=== PATIENT | female | born 1935 | race African-American/Black ===

== ENCOUNTER 2017-01-29 05:52 | Observation (INO) | payer OTHER ==
[~2017-01-29] VITALS: Ht 165.1 cm; Wt 85.3 kg
[~2017-01-29 05:52] MED LIST: ALPR0.254 PO; ALPR0.5T PO; ALPR0.5T10 PO; ATOR20TA58 PO; BISA-42 PO; BISA10SU55 RC; CEPH500C PO; CLON0.5T3 PO; DOCU-109 PO; ERYT250C8 PO; FENT1PAT21 TP; FURO40TA4 PO; LUBI8CAP4 PO; MIDO5TAB PO; NA P133E2 RC; OMEP40CA5 PO; OXYB5TAB7 PO; POTASSIUM CHLO10 MEQ PO; SOTA80TA48 PO; TRAM50TA PO; VENL75TA PO; ZOLP10TA4 PO; ZOLP5TAB PO
--- NOTE | 2017-01-29 06:21 | EKG ---
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
--- NOTE | 2017-01-29 06:22 | PHYS DOC ---
Past Medical History Past Medical History: A-Fib, Anxiety, Arthritis, CHF, GERD, High Cholesterol Additional Past Medical Histor: lower ext swelling, pacemaker Past Surgical History: Cholecystectomy, Hysterectomy, Pacemaker Additional Past Surgical Histo: L breast surgery (lumpectomy), L shoulder sx, hemmorhoidectomy,L shoulder Alcohol Use: None Drug Use: None Adult General Chief Complaint Chief Complaint: SWALLOWED FORIEGN BODY HPI HPI Patient is a 81 year old -[place] female who presents with chest tightness. She states last night she some popcorn and she feels like when the holes gets stuck in her throat. She said when she was eating it she felt her symptoms and isn't itchy medicine her throat that would last about an hour and she felt like she was choking when these occurred. She states she had 2-3 of these overnight that would resolve by themselves and each episode lasts approximately an hour. She states she tried to make herself throw up to see if this would relieve her symptoms and it did not help. She states this morning occurred with chest tightness. She states it was throughout her chest didn't radiate nothing made it better or worse. She states symptoms are now gone. She states the GI cocktail did help with her symptoms. Review of Systems Review of Systems Constitutional: Denies fever or chills [] Eyes: Denies change in visual acuity, redness, or eye pain [] HENT: Denies nasal congestion or sore throat [] Respiratory: Denies cough or shortness of breath [] Cardiovascular: No additional information not addressed in HPI [] GI: Denies abdominal pain, nausea, vomiting, bloody stools or diarrhea [] : Denies dysuria or hematuria [] Musculoskeletal: Denies back pain or joint pain [] Integument: Denies rash or skin lesions [] Neurologic: Denies headache, focal weakness or sensory changes [] Endocrine: Denies polyuria or polydipsia [] Current Medications Current Medications Current Medications Medications (Trade) Dose Ordered Sig/Babatunde Start Time Stop Time Status Last Admin Dose Admin Multi-Ingredient Mouthwash/Gargle (Gi Cocktail Single Dose) 15 ml 1X ONCE 01/29/17 06:30 01/29/17 06:31 DC 01/29/17 06:27 15 ML Ondansetron HCl (Zofran) 4 mg PRN Q8HRS PRN 01/29/17 08:00 01/30/17 07:59 Allergies Allergies Allergies Coded Allergies Type Severity Reaction Last Updated Verified Penicillins Allergy Intermediate Rash 04/07/16 Yes atorvastatin Allergy Intermediate 12/18/15 Yes tetracycline Allergy Intermediate rash 11/22/15 Yes codeine Adverse Reaction Intermediate nausea & vomiting 11/22/15 Yes hydrocodone Adverse Reaction Intermediate Nausea and Vomiting 11/22/15 Yes iron Adverse Reaction Intermediate Nausea and Vomiting, iron tablets the oral dose only 11/22/15 Yes morphine Adverse Reaction Intermediate vomiting 11/22/15 Yes Physical Exam Physical Exam Constitutional: Well developed, well nourished, no acute distress, non-toxic appearance. [] HENT: Normocephalic, atraumatic, bilateral external ears normal, oropharynx moist, no oral exudates, nose normal. [] Eyes: PERRLA, EOMI, conjunctiva normal, no discharge. [] Neck: Normal range of motion, no tenderness, supple, no stridor. [] Cardiovascular:Heart rate regular rhythm, no murmur [] Lungs & Thorax: Bilateral breath sounds clear to auscultation [] Abdomen: Bowel sounds normal, soft, no tenderness, no masses, no pulsatile masses. [] Skin: Warm, dry, no erythema, no rash. [] Back: No tenderness, no CVA tenderness. [] Extremities: No tenderness, no cyanosis, no clubbing, ROM intact, no edema. [] Neurologic: Alert and oriented X 3, normal motor function, normal sensory function, no focal deficits noted. [] Psychologic: Affect normal, judgement normal, mood normal. [] Current Patient Data Vital Signs Vital Signs Date Time Temp Pulse Resp B/P (MAP) Pulse Ox O2 Delivery O2 Flow Rate FiO2 01/29/17 06:08 97.7 79 16 137/61 (86) 99 Room Air 97.7 Lab Values Laboratory Tests Test 01/29/17 06:35 White Blood Count 5.2 x10^3/uL (4.0-11.0) Red Blood Count 4.17 x10^6/uL (3.50-5.40) Hemoglobin 11.0 g/dL (12.0-15.5) L Hematocrit 32.9 % (36.0-47.0) L Mean Corpuscular Volume 79 fL (79-100) Mean Corpuscular Hemoglobin 26 pg (25-35) Mean Corpuscular Hemoglobin Concent 34 g/dL (31-37) Red Cell Distribution Width 14.5 % (11.5-14.5) Platelet Count 173 x10^3/uL (140-400) Neutrophils (%) (Auto) 62 % (31-73) Lymphocytes (%) (Auto) 25 % (24-48) Monocytes (%) (Auto) 9 % (0-9) Eosinophils (%) (Auto) 4 % (0-3) H Basophils (%) (Auto) 1 % (0-3) Neutrophils # (Auto) 3.2 x10^3uL (1.8-7.7) Lymphocytes # (Auto) 1.3 x10^3/uL (1.0-4.8) Monocytes # (Auto) 0.5 x10^3/uL (0.0-1.1) Eosinophils # (Auto) 0.2 x10^3/uL (0.0-0.7) Basophils # (Auto) 0.0 x10^3/uL (0.0-0.2) Prothrombin Time 13.3 SEC (11.7-14.0) Prothrombin Time INR 1.1 (0.8-1.1) Sodium Level 134 mmol/L (136-145) L Potassium Level 4.2 mmol/L (3.5-5.1) Chloride Level 100 mmol/L (98-107) Carbon Dioxide Level 25 mmol/L (21-32) Anion Gap 9 (6-14) Blood Urea Nitrogen 15 mg/dL (7-20) Creatinine 0.8 mg/dL (0.6-1.0) Estimated GFR (Cockcroft-Gault) 83.1 Glucose Level 109 mg/dL (70-99) H Calcium Level 8.6 mg/dL (8.5-10.1) Total Bilirubin 0.3 mg/dL (0.2-1.0) Direct Bilirubin 0.1 mg/dL (0.0-0.2) Aspartate Amino Transferase (AST) 17 U/L (15-37) Alanine Aminotransferase (ALT) 14 U/L (14-59) Alkaline Phosphatase 83 U/L (46-116) Creatine Kinase 137 U/L (26-192) Creatine Kinase MB (Mass) 0.8 ng/mL (0.0-3.6) Creatine Kinase MB Relative Index 0.6 % (0-4) Troponin I Quantitative < 0.017 ng/mL (0.000-0.055) XV-Jdg-W-Type Natriuretic Peptide 109 pg/mL (0-449) Total Protein 7.2 g/dL (6.4-8.2) Albumin 3.6 g/dL (3.4-5.0) Lipase 61 U/L (73-393) L Laboratory Tests 01/29/17 06:35 Laboratory Tests 01/29/17 06:35 EKG EKG EKG shows sinus rhythm with rate of [address] elevations, first- degree A-V block noted with AZ interval 250 ms, no ST elevations appreciated, normal axis, QTC 457 ms, as interpreted by me. Her EKG is unchanged from April 03, 2016. Radiology/Procedures Radiology/Procedures [facility] [address] [place] [address] IMAGING REPORT Signed PATIENT: DAVIS CARVALHO ACCOUNT: [id number] : 1935 LOCATION: ER AGE: 81 SEX: F EXAM STATUS: REG ER ORD. PHYSICIAN: SADE WEAVER MD REASON: throat pain PROCEDURE: CHEST PA & LATERAL Indication: Throat pain, with popcorn kernel stuck in the throat. Time of exam 0621 hours. Correlation is made with prior exam from 04/03/2016. The heart size is stable. Cardiac pacemaker remains in place. The lungs are clear. No infiltrates are detected. No effusion or pneumothorax is identified. No radiopaque ingested foreign body is identified. Impression: No acute feature identified. DICTATED and SIGNED BY: AYUSH HODGE MD DATE: 01/29/17 0710 CC: SADE WEAVER MD; CAROL SLOO MD ~ Impressions: Chest pain Hypertension Dyslipidemia Hypothyroidism Former tobacco abuse Course & Med Decision Making Course & Med Decision Making Pertinent Labs and Imaging studies reviewed. (See chart for details) Patient presents with intermittent chest pain that is resolved now. Her EKG, first troponin is normal. Spoke with Dr. Mcallister regarding consultation the patient's being admitted to Dr. Solo. Patient's in stable and agreeable condition at this time. 324 aspirin has been ordered for the patient. Dragon Disclaimer Dragon Disclaimer This electronic medical record was generated, in whole or in part, using a voice recognition dictation system. Departure Departure Impression: Primary Impression: Chest pain Disposition: ADMITTED INPATIENT Admitting Physician: Carol Solo Condition: STABLE Referrals: CAROL SOLO MD (PCP) SADE WEAVER MD Jan 29, 2017 06:22
[2017-01-29] MEDS ORDERED: LIDO:MAALOX:DONNATAL 1:1:1 15 ML SINGLE DOSE SWSW ONE (06:30)
[2017-01-29 06:47] LABS: BASO % 1 % (0-3); EOS % 4 % (0-3); HEMATOCRIT 32.9 % (36.0-47.0); LYMPH # 1.3 x10^3/uL (1.0-4.8); LYMPH % 25 % (24-48); MEAN CORPUSCULAR HEMOGLOBIN 26 pg (25-35); MEAN CORPUSCULAR HGB CONC 34 g/dL (31-37); MEAN CORPUSCULAR VOLUME 79 fL (79-100); MONO % 9 % (0-9); NEUT % 62 % (31-73); PLATELET COUNT 173 x10^3/uL (140-400); RED BLOOD COUNT 4.17 x10^6/uL (3.50-5.40); RED CELL DISTRIBUTION WIDTH 14.5 % (11.5-14.5); WHITE BLOOD COUNT 5.2 x10^3/uL (4.0-11.0)
[2017-01-29 06:56] LABS: CALCIUM 8.6 mg/dL (8.5-10.1); CREATININE 0.8 mg/dL (0.6-1.0); GFR 83.1; POTASSIUM 4.2 mmol/L (3.5-5.1)
[2017-01-29 07:01] LABS: ALBUMIN 3.6 g/dL (3.4-5.0); DIRECT BILIRUBIN 0.1 mg/dL (0.0-0.2); TOTAL BILIRUBIN 0.3 mg/dL (0.2-1.0); TOTAL PROTEIN 7.2 g/dL (6.4-8.2)
--- NOTE | 2017-01-29 07:14 | RAD ---
Indication: Throat pain, with popcorn kernel stuck in the throat. Time of exam 0621 hours. Correlation is made with prior exam from 04/03/2016. The heart size is stable. Cardiac pacemaker remains in place. The lungs are clear. No infiltrates are detected. No effusion or pneumothorax is identified. No radiopaque ingested foreign body is identified. Impression: No acute feature identified.
[2017-01-29 07:24] LABS: CKMB MASS 0.8 ng/mL (0.0-3.6)
[2017-01-29 07:33] LABS: INR 1.1 (0.8-1.1); PROTHROMBIN TIME PATIENT 13.3 SEC (11.7-14.0)
[2017-01-29] MEDS ORDERED: ONDANSETRON PF 4 MG/2 ML VIAL. IV PRN (08:00)
[2017-01-29] MEDS ORDERED: ASPIRIN 325 MG TABLET PO ONE (08:15)
[2017-01-29 09:37] VITALS: BP 149/88
[2017-01-29 09:39] VITALS: BP 149/88
--- NOTE | 2017-01-29 10:14 | PDOC ---
Provider Note Provider Note Pt seen .H&P to be dictated. #[id number] SHOLA SOLO MD Jan 29, 2017 10:14
[2017-01-29] MEDS ORDERED: ZOLPIDEM 5 MG TABLET. PO PRN (10:15)
[2017-01-29] MEDS ORDERED: ALPRAZolam 0.25 MG TABLET PO PRN (10:15)
[2017-01-29] MEDS ORDERED: BISACODYL 10 MG SUPP.RECT. RC PRN (10:15)
[2017-01-29] MEDS ORDERED: PANTOPRAZOLE 40 MG TABLET.DR. PO SCH (10:30)
[2017-01-29 10:40] VITALS: BP 153/81
[2017-01-29] MEDS ORDERED: ACETAMINOPHEN 325 MG TABLET. PO PRN (11:15)
[2017-01-29] MEDS: DOCUSATE SODIUM 100 MG CAPSULE. PO SCH (11:54)
[2017-01-29] MEDS: SOTALOL 80 MG TABLET. PO SCH ×2 (11:56→20:34)
--- NOTE | 2017-01-29 12:31 | PDOC2 ---
GI CONSULT Reason For Consult: Possible esophageal tear HPI: HPI: 81 y/o female who says she came to the ER w/ concerns a piece of popcorn kernel skin was stuck in her throat. She was wheezing. No n/v. This has resolved. She denies dysphagia and odynophagia and is tolerating PO. No abd pain. She is now having chest pain 8/10 which apparently began after arriving at the hospital. Cardiology is following w/ echocardiogram planned. H/o colon polyps, unclear when last colonoscopy performed. Since bladder repair w/ mesh, issues w/ constipation for which she uses enemas, Miralax, Dulcolax, and stool softeners at home PRN. H/o Mcgraw's esophagus, w/ serial EGDs, last on 11/22/[address] 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 On omeprazole QD which controls GERD except for occasional breakthrough symptoms. Does take Aleve for hip and knee pain. Denies hematochezia/melena. PMH: PMH: pacemaker, SSS, cardiomyopathy, HLD, anxiety/depression, hysterectomy, cholecystectomy, left shoulder surgery, bladder surgery w/ mesh, benign breast lumpectomy, lymph node removal (benign) FH: Family History: No pertinent hx Social History: Smoke: No ALCOHOL: none Drugs: None ROS: GEN: Denies fevers, chills, sweats HEENT: Denies blurred vision, sore throat CV: +chest pain RESP: +wheezing GI: Per HPI : Denies hematuria, dysuria ENDO: Denies weight changes NEURO: Denies confusion, dizziness MSK: Denies weakness, joint pain/swelling SKIN: Denies jaundice, pruritus Vitals: Vitals: Vital Signs Date Time Temp Pulse Resp B/P (MAP) Pulse Ox O2 Delivery O2 Flow Rate FiO2 01/29/17 11:56 75 153/81 01/29/17 10:46 Room Air 01/29/17 10:40 97.8 15 98 97.8 Labs: Labs: Laboratory Tests Test 01/29/17 06:35 White Blood Count 5.2 x10^3/uL (4.0-11.0) Red Blood Count 4.17 x10^6/uL (3.50-5.40) Hemoglobin 11.0 g/dL (12.0-15.5) Hematocrit 32.9 % (36.0-47.0) Mean Corpuscular Volume 79 fL (79-100) Mean Corpuscular Hemoglobin 26 pg (25-35) Mean Corpuscular Hemoglobin Concent 34 g/dL (31-37) Red Cell Distribution Width 14.5 % (11.5-14.5) Platelet Count 173 x10^3/uL (140-400) Neutrophils (%) (Auto) 62 % (31-73) Lymphocytes (%) (Auto) 25 % (24-48) Monocytes (%) (Auto) 9 % (0-9) Eosinophils (%) (Auto) 4 % (0-3) Basophils (%) (Auto) 1 % (0-3) Neutrophils # (Auto) 3.2 x10^3uL (1.8-7.7) Lymphocytes # (Auto) 1.3 x10^3/uL (1.0-4.8) Monocytes # (Auto) 0.5 x10^3/uL (0.0-1.1) Eosinophils # (Auto) 0.2 x10^3/uL (0.0-0.7) Basophils # (Auto) 0.0 x10^3/uL (0.0-0.2) Prothrombin Time 13.3 SEC (11.7-14.0) Prothromb Time International Ratio 1.1 (0.8-1.1) Sodium Level 134 mmol/L (136-145) Potassium Level 4.2 mmol/L (3.5-5.1) Chloride Level 100 mmol/L (98-107) Carbon Dioxide Level 25 mmol/L (21-32) Anion Gap 9 (6-14) Blood Urea Nitrogen 15 mg/dL (7-20) Creatinine 0.8 mg/dL (0.6-1.0) Estimated GFR (Cockcroft-Gault) 83.1 Glucose Level 109 mg/dL (70-99) Calcium Level 8.6 mg/dL (8.5-10.1) Total Bilirubin 0.3 mg/dL (0.2-1.0) Direct Bilirubin 0.1 mg/dL (0.0-0.2) Aspartate Amino Transf (AST/SGOT) 17 U/L (15-37) Alanine Aminotransferase (ALT/SGPT) 14 U/L (14-59) Alkaline Phosphatase 83 U/L (46-116) Creatine Kinase 137 U/L (26-192) Creatine Kinase MB (Mass) 0.8 ng/mL (0.0-3.6) Creatine Kinase MB Relative Index 0.6 % (0-4) Troponin I Quantitative < 0.017 ng/mL (0.000-0.055) BH-Wjo-J-Type Natriuretic Peptide 109 pg/mL (0-449) Total Protein 7.2 g/dL (6.4-8.2) Albumin 3.6 g/dL (3.4-5.0) Lipase 61 U/L (73-393) Allergies: Coded Allergies: Penicillins (Verified Allergy, Intermediate, Rash, 04/07/16) tolerates cephalasporins atorvastatin (Verified Allergy, Intermediate, 12/18/15) tetracycline (Verified Allergy, Intermediate, rash, 11/22/15) codeine (Verified Adverse Reaction, Intermediate, nausea & vomiting, ) hydrocodone (Verified Adverse Reaction, Intermediate, Nausea and Vomiting , 11/22/15) iron (Verified Adverse Reaction, Intermediate, Nausea and Vomiting, iron tablets the oral dose only, 11/22/15) morphine (Verified Adverse Reaction, Intermediate, vomiting, 11/22/15) Medications: Current Medications Medications (Trade) Dose Ordered Sig/Babatunde Route PRN Reason Start Time Stop Time Status Last Admin Dose Admin Multi-Ingredient Mouthwash/Gargle (Gi Cocktail Single Dose) 15 ml 1X ONCE SWSW 01/29/17 06:30 01/29/17 06:31 DC 01/29/17 06:27 Aspirin (Niranjan Aspirin) 325 mg 1X ONCE PO 01/29/17 08:15 01/29/17 08:16 DC 01/29/17 08:15 Docusate Sodium (Colace) 100 mg DAILY PO 01/29/17 10:30 01/29/17 11:54 Sotalol HCl (Betapace) 60 mg BID PO 01/29/17 10:30 01/29/17 11:56 Pantoprazole Sodium (Protonix) 40 mg DAILYAC PO 01/29/17 10:30 01/29/17 11:54 Acetaminophen (Tylenol) 650 mg PRN Q6HRS PRN PO PAIN 01/29/17 11:15 01/29/17 11:54 Imaging: Imaging: CXR Impression: No acute feature identified. PE: GEN: NAD HEENT: Atraumatic, PERRL LUNGS: CTAB anteriorly HEART: RRR ABD: NABS, S/ND, perhaps some mild epigastric tenderness EXTREMITY: No edema SKIN: No rashes, no jaundice NEURO/PSYCH: A & O 3 A/P: A/P: Globus, wheezing - resolved -onset last night after eating popcorn Chest pain H/o Mcgraw's esophagus -last EGD 11/[address] 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 Will review w/ Dr. Lucero. For now, proceed w/ cardiology workup. Continue PPI and constipation treatment. KRYSTLE ORTIZ Jan 29, 2017 12:31
--- NOTE | 2017-01-29 14:07 | RAD ---
Indication: Bilateral rib pain. Time of exam 1341 hours. No displaced rib fractures detected. No parenchymal contusion, effusion or pneumothorax is identified. Cardiac pacemaker is in place. There are postop changes to the left shoulder. Impression: No acute bony abnormality is detected.
[2017-01-29] MEDS: POLYETHYLENE GLYCOL 3350 17 GM PACKET. PO SCH (14:17)
[2017-01-29 15:20] VITALS: BP 140/62
--- NOTE | 2017-01-29 18:17 | PDOC2 ---
CONSULT Date of Consult Date of Consult DATE: 01/29/17 TIME: 17:59 Reason for Consult Reason for Consult: Chest pain Referring Physician Referring Physician: Dr Mclaughlin Identification/Chief Complaint Chief Complaint Chest pain and discomfort after eating popcorn Problems: History of Present Illness Reason for Visit: This patient is a very pleasant 81-year-old lady that has a known history of heart disease with coronary artery disease and a pacemaker. She was at home and was eating some popcorn when she developed some difficulty swallowing she started coughing and had this feeling of something being stuck in her throat and after a lot of coughing she came to the emergency room where she was seen and examined following the initial findings of something stuck in her throat she developed some tightness in the chest which is different to her previous angina. The patient states that she felt like she was wheezing but that has subsided spontaneously. At the time that I examined her she feels a lot better and is not having any chest pains. No dyspnea now. No palpitations, no loss of consciousness. Past Medical History Cardiovascular: AFIB, CAD, HTN, Syncope, Other Pulmonary: Other GI: Constipation, GERD, Other Heme/Onc: Iron deficiency Anemia Hepatobiliary: Cholelithiasis Psych: Depression Musculoskeletal: low back pain, Osteoarthritis Past Surgical History Past Surgical History: Cholecystectomy, Cataract Removal, Hysterectomy, Other Social History No ALCOHOL: none Drugs: None Lives: with Family Current Medications Current Medications Current Medications Multi-Ingredient Mouthwash/Gargle (Gi Cocktail Single Dose) 15 ml 1X ONCE SWSW Last administered on 01/29/17 06:27; Start 01/29/17 at 06:30; Stop 01/29/17 at 06:31; Status DC Ondansetron HCl (Zofran) 4 mg PRN Q8HRS PRN IV NAUSEA/VOMITING; Start 01/29/17 at 08:00; Stop 01/30/17 at 07:59 Aspirin (Niranjan Aspirin) 325 mg 1X ONCE PO Last administered on 01/29/17 08:15 ; Start 01/29/17 at 08:15; Stop 01/29/17 at 08:16; Status DC Alprazolam (Xanax) 0.25 mg PRN BID PRN PO ANXIETY / AGITATION; Start 01/29/17 at 10:15 Bisacodyl (Dulcolax Supp) 10 mg PRN DAILY PRN RC CONSTIPATION; Start 01/29/17 at 10:15 Docusate Sodium (Colace) 100 mg DAILY PO Last administered on 01/29/17 11:54; Start 01/29/17 at 10:30 Oxybutynin Chloride (Ditropan) 5 mg HS PO ; Start 01/29/17 at 21:00 Sotalol HCl (Betapace) 60 mg BID PO Last administered on 01/29/17 11:56; Start 01/29/17 at 10:30 Zolpidem Tartrate (Ambien) 5 mg PRN QHS PRN PO INSOMNIA; Start 01/29/17 at 10: 15 Pantoprazole Sodium (Protonix) 40 mg DAILYAC PO Last administered on 01/29/17 11:54; Start 01/29/17 at 10:30 Acetaminophen (Tylenol) 650 mg PRN Q6HRS PRN PO PAIN Last administered on 11:54; Start 01/29/17 at 11:15 Polyethylene Glycol (miraLAX PACKET) 17 gm DAILY PO Last administered on 14:17; Start 01/29/17 at 13:00 Active Scripts Active Alprazolam 0.25 Mg Tablet 0.25 Mg PO PRN BID PRN Ambien (Zolpidem Tartrate) 5 Mg Tablet 5 Mg PO PRN QHS PRN Reported Dulcolax (Bisacodyl) 10 Mg Supp.rect 10 Mg RC PRN DAILY PRN Colace (Docusate Sodium) 100 Mg Capsule 100 Mg PO DAILY Oxybutynin Chloride 5 Mg Tablet 5 Mg PO HS Omeprazole 40 Mg Capsule.dr 40 Mg PO DAILY Sotalol (Sotalol Hcl) 80 Mg Tablet 60 Mg PO BID Allergies Allergies: Coded Allergies: Penicillins (Verified Allergy, Intermediate, Rash, 04/07/16) tolerates cephalasporins atorvastatin (Verified Allergy, Intermediate, 12/18/15) tetracycline (Verified Allergy, Intermediate, rash, 11/22/15) codeine (Verified Adverse Reaction, Intermediate, nausea & vomiting, ) hydrocodone (Verified Adverse Reaction, Intermediate, Nausea and Vomiting , 11/22/15) iron (Verified Adverse Reaction, Intermediate, Nausea and Vomiting, iron tablets the oral dose only, 11/22/15) morphine (Verified Adverse Reaction, Intermediate, vomiting, 11/22/15) Physical Exam Physical Exam Patient was not in acute distress at the time that I examined her. H EENT pupils are reactive. Oral mucosa well-hydrated. Neck is supple no JVD. Lungs are clear. Heart regular rate and rhythm S1-S2. No S3-S4 Abdomen is soft bowel sounds present. Extremities no edema. Vitals VITALS Vital Signs Date Time Temp Pulse Resp B/P (MAP) Pulse Ox O2 Delivery O2 Flow Rate FiO2 01/29/17 15:20 97.8 75 15 140/62 (88) 99 97.8 01/29/17 10:46 Room Air Labs Labs Laboratory Tests Test 01/29/17 06:35 01/29/17 13:55 White Blood Count 5.2 x10^3/uL (4.0-11.0) Red Blood Count 4.17 x10^6/uL (3.50-5.40) Hemoglobin 11.0 g/dL (12.0-15.5) Hematocrit 32.9 % (36.0-47.0) Mean Corpuscular Volume 79 fL (79-100) Mean Corpuscular Hemoglobin 26 pg (25-35) Mean Corpuscular Hemoglobin Concent 34 g/dL (31-37) Red Cell Distribution Width 14.5 % (11.5-14.5) Platelet Count 173 x10^3/uL (140-400) Neutrophils (%) (Auto) 62 % (31-73) Lymphocytes (%) (Auto) 25 % (24-48) Monocytes (%) (Auto) 9 % (0-9) Eosinophils (%) (Auto) 4 % (0-3) Basophils (%) (Auto) 1 % (0-3) Neutrophils # (Auto) 3.2 x10^3uL (1.8-7.7) Lymphocytes # (Auto) 1.3 x10^3/uL (1.0-4.8) Monocytes # (Auto) 0.5 x10^3/uL (0.0-1.1) Eosinophils # (Auto) 0.2 x10^3/uL (0.0-0.7) Basophils # (Auto) 0.0 x10^3/uL (0.0-0.2) Prothrombin Time 13.3 SEC (11.7-14.0) Prothromb Time International Ratio 1.1 (0.8-1.1) Sodium Level 134 mmol/L (136-145) Potassium Level 4.2 mmol/L (3.5-5.1) Chloride Level 100 mmol/L (98-107) Carbon Dioxide Level 25 mmol/L (21-32) Anion Gap 9 (6-14) Blood Urea Nitrogen 15 mg/dL (7-20) Creatinine 0.8 mg/dL (0.6-1.0) Estimated GFR (Cockcroft-Gault) 83.1 Glucose Level 109 mg/dL (70-99) Calcium Level 8.6 mg/dL (8.5-10.1) Total Bilirubin 0.3 mg/dL (0.2-1.0) Direct Bilirubin 0.1 mg/dL (0.0-0.2) Aspartate Amino Transf (AST/SGOT) 17 U/L (15-37) Alanine Aminotransferase (ALT/SGPT) 14 U/L (14-59) Alkaline Phosphatase 83 U/L (46-116) Creatine Kinase 137 U/L (26-192) Creatine Kinase MB (Mass) 0.8 ng/mL (0.0-3.6) Creatine Kinase MB Relative Index 0.6 % (0-4) Troponin I Quantitative < 0.017 ng/mL (0.000-0.055) < 0.017 ng/mL (0.000-0.055) GN-Jbv-Z-Type Natriuretic Peptide 109 pg/mL (0-449) Total Protein 7.2 g/dL (6.4-8.2) Albumin 3.6 g/dL (3.4-5.0) Lipase 61 U/L (73-393) Laboratory Tests Test 01/29/17 06:35 01/29/17 13:55 White Blood Count 5.2 x10^3/uL (4.0-11.0) Red Blood Count 4.17 x10^6/uL (3.50-5.40) Hemoglobin 11.0 g/dL (12.0-15.5) Hematocrit 32.9 % (36.0-47.0) Mean Corpuscular Volume 79 fL (79-100) Mean Corpuscular Hemoglobin 26 pg (25-35) Mean Corpuscular Hemoglobin Concent 34 g/dL (31-37) Red Cell Distribution Width 14.5 % (11.5-14.5) Platelet Count 173 x10^3/uL (140-400) Neutrophils (%) (Auto) 62 % (31-73) Lymphocytes (%) (Auto) 25 % (24-48) Monocytes (%) (Auto) 9 % (0-9) Eosinophils (%) (Auto) 4 % (0-3) Basophils (%) (Auto) 1 % (0-3) Neutrophils # (Auto) 3.2 x10^3uL (1.8-7.7) Lymphocytes # (Auto) 1.3 x10^3/uL (1.0-4.8) Monocytes # (Auto) 0.5 x10^3/uL (0.0-1.1) Eosinophils # (Auto) 0.2 x10^3/uL (0.0-0.7) Basophils # (Auto) 0.0 x10^3/uL (0.0-0.2) Prothrombin Time 13.3 SEC (11.7-14.0) Prothromb Time International Ratio 1.1 (0.8-1.1) Sodium Level 134 mmol/L (136-145) Potassium Level 4.2 mmol/L (3.5-5.1) Chloride Level 100 mmol/L (98-107) Carbon Dioxide Level 25 mmol/L (21-32) Anion Gap 9 (6-14) Blood Urea Nitrogen 15 mg/dL (7-20) Creatinine 0.8 mg/dL (0.6-1.0) Estimated GFR (Cockcroft-Gault) 83.1 Glucose Level 109 mg/dL (70-99) Calcium Level 8.6 mg/dL (8.5-10.1) Total Bilirubin 0.3 mg/dL (0.2-1.0) Direct Bilirubin 0.1 mg/dL (0.0-0.2) Aspartate Amino Transf (AST/SGOT) 17 U/L (15-37) Alanine Aminotransferase (ALT/SGPT) 14 U/L (14-59) Alkaline Phosphatase 83 U/L (46-116) Creatine Kinase 137 U/L (26-192) Creatine Kinase MB (Mass) 0.8 ng/mL (0.0-3.6) Creatine Kinase MB Relative Index 0.6 % (0-4) Troponin I Quantitative < 0.017 ng/mL (0.000-0.055) < 0.017 ng/mL (0.000-0.055) LM-Kwc-R-Type Natriuretic Peptide 109 pg/mL (0-449) Total Protein 7.2 g/dL (6.4-8.2) Albumin 3.6 g/dL (3.4-5.0) Lipase 61 U/L (73-393) Assessment/Plan Assessment/Plan This patient comes in with chest discomforts following having difficulty eating some popcorn. She felt like there was something stuck in the back of the throat. She had been trying to throw up and had even attempted to put her finger down her throat to see if she could get at what was causing the irritation. From a cardiac standpoint she appears to be compensated and I do not think that the chest discomfort is angina. We will get an echocardiogram to evaluate for changes in her left ventricular function. Her pacemaker is functioning normally. Thank you very much for asking me to participate in the care of this patient JERED CAMPOS MD Jan 29, 2017 18:17
[2017-01-29 19:10] VITALS: BP 130/72
--- NOTE | 2017-01-29 20:37 | CARD ---
APPROVED REPORT EXAM: Two-dimensional and M-mode echocardiogram with Doppler and color Doppler. Other Information Quality : Good INDICATION Chest Pain 2D DIMENSIONS RVDd2.4 (2.9-3.5cm)Left Atrium(2D)2.8 (1.6-4.0cm) IVSd1.5 (0.7-1.1cm)Aortic Root(2D)3.2 (2.0-3.7cm) LVDd3.5 (3.9-5.9cm)LVOT Diameter2.1 (1.8-2.4cm) PWd1.4 (0.7-1.1cm)LVDs2.2 (2.5-4.0cm) FS (%) 36.2 %SV34.2 ml LVEF(%)67.0 (>50%) Aortic Valve AoV Peak Arnaldo.92.3cm/sAoV VTI21.0cm AO Peak GR.3.4mmHgLVOT Peak Arnaldo.79.4cm/s LVOT VTI 18.51cmAO Mean GR.2mmHg YOHANNES (VMAX)3.21ko0BPY (VTI)3.09cm2 Mitral Valve MV E Iyeokcym98.9cm/sMV DECEL FWBK224cf MV A Uuzzekue738.8cm/sMV ISL45de E/A Ratio0.6MVA (PHT)4.15cm2 TDI E/Lateral E'13.2E/Medial E'14.0 Tricuspid Valve TR P. Qexwpobh069bo/sRAP LWGBQSLL2axMl TR Peak Gr.41dtYjLSWI21gmAi Pulmonary Vein S1 Nsamapqa05.4cm/sD2 Fmklsvfk38.6cm/s LEFT VENTRICLE The left ventricle is normal size. There is mild concentric left ventricular hypertrophy. The left ve ntricular systolic function is normal and . The Ejection Fraction is 55-60%. There is normal LV segme ntal wall motion. Transmitral Doppler flow pattern is Grade I-abnormal relaxation pattern. RIGHT VENTRICLE The right ventricle is normal size. The right ventricular systolic function is normal. There is a pac emaker lead in the right ventricle. ATRIA The left atrium size is normal. The right atrium size is normal. A pacemaker is seen in the right atr ium consistent with history. The interatrial septum is intact with no evidence for an atrial septal d efect or patent foramen ovale as noted on 2-D or Doppler imaging. AORTIC VALVE The aortic valve is normal in structure and function. Doppler and Color Flow revealed no significant aortic regurgitation. There is no significant aortic valvular stenosis. MITRAL VALVE The mitral valve is normal in structure and function. There is no evidence of mitral valve prolapse. There is no mitral valve stenosis. Doppler and Color-flow revealed trace mitral regurgitation. TRICUSPID VALVE The tricuspid valve is normal in structure and function. Doppler and Color Flow revealed mild tricusp id regurgitation. There is mild pulmonary hypertension. The PA pressure was estimated at 32 mmHg. The re is no tricuspid valve stenosis. PULMONIC VALVE The pulmonary valve is normal in structure and function. Doppler and Color Flow revealed mild pulmoni c valvular regurgitation. There is no pulmonic valvular stenosis. GREAT VESSELS The aortic root is normal in size. The ascending aorta is normal in size. The IVC is normal in size a nd collapses >50% with inspiration. PERICARDIAL EFFUSION There is no evidence of significant pericardial effusion. Critical Notification Critical Value: No <Conclusion> The left ventricle is normal size. There is mild concentric left ventricular hypertrophy. The left ventricular systolic function is normal and . The Ejection Fraction is 55-60%. Transmitral Doppler flow pattern is Grade I-abnormal relaxation pattern. There is no evidence of significant pericardial effusion. There is no evidence of mitral valve prolapse. There is no mitral valve stenosis and a trace reguritation The left atrium is of a normal size. The aortic valve is tricuspid with no aortic stenosis or regurgitation The right ventricle is of a normal size with normal systolic function Doppler and Color Flow revealed mild tricuspid regurgitation. There is mild pulmonary hypertension. The PA pressure was estimated at 32 mmHg. Doppler and Color Flow revealed mild pulmonic valvular regurgitation.
[2017-01-29] MEDS ORDERED: OXYBUTYNIN CHLORIDE 5 MG TABLET PO SCH (21:00)
[2017-01-29] MEDS: NON FORMULARY ITEM PO SCH (21:38)
[2017-01-29] MEDS: MORPHINE SULFATE 2 MG/ML DISP.SYRIN. IV PRN (22:20)
[2017-01-29 23:15] VITALS: BP 124/68
--- NOTE | 2017-01-30 01:57 | HP ---
ADMIT DATE: 01/29/2017 THE PATIENT'S LOCATION: [facility] REASON FOR ADMISSION TO THE HOSPITAL: Chest pain. HISTORY OF PRESENT ILLNESS: The patient an 81-year-old female patient who was eating popcorn kernels and it got stuck in her throat. She was cough try to get that out and this still felt something sticking there. At that time, she had noticed some chest pain that progressively worse, she came to the Emergency Room and the patient has a history of pacemaker for sick sinus syndrome, hypertension and cardiomyopathy. The patient was admitted for observation. PAST MEDICAL HISTORY: History of colon polyps, has Mcgraw's esophagitis, and bladder surgery, anxiety, depression, hypertension, and heart failure. PAST SURGICAL HISTORY: Pacemaker for sick sinus syndrome, hysterectomy, gallbladder surgery, left shoulder surgery, bladder lift surgery with mesh, benign breast and lump removal, lymph nodes removal, and had EGD colonoscopies. FAMILY HISTORY: Hypertension and diabetes. SOCIAL HISTORY: Smoked, trying to cut down; denies alcohol or street drugs. ALLERGIES: PENICILLIN, ATORVASTATIN, CODEINE, HYDROCODONE, IODINE, MORPHINE, AND TETRACYCLINE. MEDICATIONS AT HOME: Taking Xanax 0.25 daily, Dulcolax 10 mg daily, Colace 100 mg daily, omeprazole 40 mg daily, oxybutynin 5 mg at bedtime, sotalol 80 mg twice a day, and Ambien 10 mg daily. REVIEW OF SYSTEMS: CARDIAC: Some chest pain on and off, but is much better now. GI: [place] something stuck in the throat. No vomiting. No diarrhea. Rest of 14-system was reviewed and negative. PHYSICAL EXAMINATION: GENERAL: The patient is not in distress, pleasant. VITAL SIGNS: At the time of admission shows temperature 97, pulse 79, respirations 16, blood pressure 137/61, and 99% on room air. HEENT: Head is atraumatic. Pupils equal. Oral cavity: Dentures. NECK: Supple. Thyroid not enlarged. JVD not elevated. CHEST: Symmetrical. CARDIOVASCULAR: S1 and S2. No murmurs. Pacemaker in left side of the chest. LUNGS: Clear to auscultation. ABDOMEN: Soft. No mass palpable. EXTERNAL GENITALIA: No Beth. RECTAL: Deferred. EXTREMITIES: No calf tenderness. Pulses 1+. NEUROLOGIC: Sensation is intact. Power 5/5 in all extremities. LABORATORY DATA: Shows a white count of 5, hemoglobin 11, platelets 173. Electrolytes show sodium 143, potassium 4.2, chloride 100, BUN 15, creatinine 0.8, glucose 109. LFTs were normal. Troponin was negative. INR 1.0. IMAGING STUDIES: Chest x-ray; no acute abnormality. FINAL IMPRESSION: 1. Chest pain, possible skeletomuscular. 2. Gastroesophageal reflux disease with possible foreign body impaction. 3. Anxiety. 4. History of cardiomyopathy, she has a pacemaker. PLAN: At this time, admitted overnight for observation, seen by Cardiology, serial cardiac enzymes, echo and GI was consulted to see how the patient's condition improves. SHOLA SOLO MD DR: ROSEMARY/skyler JOB#: [id number] / [id number] ERIN
[2017-01-30 03:15] VITALS: BP 107/56
[2017-01-30] MEDS: MORPHINE SULFATE 2 MG/ML DISP.SYRIN. IV PRN (03:19)
[2017-01-30 07:36] VITALS: BP 127/68
[2017-01-30] MEDS: NON FORMULARY ITEM PO SCH (08:05)
[2017-01-30] MEDS: SOTALOL 80 MG TABLET. PO SCH (08:06)
[2017-01-30] MEDS: DOCUSATE SODIUM 100 MG CAPSULE. PO SCH (08:06)
[2017-01-30] MEDS: POLYETHYLENE GLYCOL 3350 17 GM PACKET. PO SCH (08:06)
[2017-01-30 09:14] LABS: BASO % 0 % (0-3); EOS % 2 % (0-3); HEMATOCRIT 35.5 % (36.0-47.0); HEMOGLOBIN 12.1 g/dL (12.0-15.5); LYMPH % 22 % (24-48); MEAN CORPUSCULAR HEMOGLOBIN 27 pg (25-35); MEAN CORPUSCULAR HGB CONC 34 g/dL (31-37); MEAN CORPUSCULAR VOLUME 79 fL (79-100); MONO % 8 % (0-9); NEUT % 67 % (31-73); PLATELET COUNT 194 x10^3/uL (140-400); RED BLOOD COUNT 4.49 x10^6/uL (3.50-5.40); RED CELL DISTRIBUTION WIDTH 15.1 % (11.5-14.5); WHITE BLOOD COUNT 4.6 x10^3/uL (4.0-11.0)
[2017-01-30 09:24] LABS: CALCIUM 9.3 mg/dL (8.5-10.1); GFR 64.2; POTASSIUM 4.8 mmol/L (3.5-5.1)
[2017-01-30] MEDS ORDERED: ONDANSETRON PF 4 MG/2 ML VIAL. IV PRN (09:45)
--- NOTE | 2017-01-30 09:53 | PDOC ---
PROGRESS NOTES Subjective Subjective nauseated today Objective Objective Vital Signs Date Time Temp Pulse Resp B/P (MAP) Pulse Ox O2 Delivery O2 Flow Rate FiO2 01/30/17 08:11 Room Air 01/30/17 08:06 75 127/68 01/30/17 07:36 97.7 18 99 97.7 Intake and Output 01/30/17 07:00 Intake Total 1730 ml Balance 1730 ml Intake Oral 1730 ml # Voids 4 Physical Exam Abdomen: Normal bowel sounds, Soft Heart: Regular rate, Normal S1, Normal S2 Extremities: No clubbing General: Alert Lungs: Clear to auscultation MUSCULOSKELETAL: No deformity Neck: Supple Neuro: Normal speech Psych/Mental Status: Mental status NL Skin: No breakdown Assessment Assessment FINAL IMPRESSION: 1. Chest pain, possible skeletomuscular. 2. Gastroesophageal reflux disease with possible foreign body impaction.popcorn 3. Anxiety. 4. History of cardiomyopathy, she has a pacemaker. PLAN: echo good lvf. labs good troponin neg. home today. At this time, admitted overnight for observation, seen by Cardiology, serial cardiac enzymes, echo and GI was consulted to see how the patient's condition improves. Problems: Comment Review of Relevant I have reviewed the following items wade (where applicable) has been applied. Labs Laboratory Tests Test 01/29/17 13:55 01/29/17 19:45 01/30/17 08:40 Troponin I Quantitative < 0.017 ng/mL (0.000-0.055) < 0.017 ng/mL (0.000-0.055) White Blood Count 4.6 x10^3/uL (4.0-11.0) Red Blood Count 4.49 x10^6/uL (3.50-5.40) Hemoglobin 12.1 g/dL (12.0-15.5) Hematocrit 35.5 % (36.0-47.0) Mean Corpuscular Volume 79 fL (79-100) Mean Corpuscular Hemoglobin 27 pg (25-35) Mean Corpuscular Hemoglobin Concent 34 g/dL (31-37) Red Cell Distribution Width 15.1 % (11.5-14.5) Platelet Count 194 x10^3/uL (140-400) Neutrophils (%) (Auto) 67 % (31-73) Lymphocytes (%) (Auto) 22 % (24-48) Monocytes (%) (Auto) 8 % (0-9) Eosinophils (%) (Auto) 2 % (0-3) Basophils (%) (Auto) 0 % (0-3) Neutrophils # (Auto) 3.1 x10^3uL (1.8-7.7) Lymphocytes # (Auto) 1.0 x10^3/uL (1.0-4.8) Monocytes # (Auto) 0.4 x10^3/uL (0.0-1.1) Eosinophils # (Auto) 0.1 x10^3/uL (0.0-0.7) Basophils # (Auto) 0.0 x10^3/uL (0.0-0.2) Sodium Level 134 mmol/L (136-145) Potassium Level 4.8 mmol/L (3.5-5.1) Chloride Level 99 mmol/L (98-107) Carbon Dioxide Level 27 mmol/L (21-32) Anion Gap 8 (6-14) Blood Urea Nitrogen 19 mg/dL (7-20) Creatinine 1.0 mg/dL (0.6-1.0) Estimated GFR (Cockcroft-Gault) 64.2 Glucose Level 97 mg/dL (70-99) Calcium Level 9.3 mg/dL (8.5-10.1) Medications Current Medications Acetaminophen (Tylenol) 650 mg PRN Q6HRS PRN PO PAIN Last administered on 11:54; Start 01/29/17 at 11:15 Alprazolam (Xanax) 0.25 mg PRN BID PRN PO ANXIETY / AGITATION; Start 01/29/17 at 10:15 Bisacodyl (Dulcolax Supp) 10 mg PRN DAILY PRN RC CONSTIPATION; Start 01/29/17 at 10:15 Docusate Sodium (Colace) 100 mg DAILY PO Last administered on 01/30/17 08:06; Start 01/29/17 at 10:30 Morphine Sulfate 1 mg PRN Q3HRS PRN IV SEVERE PAIN Last administered on 03:19; Start 01/29/17 at 22:15 Non-Formulary Medication 1 ea DAILYAC PO Last administered on 01/30/17 08:05; Start 01/29/17 at 20:45 Ondansetron HCl (Zofran) 4 mg PRN Q6HRS PRN IV NAUSEA/VOMITING; Start 01/30/17 at 09:45 Oxybutynin Chloride (Ditropan) 5 mg HS PO Last administered on 01/29/17 20:33 ; Start 01/29/17 at 21:00 Pantoprazole Sodium (Protonix) 40 mg DAILYAC PO Last administered on 01/29/17 11:54; Start 01/29/17 at 10:30; Stop 01/29/17 at 21:03; Status DC Polyethylene Glycol (miraLAX PACKET) 17 gm DAILY PO Last administered on 08:06; Start 01/29/17 at 13:00 Sotalol HCl (Betapace) 60 mg BID PO Last administered on 01/30/17 08:06; Start 01/29/17 at 10:30 Zolpidem Tartrate (Ambien) 5 mg PRN QHS PRN PO INSOMNIA Last administered on 21:38; Start 01/29/17 at 10:15 Vitals/I & O Vital Sign - Last 24 Hours 01/29/17 01/29/17 01/29/17 01/29/17 10:40 10:46 11:56 15:20 Temp 97.8 97.8 97.8 97.8 Pulse 75 75 75 Resp 15 15 B/P (MAP) 153/81 (105) 153/81 140/62 (88) Pulse Ox 98 99 O2 Delivery Room Air 01/29/17 01/29/17 01/29/17 01/29/17 19:10 20:15 20:34 23:15 Temp 98.5 98.3 98.5 98.3 Pulse 82 82 75 Resp 18 18 B/P (MAP) 130/72 (91) 130/72 124/68 (86) Pulse Ox 100 100 O2 Delivery Room Air Room Air Room Air 01/30/17 01/30/17 01/30/17 01/30/17 03:15 07:36 08:06 08:11 Temp 98.0 97.7 98.0 97.7 Pulse 75 75 75 Resp 18 18 B/P (MAP) 107/56 (73) 127/68 (87) 127/68 Pulse Ox 96 99 O2 Delivery Room Air Room Air Room Air Intake and Output 01/29/17 01/29/17 01/30/17 15:00 23:00 07:00 Intake Total 240 ml 840 ml 650 ml Balance 240 ml 840 ml 650 ml SHOLA SOLO MD Jan 30, 2017 09:53
[2017-01-30] MEDS ORDERED: ONDA8TAB9 PO (09:55)
--- NOTE | 2017-01-30 10:41 | PDOC ---
Subjective: Subjective: Chest pain overnight, now resolved. No dysphagia/globus/odynophagia. Tolerating PO. Feels a little nauseous now. Says going home after lunch. Objective: Vital Signs: Vital Signs Date Time Temp Pulse Resp B/P (MAP) Pulse Ox O2 Delivery O2 Flow Rate FiO2 01/30/17 08:11 Room Air 01/30/17 08:06 75 127/68 01/30/17 07:36 97.7 18 99 97.7 Labs: Laboratory Tests Test 01/29/17 13:55 01/29/17 19:45 01/30/17 08:40 Troponin I Quantitative < 0.017 ng/mL < 0.017 ng/mL White Blood Count 4.6 x10^3/uL Red Blood Count 4.49 x10^6/uL Hemoglobin 12.1 g/dL Hematocrit 35.5 % Mean Corpuscular Volume 79 fL Mean Corpuscular Hemoglobin 27 pg Mean Corpuscular Hemoglobin Concent 34 g/dL Red Cell Distribution Width 15.1 % Platelet Count 194 x10^3/uL Neutrophils (%) (Auto) 67 % Lymphocytes (%) (Auto) 22 % Monocytes (%) (Auto) 8 % Eosinophils (%) (Auto) 2 % Basophils (%) (Auto) 0 % Neutrophils # (Auto) 3.1 x10^3uL Lymphocytes # (Auto) 1.0 x10^3/uL Monocytes # (Auto) 0.4 x10^3/uL Eosinophils # (Auto) 0.1 x10^3/uL Basophils # (Auto) 0.0 x10^3/uL Sodium Level 134 mmol/L Potassium Level 4.8 mmol/L Chloride Level 99 mmol/L Carbon Dioxide Level 27 mmol/L Anion Gap 8 Blood Urea Nitrogen 19 mg/dL Creatinine 1.0 mg/dL Estimated GFR (Cockcroft-Gault) 64.2 Glucose Level 97 mg/dL Calcium Level 9.3 mg/dL Imaging: Echocardiogram <Conclusion> The left ventricle is normal size. There is mild concentric left ventricular hypertrophy. The left ventricular systolic function is normal and . The Ejection Fraction is 55-60%. Transmitral Doppler flow pattern is Grade I-abnormal relaxation pattern. There is no evidence of significant pericardial effusion. There is no evidence of mitral valve prolapse. There is no mitral valve stenosis and a trace reguritation The left atrium is of a normal size. The aortic valve is tricuspid with no aortic stenosis or regurgitation The right ventricle is of a normal size with normal systolic function Doppler and Color Flow revealed mild tricuspid regurgitation. There is mild pulmonary hypertension. The PA pressure was estimated at 32 mmHg. Doppler and Color Flow revealed mild pulmonic valvular regurgitation. PE: GEN: NAD LUNGS: CTAB HEART: RRR ABD: NABS, S/ND/NT NEURO/PSYCH: A & O 3 A/P: Nausea Globus, wheezing - resolved Chest pain - resolved -cardiology has seen H/o Mcgraw's esophagus -last EGD 11/[address] Sales (biopsies neg for Mcgraw's) -on omeprazole QD, also uses NSAIDs Constipation - stable/controlled -- Note plans for DC, [place] per GI. Continue PPI. KRYSTLE ORTIZ Jan 30, 2017 10:41
[2017-01-30 11:07] VITALS: BP 101/61
[2017-01-30 14:30] VITALS: BP 115/62
--- NOTE | 2017-01-31 10:14 | PDOC3 ---
IM DISCHARGE SUMMARY Date of Admission Date of Admission Date of Admission: Jan 29, 2017 at 07:30 Date of Discharge Date of Discharge january Primary Diagnosis Primary Diagnosis atypical chest pain ,food stuck in throat ,popcorn Problems: Consults Consults gi and cardiology Procedures Procedures echo -good lvf Labs Labs stable Brief hospital course Brief hospital course This year old male who presented with food stuck in throat, trying to cough it up ,noted chest pain, ekg abd cardiac enzymes neg. d avelino home next day.seen by Gi and cardiology , echo cristobal had prior EGD for barrets. doing well d/c home For more details regarding the past history, family history, social history, surgical history and other details, please refer to History and Physical. Allergy Allergies Coded Allergies Type Severity Reaction Last Updated Verified Penicillins Allergy Intermediate Rash 04/07/16 Yes atorvastatin Allergy Intermediate 12/18/15 Yes tetracycline Allergy Intermediate rash 11/22/15 Yes codeine Adverse Reaction Intermediate nausea & vomiting 11/22/15 Yes hydrocodone Adverse Reaction Intermediate Nausea and Vomiting 11/22/15 Yes iron Adverse Reaction Intermediate Nausea and Vomiting, iron tablets the oral dose only 11/22/15 Yes morphine Adverse Reaction Intermediate vomiting 01/29/17 Yes Follow up in 5 days. DISPOSITION: Home Comments Discharge Management - 25 minutes. For other details please refer to discharge instructions SHOLA SOLO MD Jan 31, 2017 10:14
== END 2017-01-30 16:55 | disposition home or self-care (01) ==
LOC: ER 05:52 → UNDOADMOB 07:30 → 6 SOUTH 07:30
PROVIDERS: ADMIT Internal Medicine; ATTEND Internal Medicine
DX: R07.89 Other chest pain (principal); R11.0 Nausea; K59.00 Constipation, unspecified; K22.70 Barrett's esophagus without dysplasia; K21.9 Gastro-esophageal reflux disease without esophagitis; F41.9 Anxiety disorder, unspecified; F32.9 Major depressive disorder, single episode, unspecified; E03.9 Hypothyroidism, unspecified; I11.0 Hypertensive heart disease with heart failure; I50.9 Heart failure, unspecified; I25.10 Atherosclerotic heart disease of native coronary artery without angina pectoris; R13.10 Dysphagia, unspecified; R63.3 Feeding difficulties; I48.91 Unspecified atrial fibrillation; M19.90 Unspecified osteoarthritis, unspecified site; I42.9 Cardiomyopathy, unspecified; E78.5 Hyperlipidemia, unspecified; Z86.010 Personal history of colon polyps; Z87.891 Personal history of nicotine dependence; Z95.0 Presence of cardiac pacemaker; Z83.3 Family history of diabetes mellitus; Z82.49 Family history of ischemic heart disease and other diseases of the circulatory system
CPT/HCPCS: 36415; 71020; 71110; 80048; 80076; 82553; 83690; 83880; 84484; 85027; 85610; 93005; 93306; 96374; 96375; 96376; 99285; G0378; J2270; J2405; G0379

== ENCOUNTER → 2017-02-07 | Outpatient (CLI) | payer OTHER ==
[2017-01-30 14:30] VITALS: BP 115/62
[~2017-02-07] MED LIST changes: +ONDA8TAB9 PO
--- NOTE | 2017-02-07 14:39 | RAD ---
Indication chronic knee pain A standing AP view incorporating both knees was obtained. There are degenerative changes involving both knees. There is bilateral medial joint space compartment narrowing left greater than right. An acute bony finding is not seen. 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
--- NOTE | 2017-02-07 14:41 | RAD ---
Indication pain. A single lateral view of the lumbar spine was obtained. Comparison is made to an examination almost 7 years earlier. Vertebral height is well maintained. There is mild anterior spondylolisthesis of L4 relative to L5 similar to the previous exam. There is some disc space narrowing at L5-S1. Facet degenerative changes are seen predominantly at L4-5 and L5-S1. An acute finding is not seen. A significant change relative to the prior study is not seen. Vascular calcification is noted. IMPRESSION: Degenerative changes in the lumbar spine. No significant change when compared to the study 7 years earlier. No acute finding seen
--- NOTE | 2017-02-07 15:13 | RAD ---
Indication chronic pain associated with the right hip. An AP view of the pelvis was obtained as well as a frog-leg view of the right hip. The bony mineralization appears grossly normal. There are degenerative changes involving the right hip. This is manifested by joint space compartment narrowing and some sclerosis of the acetabular roof. Acute bony finding is not seen. IMPRESSION: Degenerative changes right hip
== END | disposition home or self-care (01) ==
LOC: RAD 13:29
PROVIDERS: ATTEND Physical Medicine & Rehabilitation
DX: M16.11 Unilateral primary osteoarthritis, right hip (principal); M17.0 Bilateral primary osteoarthritis of knee; M25.551 Pain in right hip; G89.29 Other chronic pain
CPT/HCPCS: 72020; 73501; 73565

== ENCOUNTER → 2017-07-17 | Outpatient (CLI) | payer OTHER ==
--- NOTE | 2017-07-17 15:12 | RAD ---
DATE: July 17, 2017 EXAM: DIGITAL SCREEN BILAT W/CAD HISTORY: Routine screening. COMPARISON: Multiple studies back to July 13, 2014 TECHNIQUE: 2D digital CC and MLO views of each breast were obtained. There is a repeat left MLO. This study was interpreted with the benefit of Computerized Aided Detection (CAD). FINDINGS: The breast parenchyma is heterogeneously dense, category C, which may obscure small masses. There is no worrisome mass or area of architectural distortion. Small nodule in the inferior left breast is stable. Benign-appearing calcifications are noted throughout both breasts. IMPRESSION: Benign findings. BI-RADS CATEGORY: 2 BENIGN FINDING RECOMMENDED FOLLOW-UP: 12M 12 MONTH FOLLOW-UP PQRS compliance statement: Patient information was entered into a reminder system with a target due date for the next mammogram. Mammography is a sensitive method for finding small breast cancers, but it does not detect them all and is not a substitute for careful clinical examination. A negative mammogram does not negate a clinically suspicious finding and should not result in delay in biopsying a clinically suspicious abnormality. "Our facility is accredited by the [employer] Mammography Program."
== END | disposition home or self-care (01) ==
LOC: MAMMO 13:43
PROVIDERS: ATTEND Internal Medicine
DX: Z12.31 Encounter for screening mammogram for malignant neoplasm of breast (principal)
CPT/HCPCS: G0202; 77067

== ENCOUNTER → 2017-12-25 | Day surgery (SDC) | payer OTHER ==
[~2017-12-25] MED LIST changes: -ALPR0.254 PO; -ALPR0.5T PO; -ALPR0.5T10 PO; -ATOR20TA58 PO; -BISA-42 PO; -BISA10SU55 RC; -CEPH500C PO; -CLON0.5T3 PO; -DOCU-109 PO; -ERYT250C8 PO; -FENT1PAT21 TP; -FURO40TA4 PO; +IV RINGERS,LACTATED 1000ML 1,000 ML IV; +LIDOCAINE 1% PF 2 ML VIAL. ID; -LUBI8CAP4 PO; -MIDO5TAB PO; -NA P133E2 RC; -OMEP40CA5 PO; -ONDA8TAB9 PO; -OXYB5TAB7 PO; -POTASSIUM CHLO10 MEQ PO; +PROCHLORPERAZINE 10 MG/2 ML VIAL. IV; +PROPOFOL 20 ML IV; -SOTA80TA48 PO; -TRAM50TA PO; -VENL75TA PO; -ZOLP10TA4 PO; -ZOLP5TAB PO; +fentaNYL PF VIAL 100 MCG/2 ML VIAL IV
[2017-12-25] MEDS: BARIUM SULFATE 105% 1,900 ML SUSP PR (13:46)
== END | disposition home or self-care (01) ==
LOC: ENDOS 10:28
DX: K57.30 Diverticulosis of large intestine without perforation or abscess without bleeding (principal); E78.5 Hyperlipidemia, unspecified; I25.10 Atherosclerotic heart disease of native coronary artery without angina pectoris; I11.0 Hypertensive heart disease with heart failure; I50.9 Heart failure, unspecified; Z96.612 Presence of left artificial shoulder joint; Z95.0 Presence of cardiac pacemaker; Z90.49 Acquired absence of other specified parts of digestive tract; Z90.710 Acquired absence of both cervix and uterus; Z98.890 Other specified postprocedural states; Z79.899 Other long term (current) drug therapy; Z88.0 Allergy status to penicillin; Z88.5 Allergy status to narcotic agent; Z88.8 Allergy status to other drugs, medicaments and biological substances; M15.0 Primary generalized (osteo)arthritis; Z88.1 Allergy status to other antibiotic agents; I42.9 Cardiomyopathy, unspecified; I48.91 Unspecified atrial fibrillation; F41.9 Anxiety disorder, unspecified; F32.9 Major depressive disorder, single episode, unspecified; D50.9 Iron deficiency anemia, unspecified
CPT/HCPCS: 74270; J2704

== ENCOUNTER → 2018-07-15 | Outpatient (CLI) | payer OTHER ==
[2018-01-10 15:00] VITALS: BP 91/55
[~2018-07-15] MED LIST changes: +ALPR0.254 PO; +ALPR0.5T PO; +ALPR0.5T10 PO; +ASPI325T8 PO; +ATOR20TA58 PO; +BISA-42 PO; +BISA10SU55 RC; +CEPH500C PO; +CLON0.5T11 PO; +DOCU-109 PO; +ERYT250C8 PO; +FENT1PAT21 TP; +FURO40TA4 PO; -IV RINGERS,LACTATED 1000ML 1,000 ML IV; -LIDOCAINE 1% PF 2 ML VIAL. ID; +LUBI8CAP4 PO; +MIDO5TAB PO; +NA P133E2 RC; +OMEP40CA5 PO; +ONDA8TAB9 PO; +OXYB5TAB7 PO; +POTA10TA12 PO; -PROCHLORPERAZINE 10 MG/2 ML VIAL. IV; -PROPOFOL 20 ML IV; +SOTA80TA48 PO; +TRAM50TA PO; +VENL75TA PO; +ZOLP10TA4 PO; +ZOLP5TAB PO; -fentaNYL PF VIAL 100 MCG/2 ML VIAL IV
--- NOTE | 2018-07-15 15:52 | KCIC ---
Targeted ultrasound of the left thigh HISTORY: Left thigh mass. Lump at the distal lateral left thigh with pain for 2 or 3 months. TECHNIQUE: Targeted ultrasound is performed at the area of concern grayscale and color Doppler imaging. FINDINGS: Several small hypoechoic nodules are identified and the area of concern at the distal left lateral thigh. Largest measures 9 mm long axis. Second largest measures 4 mm long axis. These do not demonstrate evidence of vascularity. IMPRESSION: There are several small subcentimeter hypoechoic nodules or cysts at the area of concern. Electronically signed by: Corby Humphrey MD (07/15/2018 3:49 PM) [facility]
== END | disposition home or self-care (01) ==
LOC: KCIC US 13:28
PROVIDERS: ATTEND Surgery
DX: R22.42 Localized swelling, mass and lump, left lower limb (principal)
CPT/HCPCS: 76881

== ENCOUNTER → 2018-07-17 | Outpatient (CLI) | payer OTHER ==
[2018-01-10 15:00] VITALS: BP 91/55
--- NOTE | 2018-07-17 17:13 | KCIC ---
Bilateral digital screening mammograms: Reason for examination: Routine screening. Comparison is made to previous studies dated 07/17/2017 and 07/12/2016. Interpretation was made with the benefit of CAD. The skin and nipples show no abnormalities. No abnormal axillary lymph nodes are seen. The breast parenchyma shows scattered fibroglandular density. (Breast density: Category B.) There are no dominant masses, suspicious calcifications or architectural distortions. Scattered benign calcifications are present. Impression: No evidence of malignancy. Recommend routine screening. BI-RADS category 2: Benign "Our facility is accredited by the [employer] Mammography Program." This patient's information has been entered into a reminder system for the patient to be notified with the results of her examination and a target date for the next mammogram. Electronically signed by: Michelle Oseguera MD (07/17/2018 5:09 PM) [id number]
--- NOTE | 2018-07-17 17:52 | KCIC ---
Indication: Osteoporosis, estrogen deficiency TECHNIQUE: DEXA scan COMPARISON: None FINDINGS: Bone mineral density at L1-L4 measures 1.278 g/sq cm with T score of 2.1. The bone mineral density in the left femoral neck measures 0.989 g/sq cm with a T score of 0.4. IMPRESSION: Normal bone mineral density at all measured sites. Electronically signed by: Ciro Sales DO (07/17/2018 5:48 PM) [facility]
== END | disposition home or self-care (01) ==
LOC: KCIC MAMMO 13:29
PROVIDERS: ATTEND Internal Medicine
DX: Z12.31 Encounter for screening mammogram for malignant neoplasm of breast (principal); Z13.820 Encounter for screening for osteoporosis; E28.39 Other primary ovarian failure
CPT/HCPCS: 77067; 77080

== ENCOUNTER → 2018-08-08 | Day surgery (SDC) | payer OTHER ==
[~2018-08-08] MED LIST changes: +DULO60CA6 PO; +IV RINGERS,LACTATED 1000ML 1,000 ML IV SCH; +LIDOCAINE 1% PF 2 ML VIAL. ONE; +PROPOFOL 20 ML IV ONE
[2018-08-08 13:20] VITALS: BP 133/60
--- NOTE | 2018-08-09 15:08 | PATHOLOGY ---
[facility] Accession Number: [id number] . 01 Material submitted: . DISTAL ESOPHAGUS BIOPSY . 01 Clinical history: . Mcgraw's, rule out dysphagia . 02 Diagnosis: Esophageal biopsies, distal esophagus: - Segments of hyperplastic squamous esophageal mucosa, gastric mucosa and columnar-lined mucosa showing moderate active chronic inflammation and focal intestinal metaplasia with goblet cells, consistent with Mcgraw's change. P/08/09/2018 . 02 Comment: Sections of the distal esophageal biopsy reveal segments of hyperplastic squamous esophageal mucosa, gastric mucosa and columnar-lined mucosa showing moderate active chronic inflammation with small foci of intestinal metaplasia with goblet cells consistent with Mcgraw's change. There is no dysplasia or evidence of malignancy. (JPM:[facility] 08/09/2018) . 02 Electronically signed: . Dioni Urbina MD, Pathologist NPI- [id number] . 01 Gross description: . Received in formalin labeled "Alayna, Ariela, distal esophagus BX," are 4 segments of hardy soft tissue measuring 1.1 x 0.8 x 0.2 cm in aggregate dimensions and ranging from 0.3 to 0.6 cm in maximum dimension. The specimen is submitted entirely in cassette A1. (TSD; 08/08/2018) TOB/TOB . 02 Pathologist provided ICD-10: K20.9, K22.70 . 02 CPT . 929315 Specimen Comment: A courtesy copy of this report has been sent to Specimen Comment: [phone], . Specimen Comment: Report sent to / DR SOLO Specimen Comment: A duplicate report has been generated due to demographic updates. Performed at: [address], [place] [id number] MD Eddie Galindo MD Phone: [phone] Performed at: [address] [id number] MD Dioni Urbina MD Phone: [phone]
== END | disposition home or self-care (01) ==
LOC: ENDOS 10:10
PROVIDERS: ATTEND Internal Medicine Gastroenterology
DX: K22.70 Barrett's esophagus without dysplasia (principal); K44.9 Diaphragmatic hernia without obstruction or gangrene; T18.2XXA Foreign body in stomach, initial encounter; X58.XXXA Exposure to other specified factors, initial encounter; Y93.89 Activity, other specified; Y92.89 Other specified places as the place of occurrence of the external cause; Y99.8 Other external cause status; Z88.0 Allergy status to penicillin; Z88.1 Allergy status to other antibiotic agents; M19.90 Unspecified osteoarthritis, unspecified site; I48.91 Unspecified atrial fibrillation; F41.9 Anxiety disorder, unspecified; F32.9 Major depressive disorder, single episode, unspecified; E78.00 Pure hypercholesterolemia, unspecified; Z95.0 Presence of cardiac pacemaker; Z86.010 Personal history of colon polyps; M81.0 Age-related osteoporosis without current pathological fracture; K21.9 Gastro-esophageal reflux disease without esophagitis; Z83.3 Family history of diabetes mellitus; Z82.49 Family history of ischemic heart disease and other diseases of the circulatory system; Z80.0 Family history of malignant neoplasm of digestive organs; Z87.891 Personal history of nicotine dependence; Z79.2 Long term (current) use of antibiotics; Z79.899 Other long term (current) drug therapy; Z90.49 Acquired absence of other specified parts of digestive tract; Z90.710 Acquired absence of both cervix and uterus; Z96.612 Presence of left artificial shoulder joint; Z98.42 Cataract extraction status, left eye; Z98.41 Cataract extraction status, right eye; Z96.1 Presence of intraocular lens; Z98.890 Other specified postprocedural states; Z98.51 Tubal ligation status
CPT/HCPCS: 43239; J2704

== ENCOUNTER → 2018-09-05 | Outpatient (CLI) | payer OTHER ==
[2018-08-08 13:20] VITALS: BP 133/60
[~2018-09-05] MED LIST changes: -IV RINGERS,LACTATED 1000ML 1,000 ML IV SCH; -LIDOCAINE 1% PF 2 ML VIAL. ONE; -PROPOFOL 20 ML IV ONE
[2018-09-05] MEDS: IOHEXOL 240 MG/ML 50ML VIAL. PO ONE (12:24)
[2018-09-05] MEDS: IOHEXOL 300 MG/ML 100ML VIAL. IV ONE (12:24)
--- NOTE | 2018-09-05 16:19 | KCIC ---
CT ABD PELV W/ORAL IV CONTRAST Indication: Weight loss for the last 3-4 months, approximately 3 pounds. Prior cholecystectomy, appendectomy and total hysterectomy. Exposure: One or more of the following individualized dose reduction techniques were utilized for this examination: 1. Automated exposure control 2. Adjustment of the mA and/or kV according to patient size 3. Use of iterative reconstruction technique. Comparison: None are available. Contrast: Intravenous contrast was given. No oral contrast per request. Note that the patient experienced some discomfort in her chest after the examination. Vital signs were measured and monitored, and were stable. Patient had no difficulty breathing. She described mild dizziness. I discussed with the patient the possibility of going to the emergency room, but she declined. However, to be safe, the patient's son was contacted, and arrived to drive the patient home, after approximately 2 hours of observation. She departed in stable condition. FINDINGS: Lower thorax: Mild atelectasis in the lung bases. Liver: Hypodense lesion involving the left lobe of the liver, with some peripheral nodular enhancement, similar size as prior. There is some hypodensity within the lateral right lobe of the liver with a somewhat serpiginous linear morphology, also unchanged from prior study, could represent another small lesion or some focal peripheral biliary dilatation. Tiny subcentimeter nodule at the anterior right lobe is unchanged. Spleen: Tiny hypodense lesion at the anterior spleen measures less than 1 cm and too small to characterize, difficult to say if this was there previously as there is some artifact at that time. Pancreas: Unremarkable Adrenals: No evidence of mass. Kidneys: Hypodense lesions are identified at both kidneys. Largest on the right measures 2.3 cm and has increased in size since previous exam. Density is 3 Hounsfield units compatible with a cyst. Largest lesion on the left measures 14 mm, slightly larger than the prior study, 0 Hounsfield units also compatible with a cyst. Other lesions are too small to characterize but would likely also represent cysts. Urinary tracts: No hydronephrosis. Gallbladder: Surgically absent as per history. Mild biliary ductal dilatation. Lymph nodes: No significant enlargement Vessels: Calcified and ectatic. No evidence of an aneurysm. GI tract: Hiatal hernia is identified. There is moderate retained stool throughout the colon and rectum. No evidence of colonic wall thickening to suggest acute colitis. Reproductive organs:No evidence of mass. Urinary bladder: Borderline wall thickening, no change since prior. Peritoneum: No evidence of pneumoperitoneum. No free fluid. Abdominal wall:Unremarkable Spine: Degenerative spondylosis. Mild anterior subluxation of L4 on L5. Appearance and alignment appears similar as prior study. Bones: Degenerative changes at both hips. External Soft Tissue: No acute findings. IMPRESSION: 1. Stable liver lesions as compared with prior study. 2. Moderate retained stool through the colon and rectum compatible with constipation. 3. Multiple low-density renal lesions, some which are too small to characterize. Some lesions have slightly increased in size since previous exam, but still measure density compatible with a simple cyst. Electronically signed by: Corby Humphrey MD (09/05/2018 4:14 PM) [facility]
== END | disposition home or self-care (01) ==
LOC: KCIC CT 10:35
PROVIDERS: ATTEND Internal Medicine Gastroenterology
DX: K76.9 Liver disease, unspecified (principal); J98.11 Atelectasis; K44.9 Diaphragmatic hernia without obstruction or gangrene; M47.816 Spondylosis without myelopathy or radiculopathy, lumbar region; M16.0 Bilateral primary osteoarthritis of hip
CPT/HCPCS: 74177; Q9966; Q9967

== ENCOUNTER → 2018-11-15 | Outpatient (CLI) | payer OTHER ==
[2018-08-08 13:20] VITALS: BP 133/60
[~2018-11-15] MED LIST changes: +GABA-585 PO; +LINZESS145 MCG PO
--- NOTE | 2018-11-15 13:04 | RAD ---
Chest radiograph 11/15/2018 8:37 AM INDICATION: Weight loss and trouble breathing. Ex-smoker. COMPARISON: August 29, 2017 TECHNIQUE: Frontal and lateral views of the chest are provided. FINDINGS: The cardiomediastinal silhouette is within normal limits. Similar position of a left chest wall cardiac device. There are no pleural effusions. There is no pulmonary vascular congestion. There is no pneumothorax. The lungs are clear. Left shoulder arthroplasty is visualized. Degenerative changes of the right glenohumeral joint have progressed. IMPRESSION: No acute cardiopulmonary process. Electronically signed by: Yessy Noe MD (11/15/2018 1:01 PM) [id number]
== END | disposition home or self-care (01) ==
LOC: RAD 07:46
PROVIDERS: ATTEND Internal Medicine Gastroenterology
DX: M19.011 Primary osteoarthritis, right shoulder (principal); R63.4 Abnormal weight loss; Z87.891 Personal history of nicotine dependence; Z96.612 Presence of left artificial shoulder joint
CPT/HCPCS: 71046

== ENCOUNTER → 2018-11-28 | Outpatient (CLI) | payer OTHER ==
[2018-08-08 13:20] VITALS: BP 133/60
[~2018-11-28] VITALS: Ht 165.1 cm; Wt 70.8 kg
--- NOTE | 2018-11-28 14:19 | EKG ---
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
--- NOTE | 2018-11-28 16:59 | CARD ---
MR#: [id number] Date of Study: 11/28/2018 Ordering Physician: INEZ ROJAS, Referring Physician: INEZ ROJAS Tech: Grace Valverde RN APPROVED REPORT EXAM Tilt Table S1,S2 and lungs are clear to auscultation. Pacemaker placed in November 1998, Medtronic. Patient states she feels dizzy and lightheaded. IV NS running at 20cc/hr in left forearm IV. Suction setup in place . Attending Nurse: Grace Valverde RN HISTORY The Patient is a 83 year-old female with a history of dizzy,lightheaded,syncope INDICATIONS Falls in 2018, dizzy, lightheaded,sycopal episodes. PROCEDURE After explaining the risks, benefits, and alternative options, informed consent was obtained from the patient. Base - lineRhythm: Atrial PacedHR: 78 bpmBP: 135/23fiThK3 Sat: 100 % Flat13:16Rhythm: Atrial PacedHR: 75 bpmBP: 142/77zhClQ9 Sat: 98 % Flat13:21Rhythm: Atrial PacedHR: 75 bpmBP: 154/32xeNbD3 Sat: 97 % 80' Tilt13:26Rhythm: Atrial PacedHR: 80 bpmBP: 135/35bqSfE4 Sat: 98 % 80' Tilt13:31Rhythm: Atrial PacedHR: 77 bpmBP: 122/29soUlO6 Sat: 98 % 80' Tilt13:36Rhythm: Atrial PacedHR: 76 bpmBP: 104/20bhHlR5 Sat: 97 % 80' Tilt13:41Rhythm: Atrial PacedHR: 83 bpmBP: 97/55jnMkC0 Sat: 100 % 80' Tilt13:46Rhythm: SinusHR: 82 bpmBP: 99/83vlXkU2 Sat: 100 % 80' Tilt13:51 Flat13:53Rhythm: AV PacedHR: 101 bpmBP: 170/435amGbV3 Sat: 100 % Flat13:58Rhythm: Atrial PacedHR: 82 bpmBP: 190/904zuSaZ4 Sat: 100 % Flat14:01Rhythm: Atrial PacedHR: 75 bpmBP: 169/68xzIuL8 Sat: 99 % Flat14:06Rhythm: Atrial PacedHR: 76 bpmBP: 166/98apToW7 Sat: 100 % Flat14:11Rhythm: Atrial PacedHR: 77 bpmBP: 175/17xtUdR9 Sat: 99 % Flat14:16Rhythm: Atrial PacedHR: 75 bpmBP: 158/19diIhK4 Sat: 99 % Flat14:21Rhythm: Atrial PacedHR: 77 bpmBP: 137/73xzXgM2 Sat: 99 % Flat14:26Rhythm: Atrial PacedHR: 75 bpmBP: 127/07omNfP8 Sat: 99 % Flat14:31Rhythm: AV PacedHR: 75 bpmBP: 173/69woAjH6 Sat: 99 % Flat14:36Rhythm: AV PacedHR: 75 bpmBP: 151/74alRgD6 Sat: 100 % Flat14:41Rhythm: Atrial PacedHR: 75 bpmBP: 154/84fqXsL7 Sat: 99 % Flat14:46Rhythm: Atrial PacedHR: 86 bpmBP: 152/64esQcE3 Sat: 100 % Flat14:51Rhythm: Atrial PacedHR: 75 bpmBP: 135/17ntPxK4 Sat: 99 % Flat14:56Rhythm: Atrial PacedHR: 75 bpmBP: 153/12fkAcA4 Sat: 99 % 15:06Rhythm: Atrial PacedHR: 78 bpmBP: 149/42wfUmD7 Sat: 99 % 15:16Rhythm: Atrial PacedHR: 77 bpmBP: 146/20amMhR7 Sat: 99 % COMPLICATIONS Patient stated right before she lost consciousness that she felt dizzier and like she did right befor e passing out previously. Patient lost responsiveness (unable to focus and head slightly nodding rhy thmically) and heart rate dropped but then suddenly increased (110), pacemaker kicked into AV Paced, and oxygen saturation dropped to 86%. Table placed flat and nurse performed a sternal rub x2. Patient complained of chest pain at 10/10. Described it as pressure, tightness,and sharpness. Requested a 12 lead EKG. Patient states her chest pain is still a 9/10. Notified Dr. Rojas at 9064 about patien t's symptoms, he stated he would come down and see the patient. 1414=patient states her chest pain is 7/10 and feels like it hurts on the outside and on the inside. 1427=Dr. Rojas at patient's bedsi de assessing situation. Dr. Rojas spoke with pt after reviewing her vital signs and home medicat ions. Discussed pt wearing compression stockings at home, decreasing the length of time she is standi ng on her feet and to start a prescription for midodrine. Order for NS 500ml bolus to be given and t hen for pt to go home. Patient is sitting up in chair eating peanut butter and crackers and having ap ple juice. CONCLUSION 1. Classic vasodepressor syncope. RECOMMENDATIONS 1. Start midodrine. 2. Plan for in-office Medtronic pacemaker check and increase HR response to aggressive and add b-bloc ker with Metoprolol 25mg bid. Signed by : Inez Rojas, Electronically Approved : 11/28/2018 16:59:05
== END | disposition home or self-care (01) ==
LOC: EKG 12:01
PROVIDERS: ATTEND Internal Medicine Cardiovascular Disease
DX: R55 Syncope and collapse (principal); R94.31 Abnormal electrocardiogram [ECG] [EKG]; Z95.0 Presence of cardiac pacemaker
CPT/HCPCS: 93005; 93660

== ENCOUNTER → 2018-12-17 | Outpatient (CLI) | payer OTHER ==
[2018-08-08 13:20] VITALS: BP 133/60
--- NOTE | 2018-12-17 09:38 | CARD ---
MR#: [id number] Date of Study: 12/17/2018 Ordering Physician: INEZ ROJAS, Referring Physician: INEZ ROJAS, Tech: Mahi Nickerson JIMENA APPROVED REPORT EXAM: Two-dimensional and M-mode echocardiogram with Doppler and color Doppler. Other Information Quality : GoodHR: 75bpm Rhythm : NSR INDICATION Chest Pain 2D DIMENSIONS RVDd3.0 (2.9-3.5cm)Left Atrium(2D)3.5 (1.6-4.0cm) IVSd1.2 (0.7-1.1cm)Aortic Root(2D)3.5 (2.0-3.7cm) LVDd3.9 (3.9-5.9cm)LVOT Diameter2.1 (1.8-2.4cm) PWd1.1 (0.7-1.1cm)LVDs3.0 (2.5-4.0cm) FS (%) 22.2 %SV30.0 ml LVEF(%)45.4 (>50%) M-Mode DIMENSIONS Left Atrium(MM)3.25 (2.5-4.0cm)Aortic Root3.31 (2.2-3.7cm) Aortic Valve AoV Peak Arnaldo.88.2cm/sAoV VTI20.8cm AO Peak GR.3.1mmHgLVOT Peak Arnaldo.67.3cm/s AO Mean GR.2mmHgAVA (VMAX)2.76cm2 YOHANNES (VTI)2.70cm2 Mitral Valve MV E Wqhdahvh10.8cm/sMV DECEL IRCO76jo MV A Rfymltrm547.5cm/sE/A Ratio0.6 MV A Mvkzjrke60bh Pulmonary Valve PV Peak Vlxcoplk20.4cm/s Tricuspid Valve TR P. Temvfobt626iv/sRAP OODOERBE8lmYc TR Peak Gr.20svRtANPX72exLy LEFT VENTRICLE The left ventricle is normal size. There is mild concentric left ventricular hypertrophy. Left ventri tj systolic function is low normal. The Ejection Fraction is 45-50%. Septal motion consistent with c onduction abnormality. Transmitral Doppler flow pattern is Grade I-abnormal relaxation pattern. RIGHT VENTRICLE The right ventricle is normal size. There is normal right ventricular wall thickness. The right ventr icular systolic function is normal. Lead noted in RV/RA. ATRIA The left atrium size is normal. The right atrium size is normal. The interatrial septum is intact wit h no evidence for an atrial septal defect or patent foramen ovale as noted on 2-D or Doppler imaging. AORTIC VALVE The aortic valve is mildly calcified. The aortic valve is trileaflet. Doppler and Color Flow revealed no significant aortic regurgitation. There is no significant aortic valvular stenosis. MITRAL VALVE The mitral valve is normal in structure and function. There is no evidence of mitral valve prolapse. There is no mitral valve stenosis. Doppler and Color-flow revealed trace to mild mitral regurgitation . TRICUSPID VALVE The tricuspid valve is normal in structure and function. Doppler and Color Flow revealed mild tricusp id regurgitation. The PA pressure was estimated at 32 mmHg. There is no tricuspid valve prolapse or v egetation. There is no tricuspid valve stenosis. PULMONIC VALVE The pulmonary valve is normal in structure and function. Doppler and Color Flow revealed trace to mil d pulmonic valvular regurgitation. There is no pulmonic valvular stenosis. GREAT VESSELS The aortic root is normal in size. The ascending aorta is normal in size. The IVC is normal in size a nd collapses >50% with inspiration. PERICARDIAL EFFUSION There is no evidence of significant pericardial effusion. Critical Notification Critical Value: No <Conclusion> Left ventricle systolic function is low normal. The Ejection Fraction is 45-50%. Septal motion consistent with conduction abnormality. Lead noted in RV/RA. Signed by : Inez Rojas, Electronically Approved : 12/17/2018 09:37:47
== END | disposition home or self-care (01) ==
LOC: ECHO 07:48
PROVIDERS: ATTEND Internal Medicine Cardiovascular Disease
DX: I08.8 Other rheumatic multiple valve diseases (principal); I11.9 Hypertensive heart disease without heart failure
CPT/HCPCS: 93306

== ENCOUNTER → 2019-01-07 | Outpatient (CLI) | payer OTHER ==
[2018-08-08 13:20] VITALS: BP 133/60
[~2019-01-07] MED LIST changes: +CONTRAST GIVEN. MC PRN; +IOHEXOL 240 MG/ML 50ML VIAL. PO ONE; +IOHEXOL 300 MG/ML 100ML VIAL. IV ONE
--- NOTE | 2019-01-07 11:24 | RAD ---
CT CHEST ABDOMEN PELVIS WO Indication: Weight loss. Exposure: One or more of the following individualized dose reduction techniques were utilized for this examination: 1. Automated exposure control 2. Adjustment of the mA and/or kV according to patient size 3. Use of iterative reconstruction technique. Comparison: CT abdomen pelvis from September 05, 2018. CT chest April 04, 2016. Technique: No intravenous contrast given. Oral contrast was given. Findings: Evaluation of solid viscera, bowel and vasculature is compromised by the noncontrast technique which could limit detection of pathology. Chest: Aorta is mildly calcified and ectatic. Ascending aorta measures 3.9 cm, stable as compared with similar prior slice. No evidence of a thyroid mass. Note there is some metal artifact obscuring the left upper chest. No significant lymph node enlargement is identified. Prevascular lymph node is stable, 7 mm short axis. No pericardial effusion. Mild coronary artery calcification. Heart size remains mildly enlarged. Esophagus is mildly dilated, but no gross distention or wall thickening. Mild linear markings identified in lung bases compatible with atelectasis/fibrosis. No evidence of consolidating infiltrate. Trachea and mainstem bronchi are patent. Degenerative changes are identified of the spine. Vertebral body height and alignment are maintained. No evidence of aggressive bone destruction. IMPRESSION: No acute findings in the chest. Abdomen and pelvis: Liver appears similar in size. The lesion in the left lobe of liver is difficult to characterize without contrast but appears to be of similar size. The somewhat linear lesion in the lateral right lobe of the liver also appears similar in size and morphology as does a tiny anterior nodule. Spleen not enlarged. Pancreas unremarkable. No evidence of adrenal mass. No evidence of hydronephrosis or obstructive calculus of either kidney. Low-density lesions of both kidneys are more difficult to characterize without contrast but the larger lesions can be seen. Gallbladder not visualized. Aorta is calcified and ectatic with tortuosity. No significant lymph node enlargement. Small hiatal hernia. No significant small bowel distention. Moderate retained stool in the colon. No evidence of acute colitis. Appendix not clearly seen. No evidence of ascites or pneumoperitoneum. Urinary bladder unremarkable. No evidence of a pelvic mass. Degenerative changes of the spine. Appearance and alignment are unchanged since previous exam with mild L4-L5 spondylolisthesis. Degenerative changes of both hips. IMPRESSION: 1. Moderate retained stool in the colon. 2. Grossly stable lesions of liver and kidneys on today's noncontrast exam. 3. No acute findings. Electronically signed by: Corby Humphrey MD (01/07/2019 11:21 AM) [facility]
== END | disposition home or self-care (01) ==
LOC: CT 09:22
PROVIDERS: ATTEND Internal Medicine Hematology & Oncology
DX: K76.89 Other specified diseases of liver (principal); N28.89 Other specified disorders of kidney and ureter; K44.9 Diaphragmatic hernia without obstruction or gangrene; I70.0 Atherosclerosis of aorta; I77.810 Thoracic aortic ectasia; Q25.46 Tortuous aortic arch; M43.16 Spondylolisthesis, lumbar region; M16.0 Bilateral primary osteoarthritis of hip; R63.4 Abnormal weight loss
CPT/HCPCS: 71250; 74176; Q9966; Q9967

== ENCOUNTER → 2019-03-19 | Outpatient (CLI) | payer OTHER ==
[2019-02-01 23:20] VITALS: BP 132/74
[~2019-03-19] MED LIST changes: +CHLO15MO2 PO; +CLIN300C8 PO; +PRED20TA PO
--- NOTE | 2019-03-19 12:56 | RAD ---
PQRS Compliance Statement: One or more of the following individualized dose reduction techniques were utilized for this examination: 1. Automated exposure control 2. Adjustment of the mA and/or kV according to patient size 3. Use of iterative reconstruction technique CT abdomen/pelvis with contrast 03/19/2019 11:00 AM INDICATION: Anemia and weight loss COMPARISON: CT abdomen/pelvis February 02 08/25/2018 TECHNIQUE: Multiple axial CT images of the abdomen and pelvis were obtained after the intravenous administration of 75 mL Omnipaque 300. Coronal and sagittal reformats are provided. FINDINGS: There is subsegmental atelectasis and/or scarring at the left lung base. Heart size is borderline enlarged. Cardiac pacer wires are partially profiled. There is a 2.4 cm hypoattenuating lesion in the lateral segment left hepatic lobe with peripheral discontinuous enhancement suggestive of a hepatic hemangioma. 7 mm stable hypoattenuating lesion in the anterior right hepatic lobe, segment VIII, most favor to represent simple cyst or hemangioma. Mild intrahepatic and extrahepatic biliary ductal dilatation is noted status post cholecystectomy and may reflect reservoir effect. Subcentimeter splenic hypodensities favor benign etiology such as cysts, hemangiomas or lymphangiomas. Adrenal glands are normal in appearance. Mild atrophy of the pancreas is noted. No pancreatic ductal dilatation. Calcifications within the pancreas may reflect sequela of chronic pancreatitis. Main pancreatic duct measures up to 3 mm. Abdominal aorta is normal in course and caliber with moderate calcified atheromatous plaque. There are no pathologically enlarged lymph nodes in abdomen and pelvis. There is no free fluid or free intraperitoneal air. Small hiatal hernia. Stomach is normal in appearance. Oral contrast was administered. Opacified bowel loops demonstrate normal mucosal fold pattern. Small and large bowel are normal in caliber. There is no evidence for bowel obstruction. There are no pericolonic inflammatory changes. Appendix is not definitively visualized. No pericecal inflammatory changes are identified. Stable hypoattenuating lesions within the kidneys measuring up to 2 cm in the anterior interpolar right kidney with attenuation most compatible of simple cysts. There is an indeterminate hypoattenuating lesion in the lateral interpolar left kidney measuring 10 mm with attenuation higher than that of simple fluid (series 2, image 26). No hydronephrosis. Urinary bladder is within normal limits given degree of distention. No suspicious pelvic masses are identified. No suspicious osseous abnormality. Minimal anterolisthesis of L4 on L5. Moderate disc height loss at L5-S1. IMPRESSION: 1. Segment II hepatic lesion measuring 2.4 cm is most compatible with a hepatic hemangioma. Additional 7 mm segment VIII hepatic lesion is stable and statistically favored to represent a cyst or hemangioma. 2. Small hiatal hernia. No bowel obstruction or inflammation. 3. Left lateral interpolar renal cystic lesion measuring 10 mm remains indeterminate. Six-month follow-up renal mass protocol CT may be of benefit. Electronically signed by: Yessy Noe MD (03/19/2019 12:53 PM) [id number]
== END | disposition home or self-care (01) ==
LOC: CT 10:15
PROVIDERS: ATTEND Internal Medicine Hematology & Oncology
DX: K44.9 Diaphragmatic hernia without obstruction or gangrene (principal); K86.89 Other specified diseases of pancreas; N28.9 Disorder of kidney and ureter, unspecified; I70.8 Atherosclerosis of other arteries; I51.7 Cardiomegaly; K76.9 Liver disease, unspecified; I50.9 Heart failure, unspecified; Z90.49 Acquired absence of other specified parts of digestive tract; Z88.0 Allergy status to penicillin; Z95.0 Presence of cardiac pacemaker; Z90.710 Acquired absence of both cervix and uterus
CPT/HCPCS: 74177; Q9966; Q9967

== ENCOUNTER 2019-06-20 08:39 | Outpatient (CLI) | payer OTHER ==
[2019-06-20] VITALS (10 sets, daily range): BP systolic 102–164; BP diastolic 66–91
[~2019-06-20] VITALS: Ht 166.4 cm; Wt 74.4 kg
[~2019-06-20 08:39] MED LIST changes: +CLON-77 PO; -CLON0.5T11 PO; -CONTRAST GIVEN. MC PRN; -IOHEXOL 240 MG/ML 50ML VIAL. PO ONE; -IOHEXOL 300 MG/ML 100ML VIAL. IV ONE; -MIDO5TAB PO; +MIDO5TAB4 PO; +OMEP40CA45 PO; -OMEP40CA5 PO; +OXYB5TAB10 PO; -OXYB5TAB7 PO
[2019-06-20] MEDS ORDERED: ASPI-612 PO (09:15)
[2019-06-20] MEDS ORDERED: ONDA8TAB9 PO (09:15)
[2019-06-20] MEDS ORDERED: ZOLP10TA PO (09:15)
[2019-06-20] MEDS ORDERED: fentaNYL PF VIAL 100 MCG/2 ML VIAL ONE (09:39)
[2019-06-20] MEDS ORDERED: MIDAZOLAM HCL/PF 2 MG/2 ML VIAL. ONE (09:39)
[2019-06-20 09:49] LABS: BASO % 1 % (0-3); EOS # 0.1 x10^3/uL (0.0-0.7); EOS % 4 % (0-3); HEMATOCRIT 40.3 % (36.0-47.0); HEMOGLOBIN 13.1 g/dL (12.0-15.5); LYMPH # 1.6 x10^3/uL (1.0-4.8); LYMPH % 44 % (24-48); MEAN CORPUSCULAR HEMOGLOBIN 26 pg (25-35); MEAN CORPUSCULAR HGB CONC 33 g/dL (31-37); MEAN CORPUSCULAR VOLUME 81 fL (79-100); MONO # 0.4 x10^3/uL (0.0-1.1); MONO % 12 % (0-9); NEUT # 1.4 x10^3/uL (1.8-7.7); NEUT % 39 % (31-73); PLATELET COUNT 195 x10^3/uL (140-400); RED BLOOD COUNT 4.96 x10^6/uL (3.50-5.40); RED CELL DISTRIBUTION WIDTH 14.5 % (11.5-14.5); WHITE BLOOD COUNT 3.6 x10^3/uL (4.0-11.0)
[2019-06-20] MEDS ORDERED: LIDOCAINE WITH 8.4% SOD BICARB 3 ML DISP.SYRIN. ONE (10:41)
[2019-06-20] MEDS ORDERED: MIDAZOLAM HCL/PF 2 MG/2 ML VIAL. IV ONE (11:15)
[2019-06-20] MEDS ORDERED: LIDOCAINE WITH 8.4% SOD BICARB 3 ML DISP.SYRIN. IJ ONE (11:15)
[2019-06-20] MEDS ORDERED: fentaNYL PF VIAL 100 MCG/2 ML VIAL IV ONE (11:15)
--- NOTE | 2019-06-20 15:49 | RAD ---
CT-guided bone marrow biopsy. 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 Informed consent was obtained. The patient was brought to the CT scanner and placed in the prone position. A timeout procedure was performed. Lead Driver CT imaging of the pelvis demonstrated left ilium amenable to bone marrow biopsy. The overlying soft tissues were prepped and draped using maximum sterile barrier technique. 1% lidocaine without epinephrine was administered for local anesthesia. Under intermittent CT guidance, an OncControl needle was advanced into the bone marrow of the left iliac crest. 2 Aspirates and 1 core biopsy samples were obtained. Samples were delivered to pathology was present at the time of procedure. The needle was removed and manual pressure held to achieve hemostasis. No immediate complications were identified. The procedure was performed under conscious sedation including continuous cardiopulmonary monitoring via dedicated sedation nurse. Sedation time: 20 minutes Impression: Successful CT-guided bone marrow biopsy of the left iliac crest . PQRS Compliance Statement: One or more of the following individualized dose reduction techniques were utilized for this examination: 1. Automated exposure control 2. Adjustment of the mA and/or kV according to patient size 3. Use of iterative reconstruction technique
== END 2019-06-20 12:54 | disposition home or self-care (01) ==
LOC: INTRAD 08:39
PROVIDERS: ATTEND Internal Medicine Hematology & Oncology
DX: C85.80 Other specified types of non-Hodgkin lymphoma, unspecified site (principal); D64.9 Anemia, unspecified; Z79.01 Long term (current) use of anticoagulants
CPT/HCPCS: 36415; 38222; 77012; 85025; 85610; 85730; 88184; 88185; 88237; 99152; J2250; J3010; 99153

== ENCOUNTER → 2019-07-14 | Outpatient (CLI) | payer OTHER ==
[2019-06-20 12:10] VITALS: BP 102/90
[~2019-07-14] MED LIST changes: +ASPI-612 PO; +CONTRAST GIVEN. MC PRN; +IOHEXOL 240 MG/ML 50ML VIAL. PO ONE; +IOHEXOL 300 MG/ML 100ML VIAL. IV ONE; +ZOLP10TA PO
--- NOTE | 2019-07-15 14:44 | RAD ---
CT the chest, abdomen, and pelvis without IV contrast, compared to CT of the abdomen and pelvis dated March 19, [address] of the chest abdomen and pelvis dated January 07, 2019 for weight loss, night sweats, anemia. TECHNIQUE: Contiguous helical 5 mm axial images are obtained from the thoracic inlet to the pelvic floor following a administration of oral contrast. IV contrast was attempted but was discontinued prior to injection. Sagittal and coronal reformations are evaluated. Findings in the chest: Pacemaker on the left is stable. Tiny sliding-type hiatal hernia is noted. Mild cardiomegaly stable. Mild coronary artery calcifications are again noted. No suspicious mediastinal, hilar, or axillary lymphadenopathy is noted. Trachea and central airways are grossly unremarkable. Areas of chronic atelectasis or scarring in the lung bases are unchanged. No new lung parenchymal abnormalities are identified. No suspicious nodules or masses are seen. Degenerative changes are seen throughout the thoracic spine with no suspicious osteoblastic or osteolytic bone lesions. Findings in the abdomen and pelvis: Evaluation of the solid organ parenchyma is limited by lack of IV contrast. The known hemangioma in segment 2 is not well depicted, but is grossly stable in size, as is the equivocal hypodensity within segment 8. No gross morphologic abnormalities of the liver, pancreas, spleen, or bilateral adrenal glands are identified. Gallbladder is absent. The previously described simple cysts involving both kidneys are grossly stable, though difficult to discern. Previously described indeterminate exophytic cyst arising from the midpole of the left kidney is also poorly delineated on this noncontrast examination, but appears grossly stable in size and morphology. No free or loculated fluid collections are seen within the abdomen or pelvis. There is inhomogeneous opacification of large and small bowel, with moderate amount of stool distributed throughout the colon. No areas of gross bowel wall thickening or bowel dilatation are seen. Moderate multifocal aortoiliac atherosclerosis is seen. The urinary bladder is decompressed. No suspicious pelvic, mesenteric, or retroperitoneal adenopathy is seen. There are degenerative changes throughout the lumbar spine which are stable, with no suspicious osteoblastic or osteolytic bone lesions. IMPRESSION: 1. Small sliding-type hiatal hernia. 2. Limited evaluation of the solid organs of the abdomen with lack of IV contrast. The previously seen indeterminate lesion in segment 8 of the liver is grossly stable in size, as is the hemangioma in segment 2. 3. Indeterminate exophytic cystic lesion arising from the midpole the left kidney is grossly stable morphologically. This remains indeterminate however. 4. Other chronic changes as described. PQRS Compliance Statement: One or more of the following individualized dose reduction techniques were utilized for this examination: 1. Automated exposure control 2. Adjustment of the mA and/or kV according to patient size 3. Use of iterative reconstruction technique Electronically signed by: Cedrick Mitchell MD (07/15/2019 2:41 PM) [facility]
== END | disposition home or self-care (01) ==
LOC: CT 08:27
PROVIDERS: ATTEND Internal Medicine Hematology & Oncology
DX: K44.9 Diaphragmatic hernia without obstruction or gangrene (principal); I51.7 Cardiomegaly; I25.10 Atherosclerotic heart disease of native coronary artery without angina pectoris; N28.1 Cyst of kidney, acquired; Z95.0 Presence of cardiac pacemaker
CPT/HCPCS: 71260; 74177; Q9966; Q9967

== ENCOUNTER 2019-07-15 14:29 | Emergency (ER) | payer OTHER ==
[~2019-07-15] VITALS: Ht 165.1 cm; Wt 74.8 kg
[~2019-07-15 14:29] MED LIST changes: -CONTRAST GIVEN. MC PRN; -IOHEXOL 240 MG/ML 50ML VIAL. PO ONE; -IOHEXOL 300 MG/ML 100ML VIAL. IV ONE
[2019-07-15 15:15] VITALS: BP 178/112
[2019-07-15] MEDS ORDERED: methylPREDNISolone SOD SUCC PF 40 MG/ML VIAL. IV ONE (15:30)
[2019-07-15] MEDS ORDERED: HYDROmorphone 2 MG/ML VIAL IV ONE (15:30)
[2019-07-15] MEDS ORDERED: diazePAM 5 MG TABLET PO ONE ×2 (15:30→16:00)
--- NOTE | 2019-07-15 15:35 | PHYS DOC ---
Past Medical History Past Medical History: A-Fib, Anxiety, Arthritis, CHF, Constipation, GERD, High Cholesterol Additional Past Medical Histor: lower ext swelling, pacemaker Past Surgical History: Cholecystectomy, Hysterectomy, Pacemaker Additional Past Surgical Histo: L breast surgery (lumpectomy), L shoulder sx, hemmorhoidectomy,L shoulder Alcohol Use: None Drug Use: None Adult General Chief Complaint Chief Complaint: SHOUDLER HPI HPI Patient is an 84-year-old female who presents to the emergency department for evaluation. She states that she saw her orthopedic doctor, Dr. Braga, this past Sunday. She states that she received injections in her shoulder and her knee, for arthritis, as she has had numerous times in the past. However, she states that almost as soon as she left the office she began having pain in her right shoulder, which has gradually been worsening. She states that she has not had any numbness or weakness, but movement and palpation of her right shoulder significantly worsens her pain. There are no alleviating factors to her symptoms. She does not take any blood thinners. She denies any other trauma or falls. Review of Systems Review of Systems Constitutional: Denies fever or chills [] Eyes: Denies change in visual acuity, redness, or eye pain [] HENT: Denies nasal congestion or sore throat [] Respiratory: Denies cough or shortness of breath [] Cardiovascular: The patient denies any shortness of breath, chest pain, palpitations, or orthopnea [] GI: Denies abdominal pain, nausea, vomiting, bloody stools or diarrhea [] : Denies dysuria or hematuria [] Musculoskeletal: Denies back pain or joint pain, other than the right shoulder. [] Integument: Denies rash or skin lesions [] Neurologic: Denies headache, focal weakness or sensory changes [] Endocrine: Denies polyuria or polydipsia [] All other systems were reviewed and found to be within normal limits, except as documented in this note. Current Medications Current Medications Current Medications Medications (Trade) Dose Ordered Sig/Babatunde Start Time Stop Time Status Last Admin Dose Admin Diazepam (Valium) 5 mg 1X ONCE 07/15/19 16:00 07/15/19 16:06 DC 07/15/19 16:21 5 MG Hydromorphone HCl (Dilaudid) 1 mg 1X ONCE 07/15/19 17:30 07/15/19 17:31 Methylprednisolone Sodium Succinate (SOLU-Medrol 40MG VIAL) 40 mg 1X ONCE 07/15/19 15:30 07/15/19 15:52 DC Oxycodone/ Acetaminophen (Percocet 5/325) 1 tab 1X ONCE 07/15/19 16:00 07/15/19 16:06 DC Prednisone (Prednisone) 40 mg 1X ONCE 07/15/19 16:00 07/15/19 16:06 DC 07/15/19 16:21 40 MG Allergies Allergies Allergies Coded Allergies Type Severity Reaction Last Updated Verified Penicillins Allergy Intermediate Rash 08/08/18 Yes atorvastatin Allergy Intermediate 08/08/18 Yes tetracycline Allergy Intermediate rash 08/08/18 Yes codeine Adverse Reaction Intermediate nausea & vomiting 08/08/18 Yes hydrocodone Adverse Reaction Intermediate Nausea and Vomiting 08/08/18 Yes iron Adverse Reaction Intermediate Nausea and Vomiting, iron tablets the oral dose only 08/08/18 Yes morphine Adverse Reaction Intermediate vomiting 08/08/18 Yes Physical Exam Physical Exam PHYSICAL EXAM: CONSTITUTIONAL: Well developed, well nourished HEAD: normocephalic, atraumatic EENT: PERRL, EOMI. Conjunctivae normal color, sclerae non-icteric; moist mucous membranes. NECK: Supple, non-tender; no meningismus. LUNGS: Lungs CTA, breathing even and unlabored. Normal air movement. HEART: Regular rate and rhythm, no murmur CHEST: No deformity; non-tender ABDOMEN: The abdomen is soft, and non-tender, no masses or bruits. EXTREM: There is significant tenderness to palpation of the right shoulder, without any warmth, or significant edema, or erythema. Range of motion in the right shoulder is limited secondary to pain. There is also tenderness to palpation to the muscular structures of the proximal and mid upper arm, about two th[address] down to the elbow, however there is no tenderness to palpation to the distal arm, elbow, forearm, or hand. There is no significant soft tissue swelling, distal PMS is normal. The remainder the extremities are unremarkable, with Normal ROM; no deformity, no calf tenderness. Normal pulses palpable in all extremities. There is no pedal edema. SKIN: No rash; no diaphoresis NEURO: Alert; normal speech and cognition; CN's grossly intact; strength grossly intact without focal deficit. BACK: No CVA TTP. PSYCHIATRIC: The patient exhibits a moderately anxious affect. Current Patient Data Vital Signs Vital Signs Date Time Temp Pulse Resp B/P (MAP) Pulse Ox O2 Delivery O2 Flow Rate FiO2 07/15/19 15:15 98.5 96 20 178/112 (134) 99 Room Air 98.5 Lab Values Laboratory Tests Test 07/15/19 16:00 White Blood Count 5.1 x10^3/uL (4.0-11.0) Red Blood Count 4.42 x10^6/uL (3.50-5.40) Hemoglobin 11.6 g/dL (12.0-15.5) L Hematocrit 35.7 % (36.0-47.0) L Mean Corpuscular Volume 81 fL (79-100) Mean Corpuscular Hemoglobin 26 pg (25-35) Mean Corpuscular Hemoglobin Concent 33 g/dL (31-37) Red Cell Distribution Width 15.2 % (11.5-14.5) H Platelet Count 201 x10^3/uL (140-400) Neutrophils (%) (Auto) 52 % (31-73) Lymphocytes (%) (Auto) 35 % (24-48) Monocytes (%) (Auto) 9 % (0-9) Eosinophils (%) (Auto) 3 % (0-3) Basophils (%) (Auto) 1 % (0-3) Neutrophils # (Auto) 2.6 x10^3/uL (1.8-7.7) Lymphocytes # (Auto) 1.8 x10^3/uL (1.0-4.8) Monocytes # (Auto) 0.5 x10^3/uL (0.0-1.1) Eosinophils # (Auto) 0.2 x10^3/uL (0.0-0.7) Basophils # (Auto) 0.0 x10^3/uL (0.0-0.2) Erythrocyte Sedimentation Rate 8 (0-25) Sodium Level 134 mmol/L (136-145) L Potassium Level 4.4 mmol/L (3.5-5.1) Chloride Level 98 mmol/L (98-107) Carbon Dioxide Level 27 mmol/L (21-32) Anion Gap 9 (6-14) Blood Urea Nitrogen 11 mg/dL (7-20) Creatinine 0.9 mg/dL (0.6-1.0) Estimated GFR (Cockcroft-Gault) 72.0 Glucose Level 100 mg/dL (70-99) H Calcium Level 9.5 mg/dL (8.5-10.1) C-Reactive Protein, Quantitative 0.9 mg/L (0-3.3) Laboratory Tests 07/15/19 16:00 Laboratory Tests 07/15/19 16:00 EKG EKG [] Radiology/Procedures Radiology/Procedures PROCEDURE: VENOUS UPPER EXTREMITY RIGHT Examination: VENOUS UPPER EXTREMITY RIGHT History: Right upper extremity pain Comparison/Correlation: None EXAM: Right upper extremity venous Doppler. FINDINGS: Grayscale and Doppler analysis of the right upper extremity deep venous system was performed with graded compression and augmentation. The internal jugular, subclavian, axillary, brachial, basilic, cephalic, radial and ulnar veins were assessed. There is no evidence of deep venous thrombosis. IMPRESSION: 1. No evidence of right upper extremity deep venous thrombosis.[] PROCEDURE: SHOULDER 2+V RIGHT Examination: SHOULDER 2+V RIGHT History: Right shoulder pain post injection Comparison/Correlation: None Findings: Total 3 images the right shoulder were obtained. Acromioclavicular joint space unremarkable. Advanced glenohumeral joint degenerative narrowing, subchondral sclerosis, spurring, and moderate remodeling is identified. No fracture or bone destruction. Pacemaker and associated leads are partially seen. Upper lung vinson which are partially visualized are unremarkable. Impression: Advanced right glenohumeral joint degenerative remodeling. Course & Med Decision Making Course & Med Decision Making Pertinent Labs and Imaging studies reviewed. (See chart for details) [] 5:28 PM: The patient's condition remains a stable. I spoke with orthopedist, Dr. Braga, and we both agree that there is no suggestion of infection at this time, and he agreed with outpatient management and will follow up the patient in the clinic. I discussed this with the patient. She declined by mouth pain medication states that she needs something through the IV although she has numerous medication allergies. I discussed the importance of applying ice to the affected area, the need for follow-up with her orthopedist and return p recautions. She'll be given a sling to use for comfort. Dragon Disclaimer Dragon Disclaimer This electronic medical record was generated, in whole or in part, using a voice recognition dictation system. Departure Departure Impression: Primary Impression: Shoulder pain Disposition: HOME, SELF-CARE Condition: STABLE Referrals: SHOLA SOLO MD (PCP) KEEGAN BRAGA MD Patient Instructions: Arthritis, Nonspecific, Shoulder Pain, Sling Use After Injury or Surgery Additional Instructions: Ibuprofen 400 mg every 6 hours may help improve your symptoms. Applying an ice pack to the affected area may help improve your symptoms. SHERICE LUNA MD Jul 15, 2019 15:35
[2019-07-15] MEDS ORDERED: oxyCODONE/APAP 5/325 1 TAB TABLET PO ONE (16:00)
[2019-07-15] MEDS ORDERED: predniSONE 20 MG TABLET PO ONE (16:00)
--- NOTE | 2019-07-15 16:01 | RAD ---
Examination: SHOULDER 2+V RIGHT History: Right shoulder pain post injection Comparison/Correlation: None Findings: Total 3 images the right shoulder were obtained. Acromioclavicular joint space unremarkable. Advanced glenohumeral joint degenerative narrowing, subchondral sclerosis, spurring, and moderate remodeling is identified. No fracture or bone destruction. Pacemaker and associated leads are partially seen. Upper lung vinson which are partially visualized are unremarkable. Impression: Advanced right glenohumeral joint degenerative remodeling. Electronically signed by: Josesito Gannon MD (07/15/2019 3:58 PM) [facility]
[2019-07-15 16:14] LABS: BASO % 1 % (0-3); EOS # 0.2 x10^3/uL (0.0-0.7); EOS % 3 % (0-3); HEMATOCRIT 35.7 % (36.0-47.0); HEMOGLOBIN 11.6 g/dL (12.0-15.5); LYMPH # 1.8 x10^3/uL (1.0-4.8); LYMPH % 35 % (24-48); MEAN CORPUSCULAR HEMOGLOBIN 26 pg (25-35); MEAN CORPUSCULAR HGB CONC 33 g/dL (31-37); MEAN CORPUSCULAR VOLUME 81 fL (79-100); MONO # 0.5 x10^3/uL (0.0-1.1); MONO % 9 % (0-9); NEUT # 2.6 x10^3/uL (1.8-7.7); NEUT % 52 % (31-73); PLATELET COUNT 201 x10^3/uL (140-400); RED BLOOD COUNT 4.42 x10^6/uL (3.50-5.40); RED CELL DISTRIBUTION WIDTH 15.2 % (11.5-14.5); WHITE BLOOD COUNT 5.1 x10^3/uL (4.0-11.0)
--- NOTE | 2019-07-15 16:17 | RAD ---
Examination: VENOUS UPPER EXTREMITY RIGHT History: Right upper extremity pain Comparison/Correlation: None EXAM: Right upper extremity venous Doppler. FINDINGS: Grayscale and Doppler analysis of the right upper extremity deep venous system was performed with graded compression and augmentation. The internal jugular, subclavian, axillary, brachial, basilic, cephalic, radial and ulnar veins were assessed. There is no evidence of deep venous thrombosis. IMPRESSION: 1. No evidence of right upper extremity deep venous thrombosis. Electronically signed by: Josesito Gannon MD (07/15/2019 4:14 PM) [facility]
[2019-07-15 16:21] LABS: CALCIUM 9.5 mg/dL (8.5-10.1); CREATININE 0.9 mg/dL (0.6-1.0); POTASSIUM 4.4 mmol/L (3.5-5.1)
[2019-07-15 16:24] LABS: C-REACTIVE PROTEIN 0.9 mg/L (0-3.3)
[2019-07-15] MEDS ORDERED: HYDROmorphone 2 MG/ML VIAL IM ONE (17:30)
== END 2019-07-15 17:52 | disposition home or self-care (01) ==
LOC: ER 14:29
DX: M25.511 Pain in right shoulder (principal); I48.91 Unspecified atrial fibrillation; K21.9 Gastro-esophageal reflux disease without esophagitis; E78.00 Pure hypercholesterolemia, unspecified; Z95.0 Presence of cardiac pacemaker; Z86.79 Personal history of other diseases of the circulatory system; Z88.0 Allergy status to penicillin; Z88.1 Allergy status to other antibiotic agents; Z88.5 Allergy status to narcotic agent; Z88.8 Allergy status to other drugs, medicaments and biological substances
CPT/HCPCS: 36415; 73030; 80048; 85025; 85651; 86140; 93971; 96372; 99285; J1170; J7512

== ENCOUNTER → 2019-07-21 | Outpatient (CLI) | payer OTHER ==
[2019-07-15 15:15] VITALS: BP 178/112
[~2019-07-21] MED LIST changes: +GABA100C6 PO; +NITR100C6 PO; +ZOLP5TAB5 PO
--- NOTE | 2019-07-21 10:06 | RAD ---
DATE: July 21, 2019 EXAM: DIGITAL SCREEN BILAT W/CAD HISTORY: History of benign left breast biopsy. COMPARISON: 2016 through 2018 This study was interpreted with the benefit of Computerized Aided Detection (CAD). FINDINGS: Breast Density: SCATTERED The breast parenchyma shows scattered fibroglandular densities. Breast parenchyma level B.. There is a new nodule seen medially within the right breast in the CC projection. This appears to be located inferior to the nipple line in the MLO projection. Recommend focal compression views in the CC and MLO projections and a 90 degree lateral medial view for further evaluation followed by right breast sonography. Left breast nodularity is stable. Coarse calcifications are seen bilaterally which are stable. No new clustering of pleomorphic microcalcifications are evident. Chronic scarring of the left breast is seen. IMPRESSION: New nodule of the right breast. Additional imaging is needed. BI-RADS CATEGORY: 0 INCOMPLETE: NEEDS ADDITIONAL IMAGING EVALUATION AND/OR PRIOR MAMMOGRAMS FOR COMPARISON. RECOMMENDED FOLLOW-UP: ADD ADDITIONAL IMAGING PQRS compliance statement: Patient information was entered into a reminder system with a target due date now for the next imaging study. Mammography is a sensitive method for finding small breast cancers, but it does not detect them all and is not a substitute for careful clinical examination. A negative mammogram does not negate a clinically suspicious finding and should not result in delay in biopsying a clinically suspicious abnormality. "Our facility is accredited by the [employer] Mammography Program." The patient's breast density may affect the ability of mammography to detect breast cancer. There are 4 categories of breast density, A, B, C and D. Breast density A means that most of the breast tissue is replaced with adipose tissue and therefore is not dense. Breast density B means that the breast tissue is mildly dense and scattered. Breast density C means that the breast tissue is heterogeneously dense. Breast density D means that the breast tissue is very dense. Breast densities especially C and D may decrease the sensitivity of mammography to detect breast cancer. Therefore, the patient may benefit from 3-D breast mammography (3D breast tomography) as a part of their screening mammogram. Insurance may or may not pay for this additional imaging. The patient's breast density based on today's mammogram is category B.
== END | disposition home or self-care (01) ==
LOC: MAMMO 08:43
PROVIDERS: ATTEND Internal Medicine
DX: Z12.31 Encounter for screening mammogram for malignant neoplasm of breast (principal); N64.89 Other specified disorders of breast; N63.10 Unspecified lump in the right breast, unspecified quadrant
CPT/HCPCS: 77067

== ENCOUNTER → 2019-08-13 | Outpatient (CLI) | payer OTHER ==
[2019-07-31 08:11] VITALS: BP 160/91
--- NOTE | 2019-08-13 13:53 | RAD ---
DATE: 08/13/2019 EXAM: MAMMO ANTONY TONI RT, BREAST RIGHT HISTORY: Abnormal mammogram COMPARISON: 07/21/2019 mammogram This study was interpreted with the benefit of Computerized Aided Detection (CAD). Breast Density: HETERO The breast parenchyma is heterogenously dense, which could reduce sensitivity of mammography. Breast parenchyma level C. FINDINGS: Spot compression imaging of the right breast was performed at the inner aspect in the CC projection and at the lower aspect in the MLO projection. Persistence of the mass is noted at the inner aspect on the CC projection. It is not evident on the MLO projection. As a result, right breast CC tomosynthesis imaging was performed demonstrating the mass to be at the upper breast region. Limited right upper outer quadrant ultrasound exam was performed. There is a lobulated hypoechoic irregular marginated structure measuring 0.4 cm x 0.3 cm x 0.4 cm corresponding to the mammographic finding. There is no flow within it. It is located 7 cm from the nipple at the 2:30 region. The right axilla is unremarkable with no lymph nodes identified. IMPRESSION: Right upper inner breast nodule of concern for a malignant process. BI-RADS CATEGORY: 4 SUSPICIOUS ABNORMALITY- BIOPSY SHOULD BE CONSIDERED RECOMMENDED FOLLOW-UP: BIO BIOPSY RECOMMENDED. Ultrasound-guided core biopsy is recommended. A voicemail message was provided to Dr. Mclaughlin's office on 08/13/2019 at 1:45 PM.. PQRS compliance statement: Patient information was entered into a reminder system with a target due date for the next mammogram. Mammography is a sensitive method for finding small breast cancers, but it does not detect them all and is not a substitute for careful clinical examination. A negative mammogram does not negate a clinically suspicious finding and should not result in delay in biopsying a clinically suspicious abnormality. "Our facility is accredited by the [employer] Mammography Program."
== END | disposition home or self-care (01) ==
LOC: MAMMO 12:00
PROVIDERS: ATTEND Internal Medicine
DX: N63.12 Unspecified lump in the right breast, upper inner quadrant (principal)
CPT/HCPCS: 76641; 77065; G0279; 77061

== ENCOUNTER → 2019-09-04 | Outpatient (CLI) | payer MEDICARE, OTHER ==
[2019-07-31 08:11] VITALS: BP 160/91
--- NOTE | 2019-09-04 09:37 | RAD ---
EXAM: 1. ULTRASOUND-GUIDED CORE BIOPSY RIGHT BREAST WITH CLIP PLACEMENT. 2. POSTCLIP DIAGNOSTIC RIGHT MAMMOGRAPHY. HISTORY: Right breast mass. Ultrasound-guided biopsy is requested. FINDINGS: The procedure along with its risks and benefits were explained to the patient. She agreed to proceed. A timeout procedure was performed. Sonographic evaluation of the right breast redemonstrates the lesion of concern. It is seen as a 4 mm hypoechoic antiparallel nodule at the 2:30 position 7 cm from the nipple. The overlying skin was sterilely prepped and infiltrated with 1% lidocaine for local anesthesia. Under ultrasound guidance, 2 core needle specimens of the target lesion were obtained using a 14-gauge biopsy device. These were submitted in formalin. A postbiopsy clip was placed under ultrasound guidance. Pressure was held to hemostasis. There were no immediate complications. Full-field digital mammographic views of the right breast were obtained in CC and MLO projections and interpreted on a dedicated workstation. They demonstrate the clip in correspondence with the target lesion. IMPRESSION: 1. Successful ultrasound-guided right breast biopsy with clip placement. 2. The postbiopsy clip corresponds with the target lesion. Electronically signed by: Alden Godinez MD (09/04/2019 9:34 AM) [facility]
--- NOTE | 2019-09-05 18:06 | PATHOLOGY ---
[facility] Accession Number: [id number] . 01 Material submitted: . breast - RIGHT BREAST MASS, 2:30, 7CMFN. Modifiers: right . 01 Clinical history: . Right breast mass . 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 SEE COMMENT. LBQ 09/05/2019 1233 Local . 02 Comment: Sections of the right breast mass at 2:30 needle biopsy reveal an invasive mammary carcinoma. The tumor shows moderate tubule formation and is associated with a reactive desmoplastic stroma. The tumor shows moderate to focal marked nuclear pleomorphism. The tumor is mitotically active and focally shows up to 3 mitotic figures within a single high power field. There is focal tumor necrosis. The invasive tumor measures up to 0.4 cm in greatest dimension on the glass slide. There is no lymphovascular tumor invasion. There is a rare tumor associated calcification. There is a single focus of intermediate grade solid-type ductal carcinoma in situ within the surrounding fatty tissue. There is no lymphovascular tumor invasion. There is an occasional tumor associated calcification. The morphologic findings are supportive of the diagnosis of an invasive ductal carcinoma, grade 2-3. Breast prognostic studies will be obtained, the results of which will be reported separately. The case is also examined by Dr. Prater, who concurs with the diagnosis. (JPM/db; 09/05/2019) . 02 Electronically signed: . Dioni Urbina MD, Pathologist NPI- [id number] . 01 Gross description: . The specimen is received in formalin, labeled "Ariela Catalan, right breast". Received are two needle cores of fibrofatty tissue measuring 1.5 x 0.4 x 0.2 cm in aggregate dimensions. The specimen is submitted entirely in cassettes A1 and A2. The cold ischemic time is 5 minutes. The total formalin fixation time is 12 hours and 55 minutes. (CAA; 09/04/2019) QAC/QAC 09/04/2019 1533 Local . 02 Pathologist provided ICD-10: C50.911 . 02 CPT . 276757 Specimen Comment: A courtesy copy of this report has been sent to [phone], [phone]- Specimen Comment: [id number], Specimen Comment: Report sent to ,DR SOLO / DR WILD Performed at: 01 [facility] [address], [place] [id number] MD Eddie Galindo MD Phone: [phone] Performed at: 02 [facility] [address], [place] [id number] MD Dioni Urbina MD Phone: [phone]
== END | disposition home or self-care (01) ==
LOC: US 08:01
PROVIDERS: ATTEND Surgery
DX: N63.10 Unspecified lump in the right breast, unspecified quadrant (principal); C50.911 Malignant neoplasm of unspecified site of right female breast
CPT/HCPCS: 19083; 77065; C1713; 19081; 76942; 88305; 88361

== ENCOUNTER 2019-09-17 09:24 | Inpatient (IN) | payer MEDICARE ==
[2019-09-17] VITALS (12 sets, daily range): BP systolic 108–168; BP diastolic 64–90
[~2019-09-17] VITALS: Ht 165.1 cm; Wt 72.5 kg
[~2019-09-17 09:24] MED LIST changes: +IV RINGERS,LACTATED 1000ML 1,000 ML IV SCH; +LIDOCAINE 1% PF 2 ML VIAL. ID PRN; +PROCHLORPERAZINE 10 MG/2 ML VIAL. IV PRN
[2019-09-17] MEDS ORDERED: LIDOCAINE 2% PF 5 ML VIAL. ONE (12:18)
[2019-09-17] MEDS ORDERED: PROPOFOL 20 ML IV ONE (12:18)
[2019-09-17] MEDS ORDERED: DEXAMETHASONE SOD PHOS 20 MG/5 ML VIAL. ONE (12:19)
[2019-09-17] MEDS ORDERED: fentaNYL PF VIAL 100 MCG/2 ML VIAL ONE (12:20)
[2019-09-17] MEDS ORDERED: ONDANSETRON PF 4 MG/2 ML VIAL. ONE (12:21)
[2019-09-17] MEDS ORDERED: BUPIVACAINE-EPI 0.5%-1:200000 MPF 30 ML VIAL. ONE (12:51)
[2019-09-17] MEDS ORDERED: ISOSULFAN BLUE 1% 50 MG/5 ML VIAL. SQ ONE (12:51)
[2019-09-17] MEDS ORDERED: LIDOCAINE 1%/EPI 1:100,000 20 ML VIAL. ONE (12:51)
--- NOTE | 2019-09-17 13:03 | RAD ---
RIGHT BREAST LOCALIZATION USING MAMMOGRAPHIC GUIDANCE WITH 2-D DIGITAL MAMMOGRAPHY RIGHT BREAST SONOGRAPHY INDICATIONS: Localization of biopsy clip of the upper medial quadrant of the right breast prior to surgery. History of positive right breast biopsy for malignancy. RIGHT BREAST SONOGRAPHY: high-resolution sonography of the upper medial quadrant of the right breast was performed. The previously seen small hypoechoic nodule of the right breast at the 2:30 position 7 cm from the nipple cannot be visualized today. There is an echodensity with acoustic shadowing which could represent biopsy clip or one of the adjacent coarse calcifications seen in this area on the mammogram. Therefore, needle localization will have to be performed utilizing mammographic guidance. MAMMOGRAPHIC GUIDED NEEDLE LOCALIZATION PROCEDURE: The procedure and possible complications including bleeding and infection were explained. The patient provided both verbal and written consent. A timeout was performed which confirmed the name of the patient and the date of and the type of the procedure and the side of the procedure. Identification of the patient was confirmed with the name kade. Allergies to medications were reviewed and there is no allergy to lidocaine. Review of preoperative imaging confirmed the correct side. A 2-D digital mammogram of the right] breast with overlying grid using a medial approach was performed in the medial lateral projection. The biopsy clip of the right breast was identified and an appropriate skin wade was placed using the grid system. This area of the right breast was prepped with Betadine in the usual sterile fashion. A total of 2 cc of 1% lidocaine was utilized for local anesthesia. Using sterile technique, a 5 cm in length Accura needle cannula was directed into the right breast. Subsequently, a 2-D digital 90 degree mammographic view of the right breast was performed. Needle position was deemed adequate. Following this, a 2-D digital CC mammographic view of the right breast was performed which confirmed needle position. After repositioning of the needle cannula so that the needle tip was closer to the biopsy clip, a repeat 2-D digital CC mammogram of the breast was performed which confirmed adequate positioning of the needle tip near the biopsy clip. Subsequently, the wire hook was deployed and the needle cannula was removed. Two-view 2-D digital mammography of the right breast was performed which confirmed adequate position of the wire hook near the biopsy clip. Hemostasis was deemed adequate. The patient tolerated the procedure well without complication. The wire was covered with a sterile dressing. The patient was taken to the surgery preoperative area. This procedure was discussed with Dr. Per Griffiths prior to surgery. IMPRESSION: Right breast needle localization of biopsy clip using mammographic guidance was performed prior to surgery.
[2019-09-17] MEDS ORDERED: SEVOFLURANE 61 TO 120 MINUTES. IH ONE (14:15)
--- NOTE | 2019-09-17 14:29 | RAD ---
SURGICAL SPECIMEN RADIOGRAPH Clinical indications: Localization of biopsy clip. History of right breast cancer. FINDINGS: A radiograph of the surgical specimen was performed in the holding device. The wire hook is seen within the central aspect of the specimen. There is a biopsy clip within the specimen at the level of J6. Mild nodularity and scattered calcifications are seen within the specimen. IMPRESSION: Surgical specimen radiograph contains the biopsy clip. This finding was conveyed to the surgeon Dr. Per Griffiths in the operating room immediately after completion of the surgical specimen radiograph on September 17, 2019.
--- NOTE | 2019-09-17 14:41 | RAD ---
SENTINEL LYMPH NODE INJECTION OF THE RIGHT BREAST History: Right breast cancer of the 2:30 position 7 cm from the nipple. Technique: The anterior aspect of the right breast around the nipple and areola was sterilized with an alcohol pad. Anesthetic spray was applied to the periareolar region of the right breast. Using sterile technique, 1.0 mCi of Lymphoseek in 0.2 cc of sterile normal saline was injected intradermally in the periareolar region of the upper medial quadrant of the right breast without complication. The patient tolerated the procedure well without complication. No images were obtained. Subsequently, the patient was taken to the surgery suite. Impression: [place] lymph node injection of the right breast was performed as discussed above. Electronically signed by: Zhen Finley MD (09/17/2019 2:38 PM) [facility]
[2019-09-17] MEDS ORDERED: IV NORMAL SALINE 1000ML BAG 1,000 ML IV SCH (14:44)
--- NOTE | 2019-09-17 14:44 | PDOC4 ---
Operative Note Operative Note Operative Note: Preoperative Diagnosis: Right breast cancer Postoperative Diagnosis: Same Procedure: Right lumpectomy with needle localization, right axilla sentinel lymph node biopsy Surgeon: Tunde Guest History Clerk: Michelle MARTIN Anesthesia: Gen. EBL: 20 mL Specimen: Right axillary sentinel lymph node to pathology, right lumpectomy short stitch superficial long stitch lateral to pathology Drains: None Complications: None Indication: The patient is an 84-year-old female who was recently diagnosed with right breast cancer. In reviewing surgical option she is interested in breast conservation with a lumpectomy. We plan to incorporate a sentinel lymph node biopsy as well. The risks of surgery were discussed which include bleeding, infection, pain, scarring, anesthetic risk, seroma, potential need for clemencia tional surgery or procedure. She understands and would like to proceed. Description: The patient was taken initially to radiology where she underwent both wire localization of the tumor and injection of radioactive tracer for the sentinel lymph node. She was then brought to the operating room. She was placed supine on the table and general anesthesia was performed. The right breast and axilla were prepped with ChloraPrep and draped in a standard surgical manner with the arm on an armboard. Five mL of Lymphazurin were injected deep to the nipple area complex. Several minutes were allowed to elapse. An incision was made in the skin lines of the right axilla with a scalpel. Cautery dissection was carried into the axillary tissues. The radioactive probe highlighted one focal area of moderate nuclear uptake. Dissection in this direction corresponded to a blue staining lymph node. This was harvested from the surrounding tissues and sent to pathology labeled sentinel lymph node #1. Further inspection showed no additional areas of nuclear uptake or blue staining. In addition there was no palpable adenopathy. Frozen section of the lymph node showed no evidence of metastasis. We then proceeded with the lumpectomy. The wire was seen in the medial aspect of the right breast and directed toward the midline. An incision was made which included the wire and extended in the midline. Cautery dissection was used for the lumpectomy. In the trajectory of the wire a generous portion of breast tissue was mobilized from the surrounding parenchyma. The dissection was carried well deep to the anticipated termination of the wire. The superficial margin was marked with a short silk stitch and lateral margin marked with a long silk stitch. The lumpectomy specimen was then excised and the wire was included. This was sent to radiology and specimen radiographs confirmed the wire and clip to be present. The specimen was then sent to pathology. A couple of small bleeding spots were controlled with cautery. Hemostasis was then good. Both incision sites were closed in 2 layers. The subcutaneous tissues were approximated with 3-0 Vicryl and skin was closed with 4-0 Monocryl. Sterile OpSite dressings were applied. The patient tolerated the procedure well and was sent to the recovery room in stable condition. At the end of the case all counts were correct. BONY WILD MD Sep 17, 2019 14:44
[2019-09-17] MEDS ORDERED: ONDANSETRON PF 4 MG/2 ML VIAL. IVP PRN (14:45)
[2019-09-17] MEDS ORDERED: 0.9 % SODIUM CHLORIDE 10 ML DISP.SYRIN. IV PRN (14:45)
[2019-09-17] MEDS ORDERED: NALOXONE 0.4 MG/ML VIAL. IV PRN (14:45)
[2019-09-17] MEDS ORDERED: ACETAMINOPHEN 325 MG TABLET. PO PRN (15:00)
[2019-09-17] MEDS ORDERED: LABETALOL 20 MG/4 ML DISP.SYRIN. IVP ONE (15:15)
[2019-09-17] MEDS: fentaNYL PF VIAL 100 MCG/2 ML VIAL IVP PRN ×2 (17:13→20:32)
[2019-09-17] MEDS: LUBIPROSTONE 24 MCG CAPSULE PO SCH (17:15)
[2019-09-17] MEDS: PANTOPRAZOLE 40 MG TABLET.DR. PO SCH (17:15)
[2019-09-17] MEDS ORDERED: fentaNYL PF VIAL 100 MCG/2 ML VIAL IVP PRN (17:15)
[2019-09-17] MEDS: IV 1/2 NORMAL SALINE 1,000 ML IV SCH (19:16)
[2019-09-17] MEDS: OXYBUTYNIN CHLORIDE 5 MG TABLET PO SCH (21:00)
[2019-09-17] MEDS: SOTALOL 80 MG TABLET. PO SCH (21:00)
[2019-09-17] MEDS: ZOLPIDEM 5 MG TABLET. PO SCH (21:18)
[2019-09-17] MEDS: ALPRAZolam 0.5 MG TABLET PO SCH (21:18)
[2019-09-18] VITALS (7 sets, daily range): BP systolic 109–149; BP diastolic 61–76
[2019-09-18] MEDS: GABAPENTIN 100 MG CAPSULE. PO SCH (06:22)
[2019-09-18] MEDS: PANTOPRAZOLE 40 MG TABLET.DR. PO SCH (06:52)
[2019-09-18] MEDS: LUBIPROSTONE 24 MCG CAPSULE PO SCH ×2 (08:00→17:38)
[2019-09-18] MEDS: SOTALOL 80 MG TABLET. PO SCH ×2 (08:02→20:35)
[2019-09-18] MEDS: OXYBUTYNIN CHLORIDE 5 MG TABLET PO SCH ×2 (08:03→20:35)
[2019-09-18] MEDS: fentaNYL PF VIAL 100 MCG/2 ML VIAL IVP PRN ×3 (08:08→23:43)
[2019-09-18] MEDS: ALPRAZolam 0.5 MG TABLET PO SCH ×2 (08:10→20:33)
--- NOTE | 2019-09-18 08:40 | NUR ---
C/o severe pain at incision site. States "8". IV Fentanyl and ice pack given. Cont. monitor.
--- NOTE | 2019-09-18 09:29 | PDOC ---
LC TORRES APRN 09/18/19 0929: SURGICAL PROGRESS NOTE Subjective pain issues--cant take oral meds--she vomits up to BR, but not ambulating much more than that Vital Signs Vital Signs Date Time Temp Pulse Resp B/P (MAP) Pulse Ox O2 Delivery O2 Flow Rate FiO2 09/18/19 08:08 Room Air 09/18/19 08:02 80 129/74 09/18/19 07:50 10.0 09/18/19 06:36 98.2 20 97 98.2 I&O Intake and Output 09/18/19 07:00 Intake Total 980 ml Output Total 1370 ml Balance -390 ml Intake Oral 180 ml IV Total 800 ml Output Urine Total 1350 ml Estimated Blood Loss 20 ml General: Alert, Oriented X3, Cooperative Skin: Other (breast dressing intact) Problem List will ask PT to eval pain management--limited because she wont take PO narcs(reports vomiting) BONY WILD MD 09/18/19 1020: SURGICAL PROGRESS NOTE Assessment/Plan Agree with above LC TORRES APRN Sep 18, 2019 09:29 BONY WILD MD Sep 18, 2019 10:20
[2019-09-18] MEDS: IV 1/2 NORMAL SALINE 1,000 ML IV SCH (10:44)
--- NOTE | 2019-09-18 12:45 | NUR ---
Requesting pain med. Fentanyl IV given.
[2019-09-18] MEDS: IBUPROFEN 200 MG TABLET. PO PRN ×2 (17:38→23:43)
--- NOTE | 2019-09-18 18:30 | NUR ---
Transfer to room #426 by bed accompanied by ninajma.
[2019-09-18] MEDS: ZOLPIDEM 5 MG TABLET. PO SCH (20:34)
[2019-09-19] MEDS: fentaNYL PF VIAL 100 MCG/2 ML VIAL IVP PRN (02:50)
[2019-09-19 03:32] VITALS: BP 123/64
--- NOTE | 2019-09-19 03:56 | CONS ---
DATE OF CONSULTATION: 09/18/2019 MEDICAL ONCOLOGY CONSULTATION REPORT REQUESTING PHYSICIAN: Carol Mclaughlin MD REASON FOR CONSULTATION: Right-sided breast cancer, invasive ductal carcinoma diagnosed on 09/04/2019, ER positive 99%, LA positive 2%, HER2/micah negative. HISTORY OF PRESENTING ILLNESS: The patient is an 84-year-old -[place] female who has had a history of weight loss since 2019. She underwent a colonoscopy in 2019 that was unremarkable. She also had a CT scan of the abdomen and pelvis on 09/05/2018 which revealed cysts in the liver. She underwent a CT scan of the chest, abdomen and pelvis on 01/07/2019 that again did not reveal any evidence of malignancy. She had a mammogram performed on 07/21/2019 that was abnormal. This was followed by diagnostic mammogram on 08/13/2019 which revealed right breast, upper inner quadrant nodule concerning for malignancy. It measures 0.4 x 0.3 x 0.4 cm. This was present at 2:30 position. She underwent biopsy of the right breast mass on 09/04/2019 that revealed invasive ductal carcinoma, grade 2-3, ER positive 99%, LA positive 2%, and HER2/micah negative. Dr. Per Griffiths was consulted and she underwent right lumpectomy and right axillary sentinel lymph node biopsy on 09/17/2019. PAST MEDICAL HISTORY: Arthritis, pacemaker, congestive heart failure, hyperlipidemia, and osteoporosis. FAMILY HISTORY: Mother had cancer. SOCIAL HISTORY: She is a former smoker. REVIEW OF SYSTEMS: A 12-point review of system was performed. Pertinent positives are mentioned in the history of presenting illness. Rest of the system review is negative. PHYSICAL EXAMINATION: GENERAL APPEARANCE: The patient is an 84-year-old -[place] female who is in no acute cardiorespiratory distress. VITAL SIGNS: Blood pressure 123/65, temperature 98 degrees. HEENT: Atraumatic, normocephalic. EYES: No icterus. NECK: Supple. CHEST: Bilaterally symmetrical. HEART: S1, S2 normal. ABDOMEN: Soft, nontender. CENTRAL NERVOUS SYSTEM: No focal deficits. LYMPHATICS: No lymphadenopathy. SKIN: No rashes. PSYCHOLOGIC: Mood and affect are appropriate. BREASTS: Reveals evidence of right breast lumpectomy. LABORATORY DATA: WBC 3.3, hemoglobin 9.7, platelet count 140. Creatinine 0.7 on 07/31/2019. IMPRESSION AND PLAN: 1. Invasive ductal carcinoma of the right breast, upper inner quadrant, diagnosed on 09/04/2019, grade 2-3, ER positive 99%, LA positive 2%, HER2/micah negative, and Ki-67 of 15%. She underwent a right breast lumpectomy and sentinel lymph node biopsy on 09/17/[address] Per Griffiths. I will await final pathology results. Clinically, I suspect that she has a [id number] stage 1 breast cancer. After availability of final report, I will discuss with her the role of adjuvant hormonal therapy with anastrozole or tamoxifen. No role for chemotherapy for such a small tumor. I would also recommend Radiation Oncology consultation as outpatient. 2. Anemia, chronic. She has had extensive workup with iron panel, B12, folic acid, serum protein electrophoresis in 02/2019 which were all unremarkable. 3. Weight loss. She has had extensive workup in the past including CT chest, abdomen and pelvis, which were all unremarkable. She also had a bone marrow biopsy on 06/20/2019 which did not reveal any primary bone marrow disorders. I discussed with Dr. Carol Mclaughlin. NICKOLAS PENA MD DR: SUSANNAH/skyler JOB#: [id number] / [id number]
[2019-09-19 07:00] VITALS: BP 141/71
[2019-09-19] MEDS: IBUPROFEN 200 MG TABLET. PO PRN (08:20)
[2019-09-19] MEDS: ALPRAZolam 0.5 MG TABLET PO SCH (08:21)
[2019-09-19] MEDS: GABAPENTIN 100 MG CAPSULE. PO SCH (08:21)
[2019-09-19] MEDS: LUBIPROSTONE 24 MCG CAPSULE PO SCH (08:21)
[2019-09-19] MEDS: PANTOPRAZOLE 40 MG TABLET.DR. PO SCH (08:22)
[2019-09-19] MEDS: OXYBUTYNIN CHLORIDE 5 MG TABLET PO SCH (08:24)
[2019-09-19] MEDS: SOTALOL 80 MG TABLET. PO SCH (08:24)
[2019-09-19] MEDS ORDERED: IBUP-1670 PO (09:02)
[2019-09-19] MEDS ORDERED: ACET325T9 PO (09:02)
--- NOTE | 2019-09-19 09:04 | DISCH ---
DISCHARGE INSTRUCTIONS Condition on Discharge Condition on Discharge: Stable Activity After Discharge Activity Instructions for Disc: Activity as tolerated Bathing Instructions: Shower-keep dressing dry Lifting Instructions after Dis: No heavy lifting, Do not lift >10 pounds Exercise Instruction after Dis: Progress as tolerated Driving Instructions after Dis: Do not drive today Weight Bearing Status after Di: No restrictions Diet after Discharge Diet after Discharge: Cardiac Diet Texture: Regular Liquid Texture: Thin Liquid Wound Incision Care Wound/Incision Care: Do not change dressing, Reinforce dressing PRN Contacting the DRPrudencio after DC Call your doctor for: Concerns you may have Follow-Up Follow up with: Dr Griffiths 09/25, call to schedule [phone] Treatment/Equipment after DC Adaptive Equipment Issued: None LC TORRES APRN Sep 19, 2019 09:04
--- NOTE | 2019-09-19 09:06 | PDOC ---
SURGICAL PROGRESS NOTE Subjective tolerating diet pain is better today ambulated with PT Vital Signs Vital Signs Date Time Temp Pulse Resp B/P (MAP) Pulse Ox O2 Delivery O2 Flow Rate FiO2 09/19/19 08:24 75 141/71 09/19/19 07:00 97.8 16 95 Room Air 97.8 09/18/19 19:00 I&O Intake and Output 09/19/19 07:00 Intake Total 1070 ml Output Total 750 ml Balance 320 ml Intake Oral 1070 ml Output Urine Total 750 ml # Voids 5 General: Alert, Oriented X3, Cooperative Skin: Other (breast dressings dry and intact ) Assessment/Plan dc home FU 1 week LC TORRES APRN Sep 19, 2019 09:06
--- NOTE | 2019-09-19 09:08 | PDOC3 ---
Discharge Summary Visit Information Date of Admission: Sep 17, 2019 Date of Discharge: Sep 19, 2019 Admitting Diagnosis: right breast cancer Final Diagnosis right breast cancer Brief Hospital Course Allergies Allergies Coded Allergies Type Severity Reaction Last Updated Verified Penicillins Allergy Intermediate Rash 09/16/19 Yes atorvastatin Allergy Intermediate 09/16/19 Yes tetracycline Allergy Intermediate rash 09/16/19 Yes codeine Adverse Reaction Intermediate nausea & vomiting 09/16/19 Yes fentanyl Adverse Reaction Intermediate Nausea and Vomiting 09/17/19 Yes hydrocodone Adverse Reaction Intermediate Nausea and Vomiting 09/16/19 Yes iron Adverse Reaction Intermediate Nausea and Vomiting, iron tablets the oral dose only 09/16/19 Yes morphine Adverse Reaction Intermediate vomiting 09/16/19 Yes tramadol Adverse Reaction Intermediate Nausea and Vomiting 09/16/19 Yes Vital Signs Vital Signs Date Time Temp Pulse Resp B/P (MAP) Pulse Ox O2 Delivery O2 Flow Rate FiO2 09/19/19 08:24 75 141/71 09/19/19 07:00 97.8 16 95 Room Air 97.8 09/18/19 19:00 Brief Hospital Course Ms. Catalan is a 84 old female who underwent Right lumpectomy with needle localization, right axilla sentinel lymph node biopsy. Postoperatively some issues with pain. Improved at discharge, ambulating, and eating well. Will have her FU in clinic next week Discharge Information Condition at Discharge: Stable Follow Up: Weeks (1) Disposition/Orders: D/C to Home Scheduled Alprazolam (Xanax) 0.5 Mg Tablet, 0.5 TAB PO BID for , #60 (Reported) Entered as Reported by: LB FRANCOIS on 08/29/17 1712 Last Taken: Unknown Dose on 09/16/19 Last Action: Continued on 09/17/19 1449 by BONY WILD Gabapentin (Gabapentin ) 100 Mg Capsule, 100 MG PO DAILY07 for NEUROGENIC PAIN, (Reported) Entered as Reported by: MICHAEL RIBERA on 07/25/19 1554 Last Taken: Unknown Dose on 09/16/19 Last Action: Continued on 09/17/19 1449 by BONY WILD Linaclotide (Linzess) 145 Mcg Capsule, 72 MCG PO DAILY07 for IRRITABLE BOWEL, (Reported) Entered as Reported by: YOVANA OROURKE on 11/28/18 1243 Last Taken: Unknown Dose on 09/16/19 Last Action: Converted on 09/17/19 14 49 by BONY WILD Omeprazole (Omeprazole) 40 Mg Capsule.dr, 40 MG PO DAILY for GERD, (Reported) Entered as Reported by: CHRISTIAN WATERS on 09/18/131831 Last Taken: Unknown Dose on 09/16/19 Last Action: Converted on 09/17/191448 by BONY WILD Ondansetron Hcl (Zofran) 8 Mg Tablet, 1 TAB PO Q8HRS for n/v, #20 Ref 1 Prescribed by: SHOLA SOLO on 07/31/19 1020 Last Taken: Unknown Dose on 09/16/19 Last Action: HELD on 09/17/191448 by BONY WILD Oxybutynin Chloride (Oxybutynin Chloride) 5 Mg Tablet, 5 MG PO BID for Bladder control, (Reported) Entered as Reported by: MICHAEL RIBERA on 07/25/19 1554 Last Taken: Unknown Dose on 09/16/19 Last Action: Continued on 09/17/191448 by BONY WILD Sotalol Hcl (Sotalol) 80 Mg Tablet, 40 MG PO BID for heart, (Reported) Entered as Reported by: CHRISTIAN WATERS on 09/18/131831 Last Taken: Unknown Dose on 09/16/191999 Last Action: Continued on 09/17/191448 by BONY WILD Zolpidem Tartrate (Zolpidem Tartrate) 5 Mg Tablet, 5 MG PO HS for Insomnia, (Reported) Entered as Reported by: MICHAEL RIBERA on 07/25/19 1554 Last Taken: Unknown Dose on 09/16/19 Last Action: Continued on 09/17/191448 by BONY WILD Scheduled PRN Acetaminophen (Tylenol) 325 Mg Tablet, 650 MG PO PRN Q6HRS PRN for MILD PAIN 1-3 for 7 Days, Ref 0 Prescribed by: Lc Davis on 09/19/19 0902 Ibuprofen (Ibuprofen) 200 Mg Tablet, 600 MG PO BID PRN for INFLAMMATION for 7 Days, #42 Ref 0 Prescribed by: Lc Davis on 09/19/19901 LC DAVIS APRN Sep 19, 2019 09:08
--- NOTE | 2019-09-19 09:23 | PDOC ---
PROGRESS NOTES Subjective Subjective HPI - f/u of Invasive ductal carcinoma of the right breast ROS - no CP Objective Objective Vital Signs Date Time Temp Pulse Resp B/P (MAP) Pulse Ox O2 Delivery O2 Flow Rate FiO2 09/19/19 08:24 75 141/71 09/19/19 07:00 97.8 16 95 Room Air 97.8 09/18/19 19:00 Intake and Output 09/19/19 07:00 Intake Total 1070 ml Output Total 750 ml Balance 320 ml Intake Oral 1070 ml Output Urine Total 750 ml # Voids 5 Physical Exam Heart: Normal S1, Normal S2 General: Alert, Oriented X3 Lungs: Clear to auscultation Neuro: Normal speech Psych/Mental Status: Mental status NL Assessment Assessment IMPRESSION AND PLAN: 1. Invasive ductal carcinoma of the right breast, upper inner quadrant, diagnosed on 09/04/2019, grade 2-3, ER positive 99%, CA positive 2%, HER2/micah negative, and Ki-67 of 15%. She underwent a right breast lumpectomy and sentinel lymph node biopsy on 09/17/[address] Per Griffiths. I will await final pathology results. Clinically, I suspect that she has a [id number] stage 1 breast cancer. After availability of final report, I will discuss with her the role of adjuvant hormonal therapy with anastrozole or tamoxifen. No role for chemotherapy for such a small tumor. I would also recommend Radiation Oncology consultation as outpatient. She is being discharged today.. 2. Anemia, chronic. She has had extensive workup with iron panel, B12, folic acid, serum protein electrophoresis in 02/2019 which were all unremarkable. 3. Weight loss. She has had extensive workup in the past including CT chest, abdomen and pelvis, which were all unremarkable. She also had a bone marrow biopsy on 06/20/2019 which did not reveal any primary bone marrow disorders. Comment Review of Relevant I have reviewed the following items wade (where applicable) has been applied. Medications Current Medications Ringer's Solution 1,000 ml @ 30 mls/hr Q24H IV Last administered on 09/17/19at 10:20; Start 09/17/19 at 07:00; Stop 09/17/19 at 17:53; Status DC Lidocaine HCl (Xylocaine-Mpf 1% 2ml Vial) 2 ml PRN 1X PRN ID PRIOR TO IV START; Start 09/17/19 at 07:00; Stop 09/17/19 at 17:53; Status DC Prochlorperazine Edisylate (Compazine) 5 mg PACU PRN PRN IV NAUSEA, MRX1 Last administered on 09/17/19at 14:55; Start 09/17/19 at 07:00; Stop 09/17/19 at 17:53; Status DC Levofloxacin/ Dextrose 100 ml @ 100 mls/hr 1X PREOP PRN IV PRIOR TO PROCEDURE; Start 09/17/19 at 06:00; Stop 09/17/19 at 18:00; Status DC Propofol 20 ml @ As Directed STK-MED ONCE IV ; Start 09/17/19 at 12:18; Stop 09/17/19 at 12:18; Status DC Lidocaine HCl (Lidocaine Pf 2% Vial) 5 ml STK-MED ONCE .ROUTE ; Start 09/17/19 at 12:18; Stop 09/17/19 at 12:18; Status DC Dexamethasone Sodium Phosphate (Decadron) 20 mg STK-MED ONCE .ROUTE ; Start 09/17/19 at 12:19; Stop 09/17/19 at 12:20; Status DC Fentanyl Citrate (Fentanyl 2ml Vial) 100 mcg STK-MED ONCE .ROUTE ; Start 09/17/19 at 12:20; Stop 09/17/19 at 12:20; Status DC Ondansetron HCl (Zofran) 4 mg STK-MED ONCE .ROUTE ; Start 09/17/19 at 12:21; Stop 09/17/19 at 12:21; Status DC Bupivacaine HCl/ Epinephrine Bitart (Sensorcain-Epi 0.5%-1:669053 Mpf) 30 ml STK-MED ONCE .ROUTE ; Start 09/17/19 at 12:51; Stop 09/17/19 at 12:51; Status DC Isosulfan Blue (Lymphazurin Blue) 50 mg STK-MED ONCE SQ Last administered on 09/17/19at 13:26; Start 09/17/19 at 12:51; Stop 09/17/19 at 12:51; Status DC Lidocaine/ Epinephrine (LIDOCAINE 1%-EPI 1:100,000 Multi-Dose) 20 ml STK-MED ONCE .ROUTE ; Start 09/17/19 at 12:51; Stop 09/17/19 at 12:52; Status DC Sevoflurane (Ultane) 60 ml STK-MED ONCE IH ; Start 09/17/19 at 14:15; Stop 09/17/19 at 14:16; Status DC Sodium Chloride (Normal Saline Flush) 3 ml QSHIFT PRN IV AFTER MEDS AND BLOOD DRAWS; Start 09/17/19 at 14:45 Sodium Chloride 1,000 ml @ 50 mls/hr Q20H IV Last administered on 09/17/19at 19:16; Start 09/17/19 at 14:44 Naloxone HCl (Narcan) 0.4 mg PRN Q2MIN PRN IV SEE INSTRUCTIONS; Start 09/17/19 at 14:45 Sodium Chloride 1,000 ml @ 25 mls/hr Q24H IV ; Start 09/17/19 at 14:44; Stop 09/18/19 at 14:59; Status DC Ondansetron HCl (Zofran) 4 mg PRN Q6HRS PRN IVP NALEXYA, 1ST CHOICE Last administered on 09/17/19at 16:33; Start 09/17/19 at 14:45 Acetaminophen (Tylenol) 650 mg PRN Q6HRS PRN PO MILD PAIN 1-3 Last administered on 09/18/19at 08:03; Start 09/17/19 at 15:00 Alprazolam (Xanax) 0.25 mg BID PO Last administered on 09/19/19at 08:21; Start 09/17/19 at 21:00 Gabapentin (Neurontin) 100 mg DAILY07 PO Last administered on 09/19/19at 08:21; Start 09/18/19 at 07:00 Oxybutynin Chloride (Ditropan) 5 mg BID PO Last administered on 09/19/19at 08:24; Start 09/17/19 at 21:00 Sotalol HCl (Betapace) 40 mg BID PO Last administered on 09/19/19 08:24; Start 09/17/19 at 21:00 Zolpidem Tartrate (Ambien) 5 mg HS PO Last administered on 09/18/19at 20:34; Start 09/17/19 at 21:00 Lubiprostone (Amitiza) 24 mcg BIDWMEALS PO Last administered on 09/19/19at 08:21; Start 2/12/20 at 17:00 Pantoprazole Sodium (Protonix) 40 mg DAILYAC PO Last administered on 09/19/19at 08:22; Start 09/17/19 at 16:30 Labetalol HCl (Normodyne Iv Push) 5 mg 1X ONCE IVP Last administered on 09/17/19at 15:22; Start 09/17/19 at 15:15; Stop 09/17/19 at 15:17; Status DC Fentanyl Citrate (Fentanyl 2ml Vial) 25 mcg PRN Q3HRS PRN IVP PAIN Last administered on 09/18/19at 12:50; Start 09/17/19 at 17:00; Stop 09/18/19 at 14:59; Status DC Fentanyl Citrate (Fentanyl 2ml Vial) 50 mcg PRN Q3HRS PRN IVP PAIN; Start 09/17/19 at 17:15; Stop 09/18/19 at 14:59; Status DC Ibuprofen (Motrin) 600 mg BID PRN PO INFLAMMATION Last administered on 09/19/19at 08:20; Start 09/18/19 at 15:00 Fentanyl Citrate (Fentanyl 2ml Vial) 50 mcg PRN Q3HRS PRN IVP SEVERE PAIN 7-10 Last administered on 09/19/19at 02:50; Start 09/18/19 at 23:45 Active Scripts Active Tylenol (Acetaminophen) 325 Mg Tablet 650 Mg PO PRN Q6HRS PRN 7 Days Ibuprofen 200 Mg Tablet 600 Mg PO BID PRN 7 Days Zofran (Ondansetron Hcl) 8 Mg Tablet 1 Tab PO Q8HRS Reported Oxybutynin Chloride 5 Mg Tablet 5 Mg PO BID Gabapentin (Gabapentin) 100 Mg Capsule 100 Mg PO DAILY07 Zolpidem Tartrate 5 Mg Tablet 5 Mg PO HS Linzess (Linaclotide) 145 Mcg Capsule 72 Mcg PO DAILY07 Xanax (Alprazolam) 0.5 Mg Tablet 0.5 Tab PO BID Omeprazole 40 Mg Capsule.dr 40 Mg PO DAILY Sotalol (Sotalol Hcl) 80 Mg Tablet 40 Mg PO BID Vitals/I & O Vital Sign - Last 24 Hours 09/18/19 09/18/19 09/18/19 09/18/19 11:00 12:50 13:21 15:20 Temp 98.0 98.6 98.0 98.6 Pulse 76 77 Resp 16 18 B/P (MAP) 123/65 (84) 122/68 (86) Pulse Ox 99 100 O2 Delivery Room Air Room Air Room Air Room Air 09/18/19 09/18/19 09/18/19 09/18/19 18:03 19:00 20:00 20:35 Temp 99.5 98.5 99.5 98.5 Pulse 71 76 76 Resp 18 18 B/P (MAP) 109/61 (77) 140/67 (91) 140/67 Pulse Ox 100 99 O2 Delivery Room Air Room Air Room Air O2 Flow Rate 10.0 09/18/19 09/18/19 09/19/19 09/19/19 23:43 23:54 00:13 02:50 Temp 98.4 98.4 Pulse 79 Resp 18 B/P (MAP) 149/76 (100) Pulse Ox 99 O2 Delivery Room Air Room Air Room Air Room Air 09/19/19 09/19/19 09/19/19 09/19/19 03:20 03:32 07:00 08:24 Temp 97.9 97.8 97.9 97.8 Pulse 75 77 75 Resp 16 16 B/P (MAP) 123/64 (83) 141/71 (94) 141/71 Pulse Ox 98 95 O2 Delivery Room Air Room Air Room Air Intake and Output 09/18/19 09/18/19 09/19/19 15:00 23:00 07:00 Intake Total 540 ml 230 ml 300 ml Output Total 750 ml Balance -210 ml 230 ml 300 ml NICKOLAS PENA MD Sep 19, 2019 09:23
[2019-09-19 11:00] VITALS: BP 126/72
--- NOTE | 2019-09-19 11:14 | NUR ---
SW following. Discussed with RN, pt is from home alone. RN advised no SW needs, pt is discharging home with self care today.
--- NOTE | 2019-09-19 15:18 | NUR ---
Discharge instructions given to pt and son in law. Answered questions and concerns. Both verbalized understanding. Pt discharged by w/c. Going home.
--- NOTE | 2019-09-22 18:06 | PATHOLOGY ---
[facility] Accession Number: [id number] . 01 Material submitted: . PART A: lymph node - SENTINEL LYMPH NODE #1 - FS. Modifiers: 1 PART B: breast - RIGHT LUMPECTOMY. Modifiers: right . 01 Clinical history: . Right breast cancer . 02 Frozen section diagnosis: . INTRAOPERATIVE CONSULTATION WITH FROZEN SECTION DIAGNOSIS: (Agnieszka Urbina M.D.) FSA1. [place] lymph node #1: - Negative for tumor. . The results are reported to Dr. Griffiths in the operating room. . FROZEN SECTION GROSS DESCRIPTION: A. The specimen is received fresh for intraoperative consultation and is designated "sentinel lymph node #1". This consists of a segment of yellow, fatty tissue measuring up to 1.6 cm in greatest dimension and showing focal bluish discoloration. Sectioning reveals a pink lymph node showing focal bluish discoloration measuring up to 0.7 cm in greatest dimension. This shows no gross evidence of tumor replacement. This is submitted for frozen section as FSA1. The tissue remaining from frozen section is submitted for permanent sections as A1. (JPM/leroy; 09/16/2019) . Frozen section performed at [facility], [address] [place] [address], [place] [address]. ALICE/HOSSEIN . 02 Diagnosis: A. Lymph node, left sentinel lymph node #1: - Negative for tumor (0/1). . B. Breast tissue, wire localized right breast lumpectomy: - Invasive ductal carcinoma, histologic grade 2, measuring 0.2 cm in greatest dimension, arising within a background of extensive ductal carcinoma in situ, intermediate grade, solid type. - Invasive ductal carcinoma is approximately 0.3 cm from the closest anterior superficial margin of resection. 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 - Previous biopsy site changes. - Fibrocystic changes with the following components: - Stromal fibrosis. - Duct ectasia. - Cystic change. - Apocrine metaplasia. - Fibroadenomatous changes, focal. (JPM:davina; 09/19/2019) . . SURGICAL PATHOLOGY CANCER CASE SUMMARY . INVASIVE CARCINOMA OF THE BREAST: Resection Procedure ___ Wire localized lumpectomy Specimen Laterality ___ Right + Tumor Site + ___ Clock position: 2:30 o'clock Histologic Type ___ Invasive carcinoma of no special type (invasive ductal carcinoma, not otherwise specified) . Histologic Grade (Amish Histologic Score) Glandular (Acinar)/Tubular Differentiation ___ Score 3 (<10% of tumor area forming glandular/tubular structures) Nuclear Pleomorphism ___ Score 2 (cells larger than normal with open vesicular nuclei, visible nucleoli, and moderate variability in both size and shape) Mitotic Rate ___ Score 2 Overall Grade ___ Grade 2 (scores of 6 or 7) + Tumor Focality + ___ Single focus of invasive carcinoma Ductal Carcinoma In Situ (DCIS) ___ Present + ___ Positive for extensive intraductal component (EIC) + Size (Extent) of DCIS + Estimated size (extent) of DCIS is at least 13 mm + Number of blocks with DCIS: 3 + Number of blocks examined: 12 + Architectural Pattern + ___ Solid + Nuclear Grade + ___ Grade II (intermediate) + Necrosis + ___ Present, focal (small foci or single cell necrosis) + Lobular Carcinoma In Situ (LCIS) + ___ No LCIS in specimen . Margins Invasive Carcinoma Margins ___ Uninvolved by invasive carcinoma Distance from closest margin: 3 mm Specify closest margin: Anterior superficial margin DCIS Margins: Uninvolved by DCIS Distance from closest margin: 1 mm Specify closest margin: Anterior superficial margin Regional Lymph Nodes: Uninvolved by tumor cells Number of [place] Nodes Examined: 1 Lymphovascular Invasion + ___ Not identified . Pathologic Stage Classification (pTNM, AJCC 8th Edition) Primary Tumor (pT) ___ pT1a: Tumor >1 mm but less than or equal to 5 mm in greatest dimension Regional Lymph Nodes (pN). ___ pN0: No regional lymph node metastasis identified + Additional Pathologic Findings + Specify: See diagnosis. + Microcalcifications + ___ Present in DCIS + ___ Present in non-neoplastic tissue + Clinical History + ___ Breast mass + Radiologic Finding + ___ Mass or architectural distortion (JPM/db; 09/22/2019) . Special stain performed: Immunoperoxidase stain for AE1/AE3 on A1. MBR 09/22/2019 1720 Local . 02 Comment: The sentinel lymph node is examined at multiple levels. An immunoperoxidase stain for AE1/AE3 is also obtained and yields the following results: . AE1/AE3 (A1): Negative for tumor. . Thus, there is a single sentinel lymph node which is negative for tumor. . Sections of the right breast wire localized lumpectomy reveal a small focus of invasive ductal carcinoma measuring 0.2 cm in greatest dimension, arising within a background of extensive ductal carcinoma in situ, intermediate grade, solid type. The invasive carcinoma is approximately 0.3 cm from the closest anterior superficial margin of resection. Ductal carcinoma in situ is focally 0.1 cm from the closest anterior superficial margin of resection. . (JPM:davina; 09/19/2019) . 02 Electronically signed: . Dioni Urbina MD, Pathologist NPI- [id number] . 01 Gross description: . A. SEE FROZEN SECTION GROSS DESCRIPTION. . B. The specimen is received in formalin, labeled "Ariela Catalan, right lumpectomy, short stitch superficial, long stitch lateral". Received is a 44 g lumpectomy specimen oriented with a short suture designating the superficial/anterior margin, and a long suture designating the lateral margin. There is a localization wire present which enters through the superficial/anterior/medial aspect. The specimen measures 7.6 cm from superior to inferior, 6.2 cm from medial to lateral, and 1.8 cm from superficial/anterior to deep/posterior. The specimen is inked as follows: Superior-blue, inferior-green, lateral-red, medial-yellow, superficial/ anterior-black, deep/posterior-orange. The specimen is sectioned from superior to inferior aspects into 18 slices to reveal a previous biopsy site, with plastic clips present, measuring 0.7 x 0.6 x 0.5 cm. This site is located in slices 7 and 8 and is 2.6 cm from the superior margin, 4.0 cm from the inferior margin, 0.4 centimeters from the superficial/anterior margin, 1.3 cm from the deep/posterior margin, 1.2 cm from the medial margin, and 2.8 cm from the lateral margin. 1.2 cm inferior to this biopsy site, there is a second possible previous biopsy site, which is located in slice 10 with a plastic clip present, measuring 0.5 x 0.4 x 0.3 cm. This site is 3.2 cm from the inferior margin, 3.7 cm from the superior margin, 0.4 cm from the superficial/anterior margin, 1.2 cm from the deep/posterior margin, 1.2 cm from the medial margin, and 3.5 cm from the lateral margin. 2.5 cm lateral to this previous biopsy site and extending 2.2 cm inferior, are multiple comedo-type lesions, which grossly approaches the lateral margin, and are located in slices 10 through 15. The remainder of the specimen displays yellow-hardy, lobulated cut surfaces with a large amount of residual blue dye. The specimen is submitted representatively as follows: . B1 most superior margin, serially sectioned B2 most inferior margin, serially sectioned B3-B5 entire primary previous biopsy site submitted from superior to inferior aspects B6 entire second previous biopsy site B7-B12 entire area of comedo-type lesions submitted from superior to inferior aspects. . The cold ischemic time is 17 minutes. The total formalin fixation time is 33 hours and 15 minutes. (CAA; 09/18/2019) QAC/LBQ 09/18/2019 1353 Local . 02 Pathologist provided ICD-10: C50.911, D05.11, N60.11, N60.31, N60.81 . 02 CPT . 305974, 381811, 002431, [id number] Specimen Comment: A courtesy copy of this report has been sent to [phone], [phone] Specimen Comment: [id number] Specimen Comment: Report sent to and Performed at: [address], [place] [id number] MD Eddie Galindo MD Phone: [phone] Performed at: 02 [facility] [address] [place], [place] [id number] MD Dioni Urbina MD Phone: [phone]
== END 2019-09-19 15:18 | disposition home or self-care (01) | DRG 580 ==
LOC: SURG 09:24 → 4 SOUTHEST 15:25 → OBSVTOIN 09-18 17:34 → 4 NORTH 09-18 18:48
PROVIDERS: ADMIT Surgery; ATTEND Surgery
PROC: 0HBT0ZZ Excision of Right Breast, Open Approach (ICD-10-PCS; principal; 2019-09-18)
PROC: 07B53ZX Excision of Right Axillary Lymphatic, Percutaneous Approach, Diagnostic (ICD-10-PCS; 2019-09-18)
DX: C50.911 Malignant neoplasm of unspecified site of right female breast (principal); I42.9 Cardiomyopathy, unspecified; D64.9 Anemia, unspecified; E78.5 Hyperlipidemia, unspecified; I50.9 Heart failure, unspecified; M19.90 Unspecified osteoarthritis, unspecified site; K76.89 Other specified diseases of liver; M81.0 Age-related osteoporosis without current pathological fracture; Z80.9 Family history of malignant neoplasm, unspecified; Z87.891 Personal history of nicotine dependence; Z88.0 Allergy status to penicillin; Z88.8 Allergy status to other drugs, medicaments and biological substances; Z88.2 Allergy status to sulfonamides; I11.0 Hypertensive heart disease with heart failure; I25.10 Atherosclerotic heart disease of native coronary artery without angina pectoris
CPT/HCPCS: 19281; 38792; 76098; 76641; 96374; A7015; A9520; G0378; G0379; J0780; J1100; J1956; J2001; J2405; J2704; J3010; J3490; Q9968

== ENCOUNTER 2019-12-23 08:36 | Inpatient (IN) | payer MEDICARE ==
[~2019-12-23] VITALS: Ht 166.4 cm; Wt 90.7 kg
[~2019-12-23 08:36] MED LIST changes: +ACET325T9 PO; +IBUP-1670 PO; -IV RINGERS,LACTATED 1000ML 1,000 ML IV SCH; -LIDOCAINE 1% PF 2 ML VIAL. ID PRN; -PROCHLORPERAZINE 10 MG/2 ML VIAL. IV PRN
[2019-12-23] MEDS ORDERED: METOCLOPRAMIDE HCL 10 MG/2 ML VIAL. IVP ONE (10:30)
[2019-12-23] MEDS ORDERED: FAMOTIDINE 20 MG/2 ML VIAL IVP ONE (10:30)
[2019-12-23 10:49] LABS: BASO % 0 % (0-3); EOS # 0.1 x10^3/uL (0.0-0.7); EOS % 1 % (0-3); HEMATOCRIT 38.9 % (36.0-47.0); HEMOGLOBIN 12.5 g/dL (12.0-15.5); LYMPH # 0.5 x10^3/uL (1.0-4.8); LYMPH % 8 % (24-48); MEAN CORPUSCULAR HEMOGLOBIN 27 pg (25-35); MEAN CORPUSCULAR HGB CONC 32 g/dL (31-37); MEAN CORPUSCULAR VOLUME 82 fL (79-100); MONO # 0.8 x10^3/uL (0.0-1.1); MONO % 12 % (0-9); NEUT # 5.4 x10^3/uL (1.8-7.7); NEUT % 79 % (31-73); PLATELET COUNT 158 x10^3/uL (140-400); RED BLOOD COUNT 4.72 x10^6/uL (3.50-5.40); RED CELL DISTRIBUTION WIDTH 15.6 % (11.5-14.5); WHITE BLOOD COUNT 6.8 x10^3/uL (4.0-11.0)
[2019-12-23] MEDS ORDERED: MIDO5TAB4 PO (10:51)
[2019-12-23 10:52] LABS: CALCIUM 9.5 mg/dL (8.5-10.1); CREATININE 1.1 mg/dL (0.6-1.0); GFR 57.1; POTASSIUM 4.9 mmol/L (3.5-5.1)
[2019-12-23 10:57] LABS: PROTHROMBIN TIME PATIENT 13.6 SEC (11.7-14.0)
--- NOTE | 2019-12-23 10:59 | EKG ---
[facility] [address] [place] [address] Test Date: 2019-12-23 Test Time: 09:22:53 Pat Name: DAVIS CARVALHO Department: Room: Gender: F Drafter Geological: : 1935 Requested By: SALTY ALLAN Order Number: [id number] Reading MD: Naman Augustine Measurements Intervals [place] Rate: 76 P: 55 LA: 198 QRS: 57 QRSD: 74 T: 51 QT: 380 QTc: 432 Interpretive Statements ATRIAL PACED RHYTHM Electronically Signed On 12-24-2019 8:04:11 CDT by Naman Augustine
[2019-12-23 11:00] LABS: ALBUMIN 3.9 g/dL (3.4-5.0); ALBUMIN/GLOBULIN RATIO 1.3 (1.0-1.7); TOTAL BILIRUBIN 0.7 mg/dL (0.2-1.0)
[2019-12-23] MEDS ORDERED: CONTRAST GIVEN. MC PRN (11:30)
[2019-12-23] MEDS ORDERED: IOHEXOL 300 MG/ML 100ML VIAL. IV ONE (11:30)
--- NOTE | 2019-12-23 12:22 | RAD ---
INDICATION: Abdomen pain COMPARISON: July 2019 TECHNIQUE: Axial CT images obtained through the abdomen and pelvis with contrast. One or more of the following individualized dose reduction techniques were utilized for this examination: 1. Automated exposure control; 2. Adjustment of the mA and/or kV according to patient size; 3. Use of iterative reconstruction technique. FINDINGS: At the partially visualized right breast there is a low-density structure partially identified measuring approximately 40 x 20 mm. There is thickening of the right breast subcutaneous soft tissues and edema within the breasts. Linear opacity at the left lower lung could be from atelectasis or scarring. Partial visualization of pacemaker wires. Severe calcific atherosclerosis. Dilatation is identified throughout the bile ducts. Within the liver centrally there is a low-density lesion identified measuring approximately 26 x 20 mm. Common bile duct measures up to 13 mm. Heterogenous low-density near the hepatic dome measuring up to about 13 mm. No peripancreatic fluid collection. Subcentimeter low-density splenic lesion which is normal. Multiple low-density renal lesions. This includes one on the left which measures approximately 14 mm and does not measure as a simple cyst. Urinary bladder is partially distended. Multiple low-density right renal lesions which are not well characterized. Colonic diverticulosis. Dilation of the small bowel loops with distal decompression. For example some of the small bowel loops measure up to about 6 cm in diameter. There is some mesenteric edema. Degenerative changes of the spine with multilevel central canal and neural foraminal stenosis. Degenerative changes right greater than left hip. Grade 1 anterolisthesis of L4 on 5. IMPRESSION: * Severe dilation of the small bowel with distal decompression concerning for small bowel obstruction. The transition point is in the right lower quadrant of the abdomen. There is also some mesenteric edema identified. This is suspicious for high-grade obstruction. * Repeat demonstration of a central hepatic lesion which appears slightly increased from 2016 but was present at that time as well therefore benign cause would be favored. There is also a region of low density near the dome the liver again seen which could be from some focally dilated ducts or an additional low-density lesion which was likely present on prior as well. * Dilatation of the biliary tree is again identified. Causes such as a distal stricture, stone or ampullary lesion are not excluded given this finding. * Multiple bilateral renal lesions are again seen with some of these having the appearance of cysts and others not well characterized. It may be helpful to obtain a nonemergent focused ultrasound to ensure that none of these are solid in nature given that there is some high density associated with some of them. * Thickening of the subcutaneous soft tissues the right breast with edema as well as a more focal density partially seen medially. Some possible causes would include posttreatment changes if the patient has had surgery and/or radiation to the right breast. Neoplastic causes are within the differential as well. Electronically signed by: Mack Farris MD (12/23/2019 12:19 PM) [id number]
[2019-12-23] MEDS ORDERED: IV NORMAL SALINE 1000ML BAG 1,000 ML IV ONE (12:30)
--- NOTE | 2019-12-23 12:31 | PHYS DOC ---
Past Medical History Past Medical History: A-Fib, Anxiety, Arthritis, CHF, Constipation, GERD, High Cholesterol Additional Past Medical Histor: lower ext swelling, pacemaker Past Surgical History: Cholecystectomy, Hysterectomy, Pacemaker Additional Past Surgical Histo: R breast surgery (lumpectomy), L shoulder sx, hemmorhoidectomy,L shoulder Smoking Status: Former Smoker Alcohol Use: None Drug Use: None General Adult EDM: Chief Complaint: ABDOMINAL PAIN HPI: HPI: 84 yo F PMH A. fib with pacemaker, CHF, GERD, hyperlipidemia with current work- up for breast cancer with right axillary lymph node dissection, presents to the ED with complaints of sudden onset epigastric abdominal pain with multiple episodes of nausea nonbloody nonbilious vomiting. Pt describes the pain as a nonradidating "twisting stomach pain", sxs started last night. Past surgical history of cholecystectomy and hysterectomy. Review of systems: Denies associated fever, chills, dyspnea, melena, hematochezia, hemoptysis, hematemesis, chest pressure/pain, cough, sore throat, neck stiffness, headache, leg swelling, rash. Heart Score: Risk Factors: Risk Factors: DM, Current or recent (<one month) smoker, HTN, HLP, family history of CAD, obesity. Risk Scores: Score 0 - 3: 2.5% MACE over next 6 weeks - Discharge Home Score 4 - 6: 20.3% MACE over next 6 weeks - Admit for Clinical Observation Score 7 - 10: 72.7% MACE over next 6 weeks - Early Invasive Strategies Current Medications: Current Medications Medications (Trade) Dose Ordered Sig/Babatunde Start Time Stop Time Status Last Admin Dose Admin Famotidine (Pepcid Vial) 20 mg 1X ONCE 12/23/19 10:30 12/23/19 10:31 DC 12/23/19 10:28 20 MG Info (CONTRAST GIVEN -- Rx MONITORING) 1 each PRN DAILY PRN 12/23/19 11:30 12/25/19 11:29 Iohexol (Omnipaque 300 Mg/ml) 60 ml 1X ONCE 12/23/19 11:30 12/23/19 11:31 DC 12/23/19 11:31 60 ML Metoclopramide HCl (Reglan Vial) 10 mg 1X ONCE 12/23/19 10:30 12/23/19 10:31 DC 12/23/19 10:29 10 MG Allergies: Allergies: Allergies Coded Allergies Type Severity Reaction Last Updated Verified Penicillins Allergy Intermediate Rash 09/16/19 Yes atorvastatin Allergy Intermediate Unknown 12/08/19 Yes tetracycline Allergy Intermediate rash 09/16/19 Yes codeine Adverse Reaction Intermediate nausea & vomiting 09/16/19 Yes fentanyl Adverse Reaction Intermediate Nausea and Vomiting 09/17/19 Yes hydrocodone Adverse Reaction Intermediate Nausea and Vomiting 09/16/19 Yes iron Adverse Reaction Intermediate Nausea and Vomiting, iron tablets the oral dose only 09/16/19 Yes morphine Adverse Reaction Intermediate vomiting 09/16/19 Yes tramadol Adverse Reaction Intermediate Nausea and Vomiting 09/16/19 Yes Physical Exam: PE: Constitutional: Well developed, well nourished, uncomfortable appearing-tearful, non-toxic appearance. [] HENT: Normocephalic, atraumatic, bilateral external ears normal, oropharynx moist, no oral exudates, nose normal. [] Eyes: EOMI, conjunctiva normal, no discharge. [] Neck: Normal range of motion, no tenderness, supple, no stridor. [] Cardiovascular:Heart rate regular rhythm, no murmur [] Lungs & Thorax: Bilateral breath sounds clear to auscultation [] Abdomen: +epigastric ttp with distention, high pitched bowel sounds, no masses, no pulsatile masses. [] Skin: Warm, dry, no erythema, no rash. [] Back: No tenderness, no CVA tenderness. [] Extremities: No tenderness, no cyanosis, no clubbing, ROM intact, no edema. [] Neurologic: Alert and oriented X 3, normal motor function, normal sensory function, no focal deficits noted. [] Psychologic: Affect normal, judgement normal, mood normal. [] Current Patient Data: Labs: Laboratory Tests Test 12/23/19 10:25 White Blood Count 6.8 x10^3/uL (4.0-11.0) Red Blood Count 4.72 x10^6/uL (3.50-5.40) Hemoglobin 12.5 g/dL (12.0-15.5) Hematocrit 38.9 % (36.0-47.0) Mean Corpuscular Volume 82 fL (79-100) Mean Corpuscular Hemoglobin 27 pg (25-35) Mean Corpuscular Hemoglobin Concent 32 g/dL (31-37) Red Cell Distribution Width 15.6 % (11.5-14.5) H Platelet Count 158 x10^3/uL (140-400) Neutrophils (%) (Auto) 79 % (31-73) H Lymphocytes (%) (Auto) 8 % (24-48) L Monocytes (%) (Auto) 12 % (0-9) H Eosinophils (%) (Auto) 1 % (0-3) Basophils (%) (Auto) 0 % (0-3) Neutrophils # (Auto) 5.4 x10^3/uL (1.8-7.7) Lymphocytes # (Auto) 0.5 x10^3/uL (1.0-4.8) L Monocytes # (Auto) 0.8 x10^3/uL (0.0-1.1) Eosinophils # (Auto) 0.1 x10^3/uL (0.0-0.7) Basophils # (Auto) 0.0 x10^3/uL (0.0-0.2) Prothrombin Time 13.6 SEC (11.7-14.0) Prothrombin Time INR 1.1 (0.8-1.1) Activated Partial Thromboplast Time 18 SEC (24-38) L Sodium Level 135 mmol/L (136-145) L Potassium Level 4.9 mmol/L (3.5-5.1) Chloride Level 99 mmol/L (98-107) Carbon Dioxide Level 27 mmol/L (21-32) Anion Gap 9 (6-14) Blood Urea Nitrogen 18 mg/dL (7-20) Creatinine 1.1 mg/dL (0.6-1.0) H Estimated GFR (Cockcroft-Gault) 57.1 BUN/Creatinine Ratio 16 (6-20) Glucose Level 115 mg/dL (70-99) H Calcium Level 9.5 mg/dL (8.5-10.1) Total Bilirubin 0.7 mg/dL (0.2-1.0) Aspartate Amino Transferase (AST) 16 U/L (15-37) Alanine Aminotransferase (ALT) 15 U/L (14-59) Alkaline Phosphatase 77 U/L (46-116) Creatine Kinase 81 U/L (26-192) Troponin I Quantitative < 0.017 ng/mL (0.000-0.055) Total Protein 7.0 g/dL (6.4-8.2) Albumin 3.9 g/dL (3.4-5.0) Albumin/Globulin Ratio 1.3 (1.0-1.7) Lipase 61 U/L (73-393) L Laboratory Tests 12/23/19 10:25 Laboratory Tests 12/23/19 10:25 Vital Signs: Vital Signs Date Time Temp Pulse Resp B/P (MAP) Pulse Ox O2 Delivery O2 Flow Rate FiO2 12/23/19 11:39 84 16 140/71 (94) 98 Room Air 12/23/19 09:00 99.6 99.6 EKG: EKG: Sinus rhythm at 76 bpm, no axis deviation, normal intervals, no T wave inversions, no ST elevations or ST depressions Radiology/Procedures: Radiology/Procedures: Signed PATIENT: DAVIS CARVALHOCOUNT: [id number] : 1935 LOCATION: ER AGE: 84 SEX: F EXAM STATUS: REG ER ORD. PHYSICIAN: SALTY ALLAN DO REASON: abd pain PROCEDURE: CT ABD PELV W/ IV CONTRST ONLY INDICATION: Abdomen pain COMPARISON: July 2019 TECHNIQUE: Axial CT images obtained through the abdomen and pelvis with contrast. One or more of the following individualized dose reduction techniques were utilized for this examination: 1. Automated exposure control; 2. Adjustment of the mA and/or kV according to patient size; 3. Use of iterative reconstruction technique. FINDINGS: At the partially visualized right breast there is a low-density structure partially identified measuring approximately 40 x 20 mm. There is thickening of the right breast subcutaneous soft tissues and edema within the breasts. Linear opacity at the left lower lung could be from atelectasis or scarring. Partial visualization of pacemaker wires. Severe calcific atherosclerosis. Dilatation is identified throughout the bile ducts. Within the liver centrally there is a low-density lesion identified measuring approximately 26 x 20 mm. Common bile duct measures up to 13 mm. Heterogenous low-density near the hepatic dome measuring up to about 13 mm. No peripancreatic fluid collection. Subcentimeter low-density splenic lesion which is normal. Multiple low-density renal lesions. This includes one on the left which measures approximately 14 mm and does not measure as a simple cyst. Urinary bladder is partially distended. Multiple low-density right renal lesions which are not well characterized. Colonic diverticulosis. Dilation of the small bowel loops with distal decompression. For example some of the small bowel loops measure up to about 6 cm in diameter. There is some mesenteric edema. Degenerative changes of the spine with multilevel central canal and neural foraminal stenosis. Degenerative changes right greater than left hip. Grade 1 anterolisthesis of L4 on 5. IMPRESSION: * Severe dilation of the small bowel with distal decompression concerning for small bowel obstruction. The transition point is in the right lower quadrant of the abdomen. There is also some mesenteric edema identified. This is suspicious for high-grade obstruction. * Repeat demonstration of a central hepatic lesion which appears slightly increased from 2016 but was present at that time as well therefore benign cause would be favored. There is also a region of low density near the dome the liver again seen which could be from some focally dilated ducts or an additional low-density lesion which was likely present on prior as well. * Dilatation of the biliary tree is again identified. Causes such as a distal stricture, stone or ampullary lesion are not excluded given this finding. * Multiple bilateral renal lesions are again seen with some of these having the appearance of cysts and others not well characterized. It may be helpful to obtain a nonemergent focused ultrasound to ensure that none of these are solid in nature given that there is some high density associated with some of them. * Thickening of the subcutaneous soft tissues the right breast with edema as well as a more focal density partially seen medially. Some possible causes would include posttreatment changes if the patient has had surgery and/or radiation to the right breast. Neoplastic causes are within the differential as well. Electronically signed by: Jorgito Angel MD (12/23/2019 12:19 PM) [id number] DICTATED and SIGNED BY: JORGITO ANGEL MD DATE: 12/23/19 1219 IMAGING REPORT Signed PATIENT: DAVIS CARVALHOUNT: [id number] : 1935 LOCATION: ER AGE: 84 SEX: F EXAM STATUS: REG ER ORD. PHYSICIAN: SALTY ALLAN DO REASON: post NG insertion PROCEDURE: KUB EXAM: KUB 12/23/2019 1:29 PM CLINICAL INDICATION:Post NG tube insertion COMPARISON:CT abdomen and pelvis 12/23/2019 TECHNIQUE:AP supine abdominal radiograph FINDINGS:A new nasogastric tube terminates in the gastric fundus. The sidehole is intragastric. Dilated loops of small bowel are redemonstrated. Visualized portion of lung bases are clear. There is lower lumbar facet arthrosis. IMPRESSION:Intragastric position of nasogastric tube. Unchanged small bowel obstruction. Electronically signed by: Danni Alston MD (12/23/2019 1:56 PM) [id number] DICTATED and SIGNED BY: DANNI ALSTON MD DATE: 12/23/19 1352 Impression: Concern for high grade small bowel obstruction, afebrile and no leukocytosis. Creatinine is 1.1. Troponin negative with unremarkable lipase. Coags within normal limits. Discussed with with general surgery on-call Dr. Griffiths who recommends NG tube placement, pt npo w/IVFs. Will need close monitoring, serial abdominal exams, likely lactic acid. Patient will be admitted to Dr. Sánchez, hospital service. Patient agrees with the above plan and is a full code. Course & Med Decision Making: Course & Med Decision Making Pertinent Labs and Imaging studies reviewed. (See chart for details) [] Dragon Disclaimer: Dragon Disclaimer: This electronic medical record was generated, in whole or in part, using a voice recognition dictation system. Departure Departure Impression: Primary Impression: Small bowel obstruction Additional Impressions: Abdominal pain Nausea & vomiting Disposition: ADMITTED INPATIENT Admitting Physician: TEJINDER Condition: GUARDED Referrals: SHOLA SOLO MD (PCP) SALTY ALLAN DO December 23, 2019 12:31
[2019-12-23] MEDS ORDERED: MORPHINE SULFATE 4 MG/ML VIAL. IV ONE (12:45)
--- NOTE | 2019-12-23 13:06 | HP ---
ADMIT DATE: 12/23/2019 CHIEF COMPLAINT: Abdominal pain. 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 Basically, she has been having a lot of abdominal pain with distention and she cannot eat much. It has been occurring for several days, rated at 9/10. She has associated nausea. We did some imaging here in the ER, it is showing a large bowel obstruction. I discussed the case with ER physician. We are going to admit the patient and consult Dr. Mortensen, General Surgery. PAST MEDICAL HISTORY: AFib, CHF, permanent pacemaker, hyperlipidemia, hysterectomy, cholecystectomy. ALLERGIES: None. FAMILY HISTORY: Hypertension. SOCIAL HISTORY: She is retired, does not drink, smoke or take drugs. MEDICATIONS: Reviewed, please refer to the MRAD. REVIEW OF SYSTEMS: GENERAL: No history of weight change, weakness or fevers. SKIN: No bruising, hair changes or rashes. EYES: No blurred, double or loss of vision. NOSE AND THROAT: No history of nosebleeds, hoarseness or sore throat. HEART: No history of palpitations, chest pain or shortness of breath on exertion. LUNGS: Denies cough, hemoptysis, wheezing or shortness of breath. GASTROINTESTINAL: She complains of abdominal pain. GENITOURINARY: No history of frequency, urgency, hesitancy or nocturia. NEUROLOGIC: Denies history of numbness, tingling, tremor or weakness. PSYCHIATRIC: No history of panic, anxiety or depression. ENDOCRINE: No history of heat or cold intolerance, polyuria or polydipsia. EXTREMITIES: Denies muscle weakness, joint pain, pain on walking or stiffness. PHYSICAL EXAMINATION: VITALS: Within normal limits and are stable. GENERAL: No apparent distress. Alert and oriented. HEENT: Normal cephalic atraumatic, external auditory canals are patent EYES: Extraocular muscles are intact, pupils are equally round and reactive to light and accommodation MUSCULOSKELETAL: Well developed, well nourished, good range of motion ENDOCRINE: No thyromegaly was palpated LYMPHATICS: No cervical chain or axillary nodes were noted HEMATOPOIETIC: No bruising NECK: Supple, no JVD, no thyromegaly was noted. LUNGS: Clear to auscultation in all lung vinson without rhonchi or wheezing. HEART: RRR, S1, S2 present. Peripheral pulses intact, no obvious murmurs were noted. ABDOMEN: Her abdomen has decreased bowel sounds and is tender. EXTREMITIES: Without any cyanosis, clubbing, or edema. Pedal pulses intact, Homans sign is negative. NEUROLOGIC: Normal speech, normal tone. A and O x 3, moves all extremities, no obvious focal deficits. PSYCHIATRIC: Normal affect, normal mood. Stable. SKIN: No ulcerations or rashes, good skin turgor, no jaundice. VASCULAR: Good capillary refill, neurovascular bundle appears to be intact. LABORATORY DATA: Her creatinine is 1.1. White count is within normal limits. ASSESSMENT AND PLAN: Large bowel obstruction. The patient has been admitted. We will consult General Surgery. IV fluids, p.r.n. pain meds. She may need NG suctioning. Home meds, DVT prophylaxis. Full code. Prognosis guarded. NANCY DUGAN DO DR: MABEL/skyler JOB#: [id number] / [id number]
--- NOTE | 2019-12-23 13:58 | RAD ---
EXAM: KUB 12/23/2019 1:29 PM CLINICAL INDICATION:Post NG tube insertion COMPARISON:CT abdomen and pelvis 12/23/2019 TECHNIQUE:AP supine abdominal radiograph FINDINGS:A new nasogastric tube terminates in the gastric fundus. The sidehole is intragastric. Dilated loops of small bowel are redemonstrated. Visualized portion of lung bases are clear. There is lower lumbar facet arthrosis. IMPRESSION:Intragastric position of nasogastric tube. Unchanged small bowel obstruction. Electronically signed by: Danni Alston MD (12/23/2019 1:56 PM) [id number]
[2019-12-23 15:58] VITALS: BP 132/63
--- NOTE | 2019-12-23 16:34 | PDOC2 ---
CONSULT Date of Consult Date of Consult DATE: 12/23/19 TIME: 16:30 History of Present Illness Reason for Visit: The patient is an 84 year old female known to me from prior surgery for breast cancer. She reported to the ER with abdominal pain. The pain began yesterday and is described as sharp and severe. She feels like her stomach is "twisting". She had associated nausea and vomiting. An NG tube has been placed. Past Medical History Cardiovascular: AFIB, CAD, CHF, HTN, Other Pulmonary: Other CENTRAL NERVOUS SYSTEM: Other GI: Constipation, GERD, Other Heme/Onc: Iron deficiency Anemia Hepatobiliary: Cholelithiasis Psych: Depression Musculoskeletal: low back pain, Osteoarthritis Past Surgical History Past Surgical History: Pacemaker, Cholecystectomy, Cataract Removal, Other (R breast surgery) Social History ALCOHOL: none Drugs: None Lives: with Family Current Problem List Problem List Problems Medical Problems: (1) Small bowel obstruction Status: Acute Current Medications Current Medications Current Medications Famotidine (Pepcid Vial) 20 mg 1X ONCE IVP Last administered on 12/23/19at 10:28; Start 12/23/19 at 10:30; Stop 12/23/19 at 10:31; Status DC Metoclopramide HCl (Reglan Vial) 10 mg 1X ONCE IVP Last administered on 12/23/19at 10:29; Start 12/23/19 at 10:30; Stop 12/23/19 at 10:31; Status DC Iohexol (Omnipaque 300 Mg/ml) 60 ml 1X ONCE IV Last administered on 12/23/19at 11:31; Start 12/23/19 at 11:30; Stop 12/23/19 at 11:31; Status DC Info (CONTRAST GIVEN -- Rx MONITORING) 1 each PRN DAILY PRN MC SEE COMMENTS; Start 12/23/19 at 11:30; Stop 12/25/19 at 11:29 Sodium Chloride 1,000 ml @ 100 mls/hr 1X ONCE IV Last administered on 12/23/19at 13:04; Start 12/23/19 at 12:30; Stop 12/23/19 at 22:29 Morphine Sulfate (Morphine Sulfate) 4 mg 1X ONCE IV Last administered on 12/23/19at 13:04; Start 12/23/19 at 12:45; Stop 12/23/19 at 12:46; Status DC Active Scripts Active Tylenol (Acetaminophen) 325 Mg Tablet 650 Mg PO PRN Q6HRS PRN 7 Days Ibuprofen 200 Mg Tablet 600 Mg PO BID PRN 7 Days Zofran (Ondansetron Hcl) 8 Mg Tablet 1 Tab PO Q8HRS Reported Midodrine Hcl 5 Mg Tablet 5 Mg PO BID Oxybutynin Chloride 5 Mg Tablet 5 Mg PO BID Gabapentin (Gabapentin) 100 Mg Capsule 100 Mg PO DAILY07 Zolpidem Tartrate 5 Mg Tablet 5 Mg PO HS Linzess (Linaclotide) 145 Mcg Capsule 72 Mcg PO DAILY07 Xanax (Alprazolam) 0.5 Mg Tablet 0.5 Tab PO BID Omeprazole 40 Mg Capsule.dr 40 Mg PO DAILY Sotalol (Sotalol Hcl) 80 Mg Tablet 40 Mg PO BID Allergies Allergies: Coded Allergies: Penicillins (Verified Allergy, Intermediate, Rash, 09/16/19) tolerates cephalasporins atorvastatin (Verified Allergy, Intermediate, Unknown, 12/08/19) tetracycline (Verified Allergy, Intermediate, rash, 09/16/19) codeine (Verified Adverse Reaction, Intermediate, nausea & vomiting, 09/16/19) fentanyl (Verified Adverse Reaction, Intermediate, Nausea and Vomiting, 09/17/19) hydrocodone (Verified Adverse Reaction, Intermediate, Nausea and Vomiting, 09/16/19) iron (Verified Adverse Reaction, Intermediate, Nausea and Vomiting, iron tablets the oral dose only, 09/16/19) morphine (Verified Adverse Reaction, Intermediate, vomiting, 09/16/19) PO morphine only. can tolerate IV tramadol (Verified Adverse Reaction, Intermediate, Nausea and Vomiting, 09/16/19) ROS General: YES: Fatigue PSYCHOLOGICAL ROS: No: Anxiety, Behavioral Disorder, Concentration difficultie, Decreased libido, Depression, Disorientation, Hallucinations, Hostility, Irritablity, Memory difficulties, Mood Swings, Obsessive thoughts, Physical abuse, Sexual abuse, Sleep disturbances, Suicidal ideation, Other Eyes: No Blurry vision, No Decreased vision, No Double vision, No Dry eyes, No Excessive tearing, No Eye Pain, No Itchy Eyes, No Loss of vision, No Photophobia, No Scotomata, No Uses contacts, No Uses glasses, No Other ALLERGY AND IMMUNOLOGY: No: Hives, Insect Bite Sensitivity, Itchy/Watery Eyes, Nasal Congestion, Post Nasal Drip, Seasonal Allergies, Other Hematological and Lymphatic: No: Bleeding Problems, Blood Clots, Blood Transfusions, Brusing, Night Sweats, Pallor, Swollen Lymph Nodes, Other ENDOCRINE: No: Breast Changes, Galactorrhea, Hair Pattern Changes, Hot Flashes, Malaise/lethargy, Mood Swings, Palpitations, Polydipsia/polyuria, Skin Changes, Temperature Intolerance, Unexpected Weight Changes, Other Respiratory: No: Cough, Hemoptysis, Orthopnea, Pleuritic Pain, Shortness of breath, SOB with excertion, Sputum Changes, Stridor, Tachypnea, Wheezing, Other Cardiovascular: No Chest Pain, No Palpitations, No Orthopnea, No Paroxysmal Noc. Dyspnea, No Edema, No Lt Headedness, No Other Gastrointestinal: Yes Vomiting, Yes Abdominal Pain Neurological: No Behavorial Changes, No Bowel/Bladder ControlChng, No Confusion, No Dizziness, No Gait Disturbance, No Headaches, No Impaired Coord/balance, No Memory Loss, No Numbness/Tingling, No Seizures, No Speech Problems, No Tremors, No Visual Changes, No Weakness, No Other Skin: No Dry Skin, No Eczema, No Hair Changes, No Lumps, No Mole Changes, No Mottling, No Nail Changes, No Pruritus, No Rash, No Skin Lesion Changes, No Other, No Acne Physical Exam General: Alert, mild distress HEENT: Atraumatic, Other (NG tube in place) Lungs: Clear to auscultation Heart: Regular rate Abdomen: Soft (mildly distended, mildly tender (pts states improved from before), no guarding or peritoneal signs) Extremities: No clubbing, No cyanosis Skin: No rashes Neuro: Normal speech Psych/Mental Status: Mental status NL Vitals VITALS Vital Signs Date Time Temp Pulse Resp B/P (MAP) Pulse Ox O2 Delivery O2 Flow Rate FiO2 12/23/19 15:58 98.7 80 18 132/63 (86) 96 Room Air 98.7 Labs Labs Laboratory Tests Test 12/23/19 10:25 White Blood Count 6.8 x10^3/uL (4.0-11.0) Red Blood Count 4.72 x10^6/uL (3.50-5.40) Hemoglobin 12.5 g/dL (12.0-15.5) Hematocrit 38.9 % (36.0-47.0) Mean Corpuscular Volume 82 fL (79-100) Mean Corpuscular Hemoglobin 27 pg (25-35) Mean Corpuscular Hemoglobin Concent 32 g/dL (31-37) Red Cell Distribution Width 15.6 % (11.5-14.5) Platelet Count 158 x10^3/uL (140-400) Neutrophils (%) (Auto) 79 % (31-73) Lymphocytes (%) (Auto) 8 % (24-48) Monocytes (%) (Auto) 12 % (0-9) Eosinophils (%) (Auto) 1 % (0-3) Basophils (%) (Auto) 0 % (0-3) Neutrophils # (Auto) 5.4 x10^3/uL (1.8-7.7) Lymphocytes # (Auto) 0.5 x10^3/uL (1.0-4.8) Monocytes # (Auto) 0.8 x10^3/uL (0.0-1.1) Eosinophils # (Auto) 0.1 x10^3/uL (0.0-0.7) Basophils # (Auto) 0.0 x10^3/uL (0.0-0.2) Prothrombin Time 13.6 SEC (11.7-14.0) Prothromb Time International Ratio 1.1 (0.8-1.1) Activated Partial Thromboplast Time 18 SEC (24-38) Sodium Level 135 mmol/L (136-145) Potassium Level 4.9 mmol/L (3.5-5.1) Chloride Level 99 mmol/L (98-107) Carbon Dioxide Level 27 mmol/L (21-32) Anion Gap 9 (6-14) Blood Urea Nitrogen 18 mg/dL (7-20) Creatinine 1.1 mg/dL (0.6-1.0) Estimated GFR (Cockcroft-Gault) 57.1 BUN/Creatinine Ratio 16 (6-20) Glucose Level 115 mg/dL (70-99) Calcium Level 9.5 mg/dL (8.5-10.1) Total Bilirubin 0.7 mg/dL (0.2-1.0) Aspartate Amino Transf (AST/SGOT) 16 U/L (15-37) Alanine Aminotransferase (ALT/SGPT) 15 U/L (14-59) Alkaline Phosphatase 77 U/L (46-116) Creatine Kinase 81 U/L (26-192) Troponin I Quantitative < 0.017 ng/mL (0.000-0.055) Total Protein 7.0 g/dL (6.4-8.2) Albumin 3.9 g/dL (3.4-5.0) Albumin/Globulin Ratio 1.3 (1.0-1.7) Lipase 61 U/L (73-393) Laboratory Tests Test 12/23/19 10:25 White Blood Count 6.8 x10^3/uL (4.0-11.0) Red Blood Count 4.72 x10^6/uL (3.50-5.40) Hemoglobin 12.5 g/dL (12.0-15.5) Hematocrit 38.9 % (36.0-47.0) Mean Corpuscular Volume 82 fL (79-100) Mean Corpuscular Hemoglobin 27 pg (25-35) Mean Corpuscular Hemoglobin Concent 32 g/dL (31-37) Red Cell Distribution Width 15.6 % (11.5-14.5) Platelet Count 158 x10^3/uL (140-400) Neutrophils (%) (Auto) 79 % (31-73) Lymphocytes (%) (Auto) 8 % (24-48) Monocytes (%) (Auto) 12 % (0-9) Eosinophils (%) (Auto) 1 % (0-3) Basophils (%) (Auto) 0 % (0-3) Neutrophils # (Auto) 5.4 x10^3/uL (1.8-7.7) Lymphocytes # (Auto) 0.5 x10^3/uL (1.0-4.8) Monocytes # (Auto) 0.8 x10^3/uL (0.0-1.1) Eosinophils # (Auto) 0.1 x10^3/uL (0.0-0.7) Basophils # (Auto) 0.0 x10^3/uL (0.0-0.2) Prothrombin Time 13.6 SEC (11.7-14.0) Prothromb Time International Ratio 1.1 (0.8-1.1) Activated Partial Thromboplast Time 18 SEC (24-38) Sodium Level 135 mmol/L (136-145) Potassium Level 4.9 mmol/L (3.5-5.1) Chloride Level 99 mmol/L (98-107) Carbon Dioxide Level 27 mmol/L (21-32) Anion Gap 9 (6-14) Blood Urea Nitrogen 18 mg/dL (7-20) Creatinine 1.1 mg/dL (0.6-1.0) Estimated GFR (Cockcroft-Gault) 57.1 BUN/Creatinine Ratio 16 (6-20) Glucose Level 115 mg/dL (70-99) Calcium Level 9.5 mg/dL (8.5-10.1) Total Bilirubin 0.7 mg/dL (0.2-1.0) Aspartate Amino Transf (AST/SGOT) 16 U/L (15-37) Alanine Aminotransferase (ALT/SGPT) 15 U/L (14-59) Alkaline Phosphatase 77 U/L (46-116) Creatine Kinase 81 U/L (26-192) Troponin I Quantitative < 0.017 ng/mL (0.000-0.055) Total Protein 7.0 g/dL (6.4-8.2) Albumin 3.9 g/dL (3.4-5.0) Albumin/Globulin Ratio 1.3 (1.0-1.7) Lipase 61 U/L (73-393) Assessment/Plan Assessment/Plan 84 year old female with abdominal pain, CT suggestive of SBO; currently pt has some improvement in pain possibly from NG tube; plan for NG decompression, hydration, pain control, serial exam, SB series in AM. If SB series shows mechanical obstruction would likely need surgical correction. BONY WILD MD December 23, 2019 16:34
[2019-12-23] MEDS: fentaNYL PF VIAL 100 MCG/2 ML VIAL IVP PRN (16:36)
[2019-12-23] MEDS: ONDANSETRON PF 4 MG/2 ML VIAL. IVP PRN (18:28)
[2019-12-23 19:59] VITALS: BP 144/54
[2019-12-23] MEDS: IV NORMAL SALINE 1000ML BAG 1,000 ML IV SCH (20:54)
--- NOTE | 2019-12-23 20:55 | NUR ---
NS NOT ADMINISTERED WITH 9 PM MEDS. INFUSION ALREADY IN PROGRESS
[2019-12-23 23:10] VITALS: BP 131/59
[2019-12-24] MEDS: IV NORMAL SALINE 1000ML BAG 1,000 ML IV SCH ×3 (02:05→22:08)
[2019-12-24 03:00] VITALS: BP_SYST 106
[2019-12-24] MEDS ORDERED: IOHEXOL 300 MG/ML 100ML VIAL. PO ONE (07:30)
[2019-12-24] MEDS ORDERED: CONTRAST GIVEN. MC PRN (07:45)
[2019-12-24 07:52] VITALS: BP 137/69
--- NOTE | 2019-12-24 10:22 | PDOC ---
PROGRESS NOTES Subjective Subjective nauseated for now Objective Objective Vital Signs Date Time Temp Pulse Resp B/P (MAP) Pulse Ox O2 Delivery O2 Flow Rate FiO2 12/24/19 07:52 98.7 80 16 137/69 (91) 100 Room Air 98.7 Intake and Output 12/24/19 07:00 Intake Total 0 ml Balance 0 ml Intake Oral 0 ml # Voids 1 Physical Exam Abdomen: Soft (mildly distended, mildly tender (pts states improved from before), no guarding or peritoneal signs) Heart: Regular rate Extremities: No clubbing, No cyanosis General: Alert, mild distress HEENT: Atraumatic, Other (NG tube in place) Lungs: Clear to auscultation MUSCULOSKELETAL: No swelling, Other Neuro: Normal speech Psych/Mental Status: Mental status NL Skin: No rashes Diagnosis Problem List Problems Medical Problems: (1) Abdominal pain Status: Acute (2) Nausea & vomiting Status: Acute (3) Small bowel obstruction Status: Acute Assessment Assessment Problems Medical Problems: (1) Abdominal pain Status: Acute (2) Nausea & vomiting Status: Acute (3) Small bowel obstruction Status: Acute SBO GERD/[employer], h/o phytobezoar CRC screen - colonoscopy 2008, 2017 Diverticulosis H/o constipation S/p cholecystectomy H/o breast cancer rt ,s/p recent radiation treatmen Dementia Plan:GI consult. small bowel series Await SBS, continue per surgery. Resume PPI - IV for now. lab radha npo Plan Plan of Care Problems Medical Problems: (1) Abdominal pain Status: Acute (2) Nausea & vomiting Status: Acute (3) Small bowel obstruction Status: Acute Comment Review of Relevant I have reviewed the following items wade (where applicable) has been applied. Labs Laboratory Tests Test 12/23/19 10:25 White Blood Count 6.8 x10^3/uL (4.0-11.0) Red Blood Count 4.72 x10^6/uL (3.50-5.40) Hemoglobin 12.5 g/dL (12.0-15.5) Hematocrit 38.9 % (36.0-47.0) Mean Corpuscular Volume 82 fL (79-100) Mean Corpuscular Hemoglobin 27 pg (25-35) Mean Corpuscular Hemoglobin Concent 32 g/dL (31-37) Red Cell Distribution Width 15.6 % (11.5-14.5) Platelet Count 158 x10^3/uL (140-400) Neutrophils (%) (Auto) 79 % (31-73) Lymphocytes (%) (Auto) 8 % (24-48) Monocytes (%) (Auto) 12 % (0-9) Eosinophils (%) (Auto) 1 % (0-3) Basophils (%) (Auto) 0 % (0-3) Neutrophils # (Auto) 5.4 x10^3/uL (1.8-7.7) Lymphocytes # (Auto) 0.5 x10^3/uL (1.0-4.8) Monocytes # (Auto) 0.8 x10^3/uL (0.0-1.1) Eosinophils # (Auto) 0.1 x10^3/uL (0.0-0.7) Basophils # (Auto) 0.0 x10^3/uL (0.0-0.2) Prothrombin Time 13.6 SEC (11.7-14.0) Prothromb Time International Ratio 1.1 (0.8-1.1) Activated Partial Thromboplast Time 18 SEC (24-38) Sodium Level 135 mmol/L (136-145) Potassium Level 4.9 mmol/L (3.5-5.1) Chloride Level 99 mmol/L (98-107) Carbon Dioxide Level 27 mmol/L (21-32) Anion Gap 9 (6-14) Blood Urea Nitrogen 18 mg/dL (7-20) Creatinine 1.1 mg/dL (0.6-1.0) Estimated GFR (Cockcroft-Gault) 57.1 BUN/Creatinine Ratio 16 (6-20) Glucose Level 115 mg/dL (70-99) Calcium Level 9.5 mg/dL (8.5-10.1) Total Bilirubin 0.7 mg/dL (0.2-1.0) Aspartate Amino Transf (AST/SGOT) 16 U/L (15-37) Alanine Aminotransferase (ALT/SGPT) 15 U/L (14-59) Alkaline Phosphatase 77 U/L (46-116) Creatine Kinase 81 U/L (26-192) Troponin I Quantitative < 0.017 ng/mL (0.000-0.055) Total Protein 7.0 g/dL (6.4-8.2) Albumin 3.9 g/dL (3.4-5.0) Albumin/Globulin Ratio 1.3 (1.0-1.7) Lipase 61 U/L (73-393) Medications Current Medications Famotidine (Pepcid Vial) 20 mg 1X ONCE IVP Last administered on 12/23/19at 10:28; Start 12/23/19 at 10:30; Stop 12/23/19 at 10:31; Status DC Fentanyl Citrate (Fentanyl 2ml Vial) 25 mcg PRN Q2HR PRN IVP PAIN Last administered on 12/23/19at 16:36; Start 12/23/19 at 16:30 Info (CONTRAST GIVEN -- Rx MONITORING) 1 each PRN DAILY PRN MC SEE COMMENTS; Start 12/23/19 at 11:30; Stop 12/24/19 at 07:32; Status DC Info (CONTRAST GIVEN -- Rx MONITORING) 1 each PRN DAILY PRN MC SEE COMMENTS; Start 12/24/19 at 07:45; Stop 12/26/19 at 07:44 Iohexol (Omnipaque 300 Mg/ml) 60 ml 1X ONCE IV Last administered on 12/23/19at 11:31; Start 12/23/19 at 11:30; Stop 12/23/19 at 11:31; Status DC Iohexol (Omnipaque 300 Mg/ml) 400 ml 1X ONCE PO Last administered on 12/24/19at 09:10; Start 12/24/19 at 07:30; Stop 12/24/19 at 07:31; Status DC Metoclopramide HCl (Reglan Vial) 10 mg 1X ONCE IVP Last administered on 12/23/19at 10:29; Start 12/23/19 at 10:30; Stop 12/23/19 at 10:31; Status DC Morphine Sulfate (Morphine Sulfate) 4 mg 1X ONCE IV Last administered on 12/23/19at 13:04; Start 12/23/19 at 12:45; Stop 12/23/19 at 12:46; Status DC Ondansetron HCl (Zofran) 4 mg PRN Q6HRS PRN IVP NAUSEA/VOMITING Last administered on 12/23/19at 18:28; Start 12/23/19 at 18:15 Sodium Chloride 1,000 ml @ 100 mls/hr 1X ONCE IV Last administered on 12/23/19at 13:04; Start 12/23/19 at 12:30; Stop 12/23/19 at 22:29; Status DC Sodium Chloride 1,000 ml @ 100 mls/hr Q10H IV Last administered on 12/24/19at 02:05; Start 12/23/19 at 21:00 Vitals/I & O Vital Sign - Last 24 Hours 12/23/19 12/23/19 12/23/19 12/23/19 10:39 11:09 11:39 12:09 Pulse 74 74 84 76 Resp 16 16 16 16 B/P (MAP) 98/73 (81) 114/56 (75) 140/71 (94) 133/60 (84) Pulse Ox 99 99 98 98 O2 Delivery Room Air Room Air Room Air Room Air 12/23/19 12/23/19 12/23/19 12/23/19 12:39 13:04 13:09 13:37 Pulse 90 81 78 Resp 18 18 16 18 B/P (MAP) 142/68 (92) 126/70 (88) 94/55 (68) Pulse Ox 95 97 95 95 O2 Delivery Room Air 12/23/19 12/23/19 12/23/19 12/23/19 14:07 15:58 16:36 19:59 Temp 98.7 98.8 98.7 98.8 Pulse 76 80 77 Resp 18 18 18 B/P (MAP) 98/52 (67) 132/63 (86) 144/54 (84) Pulse Ox 95 96 96 96 O2 Delivery Room Air Room Air Room Air 12/23/19 12/23/19 12/24/19 12/24/19 20:00 23:10 03:00 07:52 Temp 98.6 98.3 98.7 98.6 98.3 98.7 Pulse 83 75 80 Resp 18 20 16 B/P (MAP) 131/59 (83) 106/ 137/69 (91) Pulse Ox 96 98 100 O2 Delivery Room Air Room Air Room Air Room Air Intake and Output 12/23/19 12/23/19 12/24/19 15:00 23:00 07:00 Intake Total 0 ml 0 ml Balance 0 ml 0 ml SHOLA SOLO MD December 24, 2019 10:22
[2019-12-24 10:57] VITALS: BP 133/61
--- NOTE | 2019-12-24 11:54 | PDOC2 ---
GI CONSULT Reason For Consult: SBO HPI: HPI: 84 y/o female w/ SBO on CT. Surgery following, SBS in process. She's not the greatest historian. Says has been sick for a long time. Denies n/v (though ER note says she came to the ER for terrible n/v), denies abd pain. Says she hasn't stooled for 4 months despite laxatives - then says she had a stool in the ER. (Checked w/ nurse - no stool since admission.) Pt says she had an NGT but she pulled it out. 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 Last in 08/2018: phytobezoar. Biopsies c/w Mcgraw's. Small hiatal hernia noted in the past. Colonoscopy 12/2008: diverticulosis. BE 12/2017: limited evaluation of the cecum, extensive colonic diverticulosis, markedly redundant sigmoid colon. No evidence of colonic stricture, inflammatory change, or large colonic polyps. S/p cholecystectomy. H/o anemia - past hematology eval: extensive workup in 2019 with iron panel, B12, folic acid, serum protein electrophoresis all unremarkable and bone marrow biopsy did not reveal any primary bone marrow disorders. Summary list includes omeprazole, Linzess, ibuprofen. PMH: PMH: HTN, SSS, cardiomyopathy, HLD, anxiety/depression, dementia, breast cancer/radiation pacemaker, hysterectomy, left shoulder surgery, cholecystectomy, bladder surgery w/ mesh, right lumpectomy, lymph node biopsy, bone marrow biopsy (no MDS) FH: Family History: Cancer, DM Social History: ALCOHOL: none Drugs: None ROS: GEN: Denies fevers, chills, sweats CV: Denies chest pain RESP: Denies shortness of air, cough GI: Per HPI : Denies hematuria, dysuria ENDO: Denies weight changes NEURO: Denies confusion, dizziness MSK: Denies weakness, joint pain/swelling SKIN: Denies jaundice, pruritus Vitals: Vitals: Vital Signs Date Time Temp Pulse Resp B/P (MAP) Pulse Ox O2 Delivery O2 Flow Rate FiO2 12/24/19 10:57 98.4 75 16 133/61 (85) 96 Room Air 98.4 Labs: Labs: Please see EMR. Allergies: Coded Allergies: Penicillins (Verified Allergy, Intermediate, Rash, 09/16/19) tolerates cephalasporins atorvastatin (Verified Allergy, Intermediate, Unknown, 12/08/19) tetracycline (Verified Allergy, Intermediate, rash, 09/16/19) codeine (Verified Adverse Reaction, Intermediate, nausea & vomiting, 09/16/19) fentanyl (Verified Adverse Reaction, Intermediate, Nausea and Vomiting, 09/17/19) hydrocodone (Verified Adverse Reaction, Intermediate, Nausea and Vomiting, 09/16/19) iron (Verified Adverse Reaction, Intermediate, Nausea and Vomiting, iron tablets the oral dose only, 09/16/19) morphine (Verified Adverse Reaction, Intermediate, vomiting, 09/16/19) PO morphine only. can tolerate IV tramadol (Verified Adverse Reaction, Intermediate, Nausea and Vomiting, 09/16/19) Medications: Current Medications Medications (Trade) Dose Ordered Sig/Babatunde Route PRN Reason Start Time Stop Time Status Last Admin Dose Admin Sodium Chloride 1,000 ml @ 100 mls/hr 1X ONCE IV 12/23/19 12:30 12/23/19 22:29 DC 12/23/19 13:04 Morphine Sulfate (Morphine Sulfate) 4 mg 1X ONCE IV 12/23/19 12:45 12/23/19 12:46 DC 12/23/19 13:04 Fentanyl Citrate (Fentanyl 2ml Vial) 25 mcg PRN Q2HR PRN IVP PAIN 12/23/19 16:30 12/23/19 16:36 Ondansetron HCl (Zofran) 4 mg PRN Q6HRS PRN IVP NAUSEA/VOMITING 12/23/19 18:15 12/23/19 18:28 Sodium Chloride 1,000 ml @ 100 mls/hr Q10H IV 12/23/19 21:00 12/24/19 02:05 Iohexol (Omnipaque 300 Mg/ml) 400 ml 1X ONCE PO 12/24/19 07:30 12/24/19 07:31 DC 12/24/19 09:10 Imaging: Imaging: CT A/P 12/22 IMPRESSION: * Severe dilation of the small bowel with distal decompression concerning for small bowel obstruction. The transition point is in the right lower quadrant of the abdomen. There is also some mesenteric edema identified. This is suspicious for high-grade obstruction. * Repeat demonstration of a central hepatic lesion which appears slightly increased from 2016 but was present at that time as well therefore benign cause would be favored. There is also a region of low density near the dome the liver again seen which could be from some focally dilated ducts or an additional low-density lesion which was likely present on prior as well. * Dilatation of the biliary tree is again identified. Causes such as a distal stricture, stone or ampullary lesion are not excluded given this finding. * Multiple bilateral renal lesions are again seen with some of these having the appearance of cysts and others not well characterized. It may be helpful to obtain a nonemergent focused ultrasound to ensure that none of these are solid in nature given that there is some high density associated with some of them. * Thickening of the subcutaneous soft tissues the right breast with edema as well as a more focal density partially seen medially. Some possible causes would include posttreatment changes if the patient has had surgery and/or radiation to the right breast. Neoplastic causes are within the differential as well. KUB 12/22 IMPRESSION:Intragastric position of nasogastric tube. Unchanged small bowel obstruction. SBS 12/23 pending PE: GEN: NAD HEENT: Atraumatic, PERRL LUNGS: CTAB HEART: RRR ABD: occasional quiet bowel sounds, some distention, non-tender EXTREMITY: No edema SKIN: No rashes, no jaundice NEURO/PSYCH: pleasantly confused A/P: A/P: SBO GERD/Mcgraw's, h/o phytobezoar CRC screen - colonoscopy 2008, BE 2017 Diverticulosis H/o constipation S/p cholecystectomy H/o breast cancer Dementia -- Await SBS, continue per surgery. Resume PPI - IV for now. KRYSTLE ORTIZ December 24, 2019 11:54
[2019-12-24] MEDS: PANTOPRAZOLE IV PUSH 40 MG VIAL. IVP SCH (12:25)
--- NOTE | 2019-12-24 12:47 | NUR ---
SS following for discharge planning. SS reviewed pt chart and discussed with pt RN. Pt is from home with grandson and is currently on room air. Pt having small bowel series today. PT/OT ordered to assess needs as pt has expressed some safety concerns at home. SS will continue to follow for discharge planning.
[2019-12-24 13:39] LABS: BASO % 0 % (0-3); EOS # 0.1 x10^3/uL (0.0-0.7); EOS % 2 % (0-3); HEMATOCRIT 31.3 % (36.0-47.0); HEMOGLOBIN 10.1 g/dL (12.0-15.5); LYMPH # 0.8 x10^3/uL (1.0-4.8); LYMPH % 21 % (24-48); MEAN CORPUSCULAR HEMOGLOBIN 27 pg (25-35); MEAN CORPUSCULAR HGB CONC 32 g/dL (31-37); MEAN CORPUSCULAR VOLUME 83 fL (79-100); MONO # 0.5 x10^3/uL (0.0-1.1); MONO % 14 % (0-9); NEUT # 2.3 x10^3/uL (1.8-7.7); NEUT % 64 % (31-73); PLATELET COUNT 161 x10^3/uL (140-400); RED BLOOD COUNT 3.75 x10^6/uL (3.50-5.40); RED CELL DISTRIBUTION WIDTH 15.7 % (11.5-14.5); WHITE BLOOD COUNT 3.7 x10^3/uL (4.0-11.0)
--- NOTE | 2019-12-24 13:47 | PDOC ---
PROGRESS NOTES Subjective Subjective pt on commode, having much less pain; states she starting having multiple loose stools after starting SB series Objective Objective Vital Signs Date Time Temp Pulse Resp B/P (MAP) Pulse Ox O2 Delivery O2 Flow Rate FiO2 12/24/19 10:57 98.4 75 16 133/61 (85) 96 Room Air 98.4 Intake and Output 12/24/19 07:00 Intake Total 0 ml Balance 0 ml Intake Oral 0 ml # Voids 1 Physical Exam Abdomen: Soft Heart: Regular rate Extremities: No clubbing, No cyanosis General: Alert, Oriented X3 Neuro: Normal speech Assessment Assessment Problems Medical Problems: (1) Abdominal pain Status: Acute (2) Nausea & vomiting Status: Acute (3) Small bowel obstruction Status: Acute Plan Plan of Care SB series in progress; contrast seems to be in colon at 2 hours and given stools seems that obstruction improved; await final report for recommendations Comment Review of Relevant I have reviewed the following items wade (where applicable) has been applied. Labs Laboratory Tests Test 12/23/19 10:25 12/24/19 12:45 White Blood Count 6.8 x10^3/uL (4.0-11.0) 3.7 x10^3/uL (4.0-11.0) Red Blood Count 4.72 x10^6/uL (3.50-5.40) 3.75 x10^6/uL (3.50-5.40) Hemoglobin 12.5 g/dL (12.0-15.5) 10.1 g/dL (12.0-15.5) Hematocrit 38.9 % (36.0-47.0) 31.3 % (36.0-47.0) Mean Corpuscular Volume 82 fL (79-100) 83 fL (79-100) Mean Corpuscular Hemoglobin 27 pg (25-35) 27 pg (25-35) Mean Corpuscular Hemoglobin Concent 32 g/dL (31-37) 32 g/dL (31-37) Red Cell Distribution Width 15.6 % (11.5-14.5) 15.7 % (11.5-14.5) Platelet Count 158 x10^3/uL (140-400) 161 x10^3/uL (140-400) Neutrophils (%) (Auto) 79 % (31-73) 64 % (31-73) Lymphocytes (%) (Auto) 8 % (24-48) 21 % (24-48) Monocytes (%) (Auto) 12 % (0-9) 14 % (0-9) Eosinophils (%) (Auto) 1 % (0-3) 2 % (0-3) Basophils (%) (Auto) 0 % (0-3) 0 % (0-3) Neutrophils # (Auto) 5.4 x10^3/uL (1.8-7.7) 2.3 x10^3/uL (1.8-7.7) Lymphocytes # (Auto) 0.5 x10^3/uL (1.0-4.8) 0.8 x10^3/uL (1.0-4.8) Monocytes # (Auto) 0.8 x10^3/uL (0.0-1.1) 0.5 x10^3/uL (0.0-1.1) Eosinophils # (Auto) 0.1 x10^3/uL (0.0-0.7) 0.1 x10^3/uL (0.0-0.7) Basophils # (Auto) 0.0 x10^3/uL (0.0-0.2) 0.0 x10^3/uL (0.0-0.2) Prothrombin Time 13.6 SEC (11.7-14.0) Prothromb Time International Ratio 1.1 (0.8-1.1) Activated Partial Thromboplast Time 18 SEC (24-38) Sodium Level 135 mmol/L (136-145) Potassium Level 4.9 mmol/L (3.5-5.1) Chloride Level 99 mmol/L (98-107) Carbon Dioxide Level 27 mmol/L (21-32) Anion Gap 9 (6-14) Blood Urea Nitrogen 18 mg/dL (7-20) Creatinine 1.1 mg/dL (0.6-1.0) Estimated GFR (Cockcroft-Gault) 57.1 BUN/Creatinine Ratio 16 (6-20) Glucose Level 115 mg/dL (70-99) Calcium Level 9.5 mg/dL (8.5-10.1) Total Bilirubin 0.7 mg/dL (0.2-1.0) Aspartate Amino Transf (AST/SGOT) 16 U/L (15-37) Alanine Aminotransferase (ALT/SGPT) 15 U/L (14-59) Alkaline Phosphatase 77 U/L (46-116) Creatine Kinase 81 U/L (26-192) Troponin I Quantitative < 0.017 ng/mL (0.000-0.055) Total Protein 7.0 g/dL (6.4-8.2) Albumin 3.9 g/dL (3.4-5.0) Albumin/Globulin Ratio 1.3 (1.0-1.7) Lipase 61 U/L (73-393) Laboratory Tests Test 12/24/19 12:45 White Blood Count 3.7 x10^3/uL (4.0-11.0) Red Blood Count 3.75 x10^6/uL (3.50-5.40) Hemoglobin 10.1 g/dL (12.0-15.5) Hematocrit 31.3 % (36.0-47.0) Mean Corpuscular Volume 83 fL (79-100) Mean Corpuscular Hemoglobin 27 pg (25-35) Mean Corpuscular Hemoglobin Concent 32 g/dL (31-37) Red Cell Distribution Width 15.7 % (11.5-14.5) Platelet Count 161 x10^3/uL (140-400) Neutrophils (%) (Auto) 64 % (31-73) Lymphocytes (%) (Auto) 21 % (24-48) Monocytes (%) (Auto) 14 % (0-9) Eosinophils (%) (Auto) 2 % (0-3) Basophils (%) (Auto) 0 % (0-3) Neutrophils # (Auto) 2.3 x10^3/uL (1.8-7.7) Lymphocytes # (Auto) 0.8 x10^3/uL (1.0-4.8) Monocytes # (Auto) 0.5 x10^3/uL (0.0-1.1) Eosinophils # (Auto) 0.1 x10^3/uL (0.0-0.7) Basophils # (Auto) 0.0 x10^3/uL (0.0-0.2) Medications Current Medications Famotidine (Pepcid Vial) 20 mg 1X ONCE IVP Last administered on 12/23/19 10:28; Start 12/23/19 at 10:30; Stop 12/23/19 at 10:31; Status DC Metoclopramide HCl (Reglan Vial) 10 mg 1X ONCE IVP Last administered on 12/23/19at 10:29; Start 12/23/19 at 10:30; Stop 12/23/19 at 10:31; Status DC Iohexol (Omnipaque 300 Mg/ml) 60 ml 1X ONCE IV Last administered on 12/23/19at 11:31; Start 12/23/19 at 11:30; Stop 12/23/19 at 11:31; Status DC Info (CONTRAST GIVEN -- Rx MONITORING) 1 each PRN DAILY PRN MC SEE COMMENTS; Start 12/23/19 at 11:30; Stop 12/24/19 at 07:32; Status DC Sodium Chloride 1,000 ml @ 100 mls/hr 1X ONCE IV Last administered on 12/23/19at 13:04; Start 12/23/19 at 12:30; Stop 12/23/19 at 22:29; Status DC Morphine Sulfate (Morphine Sulfate) 4 mg 1X ONCE IV Last administered on 12/23/19 13:04; Start 12/23/19 at 12:45; Stop 12/23/19 at 12:46; Status DC Fentanyl Citrate (Fentanyl 2ml Vial) 25 mcg PRN Q2HR PRN IVP PAIN Last administered on 12/23/19at 16:36; Start 12/23/19 at 16:30 Ondansetron HCl (Zofran) 4 mg PRN Q6HRS PRN IVP NAUSEA/VOMITING Last administered on 12/23/19at 18:28; Start 12/23/19 at 18:15 Sodium Chloride 1,000 ml @ 100 mls/hr Q10H IV Last administered on 12/24/19at 12:24; Start 12/23/19 at 21:00 Iohexol (Omnipaque 300 Mg/ml) 400 ml 1X ONCE PO Last administered on 12/24/19at 09:10; Start 12/24/19 at 07:30; Stop 12/24/19 at 07:31; Status DC Info (CONTRAST GIVEN -- Rx MONITORING) 1 each PRN DAILY PRN MC SEE COMMENTS; Start 12/24/19 at 07:45; Stop 12/26/19 at 07:44 Pantoprazole Sodium (PROTONIX VIAL for IV PUSH) 40 mg DAILYAC IVP Last administered on 12/24/19at 12:25; Start 12/24/19 at 12:00 Active Scripts Active Tylenol (Acetaminophen) 325 Mg Tablet 650 Mg PO PRN Q6HRS PRN 7 Days Ibuprofen 200 Mg Tablet 600 Mg PO BID PRN 7 Days Zofran (Ondansetron Hcl) 8 Mg Tablet 1 Tab PO Q8HRS Reported Midodrine Hcl 5 Mg Tablet 5 Mg PO BID Oxybutynin Chloride 5 Mg Tablet 5 Mg PO BID Gabapentin (Gabapentin) 100 Mg Capsule 100 Mg PO DAILY07 Zolpidem Tartrate 5 Mg Tablet 5 Mg PO HS Linzess (Linaclotide) 145 Mcg Capsule 72 Mcg PO DAILY07 Xanax (Alprazolam) 0.5 Mg Tablet 0.5 Tab PO BID Omeprazole 40 Mg Capsule.dr 40 Mg PO DAILY Sotalol (Sotalol Hcl) 80 Mg Tablet 40 Mg PO BID Vitals/I & O Vital Sign - Last 24 Hours 12/23/19 12/23/19 12/23/19 12/23/19 14:07 15:58 16:36 19:59 Temp 98.7 98.8 98.7 98.8 Pulse 76 80 77 Resp 18 18 18 B/P (MAP) 98/52 (67) 132/63 (86) 144/54 (84) Pulse Ox 95 96 96 96 O2 Delivery Room Air Room Air Room Air 12/23/19 12/23/19 12/24/19 12/24/19 20:00 23:10 03:00 07:52 Temp 98.6 98.3 98.7 98.6 98.3 98.7 Pulse 83 75 80 Resp 18 20 16 B/P (MAP) 131/59 (83) 106/ 137/69 (91) Pulse Ox 96 98 100 O2 Delivery Room Air Room Air Room Air Room Air 12/24/19 10:57 Temp 98.4 98.4 Pulse 75 Resp 16 B/P (MAP) 133/61 (85) Pulse Ox 96 O2 Delivery Room Air Intake and Output 12/23/19 12/23/19 12/24/19 15:00 23:00 07:00 Intake Total 0 ml 0 ml Balance 0 ml 0 ml BONY WILD MD December 24, 2019 13:47
--- NOTE | 2019-12-24 14:05 | RAD ---
EXAM: SMALL BOWEL SERIES 12/24/2019 5:00 AM CLINICAL INDICATION:Small bowel obstruction. COMPARISON:CT abdomen and pelvis 12/23/2019 TECHNIQUE:AP view of the abdomen was obtained. The patient drank 400 cc Omnipaque 300 contrast and subsequent radiographs of the abdomen were obtained at 0, 20, and 40 minutes, and 1 hour, 2 hour, and 4 hours. FINDINGS:Diffuse dilated of small bowel is redemonstrated. There is stool in the colon. Contrast is seen in small bowel and likely in the descending colon by 2 hours. At 4 hours, contrast is mostly cleared from small bowel and seen throughout the colon, including in the rectum. IMPRESSION:Partial small bowel obstruction with diffuse dilation of small bowel but progression of contrast through the colon at 2 to 4 hours. Electronically signed by: Danni Alston MD (12/24/2019 2:01 PM) [id number]
[2019-12-24 14:13] LABS: PROTHROMBIN TIME PATIENT 14.3 SEC (11.7-14.0)
[2019-12-24 14:34] LABS: CREATININE 0.9 mg/dL (0.6-1.0); POTASSIUM 3.8 mmol/L (3.5-5.1)
[2019-12-24 15:38] VITALS: BP 153/66
[2019-12-24 19:52] VITALS: BP 126/59
[2019-12-24 23:35] VITALS: BP 143/65
[2019-12-25 03:11] VITALS: BP 134/68
[2019-12-25] MEDS: fentaNYL PF VIAL 100 MCG/2 ML VIAL IVP PRN ×3 (07:01→21:05)
[2019-12-25] MEDS: IV NORMAL SALINE 1000ML BAG 1,000 ML IV SCH (07:06)
[2019-12-25 07:36] VITALS: BP 178/77
[2019-12-25] MEDS: PANTOPRAZOLE IV PUSH 40 MG VIAL. IVP SCH (08:58)
--- NOTE | 2019-12-25 09:45 | PDOC ---
Subjective: Subjective: Taking some clears, stooled yesterday. "I've been this way for a long long time." Objective: Objective: D/w nurse - lots of stool yesterday. Vital Signs: Vital Signs Date Time Temp Pulse Resp B/P (MAP) Pulse Ox O2 Delivery O2 Flow Rate FiO2 12/25/19 07:36 98.2 76 18 178/77 (110) 98 Room Air 98.2 Labs: Laboratory Tests Test 12/24/19 12:45 12/24/19 14:10 White Blood Count 3.7 x10^3/uL Red Blood Count 3.75 x10^6/uL Hemoglobin 10.1 g/dL Hematocrit 31.3 % Mean Corpuscular Volume 83 fL Mean Corpuscular Hemoglobin 27 pg Mean Corpuscular Hemoglobin Concent 32 g/dL Red Cell Distribution Width 15.7 % Platelet Count 161 x10^3/uL Neutrophils (%) (Auto) 64 % Lymphocytes (%) (Auto) 21 % Monocytes (%) (Auto) 14 % Eosinophils (%) (Auto) 2 % Basophils (%) (Auto) 0 % Neutrophils # (Auto) 2.3 x10^3/uL Lymphocytes # (Auto) 0.8 x10^3/uL Monocytes # (Auto) 0.5 x10^3/uL Eosinophils # (Auto) 0.1 x10^3/uL Basophils # (Auto) 0.0 x10^3/uL Prothrombin Time 14.3 SEC Prothromb Time International Ratio 1.2 Sodium Level 139 mmol/L Potassium Level 3.8 mmol/L Chloride Level 105 mmol/L Carbon Dioxide Level 26 mmol/L Anion Gap 8 Blood Urea Nitrogen 16 mg/dL Creatinine 0.9 mg/dL Estimated GFR (Cockcroft-Gault) 72.0 Glucose Level 97 mg/dL Calcium Level 9.0 mg/dL Imaging: SBS 12/23 IMPRESSION:Partial small bowel obstruction with diffuse dilation of small bowel but progression of contrast through the colon at 2 to 4 hours. PE: GEN: NAD LUNGS: CTAB HEART: RRR ABD: fairly quiet, soft, non-distended, non-tender NEURO/PSYCH: pleasantly confused A/P: Partial SBO Chronic anemia GERD/Mcgraw's Dementia -- Tolerating clears, continue per surgery. PO PPI. Hemodynamically unstable?: No Is patient in severe pain?: No Is NPO status required?: No KRYSTLE ORTIZ December 25, 2019 09:45
--- NOTE | 2019-12-25 10:17 | PDOC ---
PROGRESS NOTES Subjective Subjective no new problems Objective Objective Vital Signs Date Time Temp Pulse Resp B/P (MAP) Pulse Ox O2 Delivery O2 Flow Rate FiO2 12/25/19 07:36 98.2 76 18 178/77 (110) 98 Room Air 98.2 Intake and Output 12/25/19 07:00 Intake Total 2220 ml Balance 2220 ml Intake Oral 220 ml IV Total 2000 ml # Voids 4 # Bowel Movements 1 Physical Exam Abdomen: Soft Heart: Regular rate Extremities: No clubbing, No cyanosis General: Alert, Oriented X3 HEENT: Atraumatic, Other (NG tube in place) Lungs: Clear to auscultation MUSCULOSKELETAL: No swelling, Other Neuro: Normal speech Psych/Mental Status: Mental status NL Skin: No rashes Diagnosis Problem List Problems Medical Problems: (1) Abdominal pain Status: Acute (2) Nausea & vomiting Status: Acute (3) Small bowel obstruction Status: Acute Assessment Assessment Problems Medical Problems: (1) Abdominal pain Status: Acute (2) Nausea & vomiting Status: Acute (3) Small bowel obstruction Status: Acute Partial SBO GERD/Mcgraw's, h/o phytobezoar CRC screen - colonoscopy 2008, 2017 Diverticulosis H/o constipation S/p cholecystectomy H/o breast cancer rt ,s/p recent radiation treatmen Dementia Plan: start on clear liquis diet. GI consult. small bowel series -no obstruction resume oral meds Resume PPI - IV for now. lab radha npo Plan Plan of Care Problems Medical Problems: (1) Abdominal pain Status: Acute (2) Nausea & vomiting Status: Acute (3) Small bowel obstruction Status: Acute Comment Review of Relevant I have reviewed the following items wade (where applicable) has been applied. Labs Laboratory Tests Test 12/24/19 12:45 12/24/19 14:10 White Blood Count 3.7 x10^3/uL (4.0-11.0) Red Blood Count 3.75 x10^6/uL (3.50-5.40) Hemoglobin 10.1 g/dL (12.0-15.5) Hematocrit 31.3 % (36.0-47.0) Mean Corpuscular Volume 83 fL (79-100) Mean Corpuscular Hemoglobin 27 pg (25-35) Mean Corpuscular Hemoglobin Concent 32 g/dL (31-37) Red Cell Distribution Width 15.7 % (11.5-14.5) Platelet Count 161 x10^3/uL (140-400) Neutrophils (%) (Auto) 64 % (31-73) Lymphocytes (%) (Auto) 21 % (24-48) Monocytes (%) (Auto) 14 % (0-9) Eosinophils (%) (Auto) 2 % (0-3) Basophils (%) (Auto) 0 % (0-3) Neutrophils # (Auto) 2.3 x10^3/uL (1.8-7.7) Lymphocytes # (Auto) 0.8 x10^3/uL (1.0-4.8) Monocytes # (Auto) 0.5 x10^3/uL (0.0-1.1) Eosinophils # (Auto) 0.1 x10^3/uL (0.0-0.7) Basophils # (Auto) 0.0 x10^3/uL (0.0-0.2) Prothrombin Time 14.3 SEC (11.7-14.0) Prothromb Time International Ratio 1.2 (0.8-1.1) Sodium Level 139 mmol/L (136-145) Potassium Level 3.8 mmol/L (3.5-5.1) Chloride Level 105 mmol/L (98-107) Carbon Dioxide Level 26 mmol/L (21-32) Anion Gap 8 (6-14) Blood Urea Nitrogen 16 mg/dL (7-20) Creatinine 0.9 mg/dL (0.6-1.0) Estimated GFR (Cockcroft-Gault) 72.0 Glucose Level 97 mg/dL (70-99) Calcium Level 9.0 mg/dL (8.5-10.1) Medications Current Medications Pantoprazole Sodium (PROTONIX VIAL for IV PUSH) 40 mg DAILYAC IVP Last adminis tered on 12/25/19at 08:58; Start 12/24/19 at 12:00; Stop 12/25/19 at 09:46; Status DC Pantoprazole Sodium (Protonix) 40 mg DAILYAC PO ; Start 12/26/19 at 07:30 Vitals/I & O Vital Sign - Last 24 Hours 12/24/19 12/24/19 12/24/19 12/24/19 10:57 15:38 19:52 20:02 Temp 98.4 98.2 98.3 98.4 98.2 98.3 Pulse 75 80 74 Resp 16 17 16 B/P (MAP) 133/61 (85) 153/66 (95) 126/59 (81) Pulse Ox 96 100 95 O2 Delivery Room Air Room Air Room Air Room Air 12/24/19 12/25/19 12/25/19 12/25/19 23:35 03:11 07:01 07:31 Temp 97.9 98.3 97.9 98.3 Pulse 75 74 Resp 18 18 15 17 B/P (MAP) 143/65 (91) 134/68 (90) Pulse Ox 97 97 97 O2 Delivery Room Air Room Air Room Air Nasal Cannula 12/25/19 07:36 Temp 98.2 98.2 Pulse 76 Resp 18 B/P (MAP) 178/77 (110) Pulse Ox 98 O2 Delivery Room Air Intake and Output 12/24/19 12/24/19 12/25/19 15:00 23:00 07:00 Intake Total 1000 ml 1000 ml 220 ml Balance 1000 ml 1000 ml 220 ml Hemodynamically unstable?: No Is patient in severe pain?: No Is NPO status required?: No SHOLA SOLO MD December 25, 2019 10:17
[2019-12-25] MEDS: SOTALOL 80 MG TABLET. PO SCH ×2 (11:17→21:05)
[2019-12-25 11:24] VITALS: BP 178/82
--- NOTE | 2019-12-25 12:42 | PDOC ---
PROGRESS NOTES Subjective Subjective some abdominal pain, had many, many loose stools, taking liquids well Objective Objective Vital Signs Date Time Temp Pulse Resp B/P (MAP) Pulse Ox O2 Delivery O2 Flow Rate FiO2 12/25/19 11:24 98.8 74 18 178/82 (114) 99 Room Air 98.8 Intake and Output 12/25/19 07:00 Intake Total 2220 ml Balance 2220 ml Intake Oral 220 ml IV Total 2000 ml # Voids 4 # Bowel Movements 1 Physical Exam Abdomen: Soft Heart: Regular rate General: Alert, Oriented X3, Cooperative HEENT: Atraumatic Assessment Assessment Problems Medical Problems: (1) Abdominal pain Status: Acute (2) Nausea & vomiting Status: Acute (3) Small bowel obstruction Status: Acute Plan Plan of Care Improving, advancing diet, no surgery plans Comment Review of Relevant I have reviewed the following items wade (where applicable) has been applied. Labs Laboratory Tests Test 12/24/19 12:45 12/24/19 14:10 White Blood Count 3.7 x10^3/uL (4.0-11.0) Red Blood Count 3.75 x10^6/uL (3.50-5.40) Hemoglobin 10.1 g/dL (12.0-15.5) Hematocrit 31.3 % (36.0-47.0) Mean Corpuscular Volume 83 fL (79-100) Mean Corpuscular Hemoglobin 27 pg (25-35) Mean Corpuscular Hemoglobin Concent 32 g/dL (31-37) Red Cell Distribution Width 15.7 % (11.5-14.5) Platelet Count 161 x10^3/uL (140-400) Neutrophils (%) (Auto) 64 % (31-73) Lymphocytes (%) (Auto) 21 % (24-48) Monocytes (%) (Auto) 14 % (0-9) Eosinophils (%) (Auto) 2 % (0-3) Basophils (%) (Auto) 0 % (0-3) Neutrophils # (Auto) 2.3 x10^3/uL (1.8-7.7) Lymphocytes # (Auto) 0.8 x10^3/uL (1.0-4.8) Monocytes # (Auto) 0.5 x10^3/uL (0.0-1.1) Eosinophils # (Auto) 0.1 x10^3/uL (0.0-0.7) Basophils # (Auto) 0.0 x10^3/uL (0.0-0.2) Prothrombin Time 14.3 SEC (11.7-14.0) Prothromb Time International Ratio 1.2 (0.8-1.1) Sodium Level 139 mmol/L (136-145) Potassium Level 3.8 mmol/L (3.5-5.1) Chloride Level 105 mmol/L (98-107) Carbon Dioxide Level 26 mmol/L (21-32) Anion Gap 8 (6-14) Blood Urea Nitrogen 16 mg/dL (7-20) Creatinine 0.9 mg/dL (0.6-1.0) Estimated GFR (Cockcroft-Gault) 72.0 Glucose Level 97 mg/dL (70-99) Calcium Level 9.0 mg/dL (8.5-10.1) Laboratory Tests Test 12/24/19 12:45 12/24/19 14:10 White Blood Count 3.7 x10^3/uL (4.0-11.0) Red Blood Count 3.75 x10^6/uL (3.50-5.40) Hemoglobin 10.1 g/dL (12.0-15.5) Hematocrit 31.3 % (36.0-47.0) Mean Corpuscular Volume 83 fL (79-100) Mean Corpuscular Hemoglobin 27 pg (25-35) Mean Corpuscular Hemoglobin Concent 32 g/dL (31-37) Red Cell Distribution Width 15.7 % (11.5-14.5) Platelet Count 161 x10^3/uL (140-400) Neutrophils (%) (Auto) 64 % (31-73) Lymphocytes (%) (Auto) 21 % (24-48) Monocytes (%) (Auto) 14 % (0-9) Eosinophils (%) (Auto) 2 % (0-3) Basophils (%) (Auto) 0 % (0-3) Neutrophils # (Auto) 2.3 x10^3/uL (1.8-7.7) Lymphocytes # (Auto) 0.8 x10^3/uL (1.0-4.8) Monocytes # (Auto) 0.5 x10^3/uL (0.0-1.1) Eosinophils # (Auto) 0.1 x10^3/uL (0.0-0.7) Basophils # (Auto) 0.0 x10^3/uL (0.0-0.2) Prothrombin Time 14.3 SEC (11.7-14.0) Prothromb Time International Ratio 1.2 (0.8-1.1) Sodium Level 139 mmol/L (136-145) Potassium Level 3.8 mmol/L (3.5-5.1) Chloride Level 105 mmol/L (98-107) Carbon Dioxide Level 26 mmol/L (21-32) Anion Gap 8 (6-14) Blood Urea Nitrogen 16 mg/dL (7-20) Creatinine 0.9 mg/dL (0.6-1.0) Estimated GFR (Cockcroft-Gault) 72.0 Glucose Level 97 mg/dL (70-99) Calcium Level 9.0 mg/dL (8.5-10.1) Medications Current Medications Famotidine (Pepcid Vial) 20 mg 1X ONCE IVP Last administered on 12/23/19at 10:28; Start 12/23/19 at 10:30; Stop 12/23/19 at 10:31; Status DC Metoclopramide HCl (Reglan Vial) 10 mg 1X ONCE IVP Last administered on 12/23/19at 10:29; Start 12/23/19 at 10:30; Stop 12/23/19 at 10:31; Status DC Iohexol (Omnipaque 300 Mg/ml) 60 ml 1X ONCE IV Last administered on 12/23/19at 11:31; Start 12/23/19 at 11:30; Stop 12/23/19 at 11:31; Status DC Info (CONTRAST GIVEN -- Rx MONITORING) 1 each PRN DAILY PRN MC SEE COMMENTS; Start 12/23/19 at 11:30; Stop 12/24/19 at 07:32; Status DC Sodium Chloride 1,000 ml @ 100 mls/hr 1X ONCE IV Last administered on 12/23/19at 13:04; Start 12/23/19 at 12:30; Stop 12/23/19 at 22:29; Status DC Morphine Sulfate (Morphine Sulfate) 4 mg 1X ONCE IV Last administered on 12/23/19at 13:04; Start 12/23/19 at 12:45; Stop 12/23/19 at 12:46; Status DC Fentanyl Citrate (Fentanyl 2ml Vial) 25 mcg PRN Q2HR PRN IVP PAIN Last administered on 12/25/19at 11:20; Start 12/23/19 at 16:30 Ondansetron HCl (Zofran) 4 mg PRN Q6HRS PRN IVP NAUSEA/VOMITING Last administered on 12/23/19at 18:28; Start 12/23/19 at 18:15 Sodium Chloride 1,000 ml @ 75 mls/hr [id number] IV Last administered on 12/25/19at 07:06; Start 12/23/19 at 21:00 Iohexol (Omnipaque 300 Mg/ml) 400 ml 1X ONCE PO Last administered on 12/24/19at 09:10; Start 12/24/19 at 07:30; Stop 12/24/19 at 07:31; Status DC Info (CONTRAST GIVEN -- Rx MONITORING) 1 each PRN DAILY PRN MC SEE COMMENTS; Start 12/24/19 at 07:45; Stop 12/26/19 at 07:44 Pantoprazole Sodium (PROTONIX VIAL for IV PUSH) 40 mg DAILYAC IVP Last administered on 12/25/19at 08:58; Start 12/24/19 at 12:00; Stop 12/25/19 at 0 9:46; Status DC Pantoprazole Sodium (Protonix) 40 mg DAILYAC PO ; Start 12/26/19 at 07:30 Sotalol HCl (Betapace) 40 mg BID PO Last administered on 12/25/19at 11:17; Start 12/25/19 at 11:00 Zolpidem Tartrate (Ambien) 5 mg HS PO ; Start 12/25/19 at 21:00 Non-Formulary Medication (Omeprazole ) 40 mg DAILY PO ; Start 12/26/19 at 09:00; Status UNV Active Scripts Active Tylenol (Acetaminophen) 325 Mg Tablet 650 Mg PO PRN Q6HRS PRN 7 Days Ibuprofen 200 Mg Tablet 600 Mg PO BID PRN 7 Days Zofran (Ondansetron Hcl) 8 Mg Tablet 1 Tab PO Q8HRS Reported Midodrine Hcl 5 Mg Tablet 5 Mg PO BID Oxybutynin Chloride 5 Mg Tablet 5 Mg PO BID Gabapentin (Gabapentin) 100 Mg Capsule 100 Mg PO DAILY07 Zolpidem Tartrate 5 Mg Tablet 5 Mg PO HS Linzess (Linaclotide) 145 Mcg Capsule 72 Mcg PO DAILY07 Xanax (Alprazolam) 0.5 Mg Tablet 0.5 Tab PO BID Omeprazole 40 Mg Capsule.dr 40 Mg PO DAILY Sotalol (Sotalol Hcl) 80 Mg Tablet 40 Mg PO BID Vitals/I & O Vital Sign - Last 24 Hours 12/24/19 12/24/19 12/24/19 12/24/19 15:38 19:52 20:02 23:35 Temp 98.2 98.3 97.9 98.2 98.3 97.9 Pulse 80 74 75 Resp 17 16 18 B/P (MAP) 153/66 (95) 126/59 (81) 143/65 (91) Pulse Ox 100 95 97 O2 Delivery Room Air Room Air Room Air Room Air 12/25/19 12/25/19 12/25/19 12/25/19 03:11 07:01 07:31 07:36 Temp 98.3 98.2 98.3 98.2 Pulse 74 76 Resp 18 15 17 18 B/P (MAP) 134/68 (90) 178/77 (110) Pulse Ox 97 97 98 O2 Delivery Room Air Room Air Nasal Cannula Room Air 12/25/19 12/25/19 12/25/19 11:17 11:20 11:24 Temp 98.8 98.8 Pulse 76 74 Resp 18 18 B/P (MAP) 178/77 178/82 (114) Pulse Ox 99 O2 Delivery Room Air Room Air Intake and Output 12/24/19 12/24/19 12/25/19 15:00 23:00 07:00 Intake Total 1000 ml 1000 ml 220 ml Balance 1000 ml 1000 ml 220 ml Hemodynamically unstable?: No Is patient in severe pain?: No Is NPO status required?: No BONY WILD MD December 25, 2019 12:42
--- NOTE | 2019-12-25 13:18 | NUR ---
SS following up with discharge planning. SS reviewed pt chart and discussed with pt RN. Pt is currently on full liquid diet and room air. PT recommended senior living unit. SS met with pt and discussed discharge planning and senior living unit. Pt unsure if she wants to go to senior living unit at this time and reported that she will need to discuss with Dr. Mclaughlin. No surgical interventions needed at this time. SS will continue to follow for discharge planning.
[2019-12-25 15:25] VITALS: BP 168/72
[2019-12-25 19:43] VITALS: BP 165/79
[2019-12-25] MEDS: ZOLPIDEM 5 MG TABLET. PO SCH (21:05)
[2019-12-25 23:50] VITALS: BP 196/85
[2019-12-26] MEDS: hydrALAZINE 20 MG/ML VIAL. IVP PRN ×3 (00:23→23:07)
[2019-12-26] MEDS: fentaNYL PF VIAL 100 MCG/2 ML VIAL IVP PRN (02:12)
[2019-12-26 03:10] VITALS: BP 179/82
[2019-12-26] MEDS: IV NORMAL SALINE 1000ML BAG 1,000 ML IV SCH (05:20)
[2019-12-26 06:42] VITALS: BP 177/78
--- NOTE | 2019-12-26 08:15 | PDOC ---
SURGICAL PROGRESS NOTE Subjective Patient resting comfortably denies any abdominal pain has had several bowel movements Vital Signs Vital Signs Date Time Temp Pulse Resp B/P (MAP) Pulse Ox O2 Delivery O2 Flow Rate FiO2 12/26/19 06:42 98.6 79 18 177/78 (111) 98 Room Air 98.6 I&O Intake and Output 12/26/19 07:00 Intake Total 2500 ml Output Total 0 ml Balance 2500 ml Intake Oral 500 ml IV Total 2000 ml Output Urine Total 0 ml # Voids 4 PATIENT HAS A PATTON: No General: Alert, Oriented X3, Cooperative, No acute distress Abdomen: Normal bowel sounds, Soft, No tenderness Labs Laboratory Tests Test 12/24/19 12:45 12/24/19 14:10 White Blood Count 3.7 x10^3/uL (4.0-11.0) Red Blood Count 3.75 x10^6/uL (3.50-5.40) Hemoglobin 10.1 g/dL (12.0-15.5) Hematocrit 31.3 % (36.0-47.0) Mean Corpuscular Volume 83 fL (79-100) Mean Corpuscular Hemoglobin 27 pg (25-35) Mean Corpuscular Hemoglobin Concent 32 g/dL (31-37) Red Cell Distribution Width 15.7 % (11.5-14.5) Platelet Count 161 x10^3/uL (140-400) Neutrophils (%) (Auto) 64 % (31-73) Lymphocytes (%) (Auto) 21 % (24-48) Monocytes (%) (Auto) 14 % (0-9) Eosinophils (%) (Auto) 2 % (0-3) Basophils (%) (Auto) 0 % (0-3) Neutrophils # (Auto) 2.3 x10^3/uL (1.8-7.7) Lymphocytes # (Auto) 0.8 x10^3/uL (1.0-4.8) Monocytes # (Auto) 0.5 x10^3/uL (0.0-1.1) Eosinophils # (Auto) 0.1 x10^3/uL (0.0-0.7) Basophils # (Auto) 0.0 x10^3/uL (0.0-0.2) Prothrombin Time 14.3 SEC (11.7-14.0) Prothromb Time International Ratio 1.2 (0.8-1.1) Sodium Level 139 mmol/L (136-145) Potassium Level 3.8 mmol/L (3.5-5.1) Chloride Level 105 mmol/L (98-107) Carbon Dioxide Level 26 mmol/L (21-32) Anion Gap 8 (6-14) Blood Urea Nitrogen 16 mg/dL (7-20) Creatinine 0.9 mg/dL (0.6-1.0) Estimated GFR (Cockcroft-Gault) 72.0 Glucose Level 97 mg/dL (70-99) Calcium Level 9.0 mg/dL (8.5-10.1) Problem List Problems Medical Problems: (1) Abdominal pain Status: Acute (2) Nausea & vomiting Status: Acute (3) Small bowel obstruction Status: Acute Assessment/Plan Resolving ileus versus small bowel obstruction with bowel movements tolerating clear liquids advance diet as tolerated AJK CARTAGENA MD December 26, 2019 08:15
[2019-12-26] MEDS: PANTOPRAZOLE 40 MG TABLET.DR. PO SCH (08:19)
[2019-12-26] MEDS: SOTALOL 80 MG TABLET. PO SCH ×2 (08:19→20:11)
[2019-12-26] MEDS ORDERED: NON FORMULARY ITEM (Omeprazole 40 MG) PO SCH (09:00)
[2019-12-26] MEDS ORDERED: ACETAMINOPHEN 325 MG TABLET. PO PRN (09:45)
--- NOTE | 2019-12-26 10:07 | PDOC ---
Subjective: Subjective: Tearful - doesn't feel good, has abd pain and feels nauseated - doesn't want full liquid breakfast. Objective: Objective: Stool charted 12/24. Vital Signs: Vital Signs Date Time Temp Pulse Resp B/P (MAP) Pulse Ox O2 Delivery O2 Flow Rate FiO2 12/26/19 08:19 79 177/78 12/26/19 08:00 Room Air 12/26/19 06:42 98.6 18 98 98.6 PE: GEN: NAD - was on commode, then moved to bed LUNGS: CTAB HEART: RRR ABD: quiet, soft, not particularly tender NEURO/PSYCH: quieter today, tearful A/P: Partial SBO Chronic anemia GERD/Mcgraw's Dementia -- Seems varying history... tells me worse today. Might want to back off on diet and observe. Continue PPI, can change back to IV if indicated. Hemodynamically unstable?: No Is patient in severe pain?: No Is NPO status required?: No KRYSTLE ORTIZ December 26, 2019 10:07
--- NOTE | 2019-12-26 10:21 | PDOC ---
PROGRESS NOTES Subjective Subjective donot feel like eating today Objective Objective Vital Signs Date Time Temp Pulse Resp B/P (MAP) Pulse Ox O2 Delivery O2 Flow Rate FiO2 12/26/19 08:19 79 177/78 12/26/19 08:00 Room Air 12/26/19 06:42 98.6 18 98 98.6 Intake and Output 12/26/19 07:00 Intake Total 2500 ml Output Total 0 ml Balance 2500 ml Intake Oral 500 ml IV Total 2000 ml Output Urine Total 0 ml # Voids 4 Physical Exam Abdomen: Normal bowel sounds, Soft, No tenderness Heart: Regular rate Extremities: No clubbing, No cyanosis General: Alert, Oriented X3, Cooperative, No acute distress HEENT: Atraumatic Lungs: Clear to auscultation MUSCULOSKELETAL: No swelling, Other Neuro: Normal speech Psych/Mental Status: Mental status NL Skin: No rashes Diagnosis Problem List Problems Medical Problems: (1) Abdominal pain Status: Acute (2) Nausea & vomiting Status: Acute (3) Small bowel obstruction Status: Acute Assessment Assessment Problems Medical Problems: (1) Abdominal pain Status: Acute (2) Nausea & vomiting Status: Acute (3) Small bowel obstruction Status: Acute Partial SBO GERD/Mcgraw's, h/o phytobezoar CRC screen - colonoscopy 2008, BE 2017 Diverticulosis H/o constipation S/p cholecystectomy H/o breast cancer rt ,s/p recent radiation treatmen Dementia Plan: tolerating clear liquid diet. Advance diet as tolerated GI consult appreciated. small bowel series -no obstruction resume oral meds Resume PPI - d/c IV for now. lab radha Plan Plan of Care Problems Medical Problems: (1) Abdominal pain Status: Acute (2) Nausea & vomiting Status: Acute (3) Small bowel obstruction Status: Acute Comment Review of Relevant I have reviewed the following items wade (where applicable) has been applied. Medications Current Medications Acetaminophen (Tylenol) 650 mg PRN Q6HRS PRN PO HEADACHE Last administered on 12/26/19at 09:47; Start 12/26/19 at 09:45 Hydralazine HCl (Apresoline Inj) 10 mg PRN Q4HRS PRN IVP ELEVATED BP, SEE COMMENTS Last administered on 12/26/19at 05:07; Start 12/26/19 at 00:15 Non-Formulary Medication (Omeprazole ) 40 mg DAILY PO ; Start 12/26/19 at 09:00; Status UNV Pantoprazole Sodium (Protonix) 40 mg DAILYAC PO Last administered on 12/26/19at 08:19; Start 12/26/19 at 07:30 Sotalol HCl (Betapace) 40 mg BID PO Last administered on 12/26/19at 08:19; Sta rt 12/25/19 at 11:00 Zolpidem Tartrate (Ambien) 5 mg HS PO Last administered on 12/25/19at 21:05; Start 12/25/19 at 21:00 Vitals/I & O Vital Sign - Last 24 Hours 12/25/19 12/25/19 12/25/19 12/25/19 11:17 11:20 11:24 11:50 Temp 98.8 98.8 Pulse 76 74 Resp 18 18 18 B/P (MAP) 178/77 178/82 (114) Pulse Ox 99 O2 Delivery Room Air Room Air Room Air 12/25/19 12/25/19 12/25/19 12/25/19 15:25 19:43 20:03 21:05 Temp 98.6 98.6 98.6 98.6 Pulse 75 70 Resp 18 20 16 B/P (MAP) 168/72 (104) 165/79 (107) Pulse Ox 99 99 99 O2 Delivery Room Air Room Air Room Air Room Air 12/25/19 12/25/19 12/25/19 12/26/19 21:05 21:35 23:50 00:23 Temp 97.6 97.6 Pulse 70 77 77 Resp 17 16 B/P (MAP) 165/79 196/85 (122) 196/85 Pulse Ox 99 99 O2 Delivery Room Air Room Air 12/26/19 12/26/19 12/26/19 12/26/19 02:12 02:42 03:10 05:07 Temp 98.0 98.0 Pulse 77 77 Resp 17 17 16 B/P (MAP) 179/82 (114) 179/82 Pulse Ox 99 99 99 O2 Delivery Room Air Room Air Room Air 12/26/19 12/26/19 12/26/19 06:42 08:00 08:19 Temp 98.6 98.6 Pulse 79 79 Resp 18 B/P (MAP) 177/78 (111) 177/78 Pulse Ox 98 O2 Delivery Room Air Room Air Intake and Output 12/25/19 12/25/19 12/26/19 15:00 23:00 07:00 Intake Total 1300 ml 200 ml 1000 ml Output Total 0 ml Balance 1300 ml 200 ml 1000 ml Hemodynamically unstable?: No Is patient in severe pain?: No Is NPO status required?: No SHOLA SOLO MD December 26, 2019 10:21
--- NOTE | 2019-12-26 10:54 | NUR ---
SS following up with discharge planning. SS reviewed pt chart and discussed with pt RN. Pt not agreeable to half-way unit. Pt requesting home healthcare at this time. Pt reported that she has had home healthcare in the past but cannot remember the name of the company. SS contacted pt's daughter and requested the name of the company and pt's daughter reported that she would call SS in about an hour with the name of the company. SS will continue to follow for discharge planning.
[2019-12-26 11:34] VITALS: BP 180/82
[2019-12-26] MEDS: ENOXAPARIN 40 MG/0.4 ML SYRINGE. SQ SCH (12:13)
[2019-12-26] MEDS: NAPROXEN 250 MG TABLET PO PRN (12:13)
[2019-12-26 15:26] VITALS: BP 155/81
--- NOTE | 2019-12-26 16:18 | NUR ---
SS following up with discharge planning. Pt's daughter contacted SS and reported having no preference of company for home healthcare. Referral phoned and faxed to [facility], ; fax [phone].
[2019-12-26 19:00] VITALS: BP 171/79
[2019-12-26] MEDS: ZOLPIDEM 5 MG TABLET. PO SCH (20:11)
[2019-12-26 23:02] VITALS: BP 172/86
[2019-12-27] MEDS: ONDANSETRON PF 4 MG/2 ML VIAL. IVP PRN (00:47)
[2019-12-27 03:38] VITALS: BP 165/81
[2019-12-27] MEDS: PANTOPRAZOLE 40 MG TABLET.DR. PO SCH (07:14)
[2019-12-27] MEDS: NAPROXEN 250 MG TABLET PO PRN (07:16)
[2019-12-27 07:25] VITALS: BP 102/78
[2019-12-27] MEDS: SOTALOL 80 MG TABLET. PO SCH ×2 (08:44→21:15)
[2019-12-27 11:37] VITALS: BP 137/66
--- NOTE | 2019-12-27 12:08 | PDOC ---
IM PROGRESS NOTES- Subjective Subjective She feels dizzy and weak. She was able to tolerate breakfast this morning. Objective Vitals/I&O Vital Signs Date Time Temp Pulse Resp B/P (MAP) Pulse Ox O2 Delivery O2 Flow Rate FiO2 12/27/19 11:37 97.2 80 18 137/66 (89) 94 Room Air 97.2 I & O 12/26/19 12/26/19 12/27/19 15:00 23:00 07:00 Intake Total 450 ml 360 ml Output Total 400 ml Balance 450 ml 360 ml -400 ml Physical Exam Physical Exam General appearance - alert,well appearing, and in no distress and oriented to person, place, and time Mental Status - alert, oriented to person, place, and time, affect appropriate to mood Head - normal Chest -decreased breath sounds bilaterally Heart - S1 and S2 normal Abdomen - soft, nontender, Neurological - alert and oriented Musculoskeletal - no muscular tenderness noted Extremities - no pedal edema Skin - warm and dry Assessment Assessment Problems Medical Problems: (1) Abdominal pain Status: Acute (2) Nausea & vomiting Status: Acute (3) Small bowel obstruction Status: Acute Partial SBO GERD/Mcgraw's, h/o phytobezoar CRC screen - colonoscopy 2008, BE 2017 Diverticulosis H/o constipation S/p cholecystectomy H/o breast cancer rt ,s/p recent radiation treatmen Dementia Plan: She is still very weak. Tolerating diet. Gradually her oral intake will increase. Continue PT OT. Recheck labs in a.m. If stable discharge home tomorrow. Resume home medications. Plan Plan For more details regarding further plans, please refer to the orders. Hemodynamically unstable?: No Is patient in severe pain?: No Is NPO status required?: No MARGE RICHARDS MD December 27, 2019 12:08
[2019-12-27] MEDS: ENOXAPARIN 40 MG/0.4 ML SYRINGE. SQ SCH (12:51)
[2019-12-27] MEDS: ALPRAZolam 0.25 MG TABLET PO SCH ×2 (12:54→21:15)
[2019-12-27] MEDS: GABAPENTIN 100 MG CAPSULE. PO SCH (12:54)
[2019-12-27 15:06] VITALS: BP 126/82
[2019-12-27 19:00] VITALS: BP 139/73
[2019-12-27] MEDS: ZOLPIDEM 5 MG TABLET. PO SCH (21:15)
[2019-12-27 23:01] VITALS: BP 99/46
[2019-12-28 03:02] VITALS: BP 143/65
[2019-12-28 04:45] LABS: BASO % 1 % (0-3); EOS # 0.1 x10^3/uL (0.0-0.7); EOS % 3 % (0-3); HEMATOCRIT 29.8 % (36.0-47.0); HEMOGLOBIN 9.8 g/dL (12.0-15.5); LYMPH # 0.8 x10^3/uL (1.0-4.8); LYMPH % 33 % (24-48); MEAN CORPUSCULAR HEMOGLOBIN 27 pg (25-35); MEAN CORPUSCULAR HGB CONC 33 g/dL (31-37); MEAN CORPUSCULAR VOLUME 81 fL (79-100); MONO # 0.4 x10^3/uL (0.0-1.1); MONO % 18 % (0-9); NEUT # 1.1 x10^3/uL (1.8-7.7); NEUT % 46 % (31-73); PLATELET COUNT 159 x10^3/uL (140-400); RED CELL DISTRIBUTION WIDTH 14.9 % (11.5-14.5); WHITE BLOOD COUNT 2.3 x10^3/uL (4.0-11.0)
[2019-12-28 05:07] LABS: CALCIUM 8.4 mg/dL (8.5-10.1); CREATININE 0.9 mg/dL (0.6-1.0); POTASSIUM 3.4 mmol/L (3.5-5.1)
[2019-12-28 07:16] VITALS: BP 170/76
[2019-12-28] MEDS: GABAPENTIN 100 MG CAPSULE. PO SCH (07:26)
[2019-12-28] MEDS: PANTOPRAZOLE 40 MG TABLET.DR. PO SCH (07:26)
[2019-12-28] MEDS: SOTALOL 80 MG TABLET. PO SCH ×2 (09:19→21:25)
[2019-12-28] MEDS: ALPRAZolam 0.25 MG TABLET PO SCH ×2 (09:19→21:24)
--- NOTE | 2019-12-28 09:27 | PDOC ---
IM PROGRESS NOTES- Subjective Subjective She has nausea this morning. Dizziness, headaches and weakness are improving. Tolerating diet. Objective Vitals/I&O Vital Signs Date Time Temp Pulse Resp B/P (MAP) Pulse Ox O2 Delivery O2 Flow Rate FiO2 12/28/19 09:19 82 170/76 12/28/19 07:31 Room Air 12/28/19 07:16 98.1 18 98 98.1 I & O 12/27/19 12/27/19 12/28/19 15:00 23:00 07:00 Intake Total 150 ml 120 ml Output Total 450 ml Balance 150 ml 120 ml -450 ml Physical Exam Physical Exam General appearance - alert,well appearing, and in no distress and oriented to person, place, and time Mental Status - alert, oriented to person, place, and time, affect appropriate to mood Head - normal Chest -decreased breath sounds bilaterally Heart - S1 and S2 normal Abdomen - soft, nontender, Neurological - alert and oriented Musculoskeletal - no muscular tenderness noted Extremities - no pedal edema Skin - warm and dry Blood pressure 99/46 to 170/76 Labs Laboratory Tests Test 12/28/19 04:15 White Blood Count 2.3 x10^3/uL (4.0-11.0) L Red Blood Count 3.70 x10^6/uL (3.50-5.40) Hemoglobin 9.8 g/dL (12.0-15.5) L Hematocrit 29.8 % (36.0-47.0) L Mean Corpuscular Volume 81 fL (79-100) Mean Corpuscular Hemoglobin 27 pg (25-35) Mean Corpuscular Hemoglobin Concent 33 g/dL (31-37) Red Cell Distribution Width 14.9 % (11.5-14.5) H Platelet Count 159 x10^3/uL (140-400) Neutrophils (%) (Auto) 46 % (31-73) Lymphocytes (%) (Auto) 33 % (24-48) Monocytes (%) (Auto) 18 % (0-9) H Eosinophils (%) (Auto) 3 % (0-3) Basophils (%) (Auto) 1 % (0-3) Neutrophils # (Auto) 1.1 x10^3/uL (1.8-7.7) L Lymphocytes # (Auto) 0.8 x10^3/uL (1.0-4.8) L Monocytes # (Auto) 0.4 x10^3/uL (0.0-1.1) Eosinophils # (Auto) 0.1 x10^3/uL (0.0-0.7) Basophils # (Auto) 0.0 x10^3/uL (0.0-0.2) Sodium Level 139 mmol/L (136-145) Potassium Level 3.4 mmol/L (3.5-5.1) L Chloride Level 104 mmol/L (98-107) Carbon Dioxide Level 29 mmol/L (21-32) Anion Gap 6 (6-14) Blood Urea Nitrogen 9 mg/dL (7-20) Creatinine 0.9 mg/dL (0.6-1.0) Estimated GFR (Cockcroft-Gault) 72.0 Glucose Level 92 mg/dL (70-99) Calcium Level 8.4 mg/dL (8.5-10.1) L Laboratory Tests 12/28/19 04:15 Laboratory Tests 12/28/19 04:15 Meds Current Medications Medications (Trade) Dose Ordered Sig/Babatunde Route PRN Reason Start Time Stop Time Status Last Admin Dose Admin Alprazolam (Xanax) 0.25 mg BID PO 12/27/19 12:00 12/28/19 09:19 Gabapentin (Neurontin) 100 mg DAILY07 PO 12/27/19 12:00 12/28/19 07:26 Zolpidem Tartrate (Ambien) 5 mg QHS PO 12/27/19 21:00 12/27/19 21:15 Assessment Assessment Problems Medical Problems: (1) Abdominal pain Status: Acute (2) Nausea & vomiting Status: Acute (3) Small bowel obstruction Status: Acute Partial SBO GERD/Mcgraw's, h/o phytobezoar CRC screen - colonoscopy 2008, BE 2017 Diverticulosis H/o constipation S/p cholecystectomy H/o breast cancer rt ,s/p recent radiation treatmen Dementia Plan: She is still very weak. Tolerating diet. Gradually her oral intake will increase. Continue PT OT. Recheck labs in a.m. If stable discharge home tomorrow. Resume home medications. Leukopenia-WBC decreased to 2.3. Etiology not clear. ? Viral. Discontinue Lovenox. Recheck in a.m. consult infectious disease specialist. Plan Plan For more details regarding further plans, please refer to the orders. Hemodynamically unstable?: No Is patient in severe pain?: No Is NPO status required?: No MARGE RICHARDS MD December 28, 2019 09:27
[2019-12-28 11:01] VITALS: BP 146/52
--- NOTE | 2019-12-28 13:08 | PDOC ---
Infectious Disease Note Vital Sign Vital Signs Vital Signs Date Time Temp Pulse Resp B/P (MAP) Pulse Ox O2 Delivery O2 Flow Rate FiO2 12/28/19 11:01 98.6 72 18 146/52 (83) 99 Room Air 98.6 Labs Lab Laboratory Tests Test 12/28/19 04:15 White Blood Count 2.3 x10^3/uL (4.0-11.0) Red Blood Count 3.70 x10^6/uL (3.50-5.40) Hemoglobin 9.8 g/dL (12.0-15.5) Hematocrit 29.8 % (36.0-47.0) Mean Corpuscular Volume 81 fL (79-100) Mean Corpuscular Hemoglobin 27 pg (25-35) Mean Corpuscular Hemoglobin Concent 33 g/dL (31-37) Red Cell Distribution Width 14.9 % (11.5-14.5) Platelet Count 159 x10^3/uL (140-400) Neutrophils (%) (Auto) 46 % (31-73) Lymphocytes (%) (Auto) 33 % (24-48) Monocytes (%) (Auto) 18 % (0-9) Eosinophils (%) (Auto) 3 % (0-3) Basophils (%) (Auto) 1 % (0-3) Neutrophils # (Auto) 1.1 x10^3/uL (1.8-7.7) Lymphocytes # (Auto) 0.8 x10^3/uL (1.0-4.8) Monocytes # (Auto) 0.4 x10^3/uL (0.0-1.1) Eosinophils # (Auto) 0.1 x10^3/uL (0.0-0.7) Basophils # (Auto) 0.0 x10^3/uL (0.0-0.2) Sodium Level 139 mmol/L (136-145) Potassium Level 3.4 mmol/L (3.5-5.1) Chloride Level 104 mmol/L (98-107) Carbon Dioxide Level 29 mmol/L (21-32) Anion Gap 6 (6-14) Blood Urea Nitrogen 9 mg/dL (7-20) Creatinine 0.9 mg/dL (0.6-1.0) Estimated GFR (Cockcroft-Gault) 72.0 Glucose Level 92 mg/dL (70-99) Calcium Level 8.4 mg/dL (8.5-10.1) Objective Assessment Leukopenia and anemia, suspect drug related ,less likely viral Partial SBO - resolving ABX ALLERGRY/INTOLEANCE to PCN/tetra with rash and upset stomach. -Has tolerated Keflex in the past Breast CA s/p right lumpectomy, radiation. 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 The chart was reviewed. The case was discussed with [employer]. Agree with the plan of care. LEXA JOSEPH APRN December 28, 2019 13:08 VINCE HAHN MD December 28, 2019 13:44
--- NOTE | 2019-12-28 14:22 | CONS ---
DATE OF CONSULTATION: 12/28/2019 INFECTIOUS DISEASE CONSULTATION REFERRING PHYSICIAN: Dr. Sales. REASON FOR CONSULTATION: Leukopenia, questionable viral syndrome. HISTORY OF PRESENT ILLNESS: This patient is an 84-year-old female who presented on 12/23/2019 with complaints of acute onset of abdominal pain associated with nausea and vomiting. She was found to have a partial small bowel obstruction ____. Since it is improved with a G-tube decompression and bowel rest. She is now tolerated a pureed diet. Since admission, her WBC count has been trending down and it is now 2300. The patient reports feeling fatigued, dizzy with activity and generalized ____ well. She was diagnosed with invasive ductal carcinoma, right breast earlier this year. She was treated with a right breast lumpectomy and radiation. She is followed by Dr. Mcwilliams and is currently taking tamoxifen. She has a history of irritable bowel and constipation. She had a bowel movement within the last few days. She complains of right breast pain. Denies fevers, chills, sweats or body aches. She has some nasal drainage. Denies headache or sore throat. Denies shortness of air, cough or chest discomfort. Denies rash or itching. PAST MEDICAL HISTORY: 1. E. coli sepsis, pansensitive. 2. Recent history invasive ductal carcinoma of right breast diagnosed in 08/25/2019, status post right breast lumpectomy and radiation. She is currently on hormonal therapy with tamoxifen. 3. Hyperlipidemia. 4. Atrial fibrillation. 5. Hypertension. 6. Cardiomyopathy. 7. Congestive heart failure. 8. Mcgraw's esophagus. 9. Diverticulitis. 10. Gastroparesis. 11. Duodenal ulcer. 12. Constipation. 13. Osteoarthritis. 14. Osteoporosis. 15. Depression. 16. Anxiety. 17. Dementia. 18. Iron deficiency anemia. 19. UTIs. PAST SURGICAL HISTORY: Right breast lumpectomy in 09/2019, hysterectomy, left shoulder joint replacement, cataract extraction, pacemaker placement, colonoscopy in 2018, bladder surgery with mesh, cholecystectomy. SOCIAL HISTORY: Lives at home with her grandson. Former smoker. Retired as a [employer]. She is a . FAMILY HISTORY: Positive for cancer and diabetes. ALLERGIES: PENICILLIN AND TETRACYCLINE, CAUSING RASH AND UPSET STOMACH. She has tolerated Keflex in the past. Also listed, ATORVASTATIN, CODEINE, FENTANYL, HYDROCODONE, IRON, MORPHINE, AND TRAMADOL. MEDICATIONS: Reviewed in the MAR. She is currently not on any antimicrobial agents. REVIEW OF SYSTEMS: Per HPI, otherwise all other review of systems are negative. PHYSICAL EXAMINATION: VITAL SIGNS: Temperature 38.6, blood pressure 146/52, heart rate 72, respiratory rate 18, pulse oximetry 99% on room air. BMI 32. GENERAL: The patient is sitting in the chair, alert, appears comfortable. HEENT: Pupils equally round. Normal conjunctivae. Oropharynx pink and moist. No thrush. NECK: Supple. LUNGS: Clear to auscultation. HEART: S1, S2. Left-sided pacemaker unremarkable. ABDOMEN: Soft, nontender with bowel sounds present. EXTREMITIES: No gross edema or cyanosis VAN hose bilaterally. SKIN: Warm to touch. No signs of rash. Right breast incision intact, sensitive, mild induration on the lateral aspect, No fluctuance,no redness or wounds. NEUROLOGIC: Alert. Answers questions appropriately, but is somewhat forgetful. LABORATORY DATA: Today's WBC 2.3 from 3.7 and 6.8 on admission, hemoglobin 9.8, platelets 159,000. Sodium 139, potassium 3.4, creatinine 0.9, BUN 9, glucose 92, total bilirubin 0.7, AST 16, ALT 15. Troponin less than 0.017. Albumin 3.9, lipase 61. Her small bowel series on 12/24/2019 showed partial small bowel obstruction with diffuse dilatation of small bowel but progression of contrast through the colon at 2-4 hours. IMPRESSION: 1. Leukopenia and anemia, suspect drug related , less likely viral 2. Partial small bowel obstruction, resolving. 3. ANTIBIOTIC ALLERGY/INTOLERANCE TO PENICILLIN AND TETRACYCLINE WITH RASH AND UPSET STOMACH. She has tolerated Keflex in the past. 4. Breast cancer, status post right lumpectomy and radiation. She is followed by Dr. Mcwilliams and is currently on hormonal therapy with tamoxifen. 5. Atrial fibrillation. 6. Pacemaker. 7. Dementia. PLAN: 1. Repeat CBC in the morning. 2. Maintain aspiration precautions. 3. Pain management per primary. 4. PT and OT. Thank you, Dr. Sales, for asking us to participate in this patient's care. Should you have further questions or concerns, please call. VINCE HAHN MD DR: IRAIDA/skyler JOB#: [id number] / [id number] ERIN
[2019-12-28 15:04] VITALS: BP 167/76
[2019-12-28] MEDS: ACETAMINOPHEN 325 MG TABLET. PO PRN (15:56)
[2019-12-28 19:00] VITALS: BP 139/74
[2019-12-28] MEDS: ZOLPIDEM 5 MG TABLET. PO SCH (21:25)
[2019-12-28 23:00] VITALS: BP 123/63
[2019-12-29 03:00] VITALS: BP 129/69
[2019-12-29 04:00] LABS: BASO % 0 % (0-3); EOS # 0.1 x10^3/uL (0.0-0.7); EOS % 3 % (0-3); HEMATOCRIT 28.5 % (36.0-47.0); HEMOGLOBIN 9.6 g/dL (12.0-15.5); LYMPH # 0.9 x10^3/uL (1.0-4.8); LYMPH % 32 % (24-48); MEAN CORPUSCULAR HEMOGLOBIN 27 pg (25-35); MEAN CORPUSCULAR HGB CONC 34 g/dL (31-37); MEAN CORPUSCULAR VOLUME 80 fL (79-100); MONO # 0.5 x10^3/uL (0.0-1.1); MONO % 19 % (0-9); NEUT # 1.2 x10^3/uL (1.8-7.7); NEUT % 46 % (31-73); PLATELET COUNT 154 x10^3/uL (140-400); RED BLOOD COUNT 3.55 x10^6/uL (3.50-5.40); WHITE BLOOD COUNT 2.7 x10^3/uL (4.0-11.0)
[2019-12-29 05:10] LABS: ALBUMIN 2.9 g/dL (3.4-5.0); ALBUMIN/GLOBULIN RATIO 1.1 (1.0-1.7); CALCIUM 8.4 mg/dL (8.5-10.1); CREATININE 0.8 mg/dL (0.6-1.0); GFR 82.5; POTASSIUM 3.7 mmol/L (3.5-5.1); TOTAL BILIRUBIN 0.2 mg/dL (0.2-1.0); TOTAL PROTEIN 5.6 g/dL (6.4-8.2)
[2019-12-29 07:25] VITALS: BP 177/93
[2019-12-29] MEDS: ALPRAZolam 0.25 MG TABLET PO SCH (08:52)
[2019-12-29] MEDS: PANTOPRAZOLE 40 MG TABLET.DR. PO SCH (08:52)
[2019-12-29] MEDS: ACETAMINOPHEN 325 MG TABLET. PO PRN (08:53)
[2019-12-29] MEDS: SOTALOL 80 MG TABLET. PO SCH (08:53)
[2019-12-29] MEDS: GABAPENTIN 100 MG CAPSULE. PO SCH (08:54)
--- NOTE | 2019-12-29 09:36 | PDOC ---
Infectious Disease Note Subjective: Subjective Patient feels about the same Denies fever, nausea, vomiting, shortness of breath, diarrhea, abdominal pain, Otherwise as above Vital Signs: Vital Signs Vital Signs Date Time Temp Pulse Resp B/P (MAP) Pulse Ox O2 Delivery O2 Flow Rate FiO2 12/29/19 08:53 88 177/93 12/29/19 08:00 Room Air 12/29/19 07:25 98.3 18 98 98.3 Medications: Inpatient Meds: Current Medications Medications (Trade) Dose Ordered Sig/Babatunde Start Time Stop Time Status Last Admin Dose Admin Acetaminophen (Tylenol) 650 mg PRN Q6HRS PRN 12/27/19 11:15 12/29/19 08:53 650 MG Alprazolam (Xanax) 0.25 mg BID 12/27/19 12:00 12/29/19 08:52 0.25 MG Enoxaparin Sodium (Lovenox 40mg Syringe) 40 mg Q24H 12/26/19 12:00 12/28/19 09:25 DC 12/27/19 12:51 40 MG Famotidine (Pepcid Vial) 20 mg 1X ONCE 12/23/19 10:30 12/23/19 10:31 DC 12/23/19 10:28 20 MG Fentanyl Citrate (Fentanyl 2ml Vial) 25 mcg PRN Q2HR PRN 12/23/19 16:30 12/26/19 02:12 25 MCG Gabapentin (Neurontin) 100 mg DAILY07 12/27/19 12:00 12/29/19 08:54 100 MG Hydralazine HCl (Apresoline Inj) 10 mg PRN Q4HRS PRN 12/26/19 00:15 12/26/19 23:07 10 MG Info (CONTRAST GIVEN -- Rx MONITORING) 1 each PRN DAILY PRN 12/24/19 07:45 12/26/19 07:44 DC Iohexol (Omnipaque 300 Mg/ml) 400 ml 1X ONCE 12/24/19 07:30 12/24/19 07:31 DC 12/24/19 09:10 400 ML Metoclopramide HCl (Reglan Vial) 10 mg 1X ONCE 12/23/19 10:30 12/23/19 10:31 DC 12/23/19 10:29 10 MG Morphine Sulfate (Morphine Sulfate) 4 mg 1X ONCE 12/23/19 12:45 12/23/19 12:46 DC 12/23/19 13:04 4 MG Naproxen (Naprosyn) 250 mg PRN Q6HRS PRN 12/26/19 11:00 12/28/19 10:04 DC 12/27/19 07:16 250 MG Non-Formulary Medication (Omeprazole ) 40 mg DAILY 12/26/19 09:00 UNV Ondansetron HCl (Zofran) 4 mg PRN Q6HRS PRN 12/23/19 18:15 12/27/19 00:47 4 MG Pantoprazole Sodium (PROTONIX VIAL for IV PUSH) 40 mg DAILYAC 12/24/19 12:00 12/25/19 09:46 DC 12/25/19 08:58 40 MG Pantoprazole Sodium (Protonix) 40 mg DAILYAC 12/26/19 07:30 12/29/19 08:52 40 MG Sodium Chloride 1,000 ml @ 75 mls/hr [id number] 12/23/19 21:00 12/26/19 09:37 DC 12/26/19 05:20 75 MLS/HR Sotalol HCl (Betapace) 40 mg BID 12/25/19 11:00 12/29/19 08:53 40 MG Zolpidem Tartrate (Ambien) 5 mg QHS 12/27/19 21:00 12/28/19 21:25 5 MG Labs: Lab Laboratory Tests Test 12/29/19 03:00 White Blood Count 2.7 x10^3/uL (4.0-11.0) Red Blood Count 3.55 x10^6/uL (3.50-5.40) Hemoglobin 9.6 g/dL (12.0-15.5) Hematocrit 28.5 % (36.0-47.0) Mean Corpuscular Volume 80 fL (79-100) Mean Corpuscular Hemoglobin 27 pg (25-35) Mean Corpuscular Hemoglobin Concent 34 g/dL (31-37) Red Cell Distribution Width 15.0 % (11.5-14.5) Platelet Count 154 x10^3/uL (140-400) Neutrophils (%) (Auto) 46 % (31-73) Lymphocytes (%) (Auto) 32 % (24-48) Monocytes (%) (Auto) 19 % (0-9) Eosinophils (%) (Auto) 3 % (0-3) Basophils (%) (Auto) 0 % (0-3) Neutrophils # (Auto) 1.2 x10^3/uL (1.8-7.7) Lymphocytes # (Auto) 0.9 x10^3/uL (1.0-4.8) Monocytes # (Auto) 0.5 x10^3/uL (0.0-1.1) Eosinophils # (Auto) 0.1 x10^3/uL (0.0-0.7) Basophils # (Auto) 0.0 x10^3/uL (0.0-0.2) Sodium Level 140 mmol/L (136-145) Potassium Level 3.7 mmol/L (3.5-5.1) Chloride Level 103 mmol/L (98-107) Carbon Dioxide Level 30 mmol/L (21-32) Anion Gap 7 (6-14) Blood Urea Nitrogen 9 mg/dL (7-20) Creatinine 0.8 mg/dL (0.6-1.0) Estimated GFR (Cockcroft-Gault) 82.5 BUN/Creatinine Ratio 11 (6-20) Glucose Level 100 mg/dL (70-99) Calcium Level 8.4 mg/dL (8.5-10.1) Total Bilirubin 0.2 mg/dL (0.2-1.0) Aspartate Amino Transf (AST/SGOT) 12 U/L (15-37) Alanine Aminotransferase (ALT/SGPT) 10 U/L (14-59) Alkaline Phosphatase 52 U/L (46-116) Total Protein 5.6 g/dL (6.4-8.2) Albumin 2.9 g/dL (3.4-5.0) Albumin/Globulin Ratio 1.1 (1.0-1.7) Objective: Assessment: Leukopenia and anemia, suspect drug related ,less likely viral Partial SBO - resolving ABX ALLERGRY/INTOLEANCE to PCN/tetra with rash and upset stomach. -Has tolerated Keflex in the past Breast CA s/p right lumpectomy, radiation. Currently on Tamoxifen A- fib Pacemaker Dementia Lt breast dermatitis likely radiation induced Plan: Plan of Care Continue supportive care Maintain aspiration precautions Pain management per primary Monitor labs and cultures PT/OT Discussed with nursing staff VINCE HAHN MD December 29, 2019 09:36
[2019-12-29 10:11] LABS: % BANDS 2 % (0-9); % EOS 5 % (0-5); % LYMPHS 19 % (24-48); % MONOS 10 % (0-10); % SEGS 64 % (35-66); PLT ESTIMATE ADEQUATE (ADEQUATE)
[2019-12-29] MEDS: fentaNYL PF VIAL 100 MCG/2 ML VIAL IVP PRN (10:11)
--- NOTE | 2019-12-29 11:27 | PDOC ---
PROGRESS NOTES Subjective Subjective feels better ,back to base line Objective Objective Vital Signs Date Time Temp Pulse Resp B/P (MAP) Pulse Ox O2 Delivery O2 Flow Rate FiO2 12/29/19 10:11 98 Room Air 12/29/19 08:53 88 177/93 12/29/19 07:25 98.3 18 98.3 Intake and Output 12/29/19 07:00 Intake Total 780 ml Output Total 600 ml Balance 180 ml Intake Oral 780 ml Urine/Stool Mix 600 ml # Voids 6 # Bowel Movements 1 Physical Exam Abdomen: Normal bowel sounds, Soft, No tenderness Heart: Regular rate Extremities: No clubbing, No cyanosis General: Alert, Oriented X3, Cooperative, No acute distress HEENT: Atraumatic Lungs: Clear to auscultation MUSCULOSKELETAL: No swelling, Other Neuro: Normal speech Psych/Mental Status: Mental status NL Skin: No rashes Diagnosis Problem List Problems Medical Problems: (1) Abdominal pain Status: Acute (2) Nausea & vomiting Status: Acute (3) Small bowel obstruction Status: Acute Assessment Assessment Problems Medical Problems: (1) Abdominal pain Status: Acute (2) Nausea & vomiting Status: Acute (3) Small bowel obstruction Status: Acute Partial SBO GERD/Mcgraw's, h/o phytobezoar CRC screen - colonoscopy 2008, BE 2017 Diverticulosis H/o constipation S/p cholecystectomy H/o breast cancer rt ,s/p recent radiation treatmen Dementia Plan:tolerating diet. pt refuses to go to [facility] d/c home with home health. labs stable.wbc low due to recent radaition? Plan Plan of Care Problems Medical Problems: (1) Abdominal pain Status: Acute (2) Nausea & vomiting Status: Acute (3) Small bowel obstruction Status: Acute Comment Review of Relevant I have reviewed the following items wade (where applicable) has been applied. Labs Laboratory Tests Test 12/29/19 03:00 White Blood Count 2.7 x10^3/uL (4.0-11.0) Red Blood Count 3.55 x10^6/uL (3.50-5.40) Hemoglobin 9.6 g/dL (12.0-15.5) Hematocrit 28.5 % (36.0-47.0) Mean Corpuscular Volume 80 fL (79-100) Mean Corpuscular Hemoglobin 27 pg (25-35) Mean Corpuscular Hemoglobin Concent 34 g/dL (31-37) Red Cell Distribution Width 15.0 % (11.5-14.5) Platelet Count 154 x10^3/uL (140-400) Neutrophils (%) (Auto) 46 % (31-73) Lymphocytes (%) (Auto) 32 % (24-48) Monocytes (%) (Auto) 19 % (0-9) Eosinophils (%) (Auto) 3 % (0-3) Basophils (%) (Auto) 0 % (0-3) Neutrophils # (Auto) 1.2 x10^3/uL (1.8-7.7) Lymphocytes # (Auto) 0.9 x10^3/uL (1.0-4.8) Monocytes # (Auto) 0.5 x10^3/uL (0.0-1.1) Eosinophils # (Auto) 0.1 x10^3/uL (0.0-0.7) Basophils # (Auto) 0.0 x10^3/uL (0.0-0.2) Segmented Neutrophils % 64 % (35-66) Band Neutrophils % 2 % (0-9) Lymphocytes % 19 % (24-48) Monocytes % 10 % (0-10) Eosinophils % 5 % (0-5) Platelet Estimate Adequate (ADEQUATE) Sodium Level 140 mmol/L (136-145) Potassium Level 3.7 mmol/L (3.5-5.1) Chloride Level 103 mmol/L (98-107) Carbon Dioxide Level 30 mmol/L (21-32) Anion Gap 7 (6-14) Blood Urea Nitrogen 9 mg/dL (7-20) Creatinine 0.8 mg/dL (0.6-1.0) Estimated GFR (Cockcroft-Gault) 82.5 BUN/Creatinine Ratio 11 (6-20) Glucose Level 100 mg/dL (70-99) Calcium Level 8.4 mg/dL (8.5-10.1) Total Bilirubin 0.2 mg/dL (0.2-1.0) Aspartate Amino Transf (AST/SGOT) 12 U/L (15-37) Alanine Aminotransferase (ALT/SGPT) 10 U/L (14-59) Alkaline Phosphatase 52 U/L (46-116) Total Protein 5.6 g/dL (6.4-8.2) Albumin 2.9 g/dL (3.4-5.0) Albumin/Globulin Ratio 1.1 (1.0-1.7) Vitals/I & O Vital Sign - Last 24 Hours 12/28/19 12/28/19 12/28/19 12/28/19 15:04 19:00 21:25 23:00 Temp 97.6 97.9 98.1 97.6 97.9 98.1 Pulse 78 77 78 75 Resp 16 18 18 B/P (MAP) 167/76 (106) 139/74 (95) 167/76 123/63 (83) Pulse Ox 98 100 99 O2 Delivery Room Air 12/29/19 12/29/19 12/29/19 12/29/19 03:00 07:25 08:00 08:53 Temp 98.0 98.3 98.0 98.3 Pulse 75 88 88 Resp 18 18 B/P (MAP) 129/69 (89) 177/93 (121) 177/93 Pulse Ox 99 98 O2 Delivery Room Air Room Air 12/29/19 10:11 Pulse Ox 98 O2 Delivery Room Air Intake and Output 12/28/19 12/28/19 12/29/19 15:00 23:00 07:00 Intake Total 360 ml 420 ml Output Total 600 ml Balance 360 ml 420 ml -600 ml Hemodynamically unstable?: No Is patient in severe pain?: No Is NPO status required?: No SHOLA SOLO MD December 29, 2019 11:27
--- NOTE | 2019-12-29 11:30 | SNU/HH DC ---
DISCHARGE WITH HOME HEALTH DISCHARGE INFORMATION: Discharge Date: December 29, 2019 Final Diagnosis: Problems Medical Problems: (1) Abdominal pain Status: Acute (2) Nausea & vomiting Status: Acute (3) Small bowel obstruction Status: Acute Condition on Discharge: Stable CODE STATUS: Code Status: Full HOME HEALTH: Face to Face: I certify this patient is under my care and that I, or a nurse practitioner or physician's certified ophthalmic assistant working with me, had a face to face encounter that meets the physician face to face encounter requirements with this patient on []. Medical Complications: CHF, Other (small bowel obstruction) Senior Care For: Bowel/Bladder Training RN For Eval/Treatment: Yes Physical Therapy For: Evalulation/Treatment Home Health Aide For: Self-care STATE TROOPER For: Community Resources Pt Meets Homebound Status: Poor coordination w/ amb. POST DISCHARGE ORDERS: Activity Instructions for Disc: Activity as tolerated, Avoid exertion, Bedrest today Weight Bearing Status after Di: No restrictions Bathing Instructions: Shower-keep dressing dry, No Tub Bath until see Wound/Incision Care: Ice to area for comfort, Do not change dressing, Reinforce dressing PRN TREATMENT/EQUIPMENT ORDERS: Adaptive Equipment Issued: None CERTIFICATION STATEMENT: Certification Statement: Certification Statement: Based on the above finding, I certify that this patient is confined to the home and needs intermittent alf care, physical therapy and/or speech therapy, or continues to need occupational therapy.~ This patient is under my care, and I have initiated the establishment of the plan of care.~ This patient will be followed by myself or a community physician who will periodically review the plan of care. Home Meds Active Scripts Acetaminophen (TYLENOL) 325 Mg Tablet, 650 MG PO PRN Q6HRS PRN for MILD PAIN 1-3 for 7 Days, TAB 0 Refills Prov:LC TORRES BIRD KEEPER 09/19/19 Ondansetron Hcl (ZOFRAN) 8 Mg Tablet, 1 TAB PO Q8HRS for n/v, #20 TAB 1 Refill Prov:SHOLA SOLO MD 07/31/19 Reported Medications Midodrine Hcl (MIDODRINE HCL) 5 Mg Tablet, 5 MG PO BID, TAB 12/23/19 Gabapentin (GABAPENTIN ) 100 Mg Capsule, 100 MG PO DAILY07 for NEUROGENIC PAIN, CAP 07/25/19 Zolpidem Tartrate (ZOLPIDEM TARTRATE) 5 Mg Tablet, 5 MG PO HS for Insomnia 07/25/19 Linaclotide (LINZESS) 145 Mcg Capsule, 72 MCG PO DAILY07 for IRRITABLE BOWEL, CAP 11/28/18 Alprazolam (XANAX) 0.5 Mg Tablet, 0.5 TAB PO BID for , #60 TAB 08/29/17 Omeprazole (OMEPRAZOLE) 40 Mg Capsule.dr, 40 MG PO DAILY for GERD 09/18/13 Sotalol Hcl (SOTALOL) 80 Mg Tablet, 40 MG PO BID for heart 09/18/13 Discontinued Reported Medications Oxybutynin Chloride (OXYBUTYNIN CHLORIDE) 5 Mg Tablet, 5 MG PO BID for Bladder control 07/25/19 Discontinued Scripts Ibuprofen (Ibuprofen) 200 Mg Tablet, 600 MG PO BID PRN for INFLAMMATION for 7 Days, #42 TAB 0 Refills Prov:LC TORRES BIRD KEEPER 09/19/19 SHOLA SOLO MD December 29, 2019 11:30
[2019-12-29 11:42] VITALS: BP 161/75
--- NOTE | 2019-12-29 13:18 | PDOC ---
G I PROGRESS NOTE Reason for Follow-up Abd pain/partial SBO Subjective Tolerating PO Physical Exam Lungs clear CV S1 S2 ABD +BS, soft, nontender Review of Relevant I have reviewed the following items wade (where applicable) has been applied. Labs Laboratory Tests Test 12/28/19 04:15 12/29/19 03:00 White Blood Count 2.3 x10^3/uL (4.0-11.0) 2.7 x10^3/uL (4.0-11.0) Red Blood Count 3.70 x10^6/uL (3.50-5.40) 3.55 x10^6/uL (3.50-5.40) Hemoglobin 9.8 g/dL (12.0-15.5) 9.6 g/dL (12.0-15.5) Hematocrit 29.8 % (36.0-47.0) 28.5 % (36.0-47.0) Mean Corpuscular Volume 81 fL (79-100) 80 fL (79-100) Mean Corpuscular Hemoglobin 27 pg (25-35) 27 pg (25-35) Mean Corpuscular Hemoglobin Concent 33 g/dL (31-37) 34 g/dL (31-37) Red Cell Distribution Width 14.9 % (11.5-14.5) 15.0 % (11.5-14.5) Platelet Count 159 x10^3/uL (140-400) 154 x10^3/uL (140-400) Neutrophils (%) (Auto) 46 % (31-73) 46 % (31-73) Lymphocytes (%) (Auto) 33 % (24-48) 32 % (24-48) Monocytes (%) (Auto) 18 % (0-9) 19 % (0-9) Eosinophils (%) (Auto) 3 % (0-3) 3 % (0-3) Basophils (%) (Auto) 1 % (0-3) 0 % (0-3) Neutrophils # (Auto) 1.1 x10^3/uL (1.8-7.7) 1.2 x10^3/uL (1.8-7.7) Lymphocytes # (Auto) 0.8 x10^3/uL (1.0-4.8) 0.9 x10^3/uL (1.0-4.8) Monocytes # (Auto) 0.4 x10^3/uL (0.0-1.1) 0.5 x10^3/uL (0.0-1.1) Eosinophils # (Auto) 0.1 x10^3/uL (0.0-0.7) 0.1 x10^3/uL (0.0-0.7) Basophils # (Auto) 0.0 x10^3/uL (0.0-0.2) 0.0 x10^3/uL (0.0-0.2) Sodium Level 139 mmol/L (136-145) 140 mmol/L (136-145) Potassium Level 3.4 mmol/L (3.5-5.1) 3.7 mmol/L (3.5-5.1) Chloride Level 104 mmol/L (98-107) 103 mmol/L (98-107) Carbon Dioxide Level 29 mmol/L (21-32) 30 mmol/L (21-32) Anion Gap 6 (6-14) 7 (6-14) Blood Urea Nitrogen 9 mg/dL (7-20) 9 mg/dL (7-20) Creatinine 0.9 mg/dL (0.6-1.0) 0.8 mg/dL (0.6-1.0) Estimated GFR (Cockcroft-Gault) 72.0 82.5 Glucose Level 92 mg/dL (70-99) 100 mg/dL (70-99) Calcium Level 8.4 mg/dL (8.5-10.1) 8.4 mg/dL (8.5-10.1) Segmented Neutrophils % 64 % (35-66) Band Neutrophils % 2 % (0-9) Lymphocytes % 19 % (24-48) Monocytes % 10 % (0-10) Eosinophils % 5 % (0-5) Platelet Estimate Adequate (ADEQUATE) BUN/Creatinine Ratio 11 (6-20) Total Bilirubin 0.2 mg/dL (0.2-1.0) Aspartate Amino Transf (AST/SGOT) 12 U/L (15-37) Alanine Aminotransferase (ALT/SGPT) 10 U/L (14-59) Alkaline Phosphatase 52 U/L (46-116) Total Protein 5.6 g/dL (6.4-8.2) Albumin 2.9 g/dL (3.4-5.0) Albumin/Globulin Ratio 1.1 (1.0-1.7) Laboratory Tests Test 12/29/19 03:00 White Blood Count 2.7 x10^3/uL (4.0-11.0) Red Blood Count 3.55 x10^6/uL (3.50-5.40) Hemoglobin 9.6 g/dL (12.0-15.5) Hematocrit 28.5 % (36.0-47.0) Mean Corpuscular Volume 80 fL (79-100) Mean Corpuscular Hemoglobin 27 pg (25-35) Mean Corpuscular Hemoglobin Concent 34 g/dL (31-37) Red Cell Distribution Width 15.0 % (11.5-14.5) Platelet Count 154 x10^3/uL (140-400) Neutrophils (%) (Auto) 46 % (31-73) Lymphocytes (%) (Auto) 32 % (24-48) Monocytes (%) (Auto) 19 % (0-9) Eosinophils (%) (Auto) 3 % (0-3) Basophils (%) (Auto) 0 % (0-3) Neutrophils # (Auto) 1.2 x10^3/uL (1.8-7.7) Lymphocytes # (Auto) 0.9 x10^3/uL (1.0-4.8) Monocytes # (Auto) 0.5 x10^3/uL (0.0-1.1) Eosinophils # (Auto) 0.1 x10^3/uL (0.0-0.7) Basophils # (Auto) 0.0 x10^3/uL (0.0-0.2) Segmented Neutrophils % 64 % (35-66) Band Neutrophils % 2 % (0-9) Lymphocytes % 19 % (24-48) Monocytes % 10 % (0-10) Eosinophils % 5 % (0-5) Platelet Estimate Adequate (ADEQUATE) Sodium Level 140 mmol/L (136-145) Potassium Level 3.7 mmol/L (3.5-5.1) Chloride Level 103 mmol/L (98-107) Carbon Dioxide Level 30 mmol/L (21-32) Anion Gap 7 (6-14) Blood Urea Nitrogen 9 mg/dL (7-20) Creatinine 0.8 mg/dL (0.6-1.0) Estimated GFR (Cockcroft-Gault) 82.5 BUN/Creatinine Ratio 11 (6-20) Glucose Level 100 mg/dL (70-99) Calcium Level 8.4 mg/dL (8.5-10.1) Total Bilirubin 0.2 mg/dL (0.2-1.0) Aspartate Amino Transf (AST/SGOT) 12 U/L (15-37) Alanine Aminotransferase (ALT/SGPT) 10 U/L (14-59) Alkaline Phosphatase 52 U/L (46-116) Total Protein 5.6 g/dL (6.4-8.2) Albumin 2.9 g/dL (3.4-5.0) Albumin/Globulin Ratio 1.1 (1.0-1.7) Medications Current Medications Famotidine (Pepcid Vial) 20 mg 1X ONCE IVP Last administered on 12/23/19at 10:28; Start 12/23/19 at 10:30; Stop 12/23/19 at 10:31; Status DC Metoclopramide HCl (Reglan Vial) 10 mg 1X ONCE IVP Last administered on 12/23/19at 10:29; Start 12/23/19 at 10:30; Stop 12/23/19 at 10:31; Status DC Iohexol (Omnipaque 300 Mg/ml) 60 ml 1X ONCE IV Last administered on 12/23/19at 11:31; Start 12/23/19 at 11:30; Stop 12/23/19 at 11:31; Status DC Info (CONTRAST GIVEN -- Rx MONITORING) 1 each PRN DAILY PRN MC SEE COMMENTS; Start 12/23/19 at 11:30; Stop 12/24/19 at 07:32; Status DC Sodium Chloride 1,000 ml @ 100 mls/hr 1X ONCE IV Last administered on 12/23/19at 13:04; Start 12/23/19 at 12:30; Stop 12/23/19 at 22:29; Status DC Morphine Sulfate (Morphine Sulfate) 4 mg 1X ONCE IV Last administered on 12/23/19at 13:04; Start 12/23/19 at 12:45; Stop 12/23/19 at 12:46; Status DC Fentanyl Citrate (Fentanyl 2ml Vial) 25 mcg PRN Q2HR PRN IVP PAIN Last administered on 12/29/19at 10:11; Start 12/23/19 at 16:30 Ondansetron HCl (Zofran) 4 mg PRN Q6HRS PRN IVP NAUSEA/VOMITING Last administered on 12/27/19at 00:47; Start 12/23/19 at 18:15 Sodium Chloride 1,000 ml @ 75 mls/hr [id number] IV Last administered on 12/26/19at 05:20; Start 12/23/19 at 21:00; Stop 12/26/19 at 09:37; Status DC Iohexol (Omnipaque 300 Mg/ml) 400 ml 1X ONCE PO Last administered on 12/24/19at 09:10; Start 12/24/19 at 07:30; Stop 12/24/19 at 07:31; Status DC Info (CONTRAST GIVEN -- Rx MONITORING) 1 each PRN DAILY PRN MC SEE COMMENTS; Start 12/24/19 at 07:45; Stop 12/26/19 at 07:44; Status DC Pantoprazole Sodium (PROTONIX VIAL for IV PUSH) 40 mg DAILYAC IVP Last administered on 12/25/19at 08:58; Start 12/24/19 at 12:00; Stop 12/25/19 at 09:46; Status DC Pantoprazole Sodium (Protonix) 40 mg DAILYAC PO Last administered on 12/29/19at 08:52; Start 12/26/19 at 07:30 Sotalol HCl (Betapace) 40 mg BID PO Last administered on 12/29/19at 08:53; Start 12/25/19 at 11:00 Zolpidem Tartrate (Ambien) 5 mg HS PO Last administered on 12/26/19at 20:11; Start 12/25/19 at 21:00; Stop 12/27/19 at 11:10; Status DC Non-Formulary Medication (Omeprazole ) 40 mg DAILY PO ; Start 12/26/19 at 09:00; Status UNV Hydralazine HCl (Apresoline Inj) 10 mg PRN Q4HRS PRN IVP ELEVATED BP, SEE COMMENTS Last administered on 12/26/19at 23:07; Start 12/26/19 at 00:15 Acetaminophen (Tylenol) 650 mg PRN Q6HRS PRN PO HEADACHE Last administered on 12/26/19at 09:47; Start 12/26/19 at 09:45; Stop 12/26/19 at 10:53; Status DC Enoxaparin Sodium (Lovenox 40mg Syringe) 40 mg Q24H SQ Last administered on 12/27/19at 12:51; Start 12/26/19 at 12:00; Stop 12/28/19 at 09:25; Status DC Naproxen (Naprosyn) 250 mg PRN Q6HRS PRN PO HEADACHE Last administered on 12/27/19at 07:16; Start 12/26/19 at 11:00; Stop 12/28/19 at 10:04; Status DC Acetaminophen (Tylenol) 650 mg PRN Q6HRS PRN PO MILD PAIN 1-3 Last administered on 12/29/19at 08:53; Start 12/27/19 at 11:15 Alprazolam (Xanax) 0.25 mg BID PO Last administered on 12/29/19at 08:52; Start 12/27/19 at 12:00 Gabapentin (Neurontin) 100 mg DAILY07 PO Last administered on 12/29/19at 08:54; Start 12/27/19 at 12:00 Zolpidem Tartrate (Ambien) 5 mg QHS PO Last administered on 12/28/19at 21:25; Start 12/27/19 at 21:00 Active Scripts Active Tylenol (Acetaminophen) 325 Mg Tablet 650 Mg PO PRN Q6HRS PRN 7 Days Zofran (Ondansetron Hcl) 8 Mg Tablet 1 Tab PO Q8HRS Reported Midodrine Hcl 5 Mg Tablet 5 Mg PO BID Gabapentin (Gabapentin) 100 Mg Capsule 100 Mg PO DAILY07 Zolpidem Tartrate 5 Mg Tablet 5 Mg PO HS Linzess (Linaclotide) 145 Mcg Capsule 72 Mcg PO DAILY07 Xanax (Alprazolam) 0.5 Mg Tablet 0.5 Tab PO BID Omeprazole 40 Mg Capsule.dr 40 Mg PO DAILY Sotalol (Sotalol Hcl) 80 Mg Tablet 40 Mg PO BID Vitals/I & O Vital Sign - Last 24 Hours 12/28/19 12/28/19 12/28/19 12/28/19 15:04 19:00 21:25 23:00 Temp 97.6 97.9 98.1 97.6 97.9 98.1 Pulse 78 77 78 75 Resp 16 18 18 B/P (MAP) 167/76 (106) 139/74 (95) 167/76 123/63 (83) Pulse Ox 98 100 99 O2 Delivery Room Air 12/29/19 12/29/19 12/29/19 12/29/19 03:00 07:25 08:00 08:53 Temp 98.0 98.3 98.0 98.3 Pulse 75 88 88 Resp 18 18 B/P (MAP) 129/69 (89) 177/93 (121) 177/93 Pulse Ox 99 98 O2 Delivery Room Air Room Air 12/29/19 12/29/19 10:11 11:42 Temp 98.4 98.4 Pulse 76 Resp 18 B/P (MAP) 161/75 (103) Pulse Ox 98 99 O2 Delivery Room Air Room Air Intake and Output 12/28/19 12/28/19 12/29/19 14:59 22:59 06:59 Intake Total 360 ml 420 ml Output Total 600 ml Balance 360 ml 420 ml -600 ml Problem List Problems Medical Problems: (1) Abdominal pain Status: Acute (2) Nausea & vomiting Status: Acute (3) Small bowel obstruction Status: Acute Assessment Partial SBO- with adhesions, improved, medical therapy longterm. Disposition plans per primary Hemodynamically unstable?: No Is patient in severe pain?: No Is NPO status required?: No BONY WASHINGTON MD December 29, 2019 13:18
--- NOTE | 2019-12-29 14:36 | NUR ---
Discharge Note: DAVIS CARVALHO6 [facility] Discharge instructions and discharge home medications reviewed with Patient and a copy given. All questions have been answered and understanding verbalized. The following instructions and handouts were given: SBO, constipation Discontinued lines and drains: IV catheter removed intact. Tele monitor removed Patient discharged to Home with Home health via wheelchair
--- NOTE | 2019-12-31 20:38 | PDOC ---
Provider Note Provider Note discharge summary dictated.#[id number]. Hemodynamically unstable?: No Is patient in severe pain?: No Is NPO status required?: No SHOLA SOLO MD December 31, 2019 20:38
--- NOTE | 2019-12-31 20:55 | DS ---
DATE OF DISCHARGE: 12/29/2019 REASON FOR ADMISSION TO THE HOSPITAL: Abdominal pain, nausea, vomiting, partial small-bowel obstruction. CONSULTATIONS: 1. Dr. Per Lucero 2. Dr. Per Griffiths, General Surgery. 3. Dr. Mao Yusuf, Infectious Disease. PROCEDURES DONE: CT of abdomen and pelvis and a small bowel series. HOSPITAL COURSE: The patient is an 84-year-old female. The patient was having abdominal pain, nausea and vomiting, was admitted to the hospital who had a CT scan shows a partial small-bowel obstruction. The patient was seen by GI, General Surgery and the patient kept n.p.o., IV fluids. Electrolytes were replaced. The patient had a small bowel series, which shows a partial small-bowel obstruction, but able to pass the barium into the large intestine. The patient was started on clear liquid diet, advance as tolerated. The patient did well and the patient had a low white count 2.7. Seen by Infectious Disease. It was felt that maybe secondary to small bowel partial obstruction and other electrolytes were unremarkable. The patient was discharged after she is able to tolerate a GI soft diet and she did not want to go to [facility], want to go back home with home health. FINAL DIAGNOSES: 1. Abdominal pain secondary to small-bowel obstruction, partial, resolved by itself. 2. History of sick sinus syndrome, has a pacemaker. 3. Hypertension. 4. History of breast cancer, had a recent radiation treatment. DISPOSITION: Home. DISCHARGE MEDICATIONS: See MRAD for discharge medications. SHOLA SOLO MD DR: ROSEMARY/skyler JOB#: [id number] / [id number]
== END 2019-12-29 13:46 | disposition home health service (06) | DRG 389 ==
LOC: ER 08:36 → ED HOLD 12:48 → 6 SOUTH 15:11
PROVIDERS: ADMIT Family Medicine; ATTEND Internal Medicine
PROC: 0D9670Z Drainage of Stomach with Drainage Device, Via Natural or Artificial Opening (ICD-10-PCS; principal; 2019-12-23)
DX: K56.51 Intestinal adhesions [bands], with partial obstruction (principal); I42.9 Cardiomyopathy, unspecified; Z96.619 Presence of unspecified artificial shoulder joint; F41.9 Anxiety disorder, unspecified; M19.90 Unspecified osteoarthritis, unspecified site; K21.9 Gastro-esophageal reflux disease without esophagitis; E78.00 Pure hypercholesterolemia, unspecified; E78.5 Hyperlipidemia, unspecified; I11.0 Hypertensive heart disease with heart failure; I50.9 Heart failure, unspecified; I25.10 Atherosclerotic heart disease of native coronary artery without angina pectoris; I48.91 Unspecified atrial fibrillation; F32.9 Major depressive disorder, single episode, unspecified; K57.30 Diverticulosis of large intestine without perforation or abscess without bleeding; F03.90 Unspecified dementia, unspecified severity, without behavioral disturbance, psychotic disturbance, mood disturbance, and anxiety; M81.0 Age-related osteoporosis without current pathological fracture; D64.9 Anemia, unspecified; D72.819 Decreased white blood cell count, unspecified; I49.5 Sick sinus syndrome; L30.9 Dermatitis, unspecified; Z95.0 Presence of cardiac pacemaker; Z90.710 Acquired absence of both cervix and uterus; Z90.49 Acquired absence of other specified parts of digestive tract; Z88.1 Allergy status to other antibiotic agents; Z87.891 Personal history of nicotine dependence; Z87.11 Personal history of peptic ulcer disease; Z85.3 Personal history of malignant neoplasm of breast; Z83.3 Family history of diabetes mellitus; Z82.49 Family history of ischemic heart disease and other diseases of the circulatory system
CPT/HCPCS: 36415; 74018; 74177; 74250; 80048; 80053; 82550; 83690; 84484; 85007; 85025; 85610; 85730; 93005; 96361; 96374; 96375; C9113; J0360; J1650; J2270; J2405; J2765; J3010; J3490; J7030; Q9967; 97110-GP; 97530-GO; 97530-GP; 97535-GO; 99285-25; G0378

== ENCOUNTER 2020-02-04 23:32 | Observation (INO) | payer MEDICARE ==
[~2020-02-04] VITALS: Ht 165.1 cm; Wt 69.9 kg
[~2020-02-04 23:32] MED LIST changes: -LINA72CA PO; -SOTA120T14 PO
--- NOTE | 2020-02-05 00:30 | PHYS DOC ---
Past Medical History Past Medical History: A-Fib, Anxiety, Arthritis, Cancer, CHF, Constipation, GERD, High Cholesterol Additional Past Medical Histor: lower ext swelling, pacemaker, CANCER OF RT BREAST Past Surgical History: Cholecystectomy, Hysterectomy, Pacemaker Additional Past Surgical Histo: R breast surgery (lumpectomy), L shoulder sx, hemmorhoidectomy,L shoulder Smoking Status: Never Smoker Alcohol Use: None Drug Use: None General Adult EDM: Chief Complaint: ABDOMINAL PAIN HPI: HPI: Patient is a 84 year old female past medical history A. fib CHF GERD hyperlipidemia chronic pain insomnia anxiety depression and breast cancer presents with a chief complaint of abdominal pain. Patient states abdominal pain is been going on for the last several weeks. Patient was actually hospitalized and discharged on December 28. Patient states pain never completely went away. Patient very intense yesterday and today. Patient states she had associated nausea and vomiting. States pain is primarily in the epigastric region. Patient denies any chest pain or shortness of breath. Review of Systems: Review of Systems: Constitutional: Denies fever or chills. [] Eyes: Denies change in visual acuity. [] HENT: Denies nasal congestion or sore throat. [] Respiratory: Denies cough or shortness of breath. [] Cardiovascular: Denies chest pain or edema. [] GI: Positive abdominal pain positive nausea positive vomiting : Denies dysuria. [] Musculoskeletal: Denies back pain or joint pain. [] Integument: Denies rash. [] Neurologic: Denies headache, focal weakness or sensory changes. [] Endocrine: Denies polyuria or polydipsia. [] Lymphatic: Denies swollen glands. [] Psychiatric: Denies depression or anxiety. [] Heart Score: Risk Factors: Risk Factors: DM, Current or recent (<one month) smoker, HTN, HLP, family history of CAD, obesity. Risk Scores: Score 0 - 3: 2.5% MACE over next 6 weeks - Discharge Home Score 4 - 6: 20.3% MACE over next 6 weeks - Admit for Clinical Observation Score 7 - 10: 72.7% MACE over next 6 weeks - Early Invasive Strategies Allergies: Allergies: Allergies Coded Allergies Type Severity Reaction Last Updated Verified Penicillins Allergy Intermediate Rash 09/16/19 Yes atorvastatin Allergy Intermediate 12/29/19 Yes tetracycline Allergy Intermediate rash 09/16/19 Yes codeine Adverse Reaction Intermediate nausea & vomiting 09/16/19 Yes fentanyl Adverse Reaction Intermediate Nausea and Vomiting 09/17/19 Yes hydrocodone Adverse Reaction Intermediate Nausea and Vomiting 09/16/19 Yes iron Adverse Reaction Intermediate Nausea and Vomiting, iron tablets the oral dose only 09/16/19 Yes morphine Adverse Reaction Intermediate vomiting 09/16/19 Yes tramadol Adverse Reaction Intermediate Nausea and Vomiting 09/16/19 Yes Physical Exam: PE: Constitutional: Well developed, well nourished, no acute distress, non-toxic appearance. [] HENT: Normocephalic, atraumatic, bilateral external ears normal, oropharynx moist, no oral exudates, nose normal. [] Eyes: PERRLA, EOMI, conjunctiva normal, no discharge. [] Neck: Normal range of motion, no tenderness, supple, no stridor. [] Cardiovascular:Heart rate regular rhythm, no murmur [] Lungs & Thorax: Bilateral breath sounds clear to auscultation [] Abdomen: Bowel sounds normal, soft, no tenderness, no masses, no pulsatile masses. [] Skin: Warm, dry, no erythema, no rash. [] Back: No tenderness, no CVA tenderness. [] Extremities: No tenderness, no cyanosis, no clubbing, ROM intact, no edema. [] Neurologic: Alert and oriented X 3, normal motor function, normal sensory function, no focal deficits noted. [] Psychologic: Affect normal, judgement normal, mood normal. [] Current Patient Data: Vital Signs: Vital Signs Date Time Temp Pulse Resp B/P (MAP) Pulse Ox O2 Delivery O2 Flow Rate FiO2 02/04/20 23:35 99.0 85 16 122/61 (81) 95 Room Air 99.0 EKG: EKG: EKG taken at 0002. Heart rate 75 normal sinus rhythm no ST elevation no ST depression no acute SD [] Radiology/Procedures: Radiology/Procedures: [] Course & Med Decision Making: Course & Med Decision Making Pertinent Labs and Imaging studies reviewed. (See chart for details) []CT partial small bowel obstruction. Unable to obtain labs. Patients blood hemolyzed. Multiple nurses attempt to obtain blood. Labs attempted to draw blood. I obtained blood from right femoral stick--- blood again hemolyzed. Abdoul Disclaimer: Abdoul Disclaimer: This electronic medical record was generated, in whole or in part, using a voice recognition dictation system. Departure Departure Impression: Primary Impression: Abdominal pain Additional Impression: Partial small bowel obstruction Disposition: ADMITTED INPATIENT Admitting Physician: TEJINDER Condition: STABLE Referrals: SHOLA SOLO MD (PCP) Justicifation of Admission Dx: Justifications for Admission: Justification of Admission Dx: Yes OKSANA HATCH I DO Feb 05, 2020 00:30
[2020-02-05 01:04] LABS: BILIRUBIN,URINE NEGATIVE (NEG); CLARITY,URINE CLEAR; COLOR,URINE YELLOW; NITRITE,URINE NEGATIVE (NEG); PH,URINE 5.5 (<5.0-8.0); PROTEIN,URINE NEGATIVE (NEG-TRACE)
[2020-02-05 01:10] LABS: SQUAMOUS EPITHELIAL CELL,UR MOD /LPF
[2020-02-05 01:11] LABS: AMORPHOUS SEDIMENT,UR PRESENT /HPF; BACTERIA,URINE 0 /HPF (0-FEW); HYALINE CASTS, URINE FEW /HPF; RBC,URINE RARE /HPF (0-2); WBC,URINE RARE /HPF (0-4)
--- NOTE | 2020-02-05 02:45 | RAD ---
CT abdomen pelvis without contrast. HISTORY: Abdominal pain CT scan of the abdomen pelvis was done without contrast. Lung bases are clear except for linear scarring or atelectasis. There is no effusion. There are degenerative change in the lumbar spine. There is arthritis in the hips. There is respiratory motion artifact. Left lobe liver lesion noted on the prior study is not optimally evaluated on the current exam. Spleen and adrenal glands are normal. There are multiple renal cysts. There is a lesion in the lateral left kidney which is higher in density possibly a mass or complicated renal cyst. Ultrasound could be of benefit. Stomach is distended to a mild degree. There are multiple dilated loops of small bowel. There is also fluid-filled colon. There is an atypical pattern in the lower abdomen pelvis. On the small bowel study the duodenum does not cross to the left. The pattern suggests midgut malrotation. Small bowel appears to be mainly on the right side of the abdomen. There is a twisting of the mesentery and a partial volvulus is possible. The obstruction was more prominent on the prior study. Current study also suggests a partial small bowel obstruction but there is still fluid and air in the colon. There is no ascites. IMPRESSION: 1. Dilated small bowel with partial obstruction. 2. There is also fluid and gas in the colon, possibly ileus. 3. Complicated cyst or mass left kidney. PQRS Compliance Statement: One or more of the following individualized dose reduction techniques were utilized for this examination: 1. Automated exposure control 2. Adjustment of the mA and/or kV according to patient size 3. Use of iterative reconstruction technique Electronically signed by: Juan Lovell MD (02/05/2020 2:42 AM) [id number]
[2020-02-05] MEDS ORDERED: ONDANSETRON PF 4 MG/2 ML VIAL. IV PRN (03:00)
[2020-02-05] MEDS ORDERED: LIDOCAINE 1% PF 2 ML VIAL. INJ ONE (03:00)
[2020-02-05 05:00] VITALS: BP 143/76
[2020-02-05] MEDS ORDERED: MORPHINE SULFATE 2 MG/ML VIAL. IV ONE (05:00)
[2020-02-05] MEDS ORDERED: ONDANSETRON PF 4 MG/2 ML VIAL. IVP ONE (05:00)
--- NOTE | 2020-02-05 05:00 | NUR ---
Patient admitted to room 442 from ED. Patient voided and had BM upon arrival to unit. Patient alert and oriented x 4. Patient oriented to room, call light, bed and POC. Patient verbalized understanding. See admission documentation/assessment. Call light in reach, will monitor.
--- NOTE | 2020-02-05 05:56 | EKG ---
[facility] [address] [place] [id number] Test Date: 2020-02-05 Test Time: 00:02:24 Pat Name: DAVIS CARVALHO Department: Room: Gender: F [employer] Structure Operator: : [id number] Requested By: OKSANA HATCH Order Number: [id number] Reading MD: Measurements Intervals [place] Rate: 75 P: 59 WA: 212 QRS: 62 QRSD: 72 T: 44 QT: 386 QTc: 434 Interpretive Statements SINUS RHYTHM RIGHT ATRIAL ENLARGEMENT AMPLITUDE CRITERIA FOR LVH POSSIBLY ABNORMAL ECG RI6.02 No previous ECG available for comparison
[2020-02-05 07:15] VITALS: BP 139/59
[2020-02-05] MEDS ORDERED: CONTRAST GIVEN. MC PRN (08:00)
[2020-02-05] MEDS ORDERED: IOHEXOL 300 MG/ML 100ML VIAL. PO ONE (08:00)
[2020-02-05 08:06] LABS: BASO % 0 % (0-3); EOS # 0.1 x10^3/uL (0.0-0.7); EOS % 1 % (0-3); HEMATOCRIT 33.7 % (36.0-47.0); HEMOGLOBIN 11.1 g/dL (12.0-15.5); LYMPH % 18 % (24-48); MEAN CORPUSCULAR HEMOGLOBIN 27 pg (25-35); MEAN CORPUSCULAR HGB CONC 33 g/dL (31-37); MEAN CORPUSCULAR VOLUME 82 fL (79-100); MONO # 0.4 x10^3/uL (0.0-1.1); MONO % 7 % (0-9); NEUT % 73 % (31-73); PLATELET COUNT 141 x10^3/uL (140-400); RED BLOOD COUNT 4.09 x10^6/uL (3.50-5.40); RED CELL DISTRIBUTION WIDTH 15.1 % (11.5-14.5); WHITE BLOOD COUNT 5.4 x10^3/uL (4.0-11.0)
[2020-02-05 09:09] LABS: CALCIUM 9.2 mg/dL (8.5-10.1); GFR 63.8; POTASSIUM 4.5 mmol/L (3.5-5.1)
[2020-02-05 09:15] LABS: ALBUMIN 3.8 g/dL (3.4-5.0); ALBUMIN/GLOBULIN RATIO 1.3 (1.0-1.7); TOTAL BILIRUBIN 0.5 mg/dL (0.2-1.0); TOTAL PROTEIN 6.7 g/dL (6.4-8.2)
--- NOTE | 2020-02-05 09:43 | PDOC ---
Provider Note Provider Note Pt seen .H&P dictated.#[id number]. Justicifation of Admission Dx: Justifications for Admission: Justification of Admission Dx: Yes SHOLA SOLO MD Feb 05, 2020 09:43
--- NOTE | 2020-02-05 10:28 | HP ---
ADMIT DATE: 02/05/2020 REASON FOR ADMISSION TO THE HOSPITAL: Abdominal pain, nausea, vomiting, partial small-bowel obstruction. HISTORY OF PRESENT ILLNESS: The patient is an 84-year-old female. The patient has this chronic abdominal pain. She was admitted to the hospital not too long ago with the similar problems. She was discharged on 12/30 for partial small-bowel obstruction, at that time was seen by GI and Surgery and it was felt that she had a partial small-bowel obstruction and the patient had a CT scan, small bowel series and with conservative treatment, she improved and she was discharged. Now, she has this problem again and she was admitted to the hospital. CT scan shows some ileus, partial small-bowel obstruction. PAST MEDICAL HISTORY: The patient has a history of hypertension, sick sinus syndrome, breast cancer, dementia, hyperlipidemia. PAST SURGICAL HISTORY: The patient has a pacemaker, hysterectomy, gallbladder surgery. She also had radiation for breast cancer, recently diagnosed. FAMILY HISTORY: Positive for diabetes, heart disease. SOCIAL HISTORY: Denies smoking, alcohol or drug abuse. 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 ALLERGIES: THE PATIENT IS ALLERGIC TO PENICILLIN, ATORVASTATIN, CODEINE, FENTANYL, HYDROCODONE, IRON, MORPHINE, TETRACYCLINE AND TRAMADOL. MEDICATIONS AT HOME: Xanax twice a day, gabapentin 100 mg, midodrine 5 mg twice a day, sotalol 120 mg twice a day, Ambien 5 mg at bedtime, Linzess she takes 72 mcg daily, omeprazole 40 mg daily. REVIEW OF SYMPTOMS: Complains of abdominal pain, bloating, nausea, occasional vomiting. Feels weak. PHYSICAL EXAMINATION: GENERAL: Elderly female, not in any distress. VITAL SIGNS: At the time of admission show temperature 99, pulse 85, respirations 16, blood pressure 122/61, 95 on room air. HEENT: Head is atraumatic. Pupils equal. Oral cavity: Dentures. NECK: Supple. Thyroid not enlarged. JVD not elevated. CHEST: Symmetrical, has a pacemaker in the left side of chest. She had a radiation-induced dermatitis in the right breast. ABDOMEN: Scar in the lower abdomen, epigastric pain, slight tender, no rebound. Bowel sounds are present. EXTERNAL GENITALIA: No Beth. RECTAL: Deferred. EXTREMITIES: No calf tenderness, no edema. Pulses 1+. NEUROLOGIC: Cranial nerves intact. Power 5/5, moves all extremities. No significant lymphadenopathy. Pulses adequate. Lower extremities, no calf tenderness. LABORATORY DATA: Shows white count 5, hemoglobin 11, platelets 141. INR 1.1. Electrolytes: Sodium 133, potassium 4.5, chloride 98, bicarbonate 25, anion gap 10, BUN 16, creatinine 1.0, glucose 98. LFTs were normal. Lipase 57. Urine negative for infection. Had a CT scan of the abdomen and pelvis, which shows dilated small bowel with partial obstruction, ileus of the colon, cyst in the left kidney. FINAL IMPRESSION: 1. Recurrent partial small-bowel obstruction. 2. Ileus. 3. Mass in the left kidney. 4. Sick sinus syndrome, pacemaker. 5. Hypertension. 6. Cardiac arrhythmias. 7. Dementia. 8. Breast carcinoma, had recent radiation treatment. PLAN: At this time, admit to hospital, hydrate with IV fluids. GI consult, small bowel series and see how the patient's condition improves with conservative treatment in the next 24-48 hours. SHOLA SOLO MD DR: ROSEMARY/skyler JOB#: [id number] / [id number]
--- NOTE | 2020-02-05 11:12 | NUR ---
Verbal order from Dr. Mclaughlin for patient to have an EJ. Per NS, [employer] to come insert.
--- NOTE | 2020-02-05 11:41 | NUR ---
SW following. Discussed with RN, pt from home, room air, NPO. Pt is current with [facility]. SW will continue to follow.
[2020-02-05] MEDS: IV NORMAL SALINE 1000ML BAG 1,000 ML IV SCH (13:12)
--- NOTE | 2020-02-05 13:20 | PDOC2 ---
GI CONSULT Reason For Consult: SBO, n/v HPI: HPI: 84 y/o female who we have seen many times. Admitted 12/2019 w/ partial SBO. Discharged - says never really felt better at home - wasn't stooling (says two weeks despite Linzess) and was unable to eat w/ n/v (but then says wasn't vomiting) and abdominal pain. Currently back from SBS and says stooled in brief, no longer in pain. As in the past, not a great historian though able to provide some meaningful details. 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 Last in 08/2018: phytobezoar. Biopsies c/w Mcgraw's. Small hiatal hernia noted in the past. Colonoscopy 12/2008: diverticulosis. BE 12/2017: limited evaluation of the cecum, extensive colonic diverticulosis, markedly redundant sigmoid colon. No evidence of colonic stricture, inflammatory change, or large colonic polyps. S/p cholecystectomy. H/o anemia - past hematology eval: extensive workup in 2019 with iron panel, B12, folic acid, serum protein electrophoresis all unremarkable and bone marrow biopsy did not reveal any primary bone marrow disorders. Tells me she was seen @ [facility] and advised to consider colostomy - she did not want to pursue this "so I just came back here where I belong." D/w Dr. Mclaughlin - h/o adynamic colon, constipation, and bladder problems. PMH: PMH: HTN, SSS, cardiomyopathy, HLD, anxiety/depression, dementia, breast cancer/radiation pacemaker, hysterectomy, left shoulder surgery, cholecystectomy, bladder surgery w/ mesh, right lumpectomy, lymph node biopsy, bone marrow biopsy (no MDS) FH: Family History: Cancer, DM Social History: ALCOHOL: none Drugs: None ROS: GEN: Denies fevers, chills, sweats HEENT: Denies blurred vision, sore throat CV: Denies chest pain RESP: Denies shortness of air, cough GI: Per HPI : Denies hematuria, dysuria ENDO: Denies weight changes NEURO: Denies confusion, dizziness MSK: Denies weakness, joint pain/swelling SKIN: Denies jaundice, pruritus Vitals: Vitals: Vital Signs Date Time Temp Pulse Resp B/P (MAP) Pulse Ox O2 Delivery O2 Flow Rate FiO2 02/05/20 07:15 98.4 75 20 139/59 (85) 97 Room Air 98.4 Labs: Labs: Laboratory Tests Test 02/05/20 00:55 02/05/20 07:25 Urine Collection Type U cath Urine Color Yellow Urine Clarity Clear Urine pH 5.5 (<5.0-8.0) Urine Specific [place] 1.020 (1.000-1.030) Urine Protein Negative mg/dL (NEG-TRACE) Urine Glucose (UA) Negative mg/dL (NEG) Urine Ketones (Stick) Trace mg/dL (NEG) Urine Blood Negative (NEG) Urine Nitrite Negative (NEG) Urine Bilirubin Negative (NEG) Urine Urobilinogen Dipstick 1.0 mg/dL (0.2 mg/dL) Urine Leukocyte Esterase Negative (NEG) Urine RBC Rare /HPF (0-2) Urine WBC Rare /HPF (0-4) Urine Squamous Epithelial Cells Mod /LPF Urine Amorphous Sediment Present /HPF Urine Bacteria 0 /HPF (0-FEW) Urine Hyaline Casts Few /HPF Urine Mucus Mod /LPF White Blood Count 5.4 x10^3/uL (4.0-11.0) Red Blood Count 4.09 x10^6/uL (3.50-5.40) Hemoglobin 11.1 g/dL (12.0-15.5) Hematocrit 33.7 % (36.0-47.0) Mean Corpuscular Volume 82 fL (79-100) Mean Corpuscular Hemoglobin 27 pg (25-35) Mean Corpuscular Hemoglobin Concent 33 g/dL (31-37) Red Cell Distribution Width 15.1 % (11.5-14.5) Platelet Count 141 x10^3/uL (140-400) Neutrophils (%) (Auto) 73 % (31-73) Lymphocytes (%) (Auto) 18 % (24-48) Monocytes (%) (Auto) 7 % (0-9) Eosinophils (%) (Auto) 1 % (0-3) Basophils (%) (Auto) 0 % (0-3) Neutrophils # (Auto) 4.0 x10^3/uL (1.8-7.7) Lymphocytes # (Auto) 1.0 x10^3/uL (1.0-4.8) Monocytes # (Auto) 0.4 x10^3/uL (0.0-1.1) Eosinophils # (Auto) 0.1 x10^3/uL (0.0-0.7) Basophils # (Auto) 0.0 x10^3/uL (0.0-0.2) Prothrombin Time 14.0 SEC (11.7-14.0) Prothromb Time International Ratio 1.1 (0.8-1.1) Activated Partial Thromboplast Time 25 SEC (24-38) Sodium Level 133 mmol/L (136-145) Potassium Level 4.5 mmol/L (3.5-5.1) Chloride Level 98 mmol/L (98-107) Carbon Dioxide Level 25 mmol/L (21-32) Anion Gap 10 (6-14) Blood Urea Nitrogen 16 mg/dL (7-20) Creatinine 1.0 mg/dL (0.6-1.0) Estimated GFR (Cockcroft-Gault) 63.8 BUN/Creatinine Ratio 16 (6-20) Glucose Level 98 mg/dL (70-99) Calcium Level 9.2 mg/dL (8.5-10.1) Total Bilirubin 0.5 mg/dL (0.2-1.0) Aspartate Amino Transf (AST/SGOT) 17 U/L (15-37) Alanine Aminotransferase (ALT/SGPT) 11 U/L (14-59) Alkaline Phosphatase 62 U/L (46-116) Troponin I Quantitative < 0.017 ng/mL (0.000-0.055) Total Protein 6.7 g/dL (6.4-8.2) Albumin 3.8 g/dL (3.4-5.0) Albumin/Globulin Ratio 1.3 (1.0-1.7) Lipase 56 U/L (73-393) Allergies: Coded Allergies: Penicillins (Verified Allergy, Intermediate, Rash, 09/16/19) tolerates cephalasporins atorvastatin (Verified Allergy, Intermediate, 12/29/19) tetracycline (Verified Allergy, Intermediate, rash, 09/16/19) codeine (Verified Adverse Reaction, Intermediate, nausea & vomiting, 09/16/19) fentanyl (Verified Adverse Reaction, Intermediate, Nausea and Vomiting, 09/17/19) hydrocodone (Verified Adverse Reaction, Intermediate, Nausea and Vomiting, 09/16/19) iron (Verified Adverse Reaction, Intermediate, Nausea and Vomiting, iron tablets the oral dose only, 09/16/19) morphine (Verified Adverse Reaction, Intermediate, vomiting, 09/16/19) PO morphine only. can tolerate IV tramadol (Verified Adverse Reaction, Intermediate, Nausea and Vomiting, 09/16/19) Medications: Current Medications Medications (Trade) Dose Ordered Sig/Babatunde Route PRN Reason Start Time Stop Time Status Last Admin Dose Admin Lidocaine HCl (Xylocaine-Mpf 1% 2ml Vial) 2 ml 1X ONCE INJ 02/05/20 03:00 02/05/20 03:01 DC 02/05/20 03:00 Ondansetron HCl (Zofran) 4 mg PRN Q8HRS PRN IV NAUSEA/VOMITING 1ST CHOICE 02/05/20 03:00 02/06/20 02:59 02/05/20 09:00 Morphine Sulfate (Morphine Sulfate) 2 mg 1X ONCE IV 02/05/20 05:00 02/05/20 05:01 DC 02/05/20 04:25 Ondansetron HCl (Zofran) 4 mg 1X ONCE IVP 02/05/20 05:00 02/05/20 05:01 DC 02/05/20 04:25 Iohexol (Omnipaque 300 Mg/ml) 400 ml 1X ONCE PO 02/05/20 08:00 02/05/20 08:01 DC 02/05/20 08:15 Sodium Chloride 1,000 ml @ 75 mls/hr [id number] IV 02/05/20 09:45 02/05/20 13:12 Imaging: Imaging: CT A/P 02/04/20 IMPRESSION: 1. Dilated small bowel with partial obstruction. 2. There is also fluid and gas in the colon, possibly ileus. 3. Complicated cyst or mass left kidney. SBS 02/05/20 pending PE: GEN: NAD HEENT: Atraumatic, PERRL LUNGS: CTAB HEART: RRR ABD: NABS, S/ND/NT EXTREMITY: No edema SKIN: No rashes, no jaundice NEURO/PSYCH: A & O 3 A/P: A/P: Recurrent SBO Chronic anemia GERD/Mcgraw's CRC screen - colonoscopy 2008, BE 2018, ?colonoscopy <1 yr @ [facility] Diverticulosis H/o constipation, s/p cholecystectomy H/o breast cancer, dementia -- Apparently stooling now w/ resolution of pain and no recurrent n/v. Await SBS, ask for records from [facility], will review all w/ Dr. Lucero including CT results. Surgery consult pending. IV PPI. KRYSTLE ORTIZ Feb 05, 2020 13:20
--- NOTE | 2020-02-05 13:35 | RAD ---
Examination: SMALL BOWEL SERIES History: Reason: SBO, 0.4 min fluoro time/2 images / Spl. Instructions: please use gastrograffin/400mL OMNI 300 USED / History: Comparison/Correlation: CT abdomen and pelvis without contrast performed earlier on the same day Findings: District Superintendent view demonstrates gas within mildly distended small bowel loops. Gas is also seen in the colon. Gastrografin oral contrast was utilized for small bowel series exam. Fluoroscopy was utilized for 0.4 minutes. A total of 2 fluoroscopic images were acquired. A total of 6 overhead images including a floral merchandiser view were obtained. Contrast is noted to distend the stomach normally. Contrast is noted within the descending colon at 1 hour and 30 minutes. There is no suspicious transition point identified. No evidence of obstruction noted. Attempts to delineate the terminal ileum on fluoroscopic imaging was not successful. No stricture is suggested about the cecum. Impression: No bowel obstruction. 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 Electronically signed by: Josesito Gannon MD (02/05/2020 1:32 PM) [id number]
--- NOTE | 2020-02-05 14:13 | NUR ---
Midline Pre-Insertion Note- Allergies and reactions Penicillins, Atorvastatin, codeine, Fentanyl, hydrocodone, iron, morphine, tetracycline, tramadol INR 1.1 BUN 16 Cr 1.0 Platelets 141 Blood culture done no blood culture results n/a Order Verified yes Consent signed yes Previous Midline placement unknown Past Medical/Surgical history and current diagnosis reviewed yes Patient Medical /Surgical History Related to Midline placement Cancer Mastectomy with/without lymph resection Right arm Pacemaker Special considerations for Midline placement Arm contractures/ Compromised arm Midline placement indication Poor peripheral intravenous access Lisette Rodríguez RN, PICC Nurse Addendum: 02/05/20 at 1445 by JOSEPHINE RODRÍGUEZ RN Amended: Links added.
--- NOTE | 2020-02-05 14:35 | NUR ---
Midline Insertion Note- Procedure: Following complete explanation of the Midline procedure including the indications, risks, and potential complications, informed consent was obtained. The possibility for infection was discussed along with signs, symptoms, and prevention. All the questions were answered. Written and verbal patient education was provided. Hand hygiene performed. Standardized central line checklist was utilized. The patient was placed in the supine position, the arm was prepped with chlorhexidine and patient draped with maximum sterile barrier. 2 mL 1% lidocaine was infiltrated into the skin to provide local anesthesia. A thorough assessment of Left upper extremity completed. Using real-time ultrasound guidance and standardized micro puncture set, the brachial vein was punctured and a peel away sheath was placed using the modified Seldinger technique. A tip location device was used to ensure adequate catheter placement. The catheter was secured using a securement device and an antimicrobial patch was applied directly on the insertion site followed by a transparent dressing. All ports withdraw blood and flush without resistance. Patient tolerated the procedure without apparent complication(s). Single Lumen Power Midline placement successful and uncomplicated. Tip located in the Left Axilla. Complications: none Catheter trimmed at 14cm with 1cm visible at insertion site.
[2020-02-05 14:57] VITALS: BP 133/64
[2020-02-05] MEDS: PANTOPRAZOLE IV PUSH 40 MG VIAL. IVP SCH (15:00)
--- NOTE | 2020-02-05 17:22 | PDOC ---
PROGRESS NOTES Subjective Subjective Pt sleeping, I did not wake her. . . full consult to follow. Records indicate that she reported to the hospital with abdominal pain. Her evaluation included a CT scan raising concern for a small bowel obstruction. Earlier today a small bowel series showed no obstruction with contrast passage to the colon. Objective Objective Vital Signs Date Time Temp Pulse Resp B/P (MAP) Pulse Ox O2 Delivery O2 Flow Rate FiO2 02/05/20 14:57 97.9 71 18 133/64 (87) 98 Room Air 97.9 Intake and Output 02/05/20 07:00 # Voids 1 # Bowel Movements 1 Assessment Assessment Problems Medical Problems: (1) Abdominal pain Status: Acute Small bowel series Impression: No bowel obstruction. 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 Plan Plan of Care No evidence of SBO, will start diet. No surgical plans, gut dysfunction ( ileus) may be an issues, could consider GI consultation. Comment Review of Relevant I have reviewed the following items wade (where applicable) has been applied. Labs Laboratory Tests Test 02/05/20 00:55 02/05/20 07:25 Urine Collection Type U cath Urine Color Yellow Urine Clarity Clear Urine pH 5.5 (<5.0-8.0) Urine Specific [place] 1.020 (1.000-1.030) Urine Protein Negative mg/dL (NEG-TRACE) Urine Glucose (UA) Negative mg/dL (NEG) Urine Ketones (Stick) Trace mg/dL (NEG) Urine Blood Negative (NEG) Urine Nitrite Negative (NEG) Urine Bilirubin Negative (NEG) Urine Urobilinogen Dipstick 1.0 mg/dL (0.2 mg/dL) Urine Leukocyte Esterase Negative (NEG) Urine RBC Rare /HPF (0-2) Urine WBC Rare /HPF (0-4) Urine Squamous Epithelial Cells Mod /LPF Urine Amorphous Sediment Present /HPF Urine Bacteria 0 /HPF (0-FEW) Urine Hyaline Casts Few /HPF Urine Mucus Mod /LPF White Blood Count 5.4 x10^3/uL (4.0-11.0) Red Blood Count 4.09 x10^6/uL (3.50-5.40) Hemoglobin 11.1 g/dL (12.0-15.5) Hematocrit 33.7 % (36.0-47.0) Mean Corpuscular Volume 82 fL (79-100) Mean Corpuscular Hemoglobin 27 pg (25-35) Mean Corpuscular Hemoglobin Concent 33 g/dL (31-37) Red Cell Distribution Width 15.1 % (11.5-14.5) Platelet Count 141 x10^3/uL (140-400) Neutrophils (%) (Auto) 73 % (31-73) Lymphocytes (%) (Auto) 18 % (24-48) Monocytes (%) (Auto) 7 % (0-9) Eosinophils (%) (Auto) 1 % (0-3) Basophils (%) (Auto) 0 % (0-3) Neutrophils # (Auto) 4.0 x10^3/uL (1.8-7.7) Lymphocytes # (Auto) 1.0 x10^3/uL (1.0-4.8) Monocytes # (Auto) 0.4 x10^3/uL (0.0-1.1) Eosinophils # (Auto) 0.1 x10^3/uL (0.0-0.7) Basophils # (Auto) 0.0 x10^3/uL (0.0-0.2) Prothrombin Time 14.0 SEC (11.7-14.0) Prothromb Time International Ratio 1.1 (0.8-1.1) Activated Partial Thromboplast Time 25 SEC (24-38) Sodium Level 133 mmol/L (136-145) Potassium Level 4.5 mmol/L (3.5-5.1) Chloride Level 98 mmol/L (98-107) Carbon Dioxide Level 25 mmol/L (21-32) Anion Gap 10 (6-14) Blood Urea Nitrogen 16 mg/dL (7-20) Creatinine 1.0 mg/dL (0.6-1.0) Estimated GFR (Cockcroft-Gault) 63.8 BUN/Creatinine Ratio 16 (6-20) Glucose Level 98 mg/dL (70-99) Calcium Level 9.2 mg/dL (8.5-10.1) Total Bilirubin 0.5 mg/dL (0.2-1.0) Aspartate Amino Transf (AST/SGOT) 17 U/L (15-37) Alanine Aminotransferase (ALT/SGPT) 11 U/L (14-59) Alkaline Phosphatase 62 U/L (46-116) Troponin I Quantitative < 0.017 ng/mL (0.000-0.055) Total Protein 6.7 g/dL (6.4-8.2) Albumin 3.8 g/dL (3.4-5.0) Albumin/Globulin Ratio 1.3 (1.0-1.7) Lipase 56 U/L (73-393) Laboratory Tests Test 02/05/20 00:55 02/05/20 07:25 Urine Collection Type U cath Urine Color Yellow Urine Clarity Clear Urine pH 5.5 (<5.0-8.0) Urine Specific [place] 1.020 (1.000-1.030) Urine Protein Negative mg/dL (NEG-TRACE) Urine Glucose (UA) Negative mg/dL (NEG) Urine Ketones (Stick) Trace mg/dL (NEG) Urine Blood Negative (NEG) Urine Nitrite Negative (NEG) Urine Bilirubin Negative (NEG) Urine Urobilinogen Dipstick 1.0 mg/dL (0.2 mg/dL) Urine Leukocyte Esterase Negative (NEG) Urine RBC Rare /HPF (0-2) Urine WBC Rare /HPF (0-4) Urine Squamous Epithelial Cells Mod /LPF Urine Amorphous Sediment Present /HPF Urine Bacteria 0 /HPF (0-FEW) Urine Hyaline Casts Few /HPF Urine Mucus Mod /LPF White Blood Count 5.4 x10^3/uL (4.0-11.0) Red Blood Count 4.09 x10^6/uL (3.50-5.40) Hemoglobin 11.1 g/dL (12.0-15.5) Hematocrit 33.7 % (36.0-47.0) Mean Corpuscular Volume 82 fL (79-100) Mean Corpuscular Hemoglobin 27 pg (25-35) Mean Corpuscular Hemoglobin Concent 33 g/dL (31-37) Red Cell Distribution Width 15.1 % (11.5-14.5) Platelet Count 141 x10^3/uL (140-400) Neutrophils (%) (Auto) 73 % (31-73) Lymphocytes (%) (Auto) 18 % (24-48) Monocytes (%) (Auto) 7 % (0-9) Eosinophils (%) (Auto) 1 % (0-3) Basophils (%) (Auto) 0 % (0-3) Neutrophils # (Auto) 4.0 x10^3/uL (1.8-7.7) Lymphocytes # (Auto) 1.0 x10^3/uL (1.0-4.8) Monocytes # (Auto) 0.4 x10^3/uL (0.0-1.1) Eosinophils # (Auto) 0.1 x10^3/uL (0.0-0.7) Basophils # (Auto) 0.0 x10^3/uL (0.0-0.2) Prothrombin Time 14.0 SEC (11.7-14.0) Prothromb Time International Ratio 1.1 (0.8-1.1) Activated Partial Thromboplast Time 25 SEC (24-38) Sodium Level 133 mmol/L (136-145) Potassium Level 4.5 mmol/L (3.5-5.1) Chloride Level 98 mmol/L (98-107) Carbon Dioxide Level 25 mmol/L (21-32) Anion Gap 10 (6-14) Blood Urea Nitrogen 16 mg/dL (7-20) Creatinine 1.0 mg/dL (0.6-1.0) Estimated GFR (Cockcroft-Gault) 63.8 BUN/Creatinine Ratio 16 (6-20) Glucose Level 98 mg/dL (70-99) Calcium Level 9.2 mg/dL (8.5-10.1) Total Bilirubin 0.5 mg/dL (0.2-1.0) Aspartate Amino Transf (AST/SGOT) 17 U/L (15-37) Alanine Aminotransferase (ALT/SGPT) 11 U/L (14-59) Alkaline Phosphatase 62 U/L (46-116) Troponin I Quantitative < 0.017 ng/mL (0.000-0.055) Total Protein 6.7 g/dL (6.4-8.2) Albumin 3.8 g/dL (3.4-5.0) Albumin/Globulin Ratio 1.3 (1.0-1.7) Lipase 56 U/L (73-393) Medications Current Medications Lidocaine HCl (Xylocaine-Mpf 1% 2ml Vial) 2 ml 1X ONCE INJ Last administered on 02/05/20at 03:00; Start 02/05/20 at 03:00; Stop 02/05/20 at 03:01; Status DC Ondansetron HCl (Zofran) 4 mg PRN Q8HRS PRN IV NAUSEA/VOMITING 1ST CHOICE Last administered on 02/05/20at 09:00; Start 02/05/20 at 03:00; Stop 02/06/20 at 02:59 Morphine Sulfate (Morphine Sulfate) 2 mg 1X ONCE IV Last administered on 02/05/20at 04:25; Start 02/05/20 at 05:00; Stop 02/05/20 at 05:01; Status DC Ondansetron HCl (Zofran) 4 mg 1X ONCE IVP Last administered on 02/05/20at 04:25; Start 02/05/20 at 05:00; Stop 02/05/20 at 05:01; Status DC Iohexol (Omnipaque 300 Mg/ml) 400 ml 1X ONCE PO Last administered on 02/05/20at 08:15; Start 02/05/20 at 08:00; Stop 02/05/20 at 08:01; Status DC Info (CONTRAST GIVEN -- Rx MONITORING) 1 each PRN DAILY PRN MC SEE COMMENTS; Start 02/05/20 at 08:00; Stop 02/07/20 at 07:59 Sodium Chloride 1,000 ml @ 75 mls/hr [id number] IV Last administered on 02/05/20at 13:12; Start 02/05/20 at 09:45 Pantoprazole Sodium (PROTONIX VIAL for IV PUSH) 40 mg DAILYAC IVP Last admini stered on 02/05/20at 15:00; Start 02/05/20 at 13:30 Active Scripts Active Reported Midodrine Hcl 5 Mg Tablet 5 Mg PO BID Gabapentin (Gabapentin) 100 Mg Capsule 100 Mg PO DAILY07 Zolpidem Tartrate 5 Mg Tablet 5 Mg PO HS Linzess (Linaclotide) 145 Mcg Capsule 72 Mcg PO DAILY07 Xanax (Alprazolam) 0.5 Mg Tablet 0.5 Tab PO BID .25 mg QD Omeprazole 40 Mg Capsule.dr 40 Mg PO DAILY Sotalol (Sotalol Hcl) 80 Mg Tablet 120 Mg PO BID 08/07 tqblet BID Vitals/I & O Vital Sign - Last 24 Hours 02/04/20 02/05/20 02/05/20 02/05/20 23:35 00:14 00:44 01:14 Temp 99.0 99.0 Pulse 85 74 74 76 Resp 16 16 16 16 B/P (MAP) 122/61 (81) 105/55 (72) 113/66 (82) 135/67 (89) Pulse Ox 95 100 100 100 O2 Delivery Room Air Room Air Room Air Room Air 02/05/20 02/05/20 02/05/20 02/05/20 02:14 03:14 04:14 04:25 Pulse 76 75 77 Resp 16 16 16 16 B/P (MAP) 110/52 (71) 114/62 (79) 131/65 (87) Pulse Ox 100 100 100 100 O2 Delivery Room Air Room Air Room Air Room Air 02/05/20 02/05/20 02/05/20 02/05/20 04:44 05:00 05:15 07:15 Temp 97.7 98.4 97.7 98.4 Pulse 74 56 75 Resp 16 18 20 B/P (MAP) 108/52 (70) 143/76 (98) 139/59 (85) Pulse Ox 100 97 97 O2 Delivery Room Air Room Air Room Air Room Air 02/05/20 02/05/20 08:00 14:57 Temp 97.9 97.9 Pulse 71 Resp 18 B/P (MAP) 133/64 (87) Pulse Ox 98 O2 Delivery Room Air Room Air Justicifation of Admission Dx: Justifications for Admission: Justification of Admission Dx: Yes BONY WILD MD Feb 05, 2020 17:22
[2020-02-05 19:00] VITALS: BP 112/57
[2020-02-05] MEDS: NAPROXEN 250 MG TABLET PO PRN (21:28)
[2020-02-05 23:07] VITALS: BP 118/55
[2020-02-06 03:07] VITALS: BP 121/50
[2020-02-06] MEDS: IV NORMAL SALINE 1000ML BAG 1,000 ML IV SCH ×2 (04:41→11:53)
--- NOTE | 2020-02-06 06:34 | NUR ---
Patient has reported that her midline hurt at the insertion site, received an order for naproxen last night, as patient said she takes this for pain, this am, attempt to draw from midline, unable to, flushes well, connected iv fluids to sl in left hand,
[2020-02-06 07:00] VITALS: BP 163/76
[2020-02-06] MEDS: PANTOPRAZOLE IV PUSH 40 MG VIAL. IVP SCH (07:52)
[2020-02-06] MEDS ORDERED: ALPR0.254 PO (08:05)
[2020-02-06] MEDS ORDERED: CLIN300C8 PO (08:05)
[2020-02-06] MEDS ORDERED: SOTA120T14 PO (08:05)
[2020-02-06] MEDS ORDERED: LINA72CA PO (08:05)
[2020-02-06 08:20] LABS: BASO % 1 % (0-3); EOS # 0.1 x10^3/uL (0.0-0.7); EOS % 2 % (0-3); HEMATOCRIT 29.8 % (36.0-47.0); HEMOGLOBIN 9.9 g/dL (12.0-15.5); LYMPH # 0.9 x10^3/uL (1.0-4.8); LYMPH % 29 % (24-48); MEAN CORPUSCULAR HEMOGLOBIN 27 pg (25-35); MEAN CORPUSCULAR HGB CONC 33 g/dL (31-37); MEAN CORPUSCULAR VOLUME 82 fL (79-100); MONO # 0.4 x10^3/uL (0.0-1.1); MONO % 14 % (0-9); NEUT # 1.7 x10^3/uL (1.8-7.7); NEUT % 55 % (31-73); PLATELET COUNT 132 x10^3/uL (140-400); RED BLOOD COUNT 3.65 x10^6/uL (3.50-5.40); RED CELL DISTRIBUTION WIDTH 15.3 % (11.5-14.5); WHITE BLOOD COUNT 3.2 x10^3/uL (4.0-11.0)
[2020-02-06 08:31] LABS: CALCIUM 8.3 mg/dL (8.5-10.1); CREATININE 0.9 mg/dL (0.6-1.0); POTASSIUM 4.4 mmol/L (3.5-5.1)
[2020-02-06] MEDS: NAPROXEN 250 MG TABLET PO PRN (09:41)
--- NOTE | 2020-02-06 10:09 | PDOC ---
SURGICAL PROGRESS NOTE Subjective Patient states she is feeling better this morning although feeling somewhat weak she has had multiple loose stools Vital Signs Vital Signs Date Time Temp Pulse Resp B/P (MAP) Pulse Ox O2 Delivery O2 Flow Rate FiO2 02/06/20 08:00 Room Air 02/06/20 07:00 97.9 76 20 163/76 (105) 100 97.9 I&O Intake and Output 02/06/20 07:00 Intake Total 1000 ml Balance 1000 ml Intake Oral 0 ml IV Total 1000 ml # Voids 5 # Bowel Movements 3 PATIENT HAS A PATTON: No General: Alert, Oriented X3, Cooperative, No acute distress Abdomen: Normal bowel sounds, Soft, No tenderness Labs Laboratory Tests Test 02/05/20 00:55 02/05/20 07:25 02/06/20 08:00 Urine Collection Type U cath Urine Color Yellow Urine Clarity Clear Urine pH 5.5 (<5.0-8.0) Urine Specific [place] 1.020 (1.000-1.030) Urine Protein Negative mg/dL (NEG-TRACE) Urine Glucose (UA) Negative mg/dL (NEG) Urine Ketones (Stick) Trace mg/dL (NEG) Urine Blood Negative (NEG) Urine Nitrite Negative (NEG) Urine Bilirubin Negative (NEG) Urine Urobilinogen Dipstick 1.0 mg/dL (0.2 mg/dL) Urine Leukocyte Esterase Negative (NEG) Urine RBC Rare /HPF (0-2) Urine WBC Rare /HPF (0-4) Urine Squamous Epithelial Cells Mod /LPF Urine Amorphous Sediment Present /HPF Urine Bacteria 0 /HPF (0-FEW) Urine Hyaline Casts Few /HPF Urine Mucus Mod /LPF White Blood Count 5.4 x10^3/uL (4.0-11.0) 3.2 x10^3/uL (4.0-11.0) Red Blood Count 4.09 x10^6/uL (3.50-5.40) 3.65 x10^6/uL (3.50-5.40) Hemoglobin 11.1 g/dL (12.0-15.5) 9.9 g/dL (12.0-15.5) Hematocrit 33.7 % (36.0-47.0) 29.8 % (36.0-47.0) Mean Corpuscular Volume 82 fL (79-100) 82 fL (79-100) Mean Corpuscular Hemoglobin 27 pg (25-35) 27 pg (25-35) Mean Corpuscular Hemoglobin Concent 33 g/dL (31-37) 33 g/dL (31-37) Red Cell Distribution Width 15.1 % (11.5-14.5) 15.3 % (11.5-14.5) Platelet Count 141 x10^3/uL (140-400) 132 x10^3/uL (140-400) Neutrophils (%) (Auto) 73 % (31-73) 55 % (31-73) Lymphocytes (%) (Auto) 18 % (24-48) 29 % (24-48) Monocytes (%) (Auto) 7 % (0-9) 14 % (0-9) Eosinophils (%) (Auto) 1 % (0-3) 2 % (0-3) Basophils (%) (Auto) 0 % (0-3) 1 % (0-3) Neutrophils # (Auto) 4.0 x10^3/uL (1.8-7.7) 1.7 x10^3/uL (1.8-7.7) Lymphocytes # (Auto) 1.0 x10^3/uL (1.0-4.8) 0.9 x10^3/uL (1.0-4.8) Monocytes # (Auto) 0.4 x10^3/uL (0.0-1.1) 0.4 x10^3/uL (0.0-1.1) Eosinophils # (Auto) 0.1 x10^3/uL (0.0-0.7) 0.1 x10^3/uL (0.0-0.7) Basophils # (Auto) 0.0 x10^3/uL (0.0-0.2) 0.0 x10^3/uL (0.0-0.2) Prothrombin Time 14.0 SEC (11.7-14.0) Prothromb Time International Ratio 1.1 (0.8-1.1) Activated Partial Thromboplast Time 25 SEC (24-38) Sodium Level 133 mmol/L (136-145) 136 mmol/L (136-145) Potassium Level 4.5 mmol/L (3.5-5.1) 4.4 mmol/L (3.5-5.1) Chloride Level 98 mmol/L (98-107) 103 mmol/L (98-107) Carbon Dioxide Level 25 mmol/L (21-32) 27 mmol/L (21-32) Anion Gap 10 (6-14) 6 (6-14) Blood Urea Nitrogen 16 mg/dL (7-20) 11 mg/dL (7-20) Creatinine 1.0 mg/dL (0.6-1.0) 0.9 mg/dL (0.6-1.0) Estimated GFR (Cockcroft-Gault) 63.8 72.0 BUN/Creatinine Ratio 16 (6-20) Glucose Level 98 mg/dL (70-99) 94 mg/dL (70-99) Calcium Level 9.2 mg/dL (8.5-10.1) 8.3 mg/dL (8.5-10.1) Total Bilirubin 0.5 mg/dL (0.2-1.0) Aspartate Amino Transf (AST/SGOT) 17 U/L (15-37) Alanine Aminotransferase (ALT/SGPT) 11 U/L (14-59) Alkaline Phosphatase 62 U/L (46-116) Troponin I Quantitative < 0.017 ng/mL (0.000-0.055) Total Protein 6.7 g/dL (6.4-8.2) Albumin 3.8 g/dL (3.4-5.0) Albumin/Globulin Ratio 1.3 (1.0-1.7) Lipase 56 U/L (73-393) Laboratory Tests Test 02/06/20 08:00 White Blood Count 3.2 x10^3/uL (4.0-11.0) Red Blood Count 3.65 x10^6/uL (3.50-5.40) Hemoglobin 9.9 g/dL (12.0-15.5) Hematocrit 29.8 % (36.0-47.0) Mean Corpuscular Volume 82 fL (79-100) Mean Corpuscular Hemoglobin 27 pg (25-35) Mean Corpuscular Hemoglobin Concent 33 g/dL (31-37) Red Cell Distribution Width 15.3 % (11.5-14.5) Platelet Count 132 x10^3/uL (140-400) Neutrophils (%) (Auto) 55 % (31-73) Lymphocytes (%) (Auto) 29 % (24-48) Monocytes (%) (Auto) 14 % (0-9) Eosinophils (%) (Auto) 2 % (0-3) Basophils (%) (Auto) 1 % (0-3) Neutrophils # (Auto) 1.7 x10^3/uL (1.8-7.7) Lymphocytes # (Auto) 0.9 x10^3/uL (1.0-4.8) Monocytes # (Auto) 0.4 x10^3/uL (0.0-1.1) Eosinophils # (Auto) 0.1 x10^3/uL (0.0-0.7) Basophils # (Auto) 0.0 x10^3/uL (0.0-0.2) Sodium Level 136 mmol/L (136-145) Potassium Level 4.4 mmol/L (3.5-5.1) Chloride Level 103 mmol/L (98-107) Carbon Dioxide Level 27 mmol/L (21-32) Anion Gap 6 (6-14) Blood Urea Nitrogen 11 mg/dL (7-20) Creatinine 0.9 mg/dL (0.6-1.0) Estimated GFR (Cockcroft-Gault) 72.0 Glucose Level 94 mg/dL (70-99) Calcium Level 8.3 mg/dL (8.5-10.1) Problem List Problems Medical Problems: (1) Abdominal pain Status: Acute Assessment/Plan Ileus which appears to resolved with bowel movements small bowel follow-through shows transit of contrast: Advance diet as tolerated No surgical plans, will sign off if surgical expertise is needed please reconsult Justicifation of Admission Dx: Justifications for Admission: Justification of Admission Dx: Yes JAK CARTAGENA MD Feb 06, 2020 10:09
[2020-02-06] MEDS ORDERED: ALPRAZolam 0.25 MG TABLET PO SCH (10:15)
[2020-02-06] MEDS ORDERED: traMADol 50 MG TABLET PO PRN (10:15)
[2020-02-06] MEDS ORDERED: GABAPENTIN 100 MG CAPSULE. PO SCH (10:15)
--- NOTE | 2020-02-06 10:54 | PDOC ---
PROGRESS NOTES Subjective Subjective tolerating diet ,pt want to go home Objective Objective Vital Signs Date Time Temp Pulse Resp B/P (MAP) Pulse Ox O2 Delivery O2 Flow Rate FiO2 02/06/20 08:00 Room Air 02/06/20 07:00 97.9 76 20 163/76 (105) 100 97.9 Intake and Output 02/06/20 07:00 Intake Total 1000 ml Balance 1000 ml Intake Oral 0 ml IV Total 1000 ml # Voids 5 # Bowel Movements 3 Physical Exam Abdomen: Normal bowel sounds, Soft, No tenderness General: Alert, Oriented X3, Cooperative, No acute distress MUSCULOSKELETAL: No swelling, Other Neuro: Normal speech Psych/Mental Status: Mental status NL Skin: No breakdown Diagnosis Problem List Problems Medical Problems: (1) Abdominal pain Status: Acute Assessment Assessment Problems Medical Problems: (1) Abdominal pain Status: Acute FINAL IMPRESSION: 1. Recurrent partial small-bowel obstruction. 2. Ileus improving. 3. 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 Sick sinus syndrome, pacemaker. 5. Hypertension. 6. Cardiac arrhythmias. 7. Dementia. 8. Breast carcinoma, had recent radiation treatment. PLAN: small bowel series showed no obstruction.chronically dilated colon labs ok tolerating diet pt want to go home. f/u out pt At this time, admit to hospital, hydrate with IV fluids. GI consult, small bowel series and see how the patient's condition improves with conservative treatment in the next 24-48 hours. Plan Plan of Care Problems Medical Problems: (1) Abdominal pain Status: Acute Comment Review of Relevant I have reviewed the following items wade (where applicable) has been applied. Labs Laboratory Tests Test 02/06/20 08:00 White Blood Count 3.2 x10^3/uL (4.0-11.0) Red Blood Count 3.65 x10^6/uL (3.50-5.40) Hemoglobin 9.9 g/dL (12.0-15.5) Hematocrit 29.8 % (36.0-47.0) Mean Corpuscular Volume 82 fL (79-100) Mean Corpuscular Hemoglobin 27 pg (25-35) Mean Corpuscular Hemoglobin Concent 33 g/dL (31-37) Red Cell Distribution Width 15.3 % (11.5-14.5) Platelet Count 132 x10^3/uL (140-400) Neutrophils (%) (Auto) 55 % (31-73) Lymphocytes (%) (Auto) 29 % (24-48) Monocytes (%) (Auto) 14 % (0-9) Eosinophils (%) (Auto) 2 % (0-3) Basophils (%) (Auto) 1 % (0-3) Neutrophils # (Auto) 1.7 x10^3/uL (1.8-7.7) Lymphocytes # (Auto) 0.9 x10^3/uL (1.0-4.8) Monocytes # (Auto) 0.4 x10^3/uL (0.0-1.1) Eosinophils # (Auto) 0.1 x10^3/uL (0.0-0.7) Basophils # (Auto) 0.0 x10^3/uL (0.0-0.2) Sodium Level 136 mmol/L (136-145) Potassium Level 4.4 mmol/L (3.5-5.1) Chloride Level 103 mmol/L (98-107) Carbon Dioxide Level 27 mmol/L (21-32) Anion Gap 6 (6-14) Blood Urea Nitrogen 11 mg/dL (7-20) Creatinine 0.9 mg/dL (0.6-1.0) Estimated GFR (Cockcroft-Gault) 72.0 Glucose Level 94 mg/dL (70-99) Calcium Level 8.3 mg/dL (8.5-10.1) Medications Current Medications Alprazolam (Xanax) 0.25 mg BID PO ; Start 02/06/20 at 10:15 Gabapentin (Neurontin) 100 mg BID PO ; Start 02/06/20 at 10:15 Lubiprostone (Amitiza) 24 mcg BIDWMEALS PO ; Start 02/06/20 at 12:00 Midodrine (Proamatine) 5 mg BID@0700,1600 PO ; Start 02/06/20 at 11:00 Naproxen (Naprosyn) 250 mg PRN BID PRN PO MODERATE PAIN 4-6 Last administered on 02/06/20at 09:41; Start 02/05/20 at 21:15 Non-Formulary Medication (Omeprazole ) 40 mg DAILY PO ; Start 02/07/20 at 09:00; Status UNV Pantoprazole Sodium (PROTONIX VIAL for IV PUSH) 40 mg DAILYAC IVP Last administered on 02/06/20at 07:52; Start 02/05/20 at 13:30 Sotalol HCl (Betapace) 60 mg BID PO ; Start 02/06/20 at 11:00 Tramadol HCl (Ultram) 50 mg PRN Q8HRS PRN PO MILD TO MODERATE PAIN; Start 02/06/20 at 10:15 Zolpidem Tartrate (Ambien) 5 mg HS PO ; Start 02/06/20 at 21:00 Vitals/I & O Vital Sign - Last 24 Hours 02/05/20 02/05/20 02/05/20 02/06/20 14:57 19:00 23:07 03:07 Temp 97.9 97.3 97.4 97.5 97.9 97.3 97.4 97.5 Pulse 71 87 77 75 Resp 18 18 18 16 B/P (MAP) 133/64 (87) 112/57 (75) 118/55 (76) 121/50 (73) Pulse Ox 98 97 95 100 O2 Delivery Room Air Room Air Room Air Room Air 02/06/20 02/06/20 07:00 08:00 Temp 97.9 97.9 Pulse 76 Resp 20 B/P (MAP) 163/76 (105) Pulse Ox 100 O2 Delivery Room Air Room Air Intake and Output 02/05/20 02/05/20 02/06/20 15:00 23:00 07:00 Intake Total 0 ml 1000 ml Balance 0 ml 1000 ml Justicifation of Admission Dx: Justifications for Admission: Justification of Admission Dx: Yes SHOLA SOLO MD Feb 06, 2020 10:54
[2020-02-06 11:00] VITALS: BP 115/63
[2020-02-06] MEDS ORDERED: SOTALOL 80 MG TABLET. PO SCH (11:00)
[2020-02-06] MEDS ORDERED: MIDODRINE 5 MG TABLET PO SCH (11:00)
[2020-02-06 11:44] VITALS: BP 115/63
[2020-02-06] MEDS ORDERED: LUBIPROSTONE 24 MCG CAPSULE PO SCH (12:00)
--- NOTE | 2020-02-06 13:51 | PDOC ---
G I PROGRESS NOTE Reason for Follow-up abd pain/partial SBO Subjective Feeling better/wants to go home Physical Exam Lungs clear CV S1 S2 ABD +BS, soft, nontender Review of Relevant I have reviewed the following items wade (where applicable) has been applied. Labs Laboratory Tests Test 02/05/20 00:55 02/05/20 07:25 02/06/20 08:00 Urine Collection Type U cath Urine Color Yellow Urine Clarity Clear Urine pH 5.5 (<5.0-8.0) Urine Specific [place] 1.020 (1.000-1.030) Urine Protein Negative mg/dL (NEG-TRACE) Urine Glucose (UA) Negative mg/dL (NEG) Urine Ketones (Stick) Trace mg/dL (NEG) Urine Blood Negative (NEG) Urine Nitrite Negative (NEG) Urine Bilirubin Negative (NEG) Urine Urobilinogen Dipstick 1.0 mg/dL (0.2 mg/dL) Urine Leukocyte Esterase Negative (NEG) Urine RBC Rare /HPF (0-2) Urine WBC Rare /HPF (0-4) Urine Squamous Epithelial Cells Mod /LPF Urine Amorphous Sediment Present /HPF Urine Bacteria 0 /HPF (0-FEW) Urine Hyaline Casts Few /HPF Urine Mucus Mod /LPF White Blood Count 5.4 x10^3/uL (4.0-11.0) 3.2 x10^3/uL (4.0-11.0) Red Blood Count 4.09 x10^6/uL (3.50-5.40) 3.65 x10^6/uL (3.50-5.40) Hemoglobin 11.1 g/dL (12.0-15.5) 9.9 g/dL (12.0-15.5) Hematocrit 33.7 % (36.0-47.0) 29.8 % (36.0-47.0) Mean Corpuscular Volume 82 fL (79-100) 82 fL (79-100) Mean Corpuscular Hemoglobin 27 pg (25-35) 27 pg (25-35) Mean Corpuscular Hemoglobin Concent 33 g/dL (31-37) 33 g/dL (31-37) Red Cell Distribution Width 15.1 % (11.5-14.5) 15.3 % (11.5-14.5) Platelet Count 141 x10^3/uL (140-400) 132 x10^3/uL (140-400) Neutrophils (%) (Auto) 73 % (31-73) 55 % (31-73) Lymphocytes (%) (Auto) 18 % (24-48) 29 % (24-48) Monocytes (%) (Auto) 7 % (0-9) 14 % (0-9) Eosinophils (%) (Auto) 1 % (0-3) 2 % (0-3) Basophils (%) (Auto) 0 % (0-3) 1 % (0-3) Neutrophils # (Auto) 4.0 x10^3/uL (1.8-7.7) 1.7 x10^3/uL (1.8-7.7) Lymphocytes # (Auto) 1.0 x10^3/uL (1.0-4.8) 0.9 x10^3/uL (1.0-4.8) Monocytes # (Auto) 0.4 x10^3/uL (0.0-1.1) 0.4 x10^3/uL (0.0-1.1) Eosinophils # (Auto) 0.1 x10^3/uL (0.0-0.7) 0.1 x10^3/uL (0.0-0.7) Basophils # (Auto) 0.0 x10^3/uL (0.0-0.2) 0.0 x10^3/uL (0.0-0.2) Prothrombin Time 14.0 SEC (11.7-14.0) Prothromb Time International Ratio 1.1 (0.8-1.1) Activated Partial Thromboplast Time 25 SEC (24-38) Sodium Level 133 mmol/L (136-145) 136 mmol/L (136-145) Potassium Level 4.5 mmol/L (3.5-5.1) 4.4 mmol/L (3.5-5.1) Chloride Level 98 mmol/L (98-107) 103 mmol/L (98-107) Carbon Dioxide Level 25 mmol/L (21-32) 27 mmol/L (21-32) Anion Gap 10 (6-14) 6 (6-14) Blood Urea Nitrogen 16 mg/dL (7-20) 11 mg/dL (7-20) Creatinine 1.0 mg/dL (0.6-1.0) 0.9 mg/dL (0.6-1.0) Estimated GFR (Cockcroft-Gault) 63.8 72.0 BUN/Creatinine Ratio 16 (6-20) Glucose Level 98 mg/dL (70-99) 94 mg/dL (70-99) Calcium Level 9.2 mg/dL (8.5-10.1) 8.3 mg/dL (8.5-10.1) Total Bilirubin 0.5 mg/dL (0.2-1.0) Aspartate Amino Transf (AST/SGOT) 17 U/L (15-37) Alanine Aminotransferase (ALT/SGPT) 11 U/L (14-59) Alkaline Phosphatase 62 U/L (46-116) Troponin I Quantitative < 0.017 ng/mL (0.000-0.055) Total Protein 6.7 g/dL (6.4-8.2) Albumin 3.8 g/dL (3.4-5.0) Albumin/Globulin Ratio 1.3 (1.0-1.7) Lipase 56 U/L (73-393) Laboratory Tests Test 02/06/20 08:00 White Blood Count 3.2 x10^3/uL (4.0-11.0) Red Blood Count 3.65 x10^6/uL (3.50-5.40) Hemoglobin 9.9 g/dL (12.0-15.5) Hematocrit 29.8 % (36.0-47.0) Mean Corpuscular Volume 82 fL (79-100) Mean Corpuscular Hemoglobin 27 pg (25-35) Mean Corpuscular Hemoglobin Concent 33 g/dL (31-37) Red Cell Distribution Width 15.3 % (11.5-14.5) Platelet Count 132 x10^3/uL (140-400) Neutrophils (%) (Auto) 55 % (31-73) Lymphocytes (%) (Auto) 29 % (24-48) Monocytes (%) (Auto) 14 % (0-9) Eosinophils (%) (Auto) 2 % (0-3) Basophils (%) (Auto) 1 % (0-3) Neutrophils # (Auto) 1.7 x10^3/uL (1.8-7.7) Lymphocytes # (Auto) 0.9 x10^3/uL (1.0-4.8) Monocytes # (Auto) 0.4 x10^3/uL (0.0-1.1) Eosinophils # (Auto) 0.1 x10^3/uL (0.0-0.7) Basophils # (Auto) 0.0 x10^3/uL (0.0-0.2) Sodium Level 136 mmol/L (136-145) Potassium Level 4.4 mmol/L (3.5-5.1) Chloride Level 103 mmol/L (98-107) Carbon Dioxide Level 27 mmol/L (21-32) Anion Gap 6 (6-14) Blood Urea Nitrogen 11 mg/dL (7-20) Creatinine 0.9 mg/dL (0.6-1.0) Estimated GFR (Cockcroft-Gault) 72.0 Glucose Level 94 mg/dL (70-99) Calcium Level 8.3 mg/dL (8.5-10.1) Medications Current Medications Lidocaine HCl (Xylocaine-Mpf 1% 2ml Vial) 2 ml 1X ONCE INJ Last administered on 02/05/20at 03:00; Start 02/05/20 at 03:00; Stop 02/05/20 at 03:01; Status DC Ondansetron HCl (Zofran) 4 mg PRN Q8HRS PRN IV NAUSEA/VOMITING 1ST CHOICE Last administered on 02/05/20at 09:00; Start 02/05/20 at 03:00; Stop 02/06/20 at 02:59; Status DC Morphine Sulfate (Morphine Sulfate) 2 mg 1X ONCE IV Last administered on 02/05/20at 04:25; Start 02/05/20 at 05:00; Stop 02/05/20 at 05:01; Status DC Ondansetron HCl (Zofran) 4 mg 1X ONCE IVP Last administered on 02/05/20at 04:25; Start 02/05/20 at 05:00; Stop 02/05/20 at 05:01; Status DC Iohexol (Omnipaque 300 Mg/ml) 400 ml 1X ONCE PO Last administered on 02/05/20at 08:15; Start 02/05/20 at 08:00; Stop 02/05/20 at 08:01; Status DC Info (CONTRAST GIVEN -- Rx MONITORING) 1 each PRN DAILY PRN MC SEE COMMENTS; Start 02/05/20 at 08:00; Stop 02/07/20 at 07:59 Sodium Chloride 1,000 ml @ 75 mls/hr [id number] IV Last administered on 02/06/20at 04:41; Start 02/05/20 at 09:45 Pantoprazole Sodium (PROTONIX VIAL for IV PUSH) 40 mg DAILYAC IVP Last administered on 02/06/20at 07:52; Start 02/05/20 at 13:30 Naproxen (Naprosyn) 250 mg PRN BID PRN PO MODERATE PAIN 4-6 Last administered on 02/06/20at 09:41; Start 02/05/20 at 21:15 Tramadol HCl (Ultram) 50 mg PRN Q8HRS PRN PO MILD TO MODERATE PAIN Last administered on 02/06/20at 11:45; Start 02/06/20 at 10:15 Alprazolam (Xanax) 0.25 mg BID PO Last administered on 02/06/20at 11:45; Start 02/06/20 at 10:15 Gabapentin (Neurontin) 100 mg BID PO Last administered on 02/06/20at 11:45; Start 02/06/20 at 10:15 Midodrine (Proamatine) 5 mg BID@0700,1600 PO Last administered on 02/06/20at 11:42; Start 02/06/20 at 11:00 Zolpidem Tartrate (Ambien) 5 mg HS PO ; Start 02/06/20 at 21:00 Lubiprostone (Amitiza) 24 mcg BIDWMEALS PO ; Start 02/06/20 at 12:00 Non-Formulary Medication (Omeprazole ) 40 mg DAILY PO ; Start 02/07/20 at 09:00; Status UNV Sotalol HCl (Betapace) 60 mg BID PO Last administered on 02/06/20at 11:44; Start 02/06/20 at 11:00 Active Scripts Active Reported Alprazolam 0.25 Mg Tablet 1 Tab PO BID Betapace (Sotalol Hcl) 120 Mg Tablet 0.5 Tab PO BID 30 Days Midodrine Hcl 5 Mg Tablet 5 Mg PO BID Gabapentin (Gabapentin) 100 Mg Capsule 100 Mg PO BID Zolpidem Tartrate 5 Mg Tablet 5 Mg PO HS Omeprazole 40 Mg Capsule.dr 40 Mg PO DAILY Vitals/I & O Vital Sign - Last 24 Hours 02/05/20 02/05/20 02/05/20 02/06/20 14:57 19:00 23:07 03:07 Temp 97.9 97.3 97.4 97.5 97.9 97.3 97.4 97.5 Pulse 71 87 77 75 Resp 18 18 18 16 B/P (MAP) 133/64 (87) 112/57 (75) 118/55 (76) 121/50 (73) Pulse Ox 98 97 95 100 O2 Delivery Room Air Room Air Room Air Room Air 02/06/20 02/06/20 02/06/20 02/06/20 07:00 08:00 11:00 11:42 Temp 97.9 97.4 97.9 97.4 Pulse 76 94 94 Resp 20 18 B/P (MAP) 163/76 (105) 115/63 (80) 115/63 Pulse Ox 100 100 O2 Delivery Room Air Room Air Room Air 02/06/20 02/06/20 02/06/20 11:44 11:45 13:44 Pulse 94 B/P (MAP) 115/63 Pulse Ox 100 O2 Delivery Room Air Room Air Intake and Output 02/05/20 02/05/20 02/06/20 15:00 23:00 07:00 Intake Total 0 ml 1000 ml Balance 0 ml 1000 ml Problem List Problems Medical Problems: (1) Abdominal pain Status: Acute Assessment ABd pain- with partial SBO with adhesions, improved, medical therapy as o/p. Disposition plans per primary Justicifation of Admission Dx: Justifications for Admission: Justification of Admission Dx: Yes BONY WASHINGTON MD Feb 06, 2020 13:51
--- NOTE | 2020-02-06 15:22 | NUR ---
Discharge Note: DAVIS CARVALHO Discharge instructions and discharge home medications reviewed with Patient and a copy given. All questions have been answered and understanding verbalized. The following instructions and handouts were given: discharge instructions, education and follow up recommendations. Discontinued lines and drains: Peripheral IV discontinued intact. Patient discharged to Home or Self Care with Family Member via Wheelchair off unit by OPERATING COST CLERK.
[2020-02-06] MEDS ORDERED: ZOLPIDEM 5 MG TABLET. PO SCH (21:00)
[2020-02-07] MEDS ORDERED: NON FORMULARY ITEM (Omeprazole 40 MG) PO SCH (09:00)
== END 2020-02-06 15:32 | disposition home health service (06) ==
LOC: ER 23:32 → 4 NORTH 02-05 02:58
PROVIDERS: ADMIT Internal Medicine; ATTEND Internal Medicine
DX: K56.600 Partial intestinal obstruction, unspecified as to cause (principal); K56.7 Ileus, unspecified; C50.911 Malignant neoplasm of unspecified site of right female breast; I11.0 Hypertensive heart disease with heart failure; I50.9 Heart failure, unspecified; R11.2 Nausea with vomiting, unspecified; N28.89 Other specified disorders of kidney and ureter; I49.5 Sick sinus syndrome; I49.9 Cardiac arrhythmia, unspecified; F02.80 Dementia in other diseases classified elsewhere, unspecified severity, without behavioral disturbance, psychotic disturbance, mood disturbance, and anxiety; I42.9 Cardiomyopathy, unspecified; I48.91 Unspecified atrial fibrillation; F41.9 Anxiety disorder, unspecified; K57.30 Diverticulosis of large intestine without perforation or abscess without bleeding; K22.70 Barrett's esophagus without dysplasia; M19.90 Unspecified osteoarthritis, unspecified site; E78.00 Pure hypercholesterolemia, unspecified; E78.5 Hyperlipidemia, unspecified; Z95.0 Presence of cardiac pacemaker; Z90.710 Acquired absence of both cervix and uterus; Z98.890 Other specified postprocedural states
CPT/HCPCS: 36415; 36569; 74176; 74250; 80048; 80053; 81001; 83690; 84484; 85025; 85610; 85730; 93005; 96361; 96374; 96375; 96376; 99284; C9113; G0378; J2270; J2405; J3490; J7030; Q9967; G0379

== ENCOUNTER → 2020-02-04 | Outpatient (CLI) | payer MEDICARE ==
[~2020-02-04] MED LIST changes: +ERYT250C33 PO; -ERYT250C8 PO; +LINA72CA PO; +SOTA120T14 PO
--- NOTE | 2020-02-04 17:50 | CARD ---
MR#: [id number] Date of Study: 02/04/2020 Ordering Physician: INEZ MUÑOZ, Referring Physician: INEZ MUÑOZ, Tech: Zara Garces APPROVED REPORT EXAM: Two-dimensional and M-mode echocardiogram with Doppler and color Doppler. Other Information Quality : AverageHR: 82bpm Rhythm : PacemakerTechnically limited study due to body habitus. INDICATION Arrhythmia Surgery/Intervention Pacemaker: Date: 1998 2D DIMENSIONS RVDd2.7 (2.9-3.5cm)Left Atrium(2D)2.9 (1.6-4.0cm) IVSd1.0 (0.7-1.1cm)Aortic Root(2D)3.3 (2.0-3.7cm) LVDd4.2 (3.9-5.9cm)LVOT Diameter2.0 (1.8-2.4cm) PWd0.9 (0.7-1.1cm)LVDs2.7 (2.5-4.0cm) FS (%) 36.8 %SV54.1 ml LVEF(%)67.0 (>50%) Aortic Valve AoV Peak Arnaldo.88.4cm/sAoV VTI19.3cm AO Peak GR.3.1mmHgLVOT Peak Arnaldo.57.2cm/s LVOT VTI 12.11cmAO Mean GR.2mmHg YOHANNES (VMAX)1.04ny2SEL (VTI)1.97cm2 Pulmonary Valve PV Peak Wsyfpywv04.7cm/sPV Peak Grad.2mmHg Tricuspid Valve TR P. Ahigbmlh235fm/sRAP [id number] TR Peak Gr.[id number] LEFT VENTRICLE The left ventricle is normal size. There is normal left ventricular wall thickness. The left ventricu lar systolic function is normal and the ejection fraction is within normal range. The Ejection Fracti on is 55-60%. Septal motion consistent with conduction abnormality. Transmitral Doppler flow pattern is Grade I-abnormal relaxation pattern. RIGHT VENTRICLE The right ventricle is normal size. There is normal right ventricular wall thickness. The right ventr icular systolic function is normal. There is a pacemaker lead in the right ventricle. ATRIA The left atrium size is normal. The right atrium size is normal. The interatrial septum is intact wit h no evidence for an atrial septal defect or patent foramen ovale as noted on 2-D or Doppler imaging. AORTIC VALVE The aortic valve is calcified but opens well. Doppler and Color Flow revealed no significant aortic r egurgitation. Calculated aortic valve area is 2.0 cm2 with maximum pressure gradient of 4 mmHg and me an pressure gradient of 2 mmHg. There is no significant aortic valvular stenosis. MITRAL VALVE The mitral valve is thickened but opens well. There is no evidence of mitral valve prolapse. There is no mitral valve stenosis. Doppler and Color Flow revealed no mitral valve regurgitation noted. TRICUSPID VALVE The tricuspid valve is normal in structure and function. Doppler and Color Flow revealed trace to mil d tricuspid regurgitation with an estimated PAP of 29 mmHg. There is no tricuspid valve stenosis. PULMONIC VALVE The pulmonic valve is not well visualized. Doppler and Color Flow revealed no pulmonic valvular regur gitation. There is no pulmonic valvular stenosis. GREAT VESSELS The aortic root is normal in size. The IVC is normal in size and collapses >50% with inspiration. PERICARDIAL EFFUSION There is no evidence of significant pericardial effusion. Critical Notification Critical Value: No <Conclusion> The left ventricular systolic function is normal and the ejection fraction is within normal range. Th e Ejection Fraction is 55-60%. Septal motion consistent with conduction abnormality. There is a pacemaker lead in the right ventricle. Signed by : Inez Muñoz, Electronically Approved : 02/04/2020 17:50:11
== END | disposition home or self-care (01) ==
LOC: ECHO 08:38
PROVIDERS: ATTEND Internal Medicine Cardiovascular Disease
DX: I07.1 Rheumatic tricuspid insufficiency (principal); I42.9 Cardiomyopathy, unspecified
CPT/HCPCS: 93306

== ENCOUNTER 2020-02-20 12:37 | Inpatient (IN) | payer MEDICARE ==
[~2020-02-20] VITALS: Ht 165.1 cm; Wt 69.3 kg
[~2020-02-20 12:37] MED LIST changes: +LINA72CA PO; +SOTA120T14 PO
--- NOTE | 2020-02-20 12:58 | PHYS DOC ---
Past Medical History Past Medical History: A-Fib, Anxiety, Arthritis, Cancer, CHF, Constipation, GERD, High Cholesterol Additional Past Medical Histor: lower ext swelling, pacemaker, CANCER OF RT BREAST Past Surgical History: Cholecystectomy, Hysterectomy, Pacemaker Additional Past Surgical Histo: R breast surgery (lumpectomy), L shoulder sx, hemmorhoidectomy,L shoulder Smoking Status: Former Smoker Alcohol Use: None Drug Use: None General Adult HPI: HPI: Patient is a 84 year old female who presents with was walking from her car into [place] [employer] when she began having chest pain and dizziness and felt lightheaded. She states when she sat down that all the symptoms went away. She states by time EMS got there she had no symptoms at all. She denies being on any kind of blood thinner. She does have a pacemaker and she is atrially paced with sinus rhythm and no STEMI at this time. Patient at this time has no compla ints. Denies any pain, shortness of breath, chest pain, headache, dizziness, vision changes, numbness or tingling, fevers,., Abdominal pain, nausea, vomiting, diarrhea, constipation. Patient has a history of CHF, A. fib, pacemaker, high cholesterol, cholecystectomy, hysterectomy, syncopal episode, dizziness, shortness of breath on exertion, right sided breast cancer, partial bowel obstruction, UTI, GERD. Review of Systems: Review of Systems: Constitutional: Denies fever or chills. [] Eyes: Denies change in visual acuity. [] HENT: Denies nasal congestion or sore throat. [] Respiratory: Denies cough. +shortness of breath. [] Cardiovascular: chest pain or edema. [] GI: Denies abdominal pain, nausea, vomiting, bloody stools or diarrhea. [] : Denies dysuria. [] Musculoskeletal: Denies back pain or joint pain. [] Integument: Denies rash. [] Neurologic: Dizziness. Denies headache, focal weakness or sensory changes. [] Endocrine: Denies polyuria or polydipsia. [] Lymphatic: Denies swollen glands. [] Psychiatric: Denies depression or anxiety. [] Heart Score: HEART Score for Chest Pain: HEART Score for Chest Pain Response (Comments) Value History Slighlty/Non-Suspicious 0 ECG Nonspecific Repolarizatio 1 Age > 65 2 Risk Factors >3 Risk Factors or Hx CAD 2 Troponin < Normal Limit 0 Total 5 Risk Factors: Risk Factors: DM, Current or recent (<one month) smoker, HTN, HLP, family history of CAD, obesity. Risk Scores: Score 0 - 3: 2.5% MACE over next 6 weeks - Discharge Home Score 4 - 6: 20.3% MACE over next 6 weeks - Admit for Clinical Observation Score 7 - 10: 72.7% MACE over next 6 weeks - Early Invasive Strategies Allergies: Allergies: Allergies Coded Allergies Type Severity Reaction Last Updated Verified Penicillins Allergy Intermediate Rash 09/16/19 Yes atorvastatin Allergy Intermediate 12/29/19 Yes tetracycline Allergy Intermediate rash 09/16/19 Yes codeine Adverse Reaction Intermediate nausea & vomiting 09/16/19 Yes fentanyl Adverse Reaction Intermediate Nausea and Vomiting 09/17/19 Yes hydrocodone Adverse Reaction Intermediate Nausea and Vomiting 09/16/19 Yes iron Adverse Reaction Intermediate Nausea and Vomiting, iron tablets the oral dose only 09/16/19 Yes Physical Exam: PE: Constitutional: Well developed, well nourished, no acute distress, non-toxic appearance. [] HENT: Normocephalic, atraumatic, bilateral external ears normal, oropharynx moist, no oral exudates, nose normal. [] Eyes: PERRLA, EOMI, conjunctiva normal, no discharge. [] Neck: Normal range of motion, no tenderness, supple, no stridor. [] Cardiovascular: Atrial paced, heart rate regular rhythm, no murmur [] Lungs & Thorax: Bilateral breath sounds clear to auscultation [] Abdomen: Bowel sounds normal, soft, no tenderness, no masses, no pulsatile masses. [] Skin: Warm, dry, no erythema, no rash. [] Back: No tenderness, no CVA tenderness. [] Extremities: No tenderness, no cyanosis, no clubbing, ROM intact, bilateral lower 1+ nonpitting edema. [] Neurologic: Alert and oriented X 3, normal motor function, normal sensory function, no focal deficits noted. [] Psychologic: Affect normal, judgement normal, mood normal. [] EKG: EK and read by Dr Platt. Sinus atrial paced rhythm and no STEMI [] Radiology/Procedures: Radiology/Procedures: [] Impression: [facility] [address] [place] [address] IMAGING REPORT Signed PATIENT: DAVIS CARVALHO JACCOUNT: [id number] : 1935 LOCATION: ER AGE: 84 SEX: F EXAM STATUS: REG ER ORD. PHYSICIAN: JOCELYNN SILVA APRN REASON: chest pain PROCEDURE: PORTABLE CHEST 1V AP chest. HISTORY: Chest pain AP view was taken of the chest. Heart is normal in size. 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 Left pacemaker is unchanged. Lungs are free of infiltrates. There is no effusion. IMPRESSION: 1. No acute infiltrates or acute chest disease. Electronically signed by: Juan Lovell MD (02/20/2020 1:47 PM) [id number] DICTATED and SIGNED BY: JUAN LOVELL MD DATE: 02/20/20 1347 Course & Med Decision Making: Course & Med Decision Making Pertinent Labs and Imaging studies reviewed. (See chart for details) Alert and oriented. Speaks in full clear sentences. Moving all extremities within normal limits. She is ambulatory with a steady gait. Skin pink warm and dry. See HPI. 1+ bilateral lower extremity edema without pitting. PERRLA. [] Dragon Disclaimer: Dragon Disclaimer: This electronic medical record was generated, in whole or in part, using a voice recognition dictation system. NIHSS Stroke Scale NIH Stroke Scale: NIH Stroke Scale Response (Comments) Value Level of Consciousness: 0 Alert/Responsive 0 LOC Questions: 0 Answers both correctly 0 LOC Commands: 0 Performs both tasks 0 Best Gaze: 0 Normal 0 Visual: 0 No visual loss 0 Facial Palsy: 0 Normal, symmetrical 0 Motor - Left Arm 0 No drift 0 Motor - Right Arm 0 No drift 0 Motor - Left Leg 0 No drift 0 Motor: Right Leg 0 No drift 0 Limb Ataxia: 0 Absent 0 Sensory: 0 No loss 0 Best Language: 0 Normal 0 Dysathria: 0 Normal 0 Extinction and Inattention: 0 Normal 0 Total 0 Departure Departure Impression: Primary Impression: Chest pain Qualified Codes: R07.9 - Chest pain, unspecified Disposition: ADMITTED INPATIENT Admitting Physician: TEJINDER Condition: STABLE Referrals: SHOLA SOLO MD (PCP) Justicifation of Admission Dx: Justifications for Admission: Justification of Admission Dx: Yes JOCELYNN SILVA KILN [employer] Feb 20, 2020 12:57
--- NOTE | 2020-02-20 13:50 | RAD ---
AP chest. HISTORY: Chest pain AP view was taken of the chest. Heart is normal in size. 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 Left pacemaker is unchanged. Lungs are free of infiltrates. There is no effusion. IMPRESSION: 1. No acute infiltrates or acute chest disease. Electronically signed by: Juan Lovell MD (02/20/2020 1:47 PM) [id number]
--- NOTE | 2020-02-20 14:12 | RAD ---
CT HEAD WO CONTRAST History:Dizziness Comparison: January 06, 2018 Technique: Noncontrast CT imaging was performed of the head. Exposure: One or more of the following individualized dose reduction techniques were utilized for this examination: 1. Automated exposure control 2. Adjustment of the mA and/or kV according to patient size 3. Use of iterative reconstruction technique. Findings: No acute extra-axial or parenchymal hemorrhage is identified. There is no significant intra-axial mass effect, midline shift, or extra-axial fluid collection. The frye-white differentiation of the major vascular territories is preserved. There is again focus of right frontal region extra-axial calcification 1.4 cm transverse by 0.7 cm AP oblique dimensions, overall similar without new significant associated soft tissue mass. There is again some patchy ill-defined low-density of the supratentorial parenchyma bilaterally fairly similar. The ventricles, sulci, and cisterns are within normal limits in size and configuration. The mastoid air cells and the visualized paranasal sinuses are aerated. No acute calvarial abnormality is identified. There is atherosclerotic calcification of the carotid siphons bilaterally. Impression: 1. No acute intracranial abnormality is identified. There is again some patchy ill-defined low-density of the superficial parenchyma, nonspecific findings more commonly due to chronic microvascular ischemic disease in a patient this age. Electronically signed by: Blayne Lee MD (02/20/2020 2:09 PM) [place] [id number]
[2020-02-20 14:13] LABS: BILIRUBIN,URINE NEGATIVE (NEG); CLARITY,URINE CLEAR; COLOR,URINE YELLOW; NITRITE,URINE NEGATIVE (NEG); PH,URINE 6.5 (<5.0-8.0); PROTEIN,URINE NEGATIVE (NEG-TRACE)
[2020-02-20 14:24] LABS: BACTERIA,URINE MANY /HPF (0-FEW); HYALINE CASTS, URINE OCCASIONAL /HPF; RBC,URINE RARE /HPF (0-2); SQUAMOUS EPITHELIAL CELL,UR MANY /LPF
[2020-02-20 14:42] LABS: BASO % 1 % (0-3); EOS % 1 % (0-3); HEMATOCRIT 30.6 % (36.0-47.0); HEMOGLOBIN 10.6 g/dL (12.0-15.5); LYMPH % 37 % (24-48); MEAN CORPUSCULAR HEMOGLOBIN 28 pg (25-35); MEAN CORPUSCULAR HGB CONC 35 g/dL (31-37); MEAN CORPUSCULAR VOLUME 81 fL (79-100); MONO # 0.3 x10^3/uL (0.0-1.1); MONO % 13 % (0-9); NEUT # 1.3 x10^3/uL (1.8-7.7); NEUT % 49 % (31-73); PLATELET COUNT 182 x10^3/uL (140-400); RED CELL DISTRIBUTION WIDTH 15.2 % (11.5-14.5); WHITE BLOOD COUNT 2.7 x10^3/uL (4.0-11.0)
[2020-02-20 15:03] LABS: GFR 63.8; POTASSIUM 4.3 mmol/L (3.5-5.1)
[2020-02-20 15:10] LABS: ALBUMIN 3.6 g/dL (3.4-5.0); ALBUMIN/GLOBULIN RATIO 1.1 (1.0-1.7); TOTAL BILIRUBIN 0.7 mg/dL (0.2-1.0); TOTAL PROTEIN 6.8 g/dL (6.4-8.2)
[2020-02-20] MEDS ORDERED: ONDANSETRON PF 4 MG/2 ML VIAL. IV PRN (15:30)
[2020-02-20] MEDS ORDERED: NITROGLYCERIN SUBLINGUAL 0.4 MG BOTTLE OF 25. SL PRN (15:30)
--- NOTE | 2020-02-20 17:53 | PDOC1 ---
History and Physical Date of Admission Date of Admission DATE: 02/20/20 TIME: 17:45 Identification/Chief Complaint Chief Complaint chest pain History of Present Illness History of Present Illness 84 year old hx of SSS s/p PPM, HTN, breast cancer recently dx s/p radiation treatment, dementia, HLD who presents with chest pain. patient was walking from her car into [place] [employer] [place] when she began having chest pain and dizziness and felt lightheaded. states it was really hot when she started to experience the chest pain. when she sat down that all the symptoms went away. symptoms resolved by the time EMS arrived. no sob, GI symptoms. recent admission in December for partial small bowel obstruction. trop negative in ED. EKG reviewed and no STEMI. hospitalist called for admission for ACS rule out Past Medical History Cardiovascular: AFIB, CAD, CHF, HTN, Other Pulmonary: Other CENTRAL NERVOUS SYSTEM: Other GI: Constipation, GERD, Other Heme/Onc: Iron deficiency Anemia Hepatobiliary: Cholelithiasis Psych: Depression Musculoskeletal: low back pain, Osteoarthritis Past Surgical History Past Surgical History: Pacemaker, Cholecystectomy, Cataract Removal, Other Family History Family History reviewed and denies Social History Smoke: No ALCOHOL: none Drugs: None Current Medications Current Medications Current Medications Ondansetron HCl (Zofran) 4 mg PRN Q8HRS PRN IV NAUSEA/VOMITING; Start 02/20/20 at 15:30; Stop 02/21/20 at 15:29 Nitroglycerin (Nitrostat) 0.4 mg PRN Q5MIN PRN SL CHEST PAIN; Start 02/20/20 at 15:30; Stop 02/21/20 at 15:29 Alprazolam (Xanax) 0.25 mg BID PO ; Start 02/20/20 at 21:00 Gabapentin (Neurontin) 100 mg BID PO ; Start 02/20/20 at 21:00 Midodrine (Proamatine) 5 mg BID PO ; Start 02/20/20 at 21:00 Zolpidem Tartrate (Ambien) 5 mg HS PO ; Start 02/20/20 at 21:00 Pantoprazole Sodium (Protonix) 40 mg DAILYAC PO ; Start 02/21/20 at 07:30 Sotalol HCl (Betapace) 60 mg BID PO ; Start 02/20/20 at 21:00 Acetaminophen (Tylenol) 650 mg PRN Q6HRS PRN PO fever and pain; Start 02/20/20 at 17:00 Active Scripts Active Reported Alprazolam 0.25 Mg Tablet 1 Tab PO BID Betapace (Sotalol Hcl) 120 Mg Tablet 0.5 Tab PO BID 30 Days Midodrine Hcl 5 Mg Tablet 5 Mg PO BID Gabapentin (Gabapentin) 100 Mg Capsule 100 Mg PO BID Zolpidem Tartrate 5 Mg Tablet 5 Mg PO HS Omeprazole 40 Mg Capsule.dr 40 Mg PO DAILY Allergies Allergies: Coded Allergies: Penicillins (Verified Allergy, Intermediate, Rash, 09/16/19) tolerates cephalasporins atorvastatin (Verified Allergy, Intermediate, 12/29/19) tetracycline (Verified Allergy, Intermediate, rash, 09/16/19) codeine (Verified Adverse Reaction, Intermediate, nausea & vomiting, 09/16/19) fentanyl (Verified Adverse Reaction, Intermediate, Nausea and Vomiting, 09/17/19) hydrocodone (Verified Adverse Reaction, Intermediate, Nausea and Vomiting, 09/16/19) iron (Verified Adverse Reaction, Intermediate, Nausea and Vomiting, iron tablets the oral dose only, 09/16/19) ROS Review of System CONSTITUTIONAL: No fever or chills EYES: No recent changes SKIN: No rash or itching CARDIOVASCULAR: No chest pain, syncope, palpitations, or edema RESPIRATORY: No SOB or cough GASTROINTESTINAL: No nausea, vomiting or abdominal pain NEUROLOGICAL: No headaches or weakness ENDOCRINE: No cold or heat intolerance GENITOURINARY: No urgency or frequency of urination MUSCULOSKELETAL: No back pain or joint pain LYMPHATICS: No enlarged lymph nodes PSYCHIATRIC: No anxiety or depression Physical Exam Physical Exam GENERAL: No apparent distress. Alert and oriented. HEENT: Head normocephalic, atraumatic. NECK: Supple LUNGS: Clear to auscultation. HEART: RRR, S1, S2 present, pulses intact ABDOMEN: Soft, positive bowel sounds. EXTREMITIES: No cyanosis or edema. NEUROLOGIC: Normal speech, normal tone PSYCHIATRIC: Normal affect, normal mood. SKIN: No ulceration. Vitals Vitals Vital Signs Date Time Temp Pulse Resp B/P (MAP) Pulse Ox O2 Delivery O2 Flow Rate FiO2 02/20/20 13:06 98.4 89 20 151/72 (98) 100 Room Air 98.4 Labs Labs Laboratory Tests Test 02/20/20 14:03 02/20/20 14:25 Urine Collection Type Unknown Urine Color Yellow Urine Clarity Clear Urine pH 6.5 (<5.0-8.0) Urine Specific [place] 1.010 (1.000-1.030) Urine Protein Negative mg/dL (NEG-TRACE) Urine Glucose (UA) Negative mg/dL (NEG) Urine Ketones (Stick) Negative mg/dL (NEG) Urine Blood Negative (NEG) Urine Nitrite Negative (NEG) Urine Bilirubin Negative (NEG) Urine Urobilinogen Dipstick 1.0 mg/dL (0.2 mg/dL) Urine Leukocyte Esterase Trace (NEG) Urine RBC Rare /HPF (0-2) Urine WBC 1-4 /HPF (0-4) Urine Squamous Epithelial Cells Many /LPF Urine Bacteria Many /HPF (0-FEW) Urine Hyaline Casts Occasional /HPF White Blood Count 2.7 x10^3/uL (4.0-11.0) Red Blood Count 3.80 x10^6/uL (3.50-5.40) Hemoglobin 10.6 g/dL (12.0-15.5) Hematocrit 30.6 % (36.0-47.0) Mean Corpuscular Volume 81 fL (79-100) Mean Corpuscular Hemoglobin 28 pg (25-35) Mean Corpuscular Hemoglobin Concent 35 g/dL (31-37) Red Cell Distribution Width 15.2 % (11.5-14.5) Platelet Count 182 x10^3/uL (140-400) Neutrophils (%) (Auto) 49 % (31-73) Lymphocytes (%) (Auto) 37 % (24-48) Monocytes (%) (Auto) 13 % (0-9) Eosinophils (%) (Auto) 1 % (0-3) Basophils (%) (Auto) 1 % (0-3) Neutrophils # (Auto) 1.3 x10^3/uL (1.8-7.7) Lymphocytes # (Auto) 1.0 x10^3/uL (1.0-4.8) Monocytes # (Auto) 0.3 x10^3/uL (0.0-1.1) Eosinophils # (Auto) 0.0 x10^3/uL (0.0-0.7) Basophils # (Auto) 0.0 x10^3/uL (0.0-0.2) Prothrombin Time 14.0 SEC (11.7-14.0) Prothromb Time International Ratio 1.1 (0.8-1.1) Sodium Level 132 mmol/L (136-145) Potassium Level 4.3 mmol/L (3.5-5.1) Chloride Level 99 mmol/L (98-107) Carbon Dioxide Level 27 mmol/L (21-32) Anion Gap 6 (6-14) Blood Urea Nitrogen 11 mg/dL (7-20) Creatinine 1.0 mg/dL (0.6-1.0) Estimated GFR (Cockcroft-Gault) 63.8 BUN/Creatinine Ratio 11 (6-20) Glucose Level 89 mg/dL (70-99) Calcium Level 9.0 mg/dL (8.5-10.1) Total Bilirubin 0.7 mg/dL (0.2-1.0) Aspartate Amino Transf (AST/SGOT) 14 U/L (15-37) Alanine Aminotransferase (ALT/SGPT) 14 U/L (14-59) Alkaline Phosphatase 56 U/L (46-116) Troponin I Quantitative < 0.017 ng/mL (0.000-0.055) BS-Pea-E-Type Natriuretic Peptide 150 pg/mL (0-449) Total Protein 6.8 g/dL (6.4-8.2) Albumin 3.6 g/dL (3.4-5.0) Albumin/Globulin Ratio 1.1 (1.0-1.7) Laboratory Tests Test 02/20/20 14:03 02/20/20 14:25 Urine Collection Type Unknown Urine Color Yellow Urine Clarity Clear Urine pH 6.5 (<5.0-8.0) Urine Specific [place] 1.010 (1.000-1.030) Urine Protein Negative mg/dL (NEG-TRACE) Urine Glucose (UA) Negative mg/dL (NEG) Urine Ketones (Stick) Negative mg/dL (NEG) Urine Blood Negative (NEG) Urine Nitrite Negative (NEG) Urine Bilirubin Negative (NEG) Urine Urobilinogen Dipstick 1.0 mg/dL (0.2 mg/dL) Urine Leukocyte Esterase Trace (NEG) Urine RBC Rare /HPF (0-2) Urine WBC 1-4 /HPF (0-4) Urine Squamous Epithelial Cells Many /LPF Urine Bacteria Many /HPF (0-FEW) Urine Hyaline Casts Occasional /HPF White Blood Count 2.7 x10^3/uL (4.0-11.0) Red Blood Count 3.80 x10^6/uL (3.50-5.40) Hemoglobin 10.6 g/dL (12.0-15.5) Hematocrit 30.6 % (36.0-47.0) Mean Corpuscular Volume 81 fL (79-100) Mean Corpuscular Hemoglobin 28 pg (25-35) Mean Corpuscular Hemoglobin Concent 35 g/dL (31-37) Red Cell Distribution Width 15.2 % (11.5-14.5) Platelet Count 182 x10^3/uL (140-400) Neutrophils (%) (Auto) 49 % (31-73) Lymphocytes (%) (Auto) 37 % (24-48) Monocytes (%) (Auto) 13 % (0-9) Eosinophils (%) (Auto) 1 % (0-3) Basophils (%) (Auto) 1 % (0-3) Neutrophils # (Auto) 1.3 x10^3/uL (1.8-7.7) Lymphocytes # (Auto) 1.0 x10^3/uL (1.0-4.8) Monocytes # (Auto) 0.3 x10^3/uL (0.0-1.1) Eosinophils # (Auto) 0.0 x10^3/uL (0.0-0.7) Basophils # (Auto) 0.0 x10^3/uL (0.0-0.2) Prothrombin Time 14.0 SEC (11.7-14.0) Prothromb Time International Ratio 1.1 (0.8-1.1) Sodium Level 132 mmol/L (136-145) Potassium Level 4.3 mmol/L (3.5-5.1) Chloride Level 99 mmol/L (98-107) Carbon Dioxide Level 27 mmol/L (21-32) Anion Gap 6 (6-14) Blood Urea Nitrogen 11 mg/dL (7-20) Creatinine 1.0 mg/dL (0.6-1.0) Estimated GFR (Cockcroft-Gault) 63.8 BUN/Creatinine Ratio 11 (6-20) Glucose Level 89 mg/dL (70-99) Calcium Level 9.0 mg/dL (8.5-10.1) Total Bilirubin 0.7 mg/dL (0.2-1.0) Aspartate Amino Transf (AST/SGOT) 14 U/L (15-37) Alanine Aminotransferase (ALT/SGPT) 14 U/L (14-59) Alkaline Phosphatase 56 U/L (46-116) Troponin I Quantitative < 0.017 ng/mL (0.000-0.055) DC-Awt-B-Type Natriuretic Peptide 150 pg/mL (0-449) Total Protein 6.8 g/dL (6.4-8.2) Albumin 3.6 g/dL (3.4-5.0) Albumin/Globulin Ratio 1.1 (1.0-1.7) VTE Prophylaxis Ordered VTE Prophylaxis Devices: No VTE Pharmacological Prophylaxi: Yes Assessment/Plan Assessment/Plan ASSESSMENT Chest Pain, ACS rule out SSS s/p pacer HTN breast cancer recently dx s/p radiation treatment dementia HLD PLAN admit to tele check 2decho follow trops check TSH, lipids, a1c cards consult resume home meds including sotalol dvt ppx: ambulatory FULL CODE dispo pending cardiac work up. Justicifation of Admission Dx: Justifications for Admission: Justification of Admission Dx: Yes HARDEEP PHILIP MD Feb 20, 2020 17:52
--- NOTE | 2020-02-20 18:02 | NUR ---
Pt received report from AGUSTIN Romero in ER at 1730. Pt arrived on unit to room 261 by bed at 1800. Pt resting in bed comfortably, denies any pain at this time. Tele applied, pt sinus tachy on the monitor. Pt has no IV site. AGUSTIN Romero reported to this RN that they were unable to get an EJ placed in the ER. Clotilde, nursing fishing tool supervisor notified. Clotilde, nursing fishing tool supervisor to try when available.
[2020-02-20 18:19] VITALS: BP 157/74
--- NOTE | 2020-02-20 18:54 | NUR ---
Meal tray ordered and water pitcher given to pt. Pt in bed eating dinner.
--- NOTE | 2020-02-20 20:00 | NUR ---
Mft AGUSTIN Mabry attempted to start IV on Patient unable to, Patient is a hard stick Anesthesia was called.
[2020-02-20] MEDS: GABAPENTIN 100 MG CAPSULE. PO SCH (21:00)
[2020-02-20] MEDS: MIDODRINE 5 MG TABLET PO SCH (21:00)
--- NOTE | 2020-02-20 21:00 | NUR ---
Ruben Morales, DISPATCHER RADIO from Anesthesia came by to attempt IV also unable to start IV will inform MD to see what MD would like to do.
[2020-02-20] MEDS: ZOLPIDEM 5 MG TABLET. PO SCH (21:39)
[2020-02-20] MEDS: SOTALOL 80 MG TABLET. PO SCH (21:40)
[2020-02-20] MEDS: ALPRAZolam 0.25 MG TABLET PO SCH (21:40)
[2020-02-20 22:14] LABS: CHOLESTEROL/HDL RATIO 3.7
--- NOTE | 2020-02-20 23:38 | NUR ---
Spoke with Dr. Amezcua regarding unable to get an IV in Patient x5 attempt at this time, since Patient is stable He said to just monitor her for now.
[2020-02-20 23:42] VITALS: BP 127/63
[2020-02-21 03:00] VITALS: BP 129/64
[2020-02-21 07:00] VITALS: BP 128/81
[2020-02-21] MEDS: PANTOPRAZOLE 40 MG TABLET.DR. PO SCH (08:19)
[2020-02-21] MEDS: MIDODRINE 5 MG TABLET PO SCH ×2 (09:21→21:23)
[2020-02-21] MEDS: GABAPENTIN 100 MG CAPSULE. PO SCH ×2 (09:21→21:00)
[2020-02-21] MEDS: SOTALOL 80 MG TABLET. PO SCH ×2 (09:22→21:22)
[2020-02-21] MEDS: ALPRAZolam 0.25 MG TABLET PO SCH ×2 (09:23→21:22)
[2020-02-21 11:00] VITALS: BP 128/68
--- NOTE | 2020-02-21 11:04 | PDOC ---
PROGRESS NOTES History of Present Illness History of Present Illness VTE Prophylaxis Ordered VTE Prophylaxis Devices: No VTE Pharmacological Prophylaxi: Yes impression Assessment/Plan ASSESSMENT Chest Pain, ACS rule out SSS s/p pacer HTN, labile breast cancer recently dx s/p radiation treatment HEAT RELATED SYMPTOMS WITH DIZZINESS dementia HLD dizziness on ct head , ill-defined low-density of the superficial parenchyma, nonspecific findings more commonly due to chronic microvascular ischemic disease in a patient this age. PLAN cvc bed check 2decho follow trops check TSH, lipids, a1c cards consult resume home meds including sotalol dvt ppx: ambulatory FULL CODE dispo pending cardiac work up. COOLING, AVOID HIGH TEMPS ORALLY HYDRATE pt/ot D/W RN Justicifation of Admission Dx: Justicifation of Admission Dx: Justifications for Admission: Justification of Admission Dx: Yes Vitals Vitals Vital Signs Date Time Temp Pulse Resp B/P (MAP) Pulse Ox O2 Delivery O2 Flow Rate FiO2 02/21/20 09:22 75 02/21/20 09:21 128/81 02/21/20 07:00 97.7 18 96 Room Air 97.7 Physical Exam Physical Exam Physical Exam GENERAL: . Alert and oriented. HEENT: Head normocephalic, atraumatic. NECK: Supple LUNGS: Clear to auscultation. HEART: RRR, S1, S2 present, pulses intact ABDOMEN: Soft, positive bowel sounds. EXTREMITIES: No cyanosis or edema. NEUROLOGIC: Normal speech, normal tone PSYCHIATRIC: Normal affect, normal mood. SKIN: No ulceration.cool , good capillary refill General: Alert, Oriented X3, Cooperative, No acute distress Heart: Regular rate Lungs: Clear Abdomen: Normal bowel sounds, Soft Extremities: No cyanosis Labs LABS CT HEAD WO CONTRAST History:Dizziness Comparison: January 06, 2018 Technique: Noncontrast CT imaging was performed of the head. Exposure: One or more of the following individualized dose reduction techniques were utilized for this examination: 1. Automated exposure control 2. Adjustment of the mA and/or kV according to patient size 3. Use of iterative reconstruction technique. Findings: No acute extra-axial or parenchymal hemorrhage is identified. There is no significant intra-axial mass effect, midline shift, or extra-axial fluid collection. The frye-white differentiation of the major vascular territories is preserved. There is again focus of right frontal region extra-axial calcification 1.4 cm transverse by 0.7 cm AP oblique dimensions, overall similar without new significant associated soft tissue mass. There is again some patchy ill-defined low-density of the supratentorial parenchyma bilaterally fairly similar. The ventricles, sulci, and cisterns are within normal limits in size and configuration. The mastoid air cells and the visualized paranasal sinuses are aerated. No acute calvarial abnormality is identified. There is atherosclerotic calcification of the carotid siphons bilaterally. Impression: 1. No acute intracranial abnormality is identified. There is again some patchy ill-defined low-density of the superficial parenchyma, nonspecific findings more commonly due to chronic microvascular ischemic disease in a patient this age. Electronically signed by: Bernabe Johnson MD (02/20/2020 2:09 PM) [id number] DICTATED and SIGNED BY: BERNABE JOHNSON MD DATE: 02/20/20 1409 AP chest. HISTORY: Chest pain AP view was taken of the chest. Heart is normal in size. 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 Left pacemaker is unchanged. Lungs are free of infiltrates. There is no effusion. IMPRESSION: 1. No acute infiltrates or acute chest disease. Electronically signed by: Juan Lovell MD (02/20/2020 1:47 PM) [id number] DICTATED and SIGNED BY: JUAN LOVELL MD DATE: 02/20/20 1347 Laboratory Tests Test 02/20/20 14:03 02/20/20 14:25 02/20/20 21:30 Urine Collection Type Unknown Urine Color Yellow Urine Clarity Clear Urine pH 6.5 (<5.0-8.0) Urine Specific Sullivan 1.010 (1.000-1.030) Urine Protein Negative mg/dL (NEG-TRACE) Urine Glucose (UA) Negative mg/dL (NEG) Urine Ketones (Stick) Negative mg/dL (NEG) Urine Blood Negative (NEG) Urine Nitrite Negative (NEG) Urine Bilirubin Negative (NEG) Urine Urobilinogen Dipstick 1.0 mg/dL (0.2 mg/dL) Urine Leukocyte Esterase Trace (NEG) Urine RBC Rare /HPF (0-2) Urine WBC 1-4 /HPF (0-4) Urine Squamous Epithelial Cells Many /LPF Urine Bacteria Many /HPF (0-FEW) Urine Hyaline Casts Occasional /HPF White Blood Count 2.7 x10^3/uL (4.0-11.0) Red Blood Count 3.80 x10^6/uL (3.50-5.40) Hemoglobin 10.6 g/dL (12.0-15.5) Hematocrit 30.6 % (36.0-47.0) Mean Corpuscular Volume 81 fL (79-100) Mean Corpuscular Hemoglobin 28 pg (25-35) Mean Corpuscular Hemoglobin Concent 35 g/dL (31-37) Red Cell Distribution Width 15.2 % (11.5-14.5) Platelet Count 182 x10^3/uL (140-400) Neutrophils (%) (Auto) 49 % (31-73) Lymphocytes (%) (Auto) 37 % (24-48) Monocytes (%) (Auto) 13 % (0-9) Eosinophils (%) (Auto) 1 % (0-3) Basophils (%) (Auto) 1 % (0-3) Neutrophils # (Auto) 1.3 x10^3/uL (1.8-7.7) Lymphocytes # (Auto) 1.0 x10^3/uL (1.0-4.8) Monocytes # (Auto) 0.3 x10^3/uL (0.0-1.1) Eosinophils # (Auto) 0.0 x10^3/uL (0.0-0.7) Basophils # (Auto) 0.0 x10^3/uL (0.0-0.2) Prothrombin Time 14.0 SEC (11.7-14.0) Prothromb Time International Ratio 1.1 (0.8-1.1) Sodium Level 132 mmol/L (136-145) Potassium Level 4.3 mmol/L (3.5-5.1) Chloride Level 99 mmol/L (98-107) Carbon Dioxide Level 27 mmol/L (21-32) Anion Gap 6 (6-14) Blood Urea Nitrogen 11 mg/dL (7-20) Creatinine 1.0 mg/dL (0.6-1.0) Estimated GFR (Cockcroft-Gault) 63.8 BUN/Creatinine Ratio 11 (6-20) Glucose Level 89 mg/dL (70-99) Calcium Level 9.0 mg/dL (8.5-10.1) Total Bilirubin 0.7 mg/dL (0.2-1.0) Aspartate Amino Transf (AST/SGOT) 14 U/L (15-37) Alanine Aminotransferase (ALT/SGPT) 14 U/L (14-59) Alkaline Phosphatase 56 U/L (46-116) Troponin I Quantitative < 0.017 ng/mL (0.000-0.055) < 0.017 ng/mL (0.000-0.055) GA-Qno-T-Type Natriuretic Peptide 150 pg/mL (0-449) Total Protein 6.8 g/dL (6.4-8.2) Albumin 3.6 g/dL (3.4-5.0) Albumin/Globulin Ratio 1.1 (1.0-1.7) Triglycerides Level 49 mg/dL (0-150) Cholesterol Level 226 mg/dL (0-200) LDL Cholesterol, Calculated 155 mg/dL (0-100) VLDL Cholesterol, Calculated 10 mg/dL (0-40) Non-HDL Cholesterol Calculated 165 mg/dL (0-129) HDL Cholesterol 61 mg/dL (40-60) Cholesterol/HDL Ratio 3.7 Thyroid Stimulating Hormone (TSH) 1.227 uIU/mL (0.358-3.74) Comment Review of Relevant I have reviewed the following items wade (where applicable) has been applied. Labs Laboratory Tests Test 02/20/20 14:03 02/20/20 14:25 02/20/20 21:30 Urine Collection Type Unknown Urine Color Yellow Urine Clarity Clear Urine pH 6.5 (<5.0-8.0) Urine Specific Sullivan 1.010 (1.000-1.030) Urine Protein Negative mg/dL (NEG-TRACE) Urine Glucose (UA) Negative mg/dL (NEG) Urine Ketones (Stick) Negative mg/dL (NEG) Urine Blood Negative (NEG) Urine Nitrite Negative (NEG) Urine Bilirubin Negative (NEG) Urine Urobilinogen Dipstick 1.0 mg/dL (0.2 mg/dL) Urine Leukocyte Esterase Trace (NEG) Urine RBC Rare /HPF (0-2) Urine WBC 1-4 /HPF (0-4) Urine Squamous Epithelial Cells Many /LPF Urine Bacteria Many /HPF (0-FEW) Urine Hyaline Casts Occasional /HPF White Blood Count 2.7 x10^3/uL (4.0-11.0) Red Blood Count 3.80 x10^6/uL (3.50-5.40) Hemoglobin 10.6 g/dL (12.0-15.5) Hematocrit 30.6 % (36.0-47.0) Mean Corpuscular Volume 81 fL (79-100) Mean Corpuscular Hemoglobin 28 pg (25-35) Mean Corpuscular Hemoglobin Concent 35 g/dL (31-37) Red Cell Distribution Width 15.2 % (11.5-14.5) Platelet Count 182 x10^3/uL (140-400) Neutrophils (%) (Auto) 49 % (31-73) Lymphocytes (%) (Auto) 37 % (24-48) Monocytes (%) (Auto) 13 % (0-9) Eosinophils (%) (Auto) 1 % (0-3) Basophils (%) (Auto) 1 % (0-3) Neutrophils # (Auto) 1.3 x10^3/uL (1.8-7.7) Lymphocytes # (Auto) 1.0 x10^3/uL (1.0-4.8) Monocytes # (Auto) 0.3 x10^3/uL (0.0-1.1) Eosinophils # (Auto) 0.0 x10^3/uL (0.0-0.7) Basophils # (Auto) 0.0 x10^3/uL (0.0-0.2) Prothrombin Time 14.0 SEC (11.7-14.0) Prothromb Time International Ratio 1.1 (0.8-1.1) Sodium Level 132 mmol/L (136-145) Potassium Level 4.3 mmol/L (3.5-5.1) Chloride Level 99 mmol/L (98-107) Carbon Dioxide Level 27 mmol/L (21-32) Anion Gap 6 (6-14) Blood Urea Nitrogen 11 mg/dL (7-20) Creatinine 1.0 mg/dL (0.6-1.0) Estimated GFR (Cockcroft-Gault) 63.8 BUN/Creatinine Ratio 11 (6-20) Glucose Level 89 mg/dL (70-99) Calcium Level 9.0 mg/dL (8.5-10.1) Total Bilirubin 0.7 mg/dL (0.2-1.0) Aspartate Amino Transf (AST/SGOT) 14 U/L (15-37) Alanine Aminotransferase (ALT/SGPT) 14 U/L (14-59) Alkaline Phosphatase 56 U/L (46-116) Troponin I Quantitative < 0.017 ng/mL (0.000-0.055) < 0.017 ng/mL (0.000-0.055) IU-[id number]-Z-Type Natriuretic Peptide 150 pg/mL (0-449) Total Protein 6.8 g/dL (6.4-8.2) Albumin 3.6 g/dL (3.4-5.0) Albumin/Globulin Ratio 1.1 (1.0-1.7) Triglycerides Level 49 mg/dL (0-150) Cholesterol Level 226 mg/dL (0-200) LDL Cholesterol, Calculated 155 mg/dL (0-100) VLDL Cholesterol, Calculated 10 mg/dL (0-40) Non-HDL Cholesterol Calculated 165 mg/dL (0-129) HDL Cholesterol 61 mg/dL (40-60) Cholesterol/HDL Ratio 3.7 Thyroid Stimulating Hormone (TSH) 1.227 uIU/mL (0.358-3.74) Laboratory Tests Test 02/20/20 14:03 02/20/20 14:25 02/20/20 21:30 Urine Collection Type Unknown Urine Color Yellow Urine Clarity Clear Urine pH 6.5 (<5.0-8.0) Urine Specific Sullivan 1.010 (1.000-1.030) Urine Protein Negative mg/dL (NEG-TRACE) Urine Glucose (UA) Negative mg/dL (NEG) Urine Ketones (Stick) Negative mg/dL (NEG) Urine Blood Negative (NEG) Urine Nitrite Negative (NEG) Urine Bilirubin Negative (NEG) Urine Urobilinogen Dipstick 1.0 mg/dL (0.2 mg/dL) Urine Leukocyte Esterase Trace (NEG) Urine RBC Rare /HPF (0-2) Urine WBC 1-4 /HPF (0-4) Urine Squamous Epithelial Cells Many /LPF Urine Bacteria Many /HPF (0-FEW) Urine Hyaline Casts Occasional /HPF White Blood Count 2.7 x10^3/uL (4.0-11.0) Red Blood Count 3.80 x10^6/uL (3.50-5.40) Hemoglobin 10.6 g/dL (12.0-15.5) Hematocrit 30.6 % (36.0-47.0) Mean Corpuscular Volume 81 fL (79-100) Mean Corpuscular Hemoglobin 28 pg (25-35) Mean Corpuscular Hemoglobin Concent 35 g/dL (31-37) Red Cell Distribution Width 15.2 % (11.5-14.5) Platelet Count 182 x10^3/uL (140-400) Neutrophils (%) (Auto) 49 % (31-73) Lymphocytes (%) (Auto) 37 % (24-48) Monocytes (%) (Auto) 13 % (0-9) Eosinophils (%) (Auto) 1 % (0-3) Basophils (%) (Auto) 1 % (0-3) Neutrophils # (Auto) 1.3 x10^3/uL (1.8-7.7) Lymphocytes # (Auto) 1.0 x10^3/uL (1.0-4.8) Monocytes # (Auto) 0.3 x10^3/uL (0.0-1.1) Eosinophils # (Auto) 0.0 x10^3/uL (0.0-0.7) Basophils # (Auto) 0.0 x10^3/uL (0.0-0.2) Prothrombin Time 14.0 SEC (11.7-14.0) Prothromb Time International Ratio 1.1 (0.8-1.1) Sodium Level 132 mmol/L (136-145) Potassium Level 4.3 mmol/L (3.5-5.1) Chloride Level 99 mmol/L (98-107) Carbon Dioxide Level 27 mmol/L (21-32) Anion Gap 6 (6-14) Blood Urea Nitrogen 11 mg/dL (7-20) Creatinine 1.0 mg/dL (0.6-1.0) Estimated GFR (Cockcroft-Gault) 63.8 BUN/Creatinine Ratio 11 (6-20) Glucose Level 89 mg/dL (70-99) Calcium Level 9.0 mg/dL (8.5-10.1) Total Bilirubin 0.7 mg/dL (0.2-1.0) Aspartate Amino Transf (AST/SGOT) 14 U/L (15-37) Alanine Aminotransferase (ALT/SGPT) 14 U/L (14-59) Alkaline Phosphatase 56 U/L (46-116) Troponin I Quantitative < 0.017 ng/mL (0.000-0.055) < 0.017 ng/mL (0.000-0.055) JY-[id number]-P-Type Natriuretic Peptide 150 pg/mL (0-449) Total Protein 6.8 g/dL (6.4-8.2) Albumin 3.6 g/dL (3.4-5.0) Albumin/Globulin Ratio 1.1 (1.0-1.7) Triglycerides Level 49 mg/dL (0-150) Cholesterol Level 226 mg/dL (0-200) LDL Cholesterol, Calculated 155 mg/dL (0-100) VLDL Cholesterol, Calculated 10 mg/dL (0-40) Non-HDL Cholesterol Calculated 165 mg/dL (0-129) HDL Cholesterol 61 mg/dL (40-60) Cholesterol/HDL Ratio 3.7 Thyroid Stimulating Hormone (TSH) 1.227 uIU/mL (0.358-3.74) Medications Current Medications Ondansetron HCl (Zofran) 4 mg PRN Q8HRS PRN IV NAUSEA/VOMITING; Start 02/20/20 at 15:30; Stop 02/21/20 at 15:29 Nitroglycerin (Nitrostat) 0.4 mg PRN Q5MIN PRN SL CHEST PAIN; Start 02/20/20 at 15:30; Stop 02/21/20 at 15:29 Alprazolam (Xanax) 0.25 mg BID PO Last administered on 02/21/20at 09:23; Start 02/20/20 at 21:00 Gabapentin (Neurontin) 100 mg BID PO Last administered on 02/21/20at 09:21; Start 02/20/20 at 21:00 Midodrine (Proamatine) 5 mg BID PO Last administered on 02/21/20at 09:21; Start 02/20/20 at 21:00 Zolpidem Tartrate (Ambien) 5 mg HS PO Last administered on 02/20/20at 21:39; Start 02/20/20 at 21:00 Pantoprazole Sodium (Protonix) 40 mg DAILYAC PO Last administered on 02/21/20at 08:19; Start 02/21/20 at 07:30 Sotalol HCl (Betapace) 60 mg BID PO Last administered on 02/21/20at 09:22; Start 02/20/20 at 21:00 Acetaminophen (Tylenol) 650 mg PRN Q6HRS PRN PO fever and pain; Start 02/20/20 at 17:00 Active Scripts Active Reported Alprazolam 0.25 Mg Tablet 1 Tab PO BID Betapace (Sotalol Hcl) 120 Mg Tablet 0.5 Tab PO BID 30 Days Midodrine Hcl 5 Mg Tablet 5 Mg PO BID Gabapentin (Gabapentin) 100 Mg Capsule 100 Mg PO BID Zolpidem Tartrate 5 Mg Tablet 5 Mg PO HS Omeprazole 40 Mg Capsule.dr 40 Mg PO DAILY Vitals/I & O Vital Sign - Last 24 Hours 02/20/20 02/20/20 02/20/20 02/20/20 13:06 14:00 15:00 16:00 Temp 98.4 98.4 Pulse 89 90 86 74 Resp 20 16 16 16 B/P (MAP) 151/72 (98) 182/84 (116) 165/79 (107) 161/72 (101) Pulse Ox 100 98 98 99 O2 Delivery Room Air Room Air Room Air Room Air 02/20/20 02/20/20 02/20/20 02/20/20 17:00 18:00 18:05 18:19 Temp 98.0 98.0 Pulse 74 78 76 Resp 17 18 18 B/P (MAP) 148/97 (114) 167/71 (103) 157/74 (101) Pulse Ox 99 100 99 O2 Delivery Room Air Room Air Room Air Room Air 02/20/20 02/20/20 02/20/20 02/20/20 19:30 21:00 21:40 23:42 Temp 98.7 98.7 Pulse 76 76 75 Resp 18 B/P (MAP) 157/74 157/74 127/63 (84) Pulse Ox 100 O2 Delivery Room Air Room Air 02/21/20 02/21/20 02/21/20 02/21/20 03:00 07:00 09:21 09:22 Temp 98.3 97.7 98.3 97.7 Pulse 70 96 75 75 Resp 18 18 B/P (MAP) 129/64 (85) 128/81 (97) 128/81 Pulse Ox 99 96 O2 Delivery Room Air Room Air Intake and Output 02/20/20 02/20/20 02/21/20 15:00 23:00 07:00 Intake Total 600 ml 400 ml Output Total 0 ml Balance 600 ml 400 ml Justicifation of Admission Dx: Justifications for Admission: Justification of Admission Dx: Yes JAK SUN MD Feb 21, 2020 11:04
--- NOTE | 2020-02-21 12:25 | PDOC2 ---
CONSULT Date of Consult Date of Consult DATE: 02/21/20 TIME: 12:19 Reason for Consult Reason for Consult: Chest pressure Referring Physician Referring Physician: Dr. Amezcua Identification/Chief Complaint Chief Complaint Chest pain, lightheadedness Source Source: Chart review, Patient History of Present Illness Reason for Visit: The patient is a pleasant 84-year-old female with a history of a permanent pacemaker who was admitted through the emergency room yesterday due to lightheadedness and chest pressure while she was walking in the parking lot at [facility] yesterday afternoon when the temperature was greater than 90 degrees. The patient upon paramedics arrival stated she felt much better. She was transported to the emergency room and work-up has shown a troponin negative x2. Chest x-ray showed no acute infiltrates but does show her pacemaker. Her EKG shows a paced rhythm with no acute ischemic changes. Ove rnight the patient has been feeling much better. She has had no significant arrhythmias. Also of note she had an echocardiogram on 02/05/20 that showed an ejection fraction of 55 to 60% with mild tricuspid regurgitation. Past Medical History Cardiovascular: AFIB, CAD, CHF, HTN, Other Pulmonary: Other CENTRAL NERVOUS SYSTEM: Other GI: Constipation, GERD, Other Heme/Onc: Iron deficiency Anemia Hepatobiliary: Cholelithiasis Psych: Depression Musculoskeletal: low back pain, Osteoarthritis Past Surgical History Past Surgical History: Pacemaker, Cholecystectomy, Cataract Removal, Other (Right lumpectomy, left shoulder surgery) Family History Family History: Hypertension Social History No ALCOHOL: none Drugs: None Lives: with Family Current Medications Current Medications Current Medications Ondansetron HCl (Zofran) 4 mg PRN Q8HRS PRN IV NAUSEA/VOMITING; Start 02/20/20 at 15:30; Stop 02/21/20 at 15:29 Nitroglycerin (Nitrostat) 0.4 mg PRN Q5MIN PRN SL CHEST PAIN; Start 02/20/20 at 15:30; Stop 02/21/20 at 15:29 Alprazolam (Xanax) 0.25 mg BID PO Last administered on 02/21/20at 09:23; Start 02/20/20 at 21:00 Gabapentin (Neurontin) 100 mg BID PO Last administered on 02/21/20at 09:21; Start 02/20/20 at 21:00 Midodrine (Proamatine) 5 mg BID PO Last administered on 02/21/20at 09:21; Start 02/20/20 at 21:00 Zolpidem Tartrate (Ambien) 5 mg HS PO Last administered on 02/20/20at 21:39; Start 02/20/20 at 21:00 Pantoprazole Sodium (Protonix) 40 mg DAILYAC PO Last administered on 02/21/20at 08:19; Start 02/21/20 at 07:30 Sotalol HCl (Betapace) 60 mg BID PO Last administered on 02/21/20at 09:22; Start 02/20/20 at 21:00 Acetaminophen (Tylenol) 650 mg PRN Q6HRS PRN PO fever and pain; Start 02/20/20 at 17:00 Active Scripts Active Reported Alprazolam 0.25 Mg Tablet 1 Tab PO BID Betapace (Sotalol Hcl) 120 Mg Tablet 0.5 Tab PO BID 30 Days Midodrine Hcl 5 Mg Tablet 5 Mg PO BID Gabapentin (Gabapentin) 100 Mg Capsule 100 Mg PO BID Zolpidem Tartrate 5 Mg Tablet 5 Mg PO HS Omeprazole 40 Mg Capsule.dr 40 Mg PO DAILY Allergies Allergies: Coded Allergies: Penicillins (Verified Allergy, Intermediate, Rash, 09/16/19) tolerates cephalasporins atorvastatin (Verified Allergy, Intermediate, 12/29/19) tetracycline (Verified Allergy, Intermediate, rash, 09/16/19) codeine (Verified Adverse Reaction, Intermediate, nausea & vomiting, 09/16/19) fentanyl (Verified Adverse Reaction, Intermediate, Nausea and Vomiting, 09/17/19) hydrocodone (Verified Adverse Reaction, Intermediate, Nausea and Vomiting, 09/16/19) iron (Verified Adverse Reaction, Intermediate, Nausea and Vomiting, iron tablets the oral dose only, 09/16/19) ROS General: YES: Fatigue Cardiovascular: yes Chest Pain, yes Lt Headedness Physical Exam General: No acute distress HEENT: Atraumatic Lungs: Clear to auscultation Heart: Regular rate Abdomen: Normal bowel sounds Vitals VITALS Vital Signs Date Time Temp Pulse Resp B/P (MAP) Pulse Ox O2 Delivery O2 Flow Rate FiO2 02/21/20 09:22 75 02/21/20 09:21 128/81 02/21/20 08:00 Room Air 02/21/20 07:00 97.7 18 96 97.7 Labs Labs Laboratory Tests Test 02/20/20 14:03 02/20/20 14:25 02/20/20 21:30 Urine Collection Type Unknown Urine Color Yellow Urine Clarity Clear Urine pH 6.5 (<5.0-8.0) Urine Specific [place] 1.010 (1.000-1.030) Urine Protein Negative mg/dL (NEG-TRACE) Urine Glucose (UA) Negative mg/dL (NEG) Urine Ketones (Stick) Negative mg/dL (NEG) Urine Blood Negative (NEG) Urine Nitrite Negative (NEG) Urine Bilirubin Negative (NEG) Urine Urobilinogen Dipstick 1.0 mg/dL (0.2 mg/dL) Urine Leukocyte Esterase Trace (NEG) Urine RBC Rare /HPF (0-2) Urine WBC 1-4 /HPF (0-4) Urine Squamous Epithelial Cells Many /LPF Urine Bacteria Many /HPF (0-FEW) Urine Hyaline Casts Occasional /HPF White Blood Count 2.7 x10^3/uL (4.0-11.0) Red Blood Count 3.80 x10^6/uL (3.50-5.40) Hemoglobin 10.6 g/dL (12.0-15.5) Hematocrit 30.6 % (36.0-47.0) Mean Corpuscular Volume 81 fL (79-100) Mean Corpuscular Hemoglobin 28 pg (25-35) Mean Corpuscular Hemoglobin Concent 35 g/dL (31-37) Red Cell Distribution Width 15.2 % (11.5-14.5) Platelet Count 182 x10^3/uL (140-400) Neutrophils (%) (Auto) 49 % (31-73) Lymphocytes (%) (Auto) 37 % (24-48) Monocytes (%) (Auto) 13 % (0-9) Eosinophils (%) (Auto) 1 % (0-3) Basophils (%) (Auto) 1 % (0-3) Neutrophils # (Auto) 1.3 x10^3/uL (1.8-7.7) Lymphocytes # (Auto) 1.0 x10^3/uL (1.0-4.8) Monocytes # (Auto) 0.3 x10^3/uL (0.0-1.1) Eosinophils # (Auto) 0.0 x10^3/uL (0.0-0.7) Basophils # (Auto) 0.0 x10^3/uL (0.0-0.2) Prothrombin Time 14.0 SEC (11.7-14.0) Prothromb Time International Ratio 1.1 (0.8-1.1) Sodium Level 132 mmol/L (136-145) Potassium Level 4.3 mmol/L (3.5-5.1) Chloride Level 99 mmol/L (98-107) Carbon Dioxide Level 27 mmol/L (21-32) Anion Gap 6 (6-14) Blood Urea Nitrogen 11 mg/dL (7-20) Creatinine 1.0 mg/dL (0.6-1.0) Estimated GFR (Cockcroft-Gault) 63.8 BUN/Creatinine Ratio 11 (6-20) Glucose Level 89 mg/dL (70-99) Calcium Level 9.0 mg/dL (8.5-10.1) Total Bilirubin 0.7 mg/dL (0.2-1.0) Aspartate Amino Transf (AST/SGOT) 14 U/L (15-37) Alanine Aminotransferase (ALT/SGPT) 14 U/L (14-59) Alkaline Phosphatase 56 U/L (46-116) Troponin I Quantitative < 0.017 ng/mL (0.000-0.055) < 0.017 ng/mL (0.000-0.055) WJ-Mxj-[id number]-Type Natriuretic Peptide 150 pg/mL (0-449) Total Protein 6.8 g/dL (6.4-8.2) Albumin 3.6 g/dL (3.4-5.0) Albumin/Globulin Ratio 1.1 (1.0-1.7) Triglycerides Level 49 mg/dL (0-150) Cholesterol Level 226 mg/dL (0-200) LDL Cholesterol, Calculated 155 mg/dL (0-100) VLDL Cholesterol, Calculated 10 mg/dL (0-40) Non-HDL Cholesterol Calculated 165 mg/dL (0-129) HDL Cholesterol 61 mg/dL (40-60) Cholesterol/HDL Ratio 3.7 Thyroid Stimulating Hormone (TSH) 1.227 uIU/mL (0.358-3.74) Laboratory Tests Test 02/20/20 14:03 02/20/20 14:25 02/20/20 21:30 Urine Collection Type Unknown Urine Color Yellow Urine Clarity Clear Urine pH 6.5 (<5.0-8.0) Urine Specific [place] 1.010 (1.000-1.030) Urine Protein Negative mg/dL (NEG-TRACE) Urine Glucose (UA) Negative mg/dL (NEG) Urine Ketones (Stick) Negative mg/dL (NEG) Urine Blood Negative (NEG) Urine Nitrite Negative (NEG) Urine Bilirubin Negative (NEG) Urine Urobilinogen Dipstick 1.0 mg/dL (0.2 mg/dL) Urine Leukocyte Esterase Trace (NEG) Urine RBC Rare /HPF (0-2) Urine WBC 1-4 /HPF (0-4) Urine Squamous Epithelial Cells Many /LPF Urine Bacteria Many /HPF (0-FEW) Urine Hyaline Casts Occasional /HPF White Blood Count 2.7 x10^3/uL (4.0-11.0) Red Blood Count 3.80 x10^6/uL (3.50-5.40) Hemoglobin 10.6 g/dL (12.0-15.5) Hematocrit 30.6 % (36.0-47.0) Mean Corpuscular Volume 81 fL (79-100) Mean Corpuscular Hemoglobin 28 pg (25-35) Mean Corpuscular Hemoglobin Concent 35 g/dL (31-37) Red Cell Distribution Width 15.2 % (11.5-14.5) Platelet Count 182 x10^3/uL (140-400) Neutrophils (%) (Auto) 49 % (31-73) Lymphocytes (%) (Auto) 37 % (24-48) Monocytes (%) (Auto) 13 % (0-9) Eosinophils (%) (Auto) 1 % (0-3) Basophils (%) (Auto) 1 % (0-3) Neutrophils # (Auto) 1.3 x10^3/uL (1.8-7.7) Lymphocytes # (Auto) 1.0 x10^3/uL (1.0-4.8) Monocytes # (Auto) 0.3 x10^3/uL (0.0-1.1) Eosinophils # (Auto) 0.0 x10^3/uL (0.0-0.7) Basophils # (Auto) 0.0 x10^3/uL (0.0-0.2) Prothrombin Time 14.0 SEC (11.7-14.0) Prothromb Time International Ratio 1.1 (0.8-1.1) Sodium Level 132 mmol/L (136-145) Potassium Level 4.3 mmol/L (3.5-5.1) Chloride Level 99 mmol/L (98-107) Carbon Dioxide Level 27 mmol/L (21-32) Anion Gap 6 (6-14) Blood Urea Nitrogen 11 mg/dL (7-20) Creatinine 1.0 mg/dL (0.6-1.0) Estimated GFR (Cockcroft-Gault) 63.8 BUN/Creatinine Ratio 11 (6-20) Glucose Level 89 mg/dL (70-99) Calcium Level 9.0 mg/dL (8.5-10.1) Total Bilirubin 0.7 mg/dL (0.2-1.0) Aspartate Amino Transf (AST/SGOT) 14 U/L (15-37) Alanine Aminotransferase (ALT/SGPT) 14 U/L (14-59) Alkaline Phosphatase 56 U/L (46-116) Troponin I Quantitative < 0.017 ng/mL (0.000-0.055) < 0.017 ng/mL (0.000-0.055) WZ-Syi-Z-Type Natriuretic Peptide 150 pg/mL (0-449) Total Protein 6.8 g/dL (6.4-8.2) Albumin 3.6 g/dL (3.4-5.0) Albumin/Globulin Ratio 1.1 (1.0-1.7) Triglycerides Level 49 mg/dL (0-150) Cholesterol Level 226 mg/dL (0-200) LDL Cholesterol, Calculated 155 mg/dL (0-100) VLDL Cholesterol, Calculated 10 mg/dL (0-40) Non-HDL Cholesterol Calculated 165 mg/dL (0-129) HDL Cholesterol 61 mg/dL (40-60) Cholesterol/HDL Ratio 3.7 Thyroid Stimulating Hormone (TSH) 1.227 uIU/mL (0.358-3.74) Images Images Chest x-ray with no acute infiltrates. Echocardiogram from 02/04/20 with an ejection fraction of 55 to 60%, mild t ricuspid regurgitation. Assessment/Plan Assessment/Plan 1. Episodes of chest pressure and lightheadedness. Patient symptoms occurred while she was walking in a parking lot with a temperature of over 90 degrees. EKG shows an atrial paced rhythm with no acute ischemic changes. Troponin has been negative x2. Chest x-ray shows no acute infiltrates. Will gradually increase activities. We will follow-up in the office as previously scheduled. 2. Permanent pacemaker. A paced rhythm. We will continue on routine interrogations in the office. 3. Underlying atrial fibrillation. Continue present home medications. We will arrange office follow-up. 4. Hypertension. Blood pressure is under improved control. Normal LV function on echo. 5. Hyperlipidemia. Lab as above. Continue present treatment with office follow-up. Thank you for allowing us to participate in the care of your patient. CALLIE DOOLEY MD Feb 21, 2020 12:25
[2020-02-21] MEDS: ACETAMINOPHEN 325 MG TABLET. PO PRN (12:56)
[2020-02-21 14:22] LABS: BASO % 1 % (0-3); EOS % 1 % (0-3); HEMATOCRIT 32.5 % (36.0-47.0); HEMOGLOBIN 10.9 g/dL (12.0-15.5); LYMPH # 0.9 x10^3/uL (1.0-4.8); LYMPH % 31 % (24-48); MEAN CORPUSCULAR HEMOGLOBIN 28 pg (25-35); MEAN CORPUSCULAR HGB CONC 34 g/dL (31-37); MEAN CORPUSCULAR VOLUME 82 fL (79-100); MONO # 0.4 x10^3/uL (0.0-1.1); MONO % 12 % (0-9); NEUT # 1.6 x10^3/uL (1.8-7.7); NEUT % 55 % (31-73); PLATELET COUNT 190 x10^3/uL (140-400); RED BLOOD COUNT 3.95 x10^6/uL (3.50-5.40); RED CELL DISTRIBUTION WIDTH 15.8 % (11.5-14.5); WHITE BLOOD COUNT 2.9 x10^3/uL (4.0-11.0)
[2020-02-21 14:37] LABS: ALBUMIN 3.6 g/dL (3.4-5.0); ALBUMIN/GLOBULIN RATIO 1.1 (1.0-1.7); CALCIUM 8.8 mg/dL (8.5-10.1); GFR 63.8; POTASSIUM 3.7 mmol/L (3.5-5.1); TOTAL BILIRUBIN 0.4 mg/dL (0.2-1.0)
[2020-02-21 15:00] VITALS: BP 119/54
[2020-02-21] MEDS ORDERED: CYAN1TAB28 PO (15:47)
[2020-02-21] MEDS ORDERED: TAMO20TA PO (15:47)
[2020-02-21] MEDS ORDERED: MORPHINE SULFATE 2 MG/ML VIAL. IV PRN (17:30)
[2020-02-21] MEDS ORDERED: KETOROLAC 30 MG/ML VIAL. IVP PRN (17:30)
--- NOTE | 2020-02-21 18:40 | NUR ---
Pgd and spoke to doctor 2 x's due to patients need for pain medication but no IV access. Patient states that she has been given morphine IM in past admission due to being a hard stick and having multple allergies to pain medication. Per order from Dr. Mishra ok to give 2mg morphine IM injection. Called and spoke to pharmacy who also stated ok to give morphine solution through IM injection
[2020-02-21 19:19] VITALS: BP 103/49
[2020-02-21] MEDS: ZOLPIDEM 5 MG TABLET. PO SCH (21:22)
[2020-02-21 23:06] VITALS: BP 106/48
[2020-02-22 03:18] VITALS: BP 130/70
[2020-02-22 05:42] LABS: HEMOGLOBIN A1C 5.6 % (4.8-5.6)
[2020-02-22 07:00] VITALS: BP 144/80
[2020-02-22] MEDS: GABAPENTIN 100 MG CAPSULE. PO SCH ×2 (09:00→21:11)
[2020-02-22] MEDS: PANTOPRAZOLE 40 MG TABLET.DR. PO SCH (09:06)
[2020-02-22] MEDS: VITAMIN B12,B9,B6 COMPLEX 1 TABLET. PO SCH (09:06)
[2020-02-22] MEDS: ALPRAZolam 0.25 MG TABLET PO SCH ×2 (09:06→21:10)
[2020-02-22] MEDS: MIDODRINE 5 MG TABLET PO SCH ×2 (09:07→21:00)
[2020-02-22] MEDS: SOTALOL 80 MG TABLET. PO SCH ×2 (09:08→21:00)
[2020-02-22] MEDS: MORPHINE SULFATE 2 MG/ML VIAL. IM PRN (09:19)
[2020-02-22] MEDS: TAMOXIFEN 10 MG TABLET PO SCH (09:35)
--- NOTE | 2020-02-22 10:37 | PDOC ---
PROGRESS NOTES History of Present Illness History of Present Illness VTE Prophylaxis Ordered VTE Prophylaxis Devices: No VTE Pharmacological Prophylaxi: Yes impression Assessment/Plan ASSESSMENT Chest Pain, ACS rule out // CHEST WALL PAIN SSS s/p pacer HTN, labile breast cancer recently dx s/p radiation treatment HEAT RELATED SYMPTOMS WITH DIZZINESS dementia HLD dizziness on ct head , ill-defined low-density of the superficial parenchyma, nonspecific findings more commonly due to chronic microvascular ischemic disease in a patient this age. PLAN cvc bed check 2decho follow trops check TSH, lipids, a1c cards consult resume home meds including sotalol dvt ppx: ambulatory FULL CODE dispo pending cardiac work up. COOLING, AVOID HIGH TEMPS ORALLY HYDRATE pt/ot CONSULT ONCOLOGY CT CHEST D/W RN Justicifation of Admission Dx: Justicifation of Admission Dx: Justifications for Admission: Justification of Admission Dx: Yes Vitals Vitals Vital Signs Date Time Temp Pulse Resp B/P (MAP) Pulse Ox O2 Delivery O2 Flow Rate FiO2 02/22/20 09:49 Room Air 02/22/20 09:08 79 130/70 02/22/20 07:00 98.1 18 99 98.1 Physical Exam Physical Exam Physical Exam GENERAL: . Alert and oriented. HEENT: Head normocephalic, atraumatic. NECK: Supple LUNGS: Clear to auscultation. HEART: RRR, S1, S2 present, pulses intact ABDOMEN: Soft, positive bowel sounds. EXTREMITIES: No cyanosis or edema. NEUROLOGIC: Normal speech, normal tone PSYCHIATRIC: Normal affect, normal mood. SKIN: No ulceration.cool , good capillary refill General: Alert, Oriented X3, Cooperative, No acute distress, mild distress Heart: Regular rate Lungs: Clear Abdomen: Normal bowel sounds, Soft, No tenderness Extremities: No cyanosis Labs LABS Laboratory Tests Test 02/21/20 14:00 White Blood Count 2.9 x10^3/uL (4.0-11.0) Red Blood Count 3.95 x10^6/uL (3.50-5.40) Hemoglobin 10.9 g/dL (12.0-15.5) Hematocrit 32.5 % (36.0-47.0) Mean Corpuscular Volume 82 fL (79-100) Mean Corpuscular Hemoglobin 28 pg (25-35) Mean Corpuscular Hemoglobin Concent 34 g/dL (31-37) Red Cell Distribution Width 15.8 % (11.5-14.5) Platelet Count 190 x10^3/uL (140-400) Neutrophils (%) (Auto) 55 % (31-73) Lymphocytes (%) (Auto) 31 % (24-48) Monocytes (%) (Auto) 12 % (0-9) Eosinophils (%) (Auto) 1 % (0-3) Basophils (%) (Auto) 1 % (0-3) Neutrophils # (Auto) 1.6 x10^3/uL (1.8-7.7) Lymphocytes # (Auto) 0.9 x10^3/uL (1.0-4.8) Monocytes # (Auto) 0.4 x10^3/uL (0.0-1.1) Eosinophils # (Auto) 0.0 x10^3/uL (0.0-0.7) Basophils # (Auto) 0.0 x10^3/uL (0.0-0.2) Sodium Level 138 mmol/L (136-145) Potassium Level 3.7 mmol/L (3.5-5.1) Chloride Level 101 mmol/L (98-107) Carbon Dioxide Level 28 mmol/L (21-32) Anion Gap 9 (6-14) Blood Urea Nitrogen 14 mg/dL (7-20) Creatinine 1.0 mg/dL (0.6-1.0) Estimated GFR (Cockcroft-Gault) 63.8 BUN/Creatinine Ratio 14 (6-20) Glucose Level 65 mg/dL (70-99) Calcium Level 8.8 mg/dL (8.5-10.1) Total Bilirubin 0.4 mg/dL (0.2-1.0) Aspartate Amino Transf (AST/SGOT) 15 U/L (15-37) Alanine Aminotransferase (ALT/SGPT) 15 U/L (14-59) Alkaline Phosphatase 61 U/L (46-116) Creatine Kinase 55 U/L (26-192) Total Protein 7.0 g/dL (6.4-8.2) Albumin 3.6 g/dL (3.4-5.0) Albumin/Globulin Ratio 1.1 (1.0-1.7) Comment Review of Relevant I have reviewed the following items wade (where applicable) has been applied. Labs Laboratory Tests Test 02/20/20 14:03 02/20/20 14:25 02/20/20 21:30 02/21/20 14:00 Urine Collection Type Unknown Urine Color Yellow Urine Clarity Clear Urine pH 6.5 (<5.0-8.0) Urine Specific [place] 1.010 (1.000-1.030) Urine Protein Negative mg/dL (NEG-TRACE) Urine Glucose (UA) Negative mg/dL (NEG) Urine Ketones (Stick) Negative mg/dL (NEG) Urine Blood Negative (NEG) Urine Nitrite Negative (NEG) Urine Bilirubin Negative (NEG) Urine Urobilinogen Dipstick 1.0 mg/dL (0.2 mg/dL) Urine Leukocyte Esterase Trace (NEG) Urine RBC Rare /HPF (0-2) Urine WBC 1-4 /HPF (0-4) Urine Squamous Epithelial Cells Many /LPF Urine Bacteria Many /HPF (0-FEW) Urine Hyaline Casts Occasional /HPF White Blood Count 2.7 x10^3/uL (4.0-11.0) 2.9 x10^3/uL (4.0-11.0) Red Blood Count 3.80 x10^6/uL (3.50-5.40) 3.95 x10^6/uL (3.50-5.40) Hemoglobin 10.6 g/dL (12.0-15.5) 10.9 g/dL (12.0-15.5) Hematocrit 30.6 % (36.0-47.0) 32.5 % (36.0-47.0) Mean Corpuscular Volume 81 fL (79-100) 82 fL (79-100) Mean Corpuscular Hemoglobin 28 pg (25-35) 28 pg (25-35) Mean Corpuscular Hemoglobin Concent 35 g/dL (31-37) 34 g/dL (31-37) Red Cell Distribution Width 15.2 % (11.5-14.5) 15.8 % (11.5-14.5) Platelet Count 182 x10^3/uL (140-400) 190 x10^3/uL (140-400) Neutrophils (%) (Auto) 49 % (31-73) 55 % (31-73) Lymphocytes (%) (Auto) 37 % (24-48) 31 % (24-48) Monocytes (%) (Auto) 13 % (0-9) 12 % (0-9) Eosinophils (%) (Auto) 1 % (0-3) 1 % (0-3) Basophils (%) (Auto) 1 % (0-3) 1 % (0-3) Neutrophils # (Auto) 1.3 x10^3/uL (1.8-7.7) 1.6 x10^3/uL (1.8-7.7) Lymphocytes # (Auto) 1.0 x10^3/uL (1.0-4.8) 0.9 x10^3/uL (1.0-4.8) Monocytes # (Auto) 0.3 x10^3/uL (0.0-1.1) 0.4 x10^3/uL (0.0-1.1) Eosinophils # (Auto) 0.0 x10^3/uL (0.0-0.7) 0.0 x10^3/uL (0.0-0.7) Basophils # (Auto) 0.0 x10^3/uL (0.0-0.2) 0.0 x10^3/uL (0.0-0.2) Prothrombin Time 14.0 SEC (11.7-14.0) Prothromb Time International Ratio 1.1 (0.8-1.1) Sodium Level 132 mmol/L (136-145) 138 mmol/L (136-145) Potassium Level 4.3 mmol/L (3.5-5.1) 3.7 mmol/L (3.5-5.1) Chloride Level 99 mmol/L (98-107) 101 mmol/L (98-107) Carbon Dioxide Level 27 mmol/L (21-32) 28 mmol/L (21-32) Anion Gap 6 (6-14) 9 (6-14) Blood Urea Nitrogen 11 mg/dL (7-20) 14 mg/dL (7-20) Creatinine 1.0 mg/dL (0.6-1.0) 1.0 mg/dL (0.6-1.0) Estimated GFR (Cockcroft-Gault) 63.8 63.8 BUN/Creatinine Ratio 11 (6-20) 14 (6-20) Glucose Level 89 mg/dL (70-99) 65 mg/dL (70-99) Calcium Level 9.0 mg/dL (8.5-10.1) 8.8 mg/dL (8.5-10.1) Total Bilirubin 0.7 mg/dL (0.2-1.0) 0.4 mg/dL (0.2-1.0) Aspartate Amino Transf (AST/SGOT) 14 U/L (15-37) 15 U/L (15-37) Alanine Aminotransferase (ALT/SGPT) 14 U/L (14-59) 15 U/L (14-59) Alkaline Phosphatase 56 U/L (46-116) 61 U/L (46-116) Troponin I Quantitative < 0.017 ng/mL (0.000-0.055) < 0.017 ng/mL (0.000-0.055) OF-Wic-X-Type Natriuretic Peptide 150 pg/mL (0-449) Total Protein 6.8 g/dL (6.4-8.2) 7.0 g/dL (6.4-8.2) Albumin 3.6 g/dL (3.4-5.0) 3.6 g/dL (3.4-5.0) Albumin/Globulin Ratio 1.1 (1.0-1.7) 1.1 (1.0-1.7) Hemoglobin A1c 5.6 % (4.8-5.6) Triglycerides Level 49 mg/dL (0-150) Cholesterol Level 226 mg/dL (0-200) LDL Cholesterol, Calculated 155 mg/dL (0-100) VLDL Cholesterol, Calculated 10 mg/dL (0-40) Non-HDL Cholesterol Calculated 165 mg/dL (0-129) HDL Cholesterol 61 mg/dL (40-60) Cholesterol/HDL Ratio 3.7 Thyroid Stimulating Hormone (TSH) 1.227 uIU/mL (0.358-3.74) Creatine Kinase 55 U/L (26-192) Laboratory Tests Test 02/21/20 14:00 White Blood Count 2.9 x10^3/uL (4.0-11.0) Red Blood Count 3.95 x10^6/uL (3.50-5.40) Hemoglobin 10.9 g/dL (12.0-15.5) Hematocrit 32.5 % (36.0-47.0) Mean Corpuscular Volume 82 fL (79-100) Mean Corpuscular Hemoglobin 28 pg (25-35) Mean Corpuscular Hemoglobin Concent 34 g/dL (31-37) Red Cell Distribution Width 15.8 % (11.5-14.5) Platelet Count 190 x10^3/uL (140-400) Neutrophils (%) (Auto) 55 % (31-73) Lymphocytes (%) (Auto) 31 % (24-48) Monocytes (%) (Auto) 12 % (0-9) Eosinophils (%) (Auto) 1 % (0-3) Basophils (%) (Auto) 1 % (0-3) Neutrophils # (Auto) 1.6 x10^3/uL (1.8-7.7) Lymphocytes # (Auto) 0.9 x10^3/uL (1.0-4.8) Monocytes # (Auto) 0.4 x10^3/uL (0.0-1.1) Eosinophils # (Auto) 0.0 x10^3/uL (0.0-0.7) Basophils # (Auto) 0.0 x10^3/uL (0.0-0.2) Sodium Level 138 mmol/L (136-145) Potassium Level 3.7 mmol/L (3.5-5.1) Chloride Level 101 mmol/L (98-107) Carbon Dioxide Level 28 mmol/L (21-32) Anion Gap 9 (6-14) Blood Urea Nitrogen 14 mg/dL (7-20) Creatinine 1.0 mg/dL (0.6-1.0) Estimated GFR (Cockcroft-Gault) 63.8 BUN/Creatinine Ratio 14 (6-20) Glucose Level 65 mg/dL (70-99) Calcium Level 8.8 mg/dL (8.5-10.1) Total Bilirubin 0.4 mg/dL (0.2-1.0) Aspartate Amino Transf (AST/SGOT) 15 U/L (15-37) Alanine Aminotransferase (ALT/SGPT) 15 U/L (14-59) Alkaline Phosphatase 61 U/L (46-116) Creatine Kinase 55 U/L (26-192) Total Protein 7.0 g/dL (6.4-8.2) Albumin 3.6 g/dL (3.4-5.0) Albumin/Globulin Ratio 1.1 (1.0-1.7) Microbiology 02/20/20 Urine Culture - Final, Complete Medications Current Medications Ondansetron HCl (Zofran) 4 mg PRN Q8HRS PRN IV NAUSEA/VOMITING; Start 02/20/20 at 15:30; Stop 02/21/20 at 15:29; Status DC Nitroglycerin (Nitrostat) 0.4 mg PRN Q5MIN PRN SL CHEST PAIN; Start 02/20/20 at 15:30; Stop 02/21/20 at 15:29; Status DC Alprazolam (Xanax) 0.25 mg BID PO Last administered on 02/22/20 09:06; Start 02/20/20 at 21:00 Gabapentin (Neurontin) 100 mg BID PO Last administered on 02/21/20 09:21; Start 02/20/20 at 21:00 Midodrine (Proamatine) 5 mg BID PO Last administered on 02/22/20 09:07; Start 02/20/20 at 21:00 Zolpidem Tartrate (Ambien) 5 mg HS PO Last administered on 02/21/20 21:22; Start 02/20/20 at 21:00 Pantoprazole Sodium (Protonix) 40 mg DAILYAC PO Last administered on 02/22/20 09:06; Start 02/21/20 at 07:30 Sotalol HCl (Betapace) 60 mg BID PO Last administered on 02/22/20 09:08; Start 02/20/20 at 21:00 Acetaminophen (Tylenol) 650 mg PRN Q6HRS PRN PO fever and pain Last administered on 02/21/20 12:56; Start 02/20/20 at 17:00 Vitamin B Complex (Folbic Tablet) 1 tab DAILY PO Last administered on 02/22/20 09:06; Start 02/22/20 at 09:00 Tamoxifen Citrate (Nolvadex) 20 mg DAILY PO Last administered on 02/22/20 09:35; Start 02/22/20 at 09:00 Morphine Sulfate (Morphine Sulfate) 2 mg PRN Q2HR PRN IV PAIN Last administered on 02/21/20at 18:37; Start 02/21/20 at 17:30; Stop 02/21/20 at 18:58; Status DC Ketorolac Tromethamine (Toradol 30mg Vial) 30 mg PRN Q6HRS PRN IVP PAIN; Start 02/21/20 at 17:30; Stop 02/26/20 at 17:29 Ondansetron HCl (Zofran Odt) 4 mg PRN Q6HRS PRN PO NAUSEA/VOMITING; Start 02/20 at 18:15 Morphine Sulfate (Morphine Sulfate) 2 mg PRN Q2HR PRN IM PAIN Last administered on 02/22/20at 09:19; Start 02/21/20 at 19:00 Active Scripts Active Reported Vitamin [id number] Acid Tablet (Cyanocobalamin/Folic Acid) 1 Each Tablet 1 Tab PO DAILY 30 Days Tamoxifen Citrate 20 Mg Tablet 20 Mg PO DAILY Alprazolam 0.25 Mg Tablet 1 Tab PO BID Betapace (Sotalol Hcl) 120 Mg Tablet 0.5 Tab PO BID 30 Days Midodrine Hcl 5 Mg Tablet 5 Mg PO BID Gabapentin (Gabapentin) 100 Mg Capsule 100 Mg PO BID Zolpidem Tartrate 5 Mg Tablet 5 Mg PO HS Omeprazole 40 Mg Capsule.dr 40 Mg PO DAILY Vitals/I & O Vital Sign - Last 24 Hours 02/21/20 02/21/20 02/21/20 02/21/20 11:00 15:00 18:37 19:19 Temp 97.8 97.6 97.7 97.8 97.6 97.7 Pulse 75 75 67 Resp 18 18 20 B/P (MAP) 128/68 (88) 119/54 (75) 103/49 (67) Pulse Ox 100 95 99 O2 Delivery Room Air Room Air Room Air Room Air 02/21/20 02/21/20 02/21/20 02/21/20 20:00 21:22 21:23 23:06 Temp 97.9 97.9 Pulse 67 67 75 Resp 20 B/P (MAP) 103/49 103/49 106/48 (67) Pulse Ox 99 O2 Delivery Room Air Room Air 02/22/20 02/22/20 02/22/20 02/22/20 03:18 07:00 09:07 09:08 Temp 97.5 98.1 97.5 98.1 Pulse 79 76 79 79 Resp 18 18 B/P (MAP) 130/70 (90) 144/80 (101) 130/70 130/70 Pulse Ox 98 99 O2 Delivery Room Air Room Air 02/22/20 02/22/20 09:19 09:49 O2 Delivery Room Air Room Air Intake and Output 02/21/20 02/21/20 02/22/20 15:00 23:00 07:00 Intake Total 530 ml Balance 530 ml Justicifation of Admission Dx: Justifications for Admission: Justification of Admission Dx: Yes JAK SUN MD Feb 22, 2020 10:37
[2020-02-22 11:00] VITALS: BP 139/78
--- NOTE | 2020-02-22 11:59 | PDOC ---
PROGRESS NOTES Subjective Subjective Patient seen and examined Objective Objective Vital Signs Date Time Temp Pulse Resp B/P (MAP) Pulse Ox O2 Delivery O2 Flow Rate FiO2 02/22/20 09:49 Room Air 02/22/20 09:08 79 130/70 02/22/20 07:00 98.1 18 99 98.1 Intake and Output 02/22/20 07:00 Intake Total 530 ml Balance 530 ml Intake Oral 530 ml # Voids 3 Physical Exam Abdomen: Normal bowel sounds Heart: Regular rate General: No acute distress Lungs: Clear to auscultation Assessment Assessment 1. Episodes of chest pressure and lightheadedness. Patient symptoms occurred while she was walking in a parking lot with a temperature of over 90 degrees. EKG shows an atrial paced rhythm with no acute ischemic changes. Troponin has been negative x2. Chest x-ray shows no acute infiltrates. The patient looks and feels well today. Probable discharge. We will follow-up in the office. 2. Permanent pacemaker. A paced rhythm. We will continue on routine interrogations in the office. 3. Underlying atrial fibrillation. Continue present home medications. We will arrange office follow-up. 4. Hypertension. Blood pressure is under improved control. Normal LV function on echo. 5. Hyperlipidemia. Lab as above. Continue present treatment with office follow-up. Comment Review of Relevant I have reviewed the following items wade (where applicable) has been applied. Labs Laboratory Tests Test 02/20/20 14:03 02/20/20 14:25 02/20/20 21:30 02/21/20 14:00 Urine Collection Type Unknown Urine Color Yellow Urine Clarity Clear Urine pH 6.5 (<5.0-8.0) Urine Specific [place] 1.010 (1.000-1.030) Urine Protein Negative mg/dL (NEG-TRACE) Urine Glucose (UA) Negative mg/dL (NEG) Urine Ketones (Stick) Negative mg/dL (NEG) Urine Blood Negative (NEG) Urine Nitrite Negative (NEG) Urine Bilirubin Negative (NEG) Urine Urobilinogen Dipstick 1.0 mg/dL (0.2 mg/dL) Urine Leukocyte Esterase Trace (NEG) Urine RBC Rare /HPF (0-2) Urine WBC 1-4 /HPF (0-4) Urine Squamous Epithelial Cells Many /LPF Urine Bacteria Many /HPF (0-FEW) Urine Hyaline Casts Occasional /HPF White Blood Count 2.7 x10^3/uL (4.0-11.0) 2.9 x10^3/uL (4.0-11.0) Red Blood Count 3.80 x10^6/uL (3.50-5.40) 3.95 x10^6/uL (3.50-5.40) Hemoglobin 10.6 g/dL (12.0-15.5) 10.9 g/dL (12.0-15.5) Hematocrit 30.6 % (36.0-47.0) 32.5 % (36.0-47.0) Mean Corpuscular Volume 81 fL (79-100) 82 fL (79-100) Mean Corpuscular Hemoglobin 28 pg (25-35) 28 pg (25-35) Mean Corpuscular Hemoglobin Concent 35 g/dL (31-37) 34 g/dL (31-37) Red Cell Distribution Width 15.2 % (11.5-14.5) 15.8 % (11.5-14.5) Platelet Count 182 x10^3/uL (140-400) 190 x10^3/uL (140-400) Neutrophils (%) (Auto) 49 % (31-73) 55 % (31-73) Lymphocytes (%) (Auto) 37 % (24-48) 31 % (24-48) Monocytes (%) (Auto) 13 % (0-9) 12 % (0-9) Eosinophils (%) (Auto) 1 % (0-3) 1 % (0-3) Basophils (%) (Auto) 1 % (0-3) 1 % (0-3) Neutrophils # (Auto) 1.3 x10^3/uL (1.8-7.7) 1.6 x10^3/uL (1.8-7.7) Lymphocytes # (Auto) 1.0 x10^3/uL (1.0-4.8) 0.9 x10^3/uL (1.0-4.8) Monocytes # (Auto) 0.3 x10^3/uL (0.0-1.1) 0.4 x10^3/uL (0.0-1.1) Eosinophils # (Auto) 0.0 x10^3/uL (0.0-0.7) 0.0 x10^3/uL (0.0-0.7) Basophils # (Auto) 0.0 x10^3/uL (0.0-0.2) 0.0 x10^3/uL (0.0-0.2) Prothrombin Time 14.0 SEC (11.7-14.0) Prothromb Time International Ratio 1.1 (0.8-1.1) Sodium Level 132 mmol/L (136-145) 138 mmol/L (136-145) Potassium Level 4.3 mmol/L (3.5-5.1) 3.7 mmol/L (3.5-5.1) Chloride Level 99 mmol/L (98-107) 101 mmol/L (98-107) Carbon Dioxide Level 27 mmol/L (21-32) 28 mmol/L (21-32) Anion Gap 6 (6-14) 9 (6-14) Blood Urea Nitrogen 11 mg/dL (7-20) 14 mg/dL (7-20) Creatinine 1.0 mg/dL (0.6-1.0) 1.0 mg/dL (0.6-1.0) Estimated GFR (Cockcroft-Gault) 63.8 63.8 BUN/Creatinine Ratio 11 (6-20) 14 (6-20) Glucose Level 89 mg/dL (70-99) 65 mg/dL (70-99) Calcium Level 9.0 mg/dL (8.5-10.1) 8.8 mg/dL (8.5-10.1) Total Bilirubin 0.7 mg/dL (0.2-1.0) 0.4 mg/dL (0.2-1.0) Aspartate Amino Transf (AST/SGOT) 14 U/L (15-37) 15 U/L (15-37) Alanine Aminotransferase (ALT/SGPT) 14 U/L (14-59) 15 U/L (14-59) Alkaline Phosphatase 56 U/L (46-116) 61 U/L (46-116) Troponin I Quantitative < 0.017 ng/mL (0.000-0.055) < 0.017 ng/mL (0.000-0.055) OI-Qcp-L-Type Natriuretic Peptide 150 pg/mL (0-449) Total Protein 6.8 g/dL (6.4-8.2) 7.0 g/dL (6.4-8.2) Albumin 3.6 g/dL (3.4-5.0) 3.6 g/dL (3.4-5.0) Albumin/Globulin Ratio 1.1 (1.0-1.7) 1.1 (1.0-1.7) Hemoglobin A1c 5.6 % (4.8-5.6) Triglycerides Level 49 mg/dL (0-150) Cholesterol Level 226 mg/dL (0-200) LDL Cholesterol, Calculated 155 mg/dL (0-100) VLDL Cholesterol, Calculated 10 mg/dL (0-40) Non-HDL Cholesterol Calculated 165 mg/dL (0-129) HDL Cholesterol 61 mg/dL (40-60) Cholesterol/HDL Ratio 3.7 Thyroid Stimulating Hormone (TSH) 1.227 uIU/mL (0.358-3.74) Creatine Kinase 55 U/L (26-192) Laboratory Tests Test 02/21/20 14:00 White Blood Count 2.9 x10^3/uL (4.0-11.0) Red Blood Count 3.95 x10^6/uL (3.50-5.40) Hemoglobin 10.9 g/dL (12.0-15.5) Hematocrit 32.5 % (36.0-47.0) Mean Corpuscular Volume 82 fL (79-100) Mean Corpuscular Hemoglobin 28 pg (25-35) Mean Corpuscular Hemoglobin Concent 34 g/dL (31-37) Red Cell Distribution Width 15.8 % (11.5-14.5) Platelet Count 190 x10^3/uL (140-400) Neutrophils (%) (Auto) 55 % (31-73) Lymphocytes (%) (Auto) 31 % (24-48) Monocytes (%) (Auto) 12 % (0-9) Eosinophils (%) (Auto) 1 % (0-3) Basophils (%) (Auto) 1 % (0-3) Neutrophils # (Auto) 1.6 x10^3/uL (1.8-7.7) Lymphocytes # (Auto) 0.9 x10^3/uL (1.0-4.8) Monocytes # (Auto) 0.4 x10^3/uL (0.0-1.1) Eosinophils # (Auto) 0.0 x10^3/uL (0.0-0.7) Basophils # (Auto) 0.0 x10^3/uL (0.0-0.2) Sodium Level 138 mmol/L (136-145) Potassium Level 3.7 mmol/L (3.5-5.1) Chloride Level 101 mmol/L (98-107) Carbon Dioxide Level 28 mmol/L (21-32) Anion Gap 9 (6-14) Blood Urea Nitrogen 14 mg/dL (7-20) Creatinine 1.0 mg/dL (0.6-1.0) Estimated GFR (Cockcroft-Gault) 63.8 BUN/Creatinine Ratio 14 (6-20) Glucose Level 65 mg/dL (70-99) Calcium Level 8.8 mg/dL (8.5-10.1) Total Bilirubin 0.4 mg/dL (0.2-1.0) Aspartate Amino Transf (AST/SGOT) 15 U/L (15-37) Alanine Aminotransferase (ALT/SGPT) 15 U/L (14-59) Alkaline Phosphatase 61 U/L (46-116) Creatine Kinase 55 U/L (26-192) Total Protein 7.0 g/dL (6.4-8.2) Albumin 3.6 g/dL (3.4-5.0) Albumin/Globulin Ratio 1.1 (1.0-1.7) Microbiology 02/20/20 Urine Culture - Final, Complete Medications Current Medications Ondansetron HCl (Zofran) 4 mg PRN Q8HRS PRN IV NAUSEA/VOMITING; Start 02/20/20 at 15:30; Stop 02/21/20 at 15:29; Status DC Nitroglycerin (Nitrostat) 0.4 mg PRN Q5MIN PRN SL CHEST PAIN; Start 02/20/20 at 15:30; Stop 02/21/20 at 15:29; Status DC Alprazolam (Xanax) 0.25 mg BID PO Last administered on 02/22/20at 09:06; Start 02/20/20 at 21:00 Gabapentin (Neurontin) 100 mg BID PO Last administered on 02/21/20at 09:21; Start 02/20/20 at 21:00 Midodrine (Proamatine) 5 mg BID PO Last administered on 02/22/20 09:07; Start 02/20/20 at 21:00 Zolpidem Tartrate (Ambien) 5 mg HS PO Last administered on 02/21/20at 21:22; Start 02/20/20 at 21:00 Pantoprazole Sodium (Protonix) 40 mg DAILYAC PO Last administered on 02/22/20 09:06; Start 02/21/20 at 07:30 Sotalol HCl (Betapace) 60 mg BID PO Last administered on 02/22/20 09:08; Start 02/20/20 at 21:00 Acetaminophen (Tylenol) 650 mg PRN Q6HRS PRN PO fever and pain Last administered on 02/21/20 12:56; Start 02/20/20 at 17:00 Vitamin B Complex (Folbic Tablet) 1 tab DAILY PO Last administered on 02/22/20 09:06; Start 02/22/20 at 09:00 Tamoxifen Citrate (Nolvadex) 20 mg DAILY PO Last administered on 02/22/20at 09:35; Start 02/22/20 at 09:00 Morphine Sulfate (Morphine Sulfate) 2 mg PRN Q2HR PRN IV PAIN Last administered on 02/21/20at 18:37; Start 02/21/20 at 17:30; Stop 02/21/20 at 18:58; Status DC Ketorolac Tromethamine (Toradol 30mg Vial) 30 mg PRN Q6HRS PRN IVP PAIN; Start 02/21/20 at 17:30; Stop 02/26/20 at 17:29 Ondansetron HCl (Zofran Odt) 4 mg PRN Q6HRS PRN PO NAUSEA/VOMITING; Start 02/21/20 at 18:15 Morphine Sulfate (Morphine Sulfate) 2 mg PRN Q2HR PRN IM PAIN Last administered on 02/22/20 09:19; Start 02/21/20 at 19:00 Active Scripts Active Reported Vitamin E84-[id number] Acid Tablet (Cyanocobalamin/Folic Acid) 1 Each Tablet 1 Tab PO DAILY 30 Days Tamoxifen Citrate 20 Mg Tablet 20 Mg PO DAILY Alprazolam 0.25 Mg Tablet 1 Tab PO BID Betapace (Sotalol Hcl) 120 Mg Tablet 0.5 Tab PO BID 30 Days Midodrine Hcl 5 Mg Tablet 5 Mg PO BID Gabapentin (Gabapentin) 100 Mg Capsule 100 Mg PO BID Zolpidem Tartrate 5 Mg Tablet 5 Mg PO HS Omeprazole 40 Mg Capsule.dr 40 Mg PO DAILY Vitals/I & O Vital Sign - Last 24 Hours 02/21/20 02/21/20 02/21/20 02/21/20 15:00 18:37 19:19 20:00 Temp 97.6 97.7 97.6 97.7 Pulse 75 67 Resp 18 20 B/P (MAP) 119/54 (75) 103/49 (67) Pulse Ox 95 99 O2 Delivery Room Air Room Air Room Air Room Air 02/21/20 02/21/20 02/21/20 02/22/20 21:22 21:23 23:06 03:18 Temp 97.9 97.5 97.9 97.5 Pulse 67 67 75 79 Resp 20 18 B/P (MAP) 103/49 103/49 106/48 (67) 130/70 (90) Pulse Ox 99 98 O2 Delivery Room Air Room Air 02/22/20 02/22/20 02/22/20 02/22/20 07:00 09:07 09:08 09:19 Temp 98.1 98.1 Pulse 76 79 79 Resp 18 B/P (MAP) 144/80 (101) 130/70 130/70 Pulse Ox 99 O2 Delivery Room Air Room Air 02/22/20 09:49 O2 Delivery Room Air Intake and Output 02/21/20 02/21/20 02/22/20 15:00 23:00 07:00 Intake Total 530 ml Balance 530 ml Justicifation of Admission Dx: Justifications for Admission: Justification of Admission Dx: Yes CALLIE DOOLEY MD Feb 22, 2020 11:59
[2020-02-22 15:00] VITALS: BP 113/59
--- NOTE | 2020-02-22 15:36 | RAD ---
PQRS Compliance Statement: One or more of the following individualized dose reduction techniques were utilized for this examination: 1. Automated exposure control 2. Adjustment of the mA and/or kV according to patient size 3. Use of iterative reconstruction technique CT CHEST WO CONTRAST 02/22/2020 1:00 PM Indication: Chest pain, history of breast cancer COMPARISON: None available. TECHNIQUE: Multiple axial CT images of the chest were obtained without intravenous contrast. Coronal and sagittal reformats are provided. FINDINGS: 3 mm solid noncalcified pulmonary nodule identified in the right upper lobe (series 3, image 32). Bandlike density at the left lung base represent subsegmental atelectasis versus scarring. No pleural effusions, pulmonary vascular congestion or pneumothorax. Thoracic aorta is normal in course and caliber. Calcified right hilar lymph nodes suggestive of sequela prior granulomatous exposure. No pathologically enlarged thoracic lymph nodes. Heart size is enlarged. Cardiac pacer wires remain in the right atrium and right ventricle. Right breast fluid collection measures 2.9 x 1.6 cm. There is skin thickening along the right breast. Subcutaneous inflammation. Evaluation of solid abdominal viscera is limited by lack of intravenous contrast. No suspicious abnormality identified in the upper abdomen. No pleural effusions, pulmonary vascular congestion or pneumothorax. No suspicious osseous abnormality. Advanced right glenohumeral joint disease. Left shoulder arthroplasty changes are present. No suspicious osseous abnormality. IMPRESSION: No evidence for metastatic disease involving the chest. Right lumpectomy changes are suspected with fluid collection in the medial right breast measuring 2.9 x 1.6 cm. Correlate with any recent treatment. There is skin thickening of the right breast, possibly inflammatory. 3 mm solid noncalcified pulmonary nodule in the right upper lobe, indeterminate. Attention on follow-up exams is recommended. Electronically signed by: Yessy Noe MD (02/22/2020 3:33 PM) [facility]
[2020-02-22] MEDS: ONDANSETRON ODT 4 MG TAB.RAPDIS. PO PRN (18:58)
[2020-02-22 19:00] VITALS: BP 105/53
[2020-02-22] MEDS: ZOLPIDEM 5 MG TABLET. PO SCH (21:11)
[2020-02-22] MEDS: ACETAMINOPHEN 325 MG TABLET. PO PRN (21:12)
[2020-02-22 22:50] VITALS: BP 93/56
[2020-02-23] VITALS (7 sets, daily range): BP systolic 70–105; BP diastolic 33–69
--- NOTE | 2020-02-23 03:42 | NUR ---
At 19:00 PM Patient BP 105/53 P 75, at 2111 She refused to take Betapce 80mg and Midodrine 5mg, She states, "Those Medicines makes me not feel right, one makes my blood pressure run up into the 200's over 100's and the other drops it way too low, it has been running good, so I am not going to take them until I talk to my primary care doctor, Lissette, I should not have fired him. Still I am not going to take them tonight. I have my rights, right?" Patient did not take those two pills. AT 22:50 PM BP 93/56, P 75, fluids encouraged, and at 299 BP 88/41, P 75, Patient Asymptomatic and stable denies any c/o dizziness/light headiness. called at time of 299 vital signs, informed of vital signs as well as the above information. No orders received.
[2020-02-23] MEDS: PANTOPRAZOLE 40 MG TABLET.DR. PO SCH (05:17)
--- NOTE | 2020-02-23 07:54 | PDOC ---
PROGRESS NOTES History of Present Illness History of Present Illness VTE Prophylaxis Ordered VTE Prophylaxis Devices: No VTE Pharmacological Prophylaxi: Yes impression Assessment/Plan ASSESSMENT Chest Pain, ACS rule out // CHEST WALL PAIN SSS s/p pacer HTN, labile breast cancer recently dx s/p radiation treatment right breast pain , Right breast fluid collection measures 2.9 x 1.6 cm. There is skin thickening along the right breast. Subcutaneous inflammation. HEAT RELATED SYMPTOMS WITH DIZZINESS dementia HLD dizziness on ct head , ill-defined low-density of the superficial parenchyma, nonspecific findings more commonly due to chronic microvascular ischemic disease in a patient this age. PLAN cvc bed check 2decho follow trops check TSH, lipids, a1c cards consult resume home meds including sotalol dvt ppx: ambulatory FULL CODE dispo pending cardiac work up. COOLING, AVOID HIGH TEMPS ORALLY HYDRATE pt/ot CONSULT ONCOLOGY CT CHEST BLOOD CULTURE LACTIC ACID CONSULT ID IV ROCEPHIN 1 GM Q 24 HRS 38 MIN pt exam, chart review, > 50% of time spent with exam, chart review, pt care coordination CRP 18.4 Justicifation of Admission Dx: Justicifation of Admission Dx: Justifications for Admission: Justification of Admission Dx: Yes Vitals Vitals Vital Signs Date Time Temp Pulse Resp B/P (MAP) Pulse Ox O2 Delivery O2 Flow Rate FiO2 02/23/20 07:00 98.2 78 20 105/69 (81) 93 Room Air 98.2 Physical Exam Physical Exam Physical Exam GENERAL: . Alert and oriented. HEENT: Head normocephalic, atraumatic. NECK: Supple LUNGS: Clear to auscultation. HEART: RRR, S1, S2 present, pulses intact ABDOMEN: Soft, positive bowel sounds. EXTREMITIES: No cyanosis or edema. NEUROLOGIC: Normal speech, normal tone PSYCHIATRIC: Normal affect, normal mood. SKIN: No ulceration.cool , good capillary refill General: Alert, Oriented X3, Cooperative, No acute distress, mild distress Heart: Regular rate Lungs: Clear Abdomen: Normal bowel sounds, Soft, No tenderness Extremities: No cyanosis Labs LABS PQRS Compliance Statement: One or more of the following individualized dose reduction techniques were utilized for this examination: 1. Automated exposure control 2. Adjustment of the mA and/or kV according to patient size 3. Use of iterative reconstruction technique CT CHEST WO CONTRAST 02/22/2020 1:00 PM Indication: Chest pain, history of breast cancer COMPARISON: None available. TECHNIQUE: Multiple axial CT images of the chest were obtained without intravenous contrast. Coronal and sagittal reformats are provided. FINDINGS: 3 mm solid noncalcified pulmonary nodule identified in the right upper lobe (series 3, image 32). Bandlike density at the left lung base represent subsegmental atelectasis versus scarring. No pleural effusions, pulmonary vascular congestion or pneumothorax. Thoracic aorta is normal in course and caliber. Calcified right hilar lymph nodes suggestive of sequela prior granulomatous exposure. No pathologically enlarged thoracic lymph nodes. Heart size is enlarged. Cardiac pacer wires remain in the right atrium and right ventricle. Right breast fluid collection measures 2.9 x 1.6 cm. There is skin thickening along the right breast. Subcutaneous inflammation. Evaluation of solid abdominal viscera is limited by lack of intravenous contrast. No suspicious abnormality identified in the upper abdomen. No pleural effusions, pulmonary vascular congestion or pneumothorax. No suspicious osseous abnormality. Advanced right glenohumeral joint disease. Left shoulder arthroplasty changes are present. No suspicious osseous abnormality. IMPRESSION: No evidence for metastatic disease involving the chest. Right lumpectomy changes are suspected with fluid collection in the medial right breast measuring 2.9 x 1.6 cm. Correlate with any recent treatment. There is skin thickening of the right breast, possibly inflammatory. 3 mm solid noncalcified pulmonary nodule in the right upper lobe, indeterminate. Attention on follow-up exams is recommended. Electronically signed by: Yessy Noe MD (02/22/2020 3:33 PM) Comment Review of Relevant I have reviewed the following items wade (where applicable) has been applied. Labs Laboratory Tests Test 02/21/20 14:00 White Blood Count 2.9 x10^3/uL (4.0-11.0) Red Blood Count 3.95 x10^6/uL (3.50-5.40) Hemoglobin 10.9 g/dL (12.0-15.5) Hematocrit 32.5 % (36.0-47.0) Mean Corpuscular Volume 82 fL (79-100) Mean Corpuscular Hemoglobin 28 pg (25-35) Mean Corpuscular Hemoglobin Concent 34 g/dL (31-37) Red Cell Distribution Width 15.8 % (11.5-14.5) Platelet Count 190 x10^3/uL (140-400) Neutrophils (%) (Auto) 55 % (31-73) Lymphocytes (%) (Auto) 31 % (24-48) Monocytes (%) (Auto) 12 % (0-9) Eosinophils (%) (Auto) 1 % (0-3) Basophils (%) (Auto) 1 % (0-3) Neutrophils # (Auto) 1.6 x10^3/uL (1.8-7.7) Lymphocytes # (Auto) 0.9 x10^3/uL (1.0-4.8) Monocytes # (Auto) 0.4 x10^3/uL (0.0-1.1) Eosinophils # (Auto) 0.0 x10^3/uL (0.0-0.7) Basophils # (Auto) 0.0 x10^3/uL (0.0-0.2) Sodium Level 138 mmol/L (136-145) Potassium Level 3.7 mmol/L (3.5-5.1) Chloride Level 101 mmol/L (98-107) Carbon Dioxide Level 28 mmol/L (21-32) Anion Gap 9 (6-14) Blood Urea Nitrogen 14 mg/dL (7-20) Creatinine 1.0 mg/dL (0.6-1.0) Estimated GFR (Cockcroft-Gault) 63.8 BUN/Creatinine Ratio 14 (6-20) Glucose Level 65 mg/dL (70-99) Calcium Level 8.8 mg/dL (8.5-10.1) Total Bilirubin 0.4 mg/dL (0.2-1.0) Aspartate Amino Transf (AST/SGOT) 15 U/L (15-37) Alanine Aminotransferase (ALT/SGPT) 15 U/L (14-59) Alkaline Phosphatase 61 U/L (46-116) Creatine Kinase 55 U/L (26-192) Total Protein 7.0 g/dL (6.4-8.2) Albumin 3.6 g/dL (3.4-5.0) Albumin/Globulin Ratio 1.1 (1.0-1.7) Microbiology 02/20/20 Urine Culture - Final, Complete Medications Current Medications Ondansetron HCl (Zofran) 4 mg PRN Q8HRS PRN IV NAUSEA/VOMITING; Start 02/20/20 at 15:30; Stop 02/21/20 at 15:29; Status DC Nitroglycerin (Nitrostat) 0.4 mg PRN Q5MIN PRN SL CHEST PAIN; Start 02/20/20 at 15:30; Stop 02/21/20 at 15:29; Status DC Alprazolam (Xanax) 0.25 mg BID PO Last administered on 02/22/20at 21:10; Start 02/20/20 at 21:00 Gabapentin (Neurontin) 100 mg BID PO Last administered on 02/22/20at 21:11; Start 02/20/20 at 21:00 Midodrine (Proamatine) 5 mg BID PO Last administered on 02/22/20at 09:07; Start 02/20/20 at 21:00 Zolpidem Tartrate (Ambien) 5 mg HS PO Last administered on 02/22/20at 21:11; Start 02/20/20 at 21:00 Pantoprazole Sodium (Protonix) 40 mg DAILYAC PO Last administered on 02/23/20at 05:17; Start 02/21/20 at 07:30 Sotalol HCl (Betapace) 60 mg BID PO Last administered on 02/22/20at 09:08; Start 02/20/20 at 21:00 Acetaminophen (Tylenol) 650 mg PRN Q6HRS PRN PO fever and pain Last administered on 02/22/20at 21:12; Start 02/20/20 at 17:00 Vitamin B Complex (Folbic Tablet) 1 tab DAILY PO Last administered on 02/22/20at 09:06; Start 02/22/20 at 09:00 Tamoxifen Citrate (Nolvadex) 20 mg DAILY PO Last administered on 02/22/20at 09:35; Start 02/22/20 at 09:00 Morphine Sulfate (Morphine Sulfate) 2 mg PRN Q2HR PRN IV PAIN Last administered on 02/21/20at 18:37; Start 02/21/20 at 17:30; Stop 02/21/20 at 18:58; Status DC Ketorolac Tromethamine (Toradol 30mg Vial) 30 mg PRN Q6HRS PRN IVP PAIN; Start 02/21/20 at 17:30; Stop 02/26/20 at 17:29 Ondansetron HCl (Zofran Odt) 4 mg PRN Q6HRS PRN PO NAUSEA/VOMITING Last administered on 02/22/20at 18:58; Start 02/21/20 at 18:15 Morphine Sulfate (Morphine Sulfate) 2 mg PRN Q2HR PRN IM PAIN Last administered on 02/22/20at 09:19; Start 02/21/20 at 19:00 Active Scripts Active Reported Vitamin A46-Wzrjh Acid Tablet (Cyanocobalamin/Folic Acid) 1 Each Tablet 1 Tab PO DAILY 30 Days Tamoxifen Citrate 20 Mg Tablet 20 Mg PO DAILY Alprazolam 0.25 Mg Tablet 1 Tab PO BID Betapace (Sotalol Hcl) 120 Mg Tablet 0.5 Tab PO BID 30 Days Midodrine Hcl 5 Mg Tablet 5 Mg PO BID Gabapentin (Gabapentin) 100 Mg Capsule 100 Mg PO BID Zolpidem Tartrate 5 Mg Tablet 5 Mg PO HS Omeprazole 40 Mg Capsule.dr 40 Mg PO DAILY Vitals/I & O Vital Sign - Last 24 Hours 02/22/20 02/22/20 02/22/20 02/22/20 08:00 09:07 09:08 09:19 Pulse 79 79 B/P (MAP) 130/70 130/70 O2 Delivery Room Air Room Air 02/22/20 02/22/20 02/22/20 02/22/20 09:49 11:00 15:00 19:00 Temp 97.7 98.0 97.6 97.7 98.0 97.6 Pulse 89 75 75 Resp 20 18 18 B/P (MAP) 139/78 (98) 113/59 (77) 105/53 (70) Pulse Ox 100 100 98 O2 Delivery Room Air 02/22/20 02/22/20 02/22/20 02/22/20 20:08 21:00 21:00 22:50 Temp 98.0 98.0 Pulse 75 75 75 Resp 20 B/P (MAP) 105/53 105/53 93/56 (68) Pulse Ox 98 O2 Delivery Room Air Room Air 02/23/20 02/23/20 03:00 07:00 Temp 98.0 98.2 98.0 98.2 Pulse 75 78 Resp 20 20 B/P (MAP) 88/41 (57) 105/69 (81) Pulse Ox 98 93 O2 Delivery Room Air Room Air Intake and Output 02/22/20 02/22/20 02/23/20 15:00 23:00 07:00 Intake Total 240 ml 240 ml 480 ml Balance 240 ml 240 ml 480 ml Justicifation of Admission Dx: Justifications for Admission: Justification of Admission Dx: Yes JAK SUN MD Feb 23, 2020 07:54
[2020-02-23] MEDS: ALPRAZolam 0.25 MG TABLET PO SCH ×2 (08:55→21:41)
[2020-02-23] MEDS: GABAPENTIN 100 MG CAPSULE. PO SCH ×2 (08:55→21:41)
[2020-02-23] MEDS: MIDODRINE 5 MG TABLET PO SCH ×2 (08:56→21:41)
[2020-02-23] MEDS: VITAMIN B12,B9,B6 COMPLEX 1 TABLET. PO SCH (08:57)
[2020-02-23] MEDS: MORPHINE SULFATE 2 MG/ML VIAL. IM PRN (08:58)
[2020-02-23] MEDS: SOTALOL 80 MG TABLET. PO SCH ×2 (08:58→21:00)
[2020-02-23] MEDS: TAMOXIFEN 10 MG TABLET PO SCH (09:02)
--- NOTE | 2020-02-23 11:12 | PDOC2 ---
LC DAVIS HYDROGEOLOGY PROFESSOR 02/23/20 1112: CONSULT Date of Consult Date of Consult DATE: 02/23/20 TIME: 11:03 Reason for Consult Reason for Consult: breast fluid collection, s/p lumpectomy Referring Physician Referring Physician: Dr Campa Identification/Chief Complaint Chief Complaint chest pain, dizziness Source Source: Chart review, Patient History of Present Illness Reason for Visit: Patient known from previous surgery in Sep for right lumpectomy, s/p radiation. Admitted with chest pressure/dizziness while walking in heat. She had a chest CT done that mentions a right breast fluid collection. She has pain in her right arm--bicep area and difficulty moving arm Past Medical History Cardiovascular: AFIB, CAD, CHF, HTN, Other Pulmonary: Other CENTRAL NERVOUS SYSTEM: Other GI: Constipation, GERD, Other Heme/Onc: Iron deficiency Anemia Hepatobiliary: Cholelithiasis Psych: Depression Musculoskeletal: low back pain, Osteoarthritis Past Surgical History Past Surgical History: Pacemaker, Cholecystectomy, Cataract Removal, Other (Right lumpectomy, left shoulder surgery) Family History Family History: Hypertension Social History No ALCOHOL: none Drugs: None Lives: with Family Current Medications Current Medications Current Medications Ondansetron HCl (Zofran) 4 mg PRN Q8HRS PRN IV NAUSEA/VOMITING; Start 02/20/20 at 15:30; Stop 02/21/20 at 15:29; Status DC Nitroglycerin (Nitrostat) 0.4 mg PRN Q5MIN PRN SL CHEST PAIN; Start 02/20/20 at 15:30; Stop 02/21/20 at 15:29; Status DC Alprazolam (Xanax) 0.25 mg BID PO Last administered on 02/23/20at 08:55; Start 02/20/20 at 21:00 Gabapentin (Neurontin) 100 mg BID PO Last administered on 02/23/20at 08:55; Start 02/20/20 at 21:00 Midodrine (Proamatine) 5 mg BID PO Last administered on 02/23/20at 08:56; Start 02/20/20 at 21:00 Zolpidem Tartrate (Ambien) 5 mg HS PO Last administered on 02/22/20at 21:11; Start 02/20/20 at 21:00 Pantoprazole Sodium (Protonix) 40 mg DAILYAC PO Last administered on 02/23/20at 05:17; Start 02/21/20 at 07:30 Sotalol HCl (Betapace) 60 mg BID PO Last administered on 02/23/20at 08:58; Start 02/20/20 at 21:00 Acetaminophen (Tylenol) 650 mg PRN Q6HRS PRN PO fever and pain Last administered on 02/22/20at 21:12; Start 02/20/20 at 17:00 Vitamin B Complex (Folbic Tablet) 1 tab DAILY PO Last administered on 02/23/20at 08:57; Start 02/22/20 at 09:00 Tamoxifen Citrate (Nolvadex) 20 mg DAILY PO Last administered on 02/23/20at 09:02; Start 02/22/20 at 09:00 Morphine Sulfate (Morphine Sulfate) 2 mg PRN Q2HR PRN IV PAIN Last administered on 02/21/20at 18:37; Start 02/21/20 at 17:30; Stop 02/21/20 at 18:58; Status DC Ketorolac Tromethamine (Toradol 30mg Vial) 30 mg PRN Q6HRS PRN IVP PAIN; Start 02/21/20 at 17:30; Stop 02/26/20 at 17:29 Ondansetron HCl (Zofran Odt) 4 mg PRN Q6HRS PRN PO NAUSEA/VOMITING Last administered on 02/22/20at 18:58; Start 02/21/20 at 18:15 Morphine Sulfate (Morphine Sulfate) 2 mg PRN Q2HR PRN IM PAIN Last administered on 02/23/20at 08:58; Start 02/21/20 at 19:00 Active Scripts Active Reported Vitamin N52-Sgftc Acid Tablet (Cyanocobalamin/Folic Acid) 1 Each Tablet 1 Tab PO DAILY 30 Days Tamoxifen Citrate 20 Mg Tablet 20 Mg PO DAILY Alprazolam 0.25 Mg Tablet 1 Tab PO BID Betapace (Sotalol Hcl) 120 Mg Tablet 0.5 Tab PO BID 30 Days Midodrine Hcl 5 Mg Tablet 5 Mg PO BID Gabapentin (Gabapentin) 100 Mg Capsule 100 Mg PO BID Zolpidem Tartrate 5 Mg Tablet 5 Mg PO HS Omeprazole 40 Mg Capsule.dr 40 Mg PO DAILY Allergies Allergies: Coded Allergies: Penicillins (Verified Allergy, Intermediate, Rash, 09/16/19) tolerates cephalasporins atorvastatin (Verified Allergy, Intermediate, 12/29/19) tetracycline (Verified Allergy, Intermediate, rash, 09/16/19) codeine (Verified Adverse Reaction, Intermediate, nausea & vomiting, 09/16/19) fentanyl (Verified Adverse Reaction, Intermediate, Nausea and Vomiting, 09/17/19) hydrocodone (Verified Adverse Reaction, Intermediate, Nausea and Vomiting, 09/16/19) iron (Verified Adverse Reaction, Intermediate, Nausea and Vomiting, iron tablets the oral dose only, 09/16/19) ROS General: YES: Fatigue; No: Chills PSYCHOLOGICAL ROS: No: Anxiety, Depression Eyes: No Blurry vision, No Double vision HEENT: No: Heacaches, Sore Throat Hematological and Lymphatic: No: Bleeding Problems, Blood Clots Respiratory: YES: Shortness of breath; No: Cough Cardiovascular: yes Chest Pain; No Palpitations Gastrointestinal: No Nausea, No Vomiting Genitourinary: No Dysuria, No Hematuria Musculoskeletal: Yes Joint Pain, Yes Joint Stiffness, Yes Muscular Weakness Neurological: No Impaired Coord/balance, No Numbness/Tingling Skin: No Pruritus, No Rash Physical Exam Physical Exam right breast with no tenderness, no induration, no drainage--no signs of infection seen General: Alert, Cooperative, No acute distress HEENT: Atraumatic, PERRLA Lungs: Clear to auscultation, Normal air movement Heart: Regular rate, Normal S1, Normal S2 Abdomen: Soft, No tenderness Extremities: No clubbing, No cyanosis Neuro: Normal speech, Sensation intact Psych/Mental Status: Mental status NL, Mood NL MUSCULOSKELETAL: Other (pain and difficulty moving right arm, area to bicep/tricep is tender to exam) Vitals VITALS Vital Signs Date Time Temp Pulse Resp B/P (MAP) Pulse Ox O2 Delivery O2 Flow Rate FiO2 02/23/20 10:39 101.8 89 20 92/39 (56) 96 Room Air 101.8 Labs Labs Laboratory Tests Test 02/21/20 14:00 White Blood Count 2.9 x10^3/uL (4.0-11.0) Red Blood Count 3.95 x10^6/uL (3.50-5.40) Hemoglobin 10.9 g/dL (12.0-15.5) Hematocrit 32.5 % (36.0-47.0) Mean Corpuscular Volume 82 fL (79-100) Mean Corpuscular Hemoglobin 28 pg (25-35) Mean Corpuscular Hemoglobin Concent 34 g/dL (31-37) Red Cell Distribution Width 15.8 % (11.5-14.5) Platelet Count 190 x10^3/uL (140-400) Neutrophils (%) (Auto) 55 % (31-73) Lymphocytes (%) (Auto) 31 % (24-48) Monocytes (%) (Auto) 12 % (0-9) Eosinophils (%) (Auto) 1 % (0-3) Basophils (%) (Auto) 1 % (0-3) Neutrophils # (Auto) 1.6 x10^3/uL (1.8-7.7) Lymphocytes # (Auto) 0.9 x10^3/uL (1.0-4.8) Monocytes # (Auto) 0.4 x10^3/uL (0.0-1.1) Eosinophils # (Auto) 0.0 x10^3/uL (0.0-0.7) Basophils # (Auto) 0.0 x10^3/uL (0.0-0.2) Sodium Level 138 mmol/L (136-145) Potassium Level 3.7 mmol/L (3.5-5.1) Chloride Level 101 mmol/L (98-107) Carbon Dioxide Level 28 mmol/L (21-32) Anion Gap 9 (6-14) Blood Urea Nitrogen 14 mg/dL (7-20) Creatinine 1.0 mg/dL (0.6-1.0) Estimated GFR (Cockcroft-Gault) 63.8 BUN/Creatinine Ratio 14 (6-20) Glucose Level 65 mg/dL (70-99) Calcium Level 8.8 mg/dL (8.5-10.1) Total Bilirubin 0.4 mg/dL (0.2-1.0) Aspartate Amino Transf (AST/SGOT) 15 U/L (15-37) Alanine Aminotransferase (ALT/SGPT) 15 U/L (14-59) Alkaline Phosphatase 61 U/L (46-116) Creatine Kinase 55 U/L (26-192) Total Protein 7.0 g/dL (6.4-8.2) Albumin 3.6 g/dL (3.4-5.0) Albumin/Globulin Ratio 1.1 (1.0-1.7) Assessment/Plan Assessment/Plan chest pain, dizziness CT with fluid collection to right breast, small collection, hx of lumpectomy, radiation--suspect normal postoperative findings of seroma-no signs of infection no surgical needs, available as needed arm pain with movement--not related to lumpectomy--may need ortho eval(does report that this is a chronic issue) BONY WILD MD 02/24/20 1247: CONSULT Assessment/Plan Assessment/Plan Reviewed with Ms Davis; above findings expected with lumpectomy/radiation, will sign off, please call if we can assist in the future LC DAVIS APRN Feb 23, 2020 11:12 BONY WILD MD Feb 24, 2020 12:47
[2020-02-23] MEDS: ACETAMINOPHEN 325 MG TABLET. PO PRN (11:25)
--- NOTE | 2020-02-23 12:12 | PDOC2 ---
CONSULT Date of Consult Date of Consult DATE: 02/23/20 TIME: 12:02 Reason for Consult Reason for Consult: Breast cancer, admitted with chest pain Referring Physician Referring Physician: Dr. Campa Identification/Chief Complaint Chief Complaint Breast cancer, admitted with chest pain Problems: (1) Breast cancer, right Source Source: Chart review, Patient History of Present Illness Reason for Visit: Ariela Catalan is an 84-year-old -[place] female who has been admitted to the hospital for further evaluation of chest pain. The patient reports that she was at [facility] when she experienced dizziness associated with central sharp chest pain. This is now resolved. She has not experienced recurrence of his pain since her admission to the hospital. Patient reports that she was diagnosed with a right breast cancer earlier this year. She received right-sided lumpectomy on 09/05/2019 followed by radiation. She has seen Dr. Lindsey and had completed adjuvant radiation in January 2020. She had established care with Dr. Mcwilliams and continues to follow him. She currently takes Arimidex 1 mg daily as adjuvant endocrine therapy. She did not receive adjuvant chemotherapy. Past Medical History Cardiovascular: AFIB, CAD, CHF, HTN, Other Pulmonary: Other CENTRAL NERVOUS SYSTEM: Other GI: Constipation, GERD, Other Heme/Onc: Iron deficiency Anemia Hepatobiliary: Cholelithiasis Psych: Depression Musculoskeletal: low back pain, Osteoarthritis Past Surgical History Past Surgical History: Pacemaker, Cholecystectomy, Cataract Removal, Other (Right lumpectomy, left shoulder surgery) Family History Family History: Hypertension Social History No ALCOHOL: none Drugs: None Lives: with Family Current Medications Current Medications Current Medications Ondansetron HCl (Zofran) 4 mg PRN Q8HRS PRN IV NAUSEA/VOMITING; Start 02/20/20 at 15:30; Stop 02/21/20 at 15:29; Status DC Nitroglycerin (Nitrostat) 0.4 mg PRN Q5MIN PRN SL CHEST PAIN; Start 02/20/20 at 15:30; Stop 02/21/20 at 15:29; Status DC Alprazolam (Xanax) 0.25 mg BID PO Last administered on 02/23/20at 08:55; Start 02/20/20 at 21:00 Gabapentin (Neurontin) 100 mg BID PO Last administered on 02/23/20at 08:55; Start 02/20/20 at 21:00 Midodrine (Proamatine) 5 mg BID PO Last administered on 02/23/20 08:56; Start 02/20/20 at 21:00 Zolpidem Tartrate (Ambien) 5 mg HS PO Last administered on 02/22/20at 21:11; Start 02/20/20 at 21:00 Pantoprazole Sodium (Protonix) 40 mg DAILYAC PO Last administered on 02/23/20at 05:17; Start 02/21/20 at 07:30 Sotalol HCl (Betapace) 60 mg BID PO Last administered on 02/23/20 08:58; Start 02/20/20 at 21:00 Acetaminophen (Tylenol) 650 mg PRN Q6HRS PRN PO fever and pain Last administered on 02/23/20 11:25; Start 02/20/20 at 17:00 Vitamin B Complex (Folbic Tablet) 1 tab DAILY PO Last administered on 02/23/20 08:57; Start 02/22/20 at 09:00 Tamoxifen Citrate (Nolvadex) 20 mg DAILY PO Last administered on 02/23/20at 09:02; Start 02/22/20 at 09:00 Morphine Sulfate (Morphine Sulfate) 2 mg PRN Q2HR PRN IV PAIN Last administered on 02/21/20at 18:37; Start 02/21/20 at 17:30; Stop 02/21/20 at 18:58; Status DC Ketorolac Tromethamine (Toradol 30mg Vial) 30 mg PRN Q6HRS PRN IVP PAIN; Start 02/21/20 at 17:30; Stop 02/26/20 at 17:29 Ondansetron HCl (Zofran Odt) 4 mg PRN Q6HRS PRN PO NAUSEA/VOMITING Last adm inistered on 02/22/20at 18:58; Start 02/21/20 at 18:15 Morphine Sulfate (Morphine Sulfate) 2 mg PRN Q2HR PRN IM PAIN Last administered on 02/23/20 08:58; Start 02/21/20 at 19:00 Active Scripts Active Reported Vitamin N87-Krcfg Acid Tablet (Cyanocobalamin/Folic Acid) 1 Each Tablet 1 Tab PO DAILY 30 Days Tamoxifen Citrate 20 Mg Tablet 20 Mg PO DAILY Alprazolam 0.25 Mg Tablet 1 Tab PO BID Betapace (Sotalol Hcl) 120 Mg Tablet 0.5 Tab PO BID 30 Days Midodrine Hcl 5 Mg Tablet 5 Mg PO BID Gabapentin (Gabapentin) 100 Mg Capsule 100 Mg PO BID Zolpidem Tartrate 5 Mg Tablet 5 Mg PO HS Omeprazole 40 Mg Capsule.dr 40 Mg PO DAILY Allergies Allergies: Coded Allergies: Penicillins (Verified Allergy, Intermediate, Rash, 09/16/19) tolerates cephalasporins atorvastatin (Verified Allergy, Intermediate, 12/29/19) tetracycline (Verified Allergy, Intermediate, rash, 09/16/19) codeine (Verified Adverse Reaction, Intermediate, nausea & vomiting, 09/16/19) fentanyl (Verified Adverse Reaction, Intermediate, Nausea and Vomiting, 09/17/19) hydrocodone (Verified Adverse Reaction, Intermediate, Nausea and Vomiting, 09/16/19) iron (Verified Adverse Reaction, Intermediate, Nausea and Vomiting, iron tablets the oral dose only, 09/16/19) ROS General: No: Chills, Night Sweats PSYCHOLOGICAL ROS: No: Anxiety Eyes: No Blurry vision, No Decreased vision HEENT: No: Heacaches ALLERGY AND IMMUNOLOGY: No: Nasal Congestion Hematological and Lymphatic: No: Bleeding Problems, Blood Clots ENDOCRINE: No: Breast Changes Breast: No New/Changing Breast Lumps, No Nipple changes, No Nipple discharge Respiratory: No: Cough, Hemoptysis Cardiovascular: yes Chest Pain (Resolved) Gastrointestinal: No Nausea, No Vomiting Genitourinary: No Dysuria, No Flank Pain Musculoskeletal: No Gait Disturbance Neurological: No Behavorial Changes Skin: No Dry Skin, No Eczema Physical Exam Physical Exam Examined right breast. Postradiation changes of the skin were noted. No masses were palpated. No skin breakdown noted General: Alert, Oriented X3 HEENT: Atraumatic, PERRLA Lungs: Clear to auscultation Heart: Regular rate, No murmurs Abdomen: Normal bowel sounds, Soft, No tenderness, No hepatosplenomegaly Extremities: No clubbing Skin: No rashes Neuro: Normal speech Psych/Mental Status: Mood NL MUSCULOSKELETAL: No joint tenderness, No deformity Vitals VITALS Vital Signs Date Time Temp Pulse Resp B/P (MAP) Pulse Ox O2 Delivery O2 Flow Rate FiO2 02/23/20 10:39 101.8 89 20 92/39 (56) 96 Room Air 101.8 Labs Labs Laboratory Tests Test 02/21/20 14:00 White Blood Count 2.9 x10^3/uL (4.0-11.0) Red Blood Count 3.95 x10^6/uL (3.50-5.40) Hemoglobin 10.9 g/dL (12.0-15.5) Hematocrit 32.5 % (36.0-47.0) Mean Corpuscular Volume 82 fL (79-100) Mean Corpuscular Hemoglobin 28 pg (25-35) Mean Corpuscular Hemoglobin Concent 34 g/dL (31-37) Red Cell Distribution Width 15.8 % (11.5-14.5) Platelet Count 190 x10^3/uL (140-400) Neutrophils (%) (Auto) 55 % (31-73) Lymphocytes (%) (Auto) 31 % (24-48) Monocytes (%) (Auto) 12 % (0-9) Eosinophils (%) (Auto) 1 % (0-3) Basophils (%) (Auto) 1 % (0-3) Neutrophils # (Auto) 1.6 x10^3/uL (1.8-7.7) Lymphocytes # (Auto) 0.9 x10^3/uL (1.0-4.8) Monocytes # (Auto) 0.4 x10^3/uL (0.0-1.1) Eosinophils # (Auto) 0.0 x10^3/uL (0.0-0.7) Basophils # (Auto) 0.0 x10^3/uL (0.0-0.2) Sodium Level 138 mmol/L (136-145) Potassium Level 3.7 mmol/L (3.5-5.1) Chloride Level 101 mmol/L (98-107) Carbon Dioxide Level 28 mmol/L (21-32) Anion Gap 9 (6-14) Blood Urea Nitrogen 14 mg/dL (7-20) Creatinine 1.0 mg/dL (0.6-1.0) Estimated GFR (Cockcroft-Gault) 63.8 BUN/Creatinine Ratio 14 (6-20) Glucose Level 65 mg/dL (70-99) Calcium Level 8.8 mg/dL (8.5-10.1) Total Bilirubin 0.4 mg/dL (0.2-1.0) Aspartate Amino Transf (AST/SGOT) 15 U/L (15-37) Alanine Aminotransferase (ALT/SGPT) 15 U/L (14-59) Alkaline Phosphatase 61 U/L (46-116) Creatine Kinase 55 U/L (26-192) Total Protein 7.0 g/dL (6.4-8.2) Albumin 3.6 g/dL (3.4-5.0) Albumin/Globulin Ratio 1.1 (1.0-1.7) Images Images Reviewed CT chest with findings consistent with postlumpectomy changes with small seroma. Inflammatory changes in the breast are consistent with recent completion of radiation therapy. Assessment/Plan Assessment/Plan Assessment: Right breast invasive ductal carcinoma, T1 a N0 M0 status post lumpectomy and adjuvant radiation and currently on adjuvant endocrine therapy with Arimidex Right breast fluid collection, likely postoperative seroma Chest pain Hypertension Hyperlipidemia Recommendations: * Continue with adjuvant Arimidex * Recommend general surgery evaluation for consideration of drainage of seroma * She currently follows with Dr. Mcwilliams. Patient is unsure if she would like to travel to [place]. She was provided contact information for medical oncology clinic in [place] if she wishes to transfer care. * Continue follow-up with Dr. Lindsey * Other care per hospitalist service Thank you for the consult Archie Gibson MD Medical Oncology/Hematology Ph: [phone] LUIS GIBSON MD Feb 23, 2020 12:12
--- NOTE | 2020-02-23 12:26 | PDOC ---
SERJIO,VERNA ABBY 02/23/20 1226: CARDIO Progress Notes Date and Time Date of Service 02/23/20 Time of Evaluation 1151 Subjective Subjective: No shortness of breath, Other (drowsy ) Vitals Vitals Vital Signs Date Time Temp Pulse Resp B/P (MAP) Pulse Ox O2 Delivery O2 Flow Rate FiO2 02/23/20 10:39 101.8 89 20 92/39 (56) 96 Room Air 101.8 Weight Weight [ ] Input and Output Intake and Output Intake and Output 02/23/20 07:00 Intake Total 960 ml Balance 960 ml Intake Oral 960 ml # Voids 4 Microbiology Micro Microbiology 02/20/20 Urine Culture - Final, Complete Physical Exam HEENT: Neck Supple W Full Motion Chest: Symmetric LUNGS: Clear to Auscultation Heart: S1S2, other (A-pacing ) Abdomen: Soft N/T Extremities: No Edema Neurology: alert, follow commands, other (drowsy) Assessment Assessment 1. Chest pain, atypical. AMI ruled out. 2. Dizziness with h/o orthostatic hypotension. On midodrine. 3. CAD; cath 2014 with minimal disease 4. SSS s/p PPM ([employer]) 5. AFIB; A- paced 5. H/o cardiomyopathy; recent echo with LV recovery with LVEF 55-60% 6. Hypertension; low end 7. Hyperlipidemia; LDL 155. allergy to statin 8. Fevers, leukopenia 9. H/o breast CA; s/p lumpectomy, radiation therapy. CT with fluid collection to right breast, oncology following. Recommendations Secondary prevention Add ASA therapy Continue midodrine TEDs Consider outpatient ischemic evaluation Supportive care Workup of fevers as per PCP Justicifation of Admission Dx: Justifications for Admission: Justification of Admission Dx: Yes INEZ ROJAS MD 02/24/20 0816: CARDIO Progress Notes Plan Plan Late entry for 02/23/20. Non-cardiac chest pain. Pt. seen and examined. Agree with above WEB UI DESIGNER note. Supportive care. VERNA BASSETT APRN Feb 23, 2020 12:26 INEZ ROJAS MD Feb 24, 2020 08:16
--- NOTE | 2020-02-23 13:15 | NUR ---
SS following for discharge planning. SS reviewed pt chart and discussed with pt RN. Pt is from home with family and is currently on room air. PT recommended longterm unit. SS met with pt and daughter in room. Pt and daughter both reported that pt will NOT go to longterm unit. Pt reported that she is on services at home with [facility], ; fax [phone], and wishes to return to home with home healthcare. SS will continue to follow for discharge planning.
--- NOTE | 2020-02-23 13:48 | PDOC ---
Infectious Disease Note Vital Signs: Vital Signs Vital Signs Date Time Temp Pulse Resp B/P (MAP) Pulse Ox O2 Delivery O2 Flow Rate FiO2 02/23/20 10:39 101.8 89 20 92/39 (56) 96 Room Air 101.8 Physical Exam: PHYSICAL EXAM Physical Exam GENERAL: . Alert and oriented. HEENT: Head normocephalic, atraumatic. NECK: Supple LUNGS: Clear to auscultation. HEART: RRR, S1, S2 present, pulses intact ABDOMEN: Soft, positive bowel sounds. EXTREMITIES: No cyanosis or edema. NEUROLOGIC: Normal speech, normal tone PSYCHIATRIC: Normal affect, normal mood. SKIN: No ulceration.cool , good capillary refill Medications: Inpatient Meds: Current Medications Medications (Trade) Dose Ordered Sig/[facility] Start Time Stop Time Status Last Admin Dose Admin Acetaminophen (Tylenol) 650 mg PRN Q6HRS PRN 02/20/20 17:00 02/23/20 11:25 650 MG Alprazolam (Xanax) 0.25 mg BID 02/20/20 21:00 02/23/20 08:55 0.25 MG Aspirin (Ecotrin) 81 mg DAILYWBKFT 02/24/20 08:00 Ceftriaxone Sodium (Rocephin Im) 1 gm Q24H 02/23/20 14:00 Gabapentin (Neurontin) 100 mg BID 02/20/20 21:00 02/23/20 08:55 100 MG Ketorolac Tromethamine (Toradol 30mg Vial) 30 mg PRN Q6HRS PRN 02/21/20 17:30 02/26/20 17:29 Midodrine (Proamatine) 5 mg BID 02/20/20 21:00 02/23/20 08:56 5 MG Morphine Sulfate (Morphine Sulfate) 2 mg PRN Q2HR PRN 02/21/20 19:00 02/23/20 08:58 2 MG Nitroglycerin (Nitrostat) 0.4 mg PRN Q5MIN PRN 02/20/20 15:30 02/21/20 15:29 DC Ondansetron HCl (Zofran Odt) 4 mg PRN Q6HRS PRN 02/21/20 18:15 02/22/20 18:58 4 MG Ondansetron HCl (Zofran) 4 mg PRN Q8HRS PRN 02/20/20 15:30 02/21/20 15:29 DC Pantoprazole Sodium (Protonix) 40 mg DAILYAC 02/21/20 07:30 02/23/20 05:17 40 MG Sotalol HCl (Betapace) 60 mg BID 02/20/20 21:00 02/23/20 08:58 60 MG Tamoxifen Citrate (Nolvadex) 20 mg DAILY 02/22/20 09:00 02/23/20 09:02 20 MG Vitamin B Complex (Folbic Tablet) 1 tab DAILY 02/22/20 09:00 02/23/20 08:57 1 TAB Zolpidem Tartrate (Ambien) 5 mg HS 02/20/20 21:00 02/22/20 21:11 5 MG Objective: Assessment: Patient seen and examined Plan: Plan of Care ID consult dictated Thank you VINCE HAHN MD Feb 23, 2020 13:48
[2020-02-23] MEDS ORDERED: cefTRIAXone IM 1 GM VIAL IM SCH (14:00)
--- NOTE | 2020-02-23 14:53 | RAD ---
EXAM: Right breast ultrasound. HISTORY: Right breast swelling after lumpectomy and radiation. COMPARISON: 09/17/2019. FINDINGS: Sonographic evaluation of the site of swelling and the lumpectomy scar was performed at the 9:00 position. This reveals skin thickening, but no underlying mass or fluid collection. Only normal parenchyma is seen. IMPRESSION: 1. BI-RADS Category 2: Benign findings. 2. Skin thickening may reflect posttreatment change. Correlate clinically. Ongoing follow-up of swelling is recommended. Electronically signed by: Alden Godinez MD (02/23/2020 2:50 PM) [id number]
[2020-02-23] MEDS ORDERED: cefTRIAXone IV Push 1 GM VIAL. IVP SCH (16:00)
--- NOTE | 2020-02-23 20:04 | CONS ---
DATE OF CONSULTATION: 02/23/2020 REFERRING PHYSICIAN: Dr. Campa. REASON FOR CONSULTATION: Fever. HISTORY OF PRESENT ILLNESS: An 84-year-old female who presented to the ER on 02/20/2020 with complaints of chest pain and dizziness while walking from her car into [facility]. By the time EMS arrived, she had no symptoms. The patient denied any associated fevers, chills, nausea, vomiting, diarrhea, abdominal pain. The patient has history of breast cancer for which she underwent surgery earlier this year, CHF, AFib, pacemaker, hyperlipidemia, cholecystectomy, hysterectomy, partial bowel obstruction, UTI and GERD. Today, she had a fever of 101. She was started on ceftriaxone. Blood cultures are done. UA on 02/20/2020 was negative. The patient did have dysuria prior to admission. White count was 2.7, is 2.9. The patient underwent CT of the chest, which showed no evidence of metastatic disease involving the chest, right lumpectomy changes are suspected with fluid collection in the medial right breast measuring 2.9 x 1.6 cm, correlate with any recent treatment. There is skin thickening of the right breast, possibly inflammatory 3 mm noncalcified pulmonary nodule in the right upper lobe, indeterminate. General Surgery evaluated the patient. They feel that she has normal postoperative findings of seroma. No signs of infection. No surgery indicated at this time. ID consult has been requested for antibiotic management. The patient is propped up in bed right now. Denies any complaints. His fevers have subsided. Chest pain is improving. PAST MEDICAL HISTORY: AFib, coronary artery disease, CHF, hypertension, constipation, GERD, iron deficiency anemia, history of cholelithiasis, depression, low back pain, osteoarthritis, right breast cancer, status post right-sided lumpectomy 09/05/2019 followed by radiation, left shoulder surgery. PAST SURGICAL HISTORY: Pacemaker, cholecystectomy, cataract removal, right lumpectomy, left shoulder surgery. FAMILY HISTORY: As per HPI. SOCIAL HISTORY: Denies smoking, ETOH or illicit drug use. CURRENT MEDICATIONS: Ceftriaxone. Other medications reviewed in medication list. ALLERGIES: PENICILLIN -- RASH. TOLERATES CEPHALOSPORINS. ATORVASTATIN, TETRACYCLINE-- RASH. CODEINE, FENTANYL, HYDROCODONE, IRON. REVIEW OF SYSTEMS: Negative except for above in HPI. PHYSICAL EXAMINATION: VITAL SIGNS: Temperature 101.8, pulse 89, respiratory rate 20, blood pressure 92/39 and oxygen saturation 96% on room air. GENERAL: Alert and oriented x 3 female, lying in bed, in no acute distress, getting ready to eat lunch. HEENT: Normocephalic, atraumatic, anicteric. No thrush. Oral mucosa moist. NECK: Supple, no JVD. LUNGS: Clear bilaterally. No wheezing. HEART: S1, S2. No gallops or murmurs. ABDOMEN: Soft, nontender, nondistended. BREASTS: Postradiation changes present. Mild thickness present. No open wounds noted. No fluctuance noted. EXTREMITIES: No edema, no cyanosis. DERMATOLOGIC: Warm, dry. No generalized rash. NEUROLOGIC: Alert and oriented x 3, grossly nonfocal. PSYCHIATRIC: Cooperative, appropriate mood. LABORATORY DATA: WBC 2.9, hemoglobin 10.9, hematocrit 32.5, platelets 190. Sodium 138, potassium 3.7, chloride 101, bicarbonate 28, BUN 14, creatinine 1.0, glucose 65. LFTs within normal limits. UA on 02/20/2020 is negative. MICROBIOLOGY: 1. Urine cultures negative 2. Blood culture pending. Repeat UA pending. IMAGIN. CT head, no acute intracranial abnormality noted. There is patchy ill-defined low density of the superficial parenchyma, nonspecific. 2. Chest x-ray: No acute infiltrates. 3. Chest CT shows no evidence of metastatic disease involving the chest, right lumpectomy changes are suspected with fluid collection in the medial right breast measuring 2.9 x 1.6 cm, correlate with any recent treatment. The skin thickening of the right breast is possibly inflammatory. A 3 mm solid noncalcified pulmonary nodule. 4. Ultrasound of the breast pending at this time. IMPRESSION: 1. Fever, etiology unclear. 2. Right breast cancer, status post lumpectomy with radiation with abnormal CT. 3. Atrial fibrillation. 4. Anemia. 5. Leukopenia. 6. PENICILLIN AND TETRACYCLINE ALLERGY. The patient has tolerated ceftriaxone well. 7. Dysuria, urine culture contaminant from February 19 8. poor IV access. RECOMMENDATIONS: 1. CT with fluid collection for the right breast, appears seroma. No signs of local infection at this time. General Surgery has evaluated the patient. No surgical intervention at this time. Follow-up breast ultrasound results. 2. Continue ceftriaxone. 3. Follow up labs and cultures. Repeat UA pending 4. Continue supportive care. 5. Discussed with daughter at bedside. 6. Discussed with nursing staff. Thank you for allowing me to participate in this patient's care. If you have any questions, do not hesitate to contact me. VINCE HAHN MD DR: IRAIDA/skyler JOB#: [id number] / [id number] ERIN
[2020-02-23] MEDS: ZOLPIDEM 5 MG TABLET. PO SCH (21:41)
--- NOTE | 2020-02-23 21:45 | NUR ---
held betapace, bp 81\46 and hr 77 . lcrn
[2020-02-24 03:35] VITALS: BP 97/47
--- NOTE | 2020-02-24 05:12 | EKG ---
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
[2020-02-24 07:00] VITALS: BP 120/60
--- NOTE | 2020-02-24 08:15 | PDOC ---
PROGRESS NOTES History of Present Illness History of Present Illness VTE Prophylaxis Ordered VTE Prophylaxis Devices: No VTE Pharmacological Prophylaxi: Yes impression Assessment/Plan ASSESSMENT Chest Pain, ACS rule out // CHEST WALL PAIN SSS s/p pacer HTN, labile breast cancer recently dx s/p radiation treatment right breast pain , Right breast fluid collection measures 2.9 x 1.6 cm. There is skin thickening along the right breast. Mild superimposed cellulitis CT with fluid collection for the right breast, could be seroma, Subcutaneous inflammation. HEAT RELATED SYMPTOMS WITH DIZZINESS dementia HLD dizziness on ct head , ill-defined low-density of the superficial parenchyma, nonspecific findings more commonly due to chronic microvascular ischemic disease in a patient this age. PLAN iv rocephin, iv zyvox cvc bed check 2decho follow trops check TSH, lipids, a1c cards consult resume home meds including sotalol dvt ppx: ambulatory FULL CODE dispo pending cardiac work up. COOLING, AVOID HIGH TEMPS ORALLY HYDRATE pt/ot CONSULT ONCOLOGY CT CHEST BLOOD CULTURE LACTIC ACID CONSULT ID IV ROCEPHIN 1 GM Q 24 HRS, iv zyvox 02/23 became hyopotensive 02/22, iv fluids bolused 39 MIN pt exam, chart review, > 50% of time spent with exam, chart review, pt care coordination CRP 18.4 Justicifation of Admission Dx: Justicifation of Admission Dx: Justifications for Admission: Justification of Admission Dx: Yes Vitals Vitals Vital Signs Date Time Temp Pulse Resp B/P (MAP) Pulse Ox O2 Delivery O2 Flow Rate FiO2 02/24/20 03:35 97.5 87 18 97/47 (64) 97 Room Air 97.5 02/23/20 15:22 2.0 Physical Exam Physical Exam Physical Exam GENERAL: . Alert and oriented. HEENT: Head normocephalic, atraumatic. NECK: Supple LUNGS: Clear to auscultation. HEART: RRR, S1, S2 present, pulses intact ABDOMEN: Soft, positive bowel sounds. EXTREMITIES: No cyanosis or edema. NEUROLOGIC: Normal speech, normal tone PSYCHIATRIC: Normal affect, normal mood. SKIN: No ulceration.cool , good capillary refill General: Alert, Oriented X3, No acute distress Heart: Regular rate, Normal S1, Normal S2, No murmurs Lungs: Clear Abdomen: Normal bowel sounds, Soft, No tenderness, No hepatosplenomegaly Extremities: No clubbing, No cyanosis Skin: No rashes Labs LABS Laboratory Tests Test 02/23/20 15:10 Lactic Acid Level 2.0 mmol/L (0.4-2.0) C-Reactive Protein, Quantitative 18.4 mg/L (0-3.3) Comment Review of Relevant I have reviewed the following items wade (where applicable) has been applied. Labs Laboratory Tests Test 02/23/20 15:10 Lactic Acid Level 2.0 mmol/L (0.4-2.0) C-Reactive Protein, Quantitative 18.4 mg/L (0-3.3) Laboratory Tests Test 02/23/20 15:10 Lactic Acid Level 2.0 mmol/L (0.4-2.0) C-Reactive Protein, Quantitative 18.4 mg/L (0-3.3) Microbiology 02/20/20 Urine Culture - Final, Complete Medications Current Medications Ondansetron HCl (Zofran) 4 mg PRN Q8HRS PRN IV NAUSEA/VOMITING; Start 02/20/20 at 15:30; Stop 02/21/20 at 15:29; Status DC Nitroglycerin (Nitrostat) 0.4 mg PRN Q5MIN PRN SL CHEST PAIN; Start 02/20/20 at 15:30; Stop 02/21/20 at 15:29; Status DC Alprazolam (Xanax) 0.25 mg BID PO Last administered on 02/23/20at 21:41; Start 02/20/20 at 21:00 Gabapentin (Neurontin) 100 mg BID PO Last administered on 02/23/20at 21:41; Start 02/20/20 at 21:00 Midodrine (Proamatine) 5 mg BID PO Last administered on 02/23/20at 21:41; Start 02/20/20 at 21:00 Zolpidem Tartrate (Ambien) 5 mg HS PO Last administered on 02/23/20at 21:41; Start 02/20/20 at 21:00 Pantoprazole Sodium (Protonix) 40 mg DAILYAC PO Last administered on 02/23/20at 05:17; Start 02/21/20 at 07:30 Sotalol HCl (Betapace) 60 mg BID PO Last administered on 02/23/20 08:58; Start 02/20/20 at 21:00 Acetaminophen (Tylenol) 650 mg PRN Q6HRS PRN PO fever and pain Last administered on 02/23/20at 11:25; Start 02/20/20 at 17:00 Vitamin B Complex (Folbic Tablet) 1 tab DAILY PO Last administered on 02/23/20at 08:57; Start 02/22/20 at 09:00 Tamoxifen Citrate (Nolvadex) 20 mg DAILY PO Last administered on 02/23/20 09:02; Start 02/22/20 at 09:00 Morphine Sulfate (Morphine Sulfate) 2 mg PRN Q2HR PRN IV PAIN Last administered on 02/21/20at 18:37; Start 02/21/20 at 17:30; Stop 02/21/20 at 18:58; Status DC Ketorolac Tromethamine (Toradol 30mg Vial) 30 mg PRN Q6HRS PRN IVP PAIN; Start 02/21/20 at 17:30; Stop 02/26/20 at 17:29 Ondansetron HCl (Zofran Odt) 4 mg PRN Q6HRS PRN PO NAUSEA/VOMITING Last adm inistered on 02/22/20at 18:58; Start 02/21/20 at 18:15 Morphine Sulfate (Morphine Sulfate) 2 mg PRN Q2HR PRN IM PAIN Last administered on 02/23/20at 08:58; Start 02/21/20 at 19:00 Aspirin (Ecotrin) 81 mg DAILYWBKFT PO ; Start 02/24/20 at 08:00 Ceftriaxone Sodium (Rocephin Im) 1 gm Q24H IM ; Start 02/23/20 at 14:00; Stop 02/23/20 at 15:44; Status DC Ceftriaxone Sodium (Rocephin) 1 gm Q24H IVP Last administered on 02/23/20at 16:57; Start 02/23/20 at 16:00 Active Scripts Active Reported Vitamin D09-Ufeik Acid Tablet (Cyanocobalamin/Folic Acid) 1 Each Tablet 1 Tab PO DAILY 30 Days Tamoxifen Citrate 20 Mg Tablet 20 Mg PO DAILY Alprazolam 0.25 Mg Tablet 1 Tab PO BID Betapace (Sotalol Hcl) 120 Mg Tablet 0.5 Tab PO BID 30 Days Midodrine Hcl 5 Mg Tablet 5 Mg PO BID Gabapentin (Gabapentin) 100 Mg Capsule 100 Mg PO BID Zolpidem Tartrate 5 Mg Tablet 5 Mg PO HS Omeprazole 40 Mg Capsule.dr 40 Mg PO DAILY Vitals/I & O Vital Sign - Last 24 Hours 02/23/20 02/23/20 02/23/20 02/23/20 08:56 08:58 09:28 10:39 Temp 101.8 101.8 Pulse 78 78 89 Resp 20 B/P (MAP) 105/69 105/69 92/39 (56) Pulse Ox 96 O2 Delivery Room Air Room Air 02/23/20 02/23/20 02/23/20 02/23/20 14:46 15:22 19:20 20:00 Temp 99.7 98.2 97.7 99.7 98.2 97.7 Pulse 76 75 77 Resp 20 18 B/P (MAP) 70/34 (46) 94/33 (53) 81/40 (54) Pulse Ox 91 94 O2 Delivery Room Air Nasal Cannula Room Air Room Air O2 Flow Rate 2.0 02/23/20 02/23/20 02/24/20 21:41 23:15 03:35 Temp 97.8 97.5 97.8 97.5 Pulse 77 52 87 Resp 16 18 B/P (MAP) 81/40 79/42 (54) 97/47 (64) Pulse Ox 97 97 O2 Delivery Room Air Room Air Intake and Output 02/23/20 02/23/20 02/24/20 15:00 23:00 07:00 Intake Total 500 ml 100 ml Output Total 200 ml Balance 500 ml -100 ml Justicifation of Admission Dx: Justifications for Admission: Justification of Admission Dx: Yes JAK SUN MD Feb 24, 2020 08:15
[2020-02-24 08:20] LABS: BILIRUBIN,URINE NEGATIVE (NEG); CLARITY,URINE CLEAR; COLOR,URINE YELLOW; NITRITE,URINE NEGATIVE (NEG); PROTEIN,URINE NEGATIVE (NEG-TRACE)
[2020-02-24 08:43] LABS: BACTERIA,URINE MODERATE /HPF (0-FEW); RBC,URINE 0 /HPF (0-2); SQUAMOUS EPITHELIAL CELL,UR MOD /LPF
[2020-02-24] MEDS: ALPRAZolam 0.25 MG TABLET PO SCH ×2 (08:50→20:02)
[2020-02-24] MEDS: MIDODRINE 5 MG TABLET PO SCH ×2 (08:50→20:01)
[2020-02-24] MEDS: VITAMIN B12,B9,B6 COMPLEX 1 TABLET. PO SCH (08:50)
[2020-02-24] MEDS: PANTOPRAZOLE 40 MG TABLET.DR. PO SCH (08:51)
[2020-02-24] MEDS: GABAPENTIN 100 MG CAPSULE. PO SCH ×2 (08:51→20:01)
[2020-02-24] MEDS: SOTALOL 80 MG TABLET. PO SCH ×2 (08:52→20:01)
[2020-02-24] MEDS: ASPIRIN ENTERIC COATED 81 MG TABLET.DR. PO SCH (08:52)
[2020-02-24] MEDS: TAMOXIFEN 10 MG TABLET PO SCH (08:52)
--- NOTE | 2020-02-24 09:14 | PDOC ---
Infectious Disease Note Subjective: Subjective Patient became hypotensive yesterday requiring IV fluid boluses Fever pattern improved Today feels somewhat better Has dysuria with left flank pain Vital Signs: Vital Signs Vital Signs Date Time Temp Pulse Resp B/P (MAP) Pulse Ox O2 Delivery O2 Flow Rate FiO2 02/24/20 08:52 87 125/56 02/24/20 03:35 97.5 18 97 Room Air 97.5 02/23/20 15:22 2.0 Physical Exam: PHYSICAL EXAM GENERAL: Alert and oriented x 3 female, lying in bed, in no acute distress, getting ready to eat lunch. HEENT: Normocephalic, atraumatic, anicteric. No thrush. Oral mucosa moist. NECK: Supple, no JVD. LUNGS: Clear bilaterally. No wheezing. HEART: S1, S2. No gallops or murmurs. ABDOMEN: Soft, nontender, nondistended. BREASTS: Postradiation changes present. Mild thickness present. No open wounds noted. No fluctuance noted. EXTREMITIES: No edema, no cyanosis. DERMATOLOGIC: Warm, dry. No generalized rash. NEUROLOGIC: Alert and oriented x 3, grossly nonfocal. PSYCHIATRIC: Cooperative, appropriate mood. Medications: Inpatient Meds: Current Medications Medications (Trade) Dose Ordered Sig/Babatunde Start Time Stop Time Status Last Admin Dose Admin Acetaminophen (Tylenol) 650 mg PRN Q6HRS PRN 02/20/20 17:00 02/23/20 11:25 650 MG Alprazolam (Xanax) 0.25 mg BID 02/20/20 21:00 02/24/20 08:50 0.25 MG Aspirin (Ecotrin) 81 mg DAILYWBKFT 02/24/20 08:00 02/24/20 08:52 81 MG Ceftriaxone Sodium (Rocephin Im) 1 gm Q24H 02/23/20 14:00 02/23/20 15:44 DC Ceftriaxone Sodium (Rocephin) 1 gm Q24H 02/23/20 16:00 02/23/20 16:57 1 GM Gabapentin (Neurontin) 100 mg BID 02/20/20 21:00 02/24/20 08:51 100 MG Ketorolac Tromethamine (Toradol 30mg Vial) 30 mg PRN Q6HRS PRN 02/21/20 17:30 02/26/20 17:29 Midodrine (Proamatine) 5 mg BID 02/20/20 21:00 02/24/20 08:50 5 MG Morphine Sulfate (Morphine Sulfate) 2 mg PRN Q2HR PRN 02/21/20 19:00 02/23/20 08:58 2 MG Nitroglycerin (Nitrostat) 0.4 mg PRN Q5MIN PRN 02/20/20 15:30 02/21/20 15:29 DC Ondansetron HCl (Zofran Odt) 4 mg PRN Q6HRS PRN 02/21/20 18:15 02/22/20 18:58 4 MG Ondansetron HCl (Zofran) 4 mg PRN Q8HRS PRN 02/20/20 15:30 02/21/20 15:29 DC Pantoprazole Sodium (Protonix) 40 mg DAILYAC 02/21/20 07:30 02/24/20 08:51 40 MG Sotalol HCl (Betapace) 60 mg BID 02/20/20 21:00 02/24/20 08:52 60 MG Tamoxifen Citrate (Nolvadex) 20 mg DAILY 02/22/20 09:00 02/24/20 08:52 20 MG Vitamin B Complex (Folbic Tablet) 1 tab DAILY 02/22/20 09:00 02/24/20 08:50 1 TAB Zolpidem Tartrate (Ambien) 5 mg HS 02/20/20 21:00 02/23/20 21:41 5 MG Labs: Lab Laboratory Tests Test 02/23/20 15:10 02/24/20 08:06 02/24/20 08:23 Lactic Acid Level 2.0 mmol/L (0.4-2.0) C-Reactive Protein, Quantitative 18.4 mg/L (0-3.3) Urine Collection Type Unknown Urine Color Yellow Urine Clarity Clear Urine pH 6.0 (<5.0-8.0) Urine Specific [place] 1.010 (1.000-1.030) Urine Protein Negative mg/dL (NEG-TRACE) Urine Glucose (UA) Negative mg/dL (NEG) Urine Ketones (Stick) Negative mg/dL (NEG) Urine Blood Negative (NEG) Urine Nitrite Negative (NEG) Urine Bilirubin Negative (NEG) Urine Urobilinogen Dipstick 1.0 mg/dL (0.2 mg/dL) Urine Leukocyte Esterase Trace (NEG) Urine RBC 0 /HPF (0-2) Urine WBC 1-4 /HPF (0-4) Urine Squamous Epithelial Cells Mod /LPF Urine Bacteria Moderate /HPF (0-FEW) Glucose (Fingerstick) 91 mg/dL (70-99) Objective: Assessment: 1. Fever, etiology unclear. 2. Hypotension yesterday requiring IV fluid boluses 3. History of right breast cancer, status post lumpectomy with radiation with abnormal CT. ? Mild superimposed cellulitis CT with fluid collection for the right breast, could be seroma, Ultrasound sound of breast negative for any fluid collection 4. Atrial fibrillation. 5. Anemia. 6. Leukopenia. Hematology on case 7.. PENICILLIN AND TETRACYCLINE ALLERGY. The patient has tolerated ceftriaxone well. 8. Dysuria, urine culture contaminant from February 19, repeat UA negative 9. poor IV access. Plan: Plan of Care Continue ceftriaxone, start Zyvox Obtain renal ultrasound General Surgery has evaluated the patient. No surgical intervention at this time. Ultrasound negative for any fluid collection PICC line due to poor access per team Follow up labs and cultures. Continue supportive care. Discussed with nursing staff. VINCE HAHN MD Feb 24, 2020 09:14
[2020-02-24] MEDS ORDERED: cefTRIAXone IV Push 2 GM VIAL. IVP SCH (10:00)
[2020-02-24] MEDS: LINEZOLID 600 MG TABLET PO SCH ×2 (10:15→20:02)
[2020-02-24 10:44] LABS: BASO % 0 % (0-3); EOS % 0 % (0-3); HEMATOCRIT 30.1 % (36.0-47.0); HEMOGLOBIN 9.6 g/dL (12.0-15.5); LYMPH # 0.7 x10^3/uL (1.0-4.8); LYMPH % 5 % (24-48); MEAN CORPUSCULAR HEMOGLOBIN 27 pg (25-35); MEAN CORPUSCULAR HGB CONC 32 g/dL (31-37); MEAN CORPUSCULAR VOLUME 84 fL (79-100); MONO % 8 % (0-9); NEUT # 11.8 x10^3/uL (1.8-7.7); NEUT % 87 % (31-73); PLATELET COUNT 132 x10^3/uL (140-400); RED BLOOD COUNT 3.57 x10^6/uL (3.50-5.40); RED CELL DISTRIBUTION WIDTH 16.1 % (11.5-14.5); WHITE BLOOD COUNT 13.5 x10^3/uL (4.0-11.0)
[2020-02-24 11:00] VITALS: BP 117/48
[2020-02-24 11:14] LABS: ALBUMIN 2.8 g/dL (3.4-5.0); CALCIUM 8.8 mg/dL (8.5-10.1); CREATININE 1.2 mg/dL (0.6-1.0); GFR 51.7; TOTAL BILIRUBIN 0.3 mg/dL (0.2-1.0); TOTAL PROTEIN 5.5 g/dL (6.4-8.2)
[2020-02-24] MEDS ORDERED: LIDOCAINE WITH 8.4% SOD BICARB 3 ML DISP.SYRIN. ONE (11:55)
[2020-02-24] MEDS ORDERED: LIDOCAINE WITH 8.4% SOD BICARB 3 ML DISP.SYRIN. INJ ONE (12:15)
[2020-02-24] MEDS ORDERED: cefTRIAXone IM 1 GM VIAL IM ONE (12:30)
[2020-02-24 13:09] LABS: % BANDS 5 % (0-9); % LYMPHS 6 % (24-48); % MONOS 4 % (0-10); % SEGS 85 % (35-66); PLT ESTIMATE DECREASED (ADEQUATE)
[2020-02-24 15:00] VITALS: BP 94/72
--- NOTE | 2020-02-24 15:21 | RAD ---
RENAL COMPLETE BILATERAL History: Reason: left flank pain/ Comparison: CT December 23, 2019 Procedure: Transabdominal ultrasound images are obtained of the kidneys and bladder. Findings: Right kidney: measures 9.2 x 4.2 x 3.0 cm. Right renal cyst measures 1.8 x 1.8 x 1.8 cm. No hydronephrosis. Left kidney: measures 10.8 x 3.5 x 4.4 cm. Multiple left renal cysts largest superiorly measures 1.6 x 1.6 x 1.7 cm. No hydronephrosis. Urinary bladder: No urinary bladder wall thickening. The IVC is normal caliber. The visualized abdominal aorta is normal caliber. IMPRESSION: 1. Bosniak 1 and 2 bilateral renal cysts. No follow-up imaging is recommended per consensus recommendations based on imaging criteria. Electronically signed by: Ho Booth DO (02/24/2020 3:18 PM) [id number]
--- NOTE | 2020-02-24 16:48 | PDOC ---
VERNA BASSETT FISH DRIER 02/24/20 1647: CARDIO Progress Notes Date and Time Date of Service 02/24/20 Time of Evaluation 1110 Subjective Subjective: No Chest Pain, No shortness of breath, No Palpitations Vitals Vitals Vital Signs Date Time Temp Pulse Resp B/P (MAP) Pulse Ox O2 Delivery O2 Flow Rate FiO2 02/24/20 15:00 98.0 84 16 94/72 (79) 96 Room Air 98.0 02/23/20 15:22 2.0 Weight Weight [ ] Input and Output Intake and Output Intake and Output 02/24/20 07:00 Intake Total 600 ml Output Total 200 ml Balance 400 ml Intake Oral 600 ml Output Urine Total 200 ml # Voids 2 # Bowel Movements 2 Laboratory Labs Laboratory Tests Test 02/24/20 08:06 02/24/20 08:23 02/24/20 10:25 Urine Collection Type Unknown Urine Color Yellow Urine Clarity Clear Urine pH 6.0 (<5.0-8.0) Urine Specific [place] 1.010 (1.000-1.030) Urine Protein Negative mg/dL (NEG-TRACE) Urine Glucose (UA) Negative mg/dL (NEG) Urine Ketones (Stick) Negative mg/dL (NEG) Urine Blood Negative (NEG) Urine Nitrite Negative (NEG) Urine Bilirubin Negative (NEG) Urine Urobilinogen Dipstick 1.0 mg/dL (0.2 mg/dL) Urine Leukocyte Esterase Trace (NEG) Urine RBC 0 /HPF (0-2) Urine WBC 1-4 /HPF (0-4) Urine Squamous Epithelial Cells Mod /LPF Urine Bacteria Moderate /HPF (0-FEW) Glucose (Fingerstick) 91 mg/dL (70-99) White Blood Count 13.5 x10^3/uL (4.0-11.0) Red Blood Count 3.57 x10^6/uL (3.50-5.40) Hemoglobin 9.6 g/dL (12.0-15.5) Hematocrit 30.1 % (36.0-47.0) Mean Corpuscular Volume 84 fL (79-100) Mean Corpuscular Hemoglobin 27 pg (25-35) Mean Corpuscular Hemoglobin Concent 32 g/dL (31-37) Red Cell Distribution Width 16.1 % (11.5-14.5) Platelet Count 132 x10^3/uL (140-400) Neutrophils (%) (Auto) 87 % (31-73) Lymphocytes (%) (Auto) 5 % (24-48) Monocytes (%) (Auto) 8 % (0-9) Eosinophils (%) (Auto) 0 % (0-3) Basophils (%) (Auto) 0 % (0-3) Neutrophils # (Auto) 11.8 x10^3/uL (1.8-7.7) Lymphocytes # (Auto) 0.7 x10^3/uL (1.0-4.8) Monocytes # (Auto) 1.0 x10^3/uL (0.0-1.1) Eosinophils # (Auto) 0.0 x10^3/uL (0.0-0.7) Basophils # (Auto) 0.0 x10^3/uL (0.0-0.2) Segmented Neutrophils % 85 % (35-66) Band Neutrophils % 5 % (0-9) Lymphocytes % 6 % (24-48) Monocytes % 4 % (0-10) Platelet Estimate Decreased (ADEQUATE) Sodium Level 136 mmol/L (136-145) Potassium Level 4.0 mmol/L (3.5-5.1) Chloride Level 102 mmol/L (98-107) Carbon Dioxide Level 24 mmol/L (21-32) Anion Gap 10 (6-14) Blood Urea Nitrogen 18 mg/dL (7-20) Creatinine 1.2 mg/dL (0.6-1.0) Estimated GFR (Cockcroft-Gault) 51.7 BUN/Creatinine Ratio 15 (6-20) Glucose Level 105 mg/dL (70-99) Calcium Level 8.8 mg/dL (8.5-10.1) Total Bilirubin 0.3 mg/dL (0.2-1.0) Aspartate Amino Transf (AST/SGOT) 25 U/L (15-37) Alanine Aminotransferase (ALT/SGPT) 22 U/L (14-59) Alkaline Phosphatase 47 U/L (46-116) Total Protein 5.5 g/dL (6.4-8.2) Albumin 2.8 g/dL (3.4-5.0) Albumin/Globulin Ratio 1.0 (1.0-1.7) Microbiology Micro Microbiology 02/23/20 Blood Culture - Preliminary, Resulted NO GROWTH AFTER 1 DAY 02/20/20 Urine Culture - Final, Complete Physical Exam HEENT: Neck Supple W Full Motion Chest: Symmetric LUNGS: Clear to Auscultation Heart: S1S2, other (AV paced) Abdomen: Soft N/T Extremities: No Edema Neurology: alert, oriented, follow commands Assessment Assessment 1. Chest pain, atypical. AMI ruled out. 2. Dizziness with h/o orthostatic hypotension. On midodrine. 3. CAD; cath 2013 with minimal disease 4. SSS s/p PPM ([employer]) 5. AFIB; brief burst of AFIB, otherwise AV paced with underlying SR 5. H/o cardiomyopathy; recent echo with LV recovery with LVEF 55-60% 6. Hypertension; adequate 7. Hyperlipidemia; LDL 155. allergy to statin 8. Fevers, leukopenia 9. H/o breast CA; s/p lumpectomy, radiation therapy. CT with fluid collection to right breast, oncology following. Recommendations Secondary prevention measures Continue midodrine TEDs Consider outpatient ischemic evaluation Supportive care Follow up in out office with Dr. Muñoz Justicifation of Admission Dx: Justifications for Admission: Justification of Admission Dx: Yes INEZ MUÑOZ MD 02/25/20 1216: CARDIO Progress Notes Plan Plan Late entry for 02/24/2020 Patient seen and examined. Agree with above nurse practitioner note. No obvious cardiovascular source for her orthostatic hypotension. Continue Midrin. Supportive care. Low suspicion for cardiac angina. VERNA BASSETT APRN Feb 24, 2020 16:47 INEZ MUÑOZ MD Feb 25, 2020 12:16
[2020-02-24 19:00] VITALS: BP 99/46
[2020-02-24] MEDS: MORPHINE SULFATE 2 MG/ML VIAL. IM PRN (19:30)
[2020-02-24] MEDS: ZOLPIDEM 5 MG TABLET. PO SCH (20:02)
[2020-02-24] MEDS ORDERED: LACTOBACILLUS RHAMNOSUS GG 1 CAPSULE. PO SCH (21:00)
[2020-02-24] MEDS ORDERED: CEFEPIME HCL IV Push 1 GM VIAL. IVP SCH (21:00)
[2020-02-24 23:00] VITALS: BP 84/63
[2020-02-25 03:00] VITALS: BP 135/56
[2020-02-25 04:23] LABS: BASO % 0 % (0-3); EOS # 0.1 x10^3/uL (0.0-0.7); EOS % 1 % (0-3); HEMATOCRIT 30.2 % (36.0-47.0); LYMPH # 1.1 x10^3/uL (1.0-4.8); LYMPH % 8 % (24-48); MEAN CORPUSCULAR HEMOGLOBIN 27 pg (25-35); MEAN CORPUSCULAR HGB CONC 33 g/dL (31-37); MEAN CORPUSCULAR VOLUME 82 fL (79-100); MONO # 0.9 x10^3/uL (0.0-1.1); MONO % 6 % (0-9); NEUT # 12.1 x10^3/uL (1.8-7.7); NEUT % 85 % (31-73); PLATELET COUNT 153 x10^3/uL (140-400); RED BLOOD COUNT 3.68 x10^6/uL (3.50-5.40); RED CELL DISTRIBUTION WIDTH 15.9 % (11.5-14.5); WHITE BLOOD COUNT 14.2 x10^3/uL (4.0-11.0)
[2020-02-25 07:00] VITALS: BP 137/74
[2020-02-25] MEDS: MIDODRINE 5 MG TABLET PO SCH ×2 (08:31→22:20)
[2020-02-25] MEDS: VITAMIN B12,B9,B6 COMPLEX 1 TABLET. PO SCH (08:31)
[2020-02-25] MEDS: ALPRAZolam 0.25 MG TABLET PO SCH ×2 (08:31→22:19)
[2020-02-25] MEDS: ASPIRIN ENTERIC COATED 81 MG TABLET.DR. PO SCH (08:32)
[2020-02-25] MEDS: PANTOPRAZOLE 40 MG TABLET.DR. PO SCH (08:32)
[2020-02-25] MEDS: ACETAMINOPHEN 325 MG TABLET. PO PRN ×2 (08:32→22:19)
[2020-02-25] MEDS: GABAPENTIN 100 MG CAPSULE. PO SCH ×2 (08:32→22:17)
[2020-02-25] MEDS: LINEZOLID 600 MG TABLET PO SCH ×2 (08:32→22:19)
[2020-02-25] MEDS: TAMOXIFEN 10 MG TABLET PO SCH (08:39)
--- NOTE | 2020-02-25 09:55 | PDOC ---
Infectious Disease Note Subjective: Subjective Patient feels better No further fevers, nausea, vomiting, diarrhea, abdominal pain, symptom Right breast discomfort improving though slowly Vital Signs: Vital Signs Vital Signs Date Time Temp Pulse Resp B/P (MAP) Pulse Ox O2 Delivery O2 Flow Rate FiO2 02/25/20 08:31 88 135/56 02/25/20 03:00 98.2 17 97 Room Air 98.2 Physical Exam: PHYSICAL EXAM GENERAL: Alert and oriented x 3 female, lying in bed, in no acute distress, getting ready to eat lunch. HEENT: Normocephalic, atraumatic, anicteric. No thrush. Oral mucosa moist. NECK: Supple, no JVD. LUNGS: Clear bilaterally. No wheezing. HEART: S1, S2. No gallops or murmurs. ABDOMEN: Soft, nontender, nondistended. BREASTS: Postradiation changes present. Mild thickness present. No open wounds noted. No fluctuance noted. EXTREMITIES: No edema, no cyanosis. DERMATOLOGIC: Warm, dry. No generalized rash. NEUROLOGIC: Alert and oriented x 3, grossly nonfocal. PSYCHIATRIC: Cooperative, appropriate mood. Medications: Inpatient Meds: Current Medications Medications (Trade) Dose Ordered Sig/Babatunde Start Time Stop Time Status Last Admin Dose Admin Acetaminophen (Tylenol) 650 mg PRN Q6HRS PRN 02/20/20 17:00 02/25/20 08:32 650 MG Alprazolam (Xanax) 0.25 mg BID 02/20/20 21:00 02/25/20 08:31 0.25 MG Aspirin (Ecotrin) 81 mg DAILYWBKFT 02/24/20 08:00 02/25/20 08:32 81 MG Cefepime HCl (Maxipime) 1 gm Q12HR 02/24/20 21:00 02/24/20 09:17 DC Ceftriaxone Sodium (Rocephin Im) 1 gm 1X ONCE 02/24/20 12:30 02/24/20 12:31 DC 02/24/20 13:11 1 GM Ceftriaxone Sodium (Rocephin) 2 gm Q24H 02/24/20 10:00 Gabapentin (Neurontin) 100 mg BID 02/20/20 21:00 02/25/20 08:32 100 MG Ketorolac Tromethamine (Toradol 30mg Vial) 30 mg PRN Q6HRS PRN 02/21/20 17:30 02/26/20 17:29 Lactobacillus Rhamnosus (Culturelle) 1 cap BID 02/24/20 21:00 02/24/20 15:36 DC Lidocaine HCl (Buffered Lidocaine 1%) 6 ml 1X ONCE 02/24/20 12:15 02/24/20 12:16 DC Linezolid (Zyvox) 600 mg BID 02/24/20 10:00 02/25/20 08:32 600 MG Midodrine (Proamatine) 5 mg BID 02/20/20 21:00 02/25/20 08:31 5 MG Morphine Sulfate (Morphine Sulfate) 2 mg PRN Q2HR PRN 02/21/20 19:00 02/24/20 19:30 2 MG Nitroglycerin (Nitrostat) 0.4 mg PRN Q5MIN PRN 02/20/20 15:30 02/21/20 15:29 DC Ondansetron HCl (Zofran Odt) 4 mg PRN Q6HRS PRN 02/21/20 18:15 02/22/20 18:58 4 MG Ondansetron HCl (Zofran) 4 mg PRN Q8HRS PRN 02/20/20 15:30 02/21/20 15:29 DC Pantoprazole Sodium (Protonix) 40 mg DAILYAC 02/21/20 07:30 02/25/20 08:32 40 MG Sotalol HCl (Betapace) 60 mg BID 02/20/20 21:00 02/24/20 20:01 60 MG Tamoxifen Citrate (Nolvadex) 20 mg DAILY 02/22/20 09:00 02/25/20 08:39 20 MG Vitamin B Complex (Folbic Tablet) 1 tab DAILY 02/22/20 09:00 02/25/20 08:31 1 TAB Zolpidem Tartrate (Ambien) 5 mg HS 02/20/20 21:00 02/24/20 20:02 5 MG Labs: Lab Laboratory Tests Test 02/24/20 10:25 02/25/20 03:55 White Blood Count 13.5 x10^3/uL (4.0-11.0) 14.2 x10^3/uL (4.0-11.0) Red Blood Count 3.57 x10^6/uL (3.50-5.40) 3.68 x10^6/uL (3.50-5.40) Hemoglobin 9.6 g/dL (12.0-15.5) 10.0 g/dL (12.0-15.5) Hematocrit 30.1 % (36.0-47.0) 30.2 % (36.0-47.0) Mean Corpuscular Volume 84 fL (79-100) 82 fL (79-100) Mean Corpuscular Hemoglobin 27 pg (25-35) 27 pg (25-35) Mean Corpuscular Hemoglobin Concent 32 g/dL (31-37) 33 g/dL (31-37) Red Cell Distribution Width 16.1 % (11.5-14.5) 15.9 % (11.5-14.5) Platelet Count 132 x10^3/uL (140-400) 153 x10^3/uL (140-400) Neutrophils (%) (Auto) 87 % (31-73) 85 % (31-73) Lymphocytes (%) (Auto) 5 % (24-48) 8 % (24-48) Monocytes (%) (Auto) 8 % (0-9) 6 % (0-9) Eosinophils (%) (Auto) 0 % (0-3) 1 % (0-3) Basophils (%) (Auto) 0 % (0-3) 0 % (0-3) Neutrophils # (Auto) 11.8 x10^3/uL (1.8-7.7) 12.1 x10^3/uL (1.8-7.7) Lymphocytes # (Auto) 0.7 x10^3/uL (1.0-4.8) 1.1 x10^3/uL (1.0-4.8) Monocytes # (Auto) 1.0 x10^3/uL (0.0-1.1) 0.9 x10^3/uL (0.0-1.1) Eosinophils # (Auto) 0.0 x10^3/uL (0.0-0.7) 0.1 x10^3/uL (0.0-0.7) Basophils # (Auto) 0.0 x10^3/uL (0.0-0.2) 0.0 x10^3/uL (0.0-0.2) Segmented Neutrophils % 85 % (35-66) Band Neutrophils % 5 % (0-9) Lymphocytes % 6 % (24-48) Monocytes % 4 % (0-10) Platelet Estimate Decreased (ADEQUATE) Sodium Level 136 mmol/L (136-145) Potassium Level 4.0 mmol/L (3.5-5.1) Chloride Level 102 mmol/L (98-107) Carbon Dioxide Level 24 mmol/L (21-32) Anion Gap 10 (6-14) Blood Urea Nitrogen 18 mg/dL (7-20) Creatinine 1.2 mg/dL (0.6-1.0) Estimated GFR (Cockcroft-Gault) 51.7 BUN/Creatinine Ratio 15 (6-20) Glucose Level 105 mg/dL (70-99) Calcium Level 8.8 mg/dL (8.5-10.1) Total Bilirubin 0.3 mg/dL (0.2-1.0) Aspartate Amino Transf (AST/SGOT) 25 U/L (15-37) Alanine Aminotransferase (ALT/SGPT) 22 U/L (14-59) Alkaline Phosphatase 47 U/L (46-116) Total Protein 5.5 g/dL (6.4-8.2) Albumin 2.8 g/dL (3.4-5.0) Albumin/Globulin Ratio 1.0 (1.0-1.7) Objective: Assessment: 1. Fever, etiology unclear. 2. Hypotension yesterday requiring IV fluid boluses 3. History of right breast cancer, status post lumpectomy with radiation with abnormal CT. ? Mild superimposed cellulitis CT with fluid collection for the right breast, could be seroma, Ultrasound sound of breast negative for any fluid collection 4. Atrial fibrillation. 5. Anemia. 6. Leukopenia. Hematology on case 7.. PENICILLIN AND TETRACYCLINE ALLERGY. The patient has tolerated ceftriaxone well. 8. Dysuria, urine culture contaminant from February 19, repeat UA negative 9. poor IV access. Plan: Plan of Care Limited choices as not a candidate for central line at this time patient hemodynamically stable, afebrile, cultures nonrevealing difficult access due to ppm and h/o rt axillary dissection by ER except for central line DC IM ceftriaxone Changed to p.o. Keflex Continue p.o. Zyvox General Surgery has evaluated the patient. No surgical intervention at this time. Ultrasound negative for any fluid collection Follow up labs and cultures. Continue supportive care. Discussed with nursing staff. VINCE HAHN MD Feb 25, 2020 09:55
[2020-02-25] MEDS: SOTALOL 80 MG TABLET. PO SCH ×2 (10:49→22:18)
[2020-02-25 11:00] VITALS: BP 157/67
[2020-02-25] MEDS: CEPHALEXIN 250 MG CAPSULE. PO SCH ×3 (12:39→22:17)
[2020-02-25] MEDS: traMADol 50 MG TABLET PO PRN ×2 (12:39→19:21)
--- NOTE | 2020-02-25 12:44 | PDOC ---
OSMEL ROJAS [employer] MANA[employer] 02/25/20 1244: CARDIO Progress Notes Date and Time Date of Service 02/25/2020 Time of Evaluation 1020 Subjective Subjective: No Chest Pain, No shortness of breath, No Palpitations Vitals Vitals Vital Signs Date Time Temp Pulse Resp B/P (MAP) Pulse Ox O2 Delivery O2 Flow Rate FiO2 02/25/20 11:00 97.7 72 16 157/67 (97) 98 Room Air 97.7 02/25/20 08:00 2.0 Weight Weight [ ] Input and Output Intake and Output Intake and Output 02/25/20 07:00 Intake Total 200 ml Balance 200 ml Intake Oral 200 ml # Voids 2 # Bowel Movements 1 Laboratory Labs Laboratory Tests Test 02/25/20 03:55 White Blood Count 14.2 x10^3/uL (4.0-11.0) Red Blood Count 3.68 x10^6/uL (3.50-5.40) Hemoglobin 10.0 g/dL (12.0-15.5) Hematocrit 30.2 % (36.0-47.0) Mean Corpuscular Volume 82 fL (79-100) Mean Corpuscular Hemoglobin 27 pg (25-35) Mean Corpuscular Hemoglobin Concent 33 g/dL (31-37) Red Cell Distribution Width 15.9 % (11.5-14.5) Platelet Count 153 x10^3/uL (140-400) Neutrophils (%) (Auto) 85 % (31-73) Lymphocytes (%) (Auto) 8 % (24-48) Monocytes (%) (Auto) 6 % (0-9) Eosinophils (%) (Auto) 1 % (0-3) Basophils (%) (Auto) 0 % (0-3) Neutrophils # (Auto) 12.1 x10^3/uL (1.8-7.7) Lymphocytes # (Auto) 1.1 x10^3/uL (1.0-4.8) Monocytes # (Auto) 0.9 x10^3/uL (0.0-1.1) Eosinophils # (Auto) 0.1 x10^3/uL (0.0-0.7) Basophils # (Auto) 0.0 x10^3/uL (0.0-0.2) Microbiology Micro Microbiology 02/23/20 Blood Culture - Preliminary, Resulted NO GROWTH AFTER 1 DAY 02/20/20 Urine Culture - Final, Complete Physical Exam HEENT: Neck Supple W Full Motion Chest: Symmetric LUNGS: Clear to Auscultation Heart: S1S2, RRR (Atrial paced) Abdomen: Soft N/T Extremities: No Edema Neurology: alert, oriented, follow commands Assessment Assessment 1. Atypical CP: suspect MSK 2. Dizziness with h/o orthostatic hypotension/multiple falls 3. CAD; cath 2013 with minimal disease 4. SSS s/p PPM ([employer]): atrial pacing 5. AFIB; SR with atrial pacing 5. H/o cardiomyopathy; recent echo with LV recovery with LVEF 55-60% 6. Hypertension: controlled 7. Hyperlipidemia; LDL 155. allergy to statin 8. H/o breast CA; s/p lumpectomy, radiation therapy. CT with fluid collection to right breast, oncology following. Recommendations 1. Secondary prevention measures. Poor candidate for anticoagulation due to multiple falls. ASA for stroke prevention. Continue sotalol 2. Continue midodrine. Utilize mechanical compression as tolerated. 3. Consider outpatient ischemic evaluation 4. Follow up in out office with Dr. Rojas Justicifation of Admission Dx: Justifications for Admission: Justification of Admission Dx: Yes INEZ ROJAS MD 02/26/20 0810: CARDIO Progress Notes Plan Plan Late entry for 02/25/2020. The patient was seen and interviewed as well as examined at the bedside. The chart was reviewed. The case was discussed. Agree with the plan of care. OSMEL ROJAS APRN Feb 25, 2020 12:44 INEZ ROJAS MD Feb 26, 2020 08:10
--- NOTE | 2020-02-25 13:53 | PDOC ---
PROGRESS NOTES Chief Complaint Chief Complaint No acute events reported overnight, continues to complain about her chest discomfort, reassurance has been provided case discussed with nursing staff patient in no acute distress no complaints during my visit History of Present Illness History of Present Illness VTE Prophylaxis Ordered VTE Prophylaxis Devices: No VTE Pharmacological Prophylaxi: Yes impression Assessment/Plan ASSESSMENT Chest Pain, ACS ruled out // CHEST WALL PAIN SSS s/p pacer HTN, labile breast cancer recently dx s/p radiation treatment right breast pain , Right breast fluid collection measures 2.9 x 1.6 cm. There is skin thickening along the right breast. Mild superimposed cellulitis CT with fluid collection for the right breast, could be seroma, Subcutaneous inflammation. HEAT RELATED SYMPTOMS WITH DIZZINESS dementia HLD dizziness on ct head , ill-defined low-density of the superficial parenchyma, nonspecific findings more commonly due to chronic microvascular ischemic disease in a patient this age. acute febrile illness, retiology undetermined PLAN continue po zyvox and keflex as per ID, awaiting final recommendations. cvc bed resume home meds including sotalol dvt ppx: ambulatory FULL CODE no further cardiac testing advised at this time by client relationship consultant. COOLING, AVOID HIGH TEMPS ORALLY HYDRATE pt/ot apprecite CONSULT from ONCOLOGY CT CHEST noted BLOOD CULTURE LACTIC ACID CONSULT ID 02/23 became hyopotensive 02/22, iv fluids bolused Vitals Vitals Vital Signs Date Time Temp Pulse Resp B/P (MAP) Pulse Ox O2 Delivery O2 Flow Rate FiO2 02/25/20 11:00 97.7 72 16 157/67 (97) 98 Room Air 97.7 02/25/20 08:00 2.0 Physical Exam Physical Exam GENERAL: Alert and oriented x 3 female, lying in bed, in no acute distress, getting ready to eat lunch. HEENT: Normocephalic, atraumatic, anicteric. No thrush. Oral mucosa moist. NECK: Supple, no JVD. LUNGS: Clear bilaterally. No wheezing. HEART: S1, S2. No gallops or murmurs. ABDOMEN: Soft, nontender, nondistended. BREASTS: Postradiation changes present. Mild thickness present. No open wounds noted. No fluctuance noted. EXTREMITIES: No edema, no cyanosis. DERMATOLOGIC: Warm, dry. No generalized rash. NEUROLOGIC: Alert and oriented x 3, grossly nonfocal. PSYCHIATRIC: Cooperative, appropriate mood. General: Alert, Oriented X3, No acute distress Heart: Regular rate, Normal S1, Normal S2, No murmurs Lungs: Clear Abdomen: Normal bowel sounds, Soft, No tenderness, No hepatosplenomegaly Extremities: No clubbing, No cyanosis Skin: No rashes Labs LABS Laboratory Tests Test 02/25/20 03:55 White Blood Count 14.2 x10^3/uL (4.0-11.0) Red Blood Count 3.68 x10^6/uL (3.50-5.40) Hemoglobin 10.0 g/dL (12.0-15.5) Hematocrit 30.2 % (36.0-47.0) Mean Corpuscular Volume 82 fL (79-100) Mean Corpuscular Hemoglobin 27 pg (25-35) Mean Corpuscular Hemoglobin Concent 33 g/dL (31-37) Red Cell Distribution Width 15.9 % (11.5-14.5) Platelet Count 153 x10^3/uL (140-400) Neutrophils (%) (Auto) 85 % (31-73) Lymphocytes (%) (Auto) 8 % (24-48) Monocytes (%) (Auto) 6 % (0-9) Eosinophils (%) (Auto) 1 % (0-3) Basophils (%) (Auto) 0 % (0-3) Neutrophils # (Auto) 12.1 x10^3/uL (1.8-7.7) Lymphocytes # (Auto) 1.1 x10^3/uL (1.0-4.8) Monocytes # (Auto) 0.9 x10^3/uL (0.0-1.1) Eosinophils # (Auto) 0.1 x10^3/uL (0.0-0.7) Basophils # (Auto) 0.0 x10^3/uL (0.0-0.2) Comment Review of Relevant I have reviewed the following items wade (where applicable) has been applied. Labs Laboratory Tests Test 02/23/20 15:10 02/24/20 08:06 02/24/20 08:23 02/24/20 10:25 Lactic Acid Level 2.0 mmol/L (0.4-2.0) C-Reactive Protein, Quantitative 18.4 mg/L (0-3.3) Urine Collection Type Unknown Urine Color Yellow Urine Clarity Clear Urine pH 6.0 (<5.0-8.0) Urine Specific Endeavor 1.010 (1.000-1.030) Urine Protein Negative mg/dL (NEG-TRACE) Urine Glucose (UA) Negative mg/dL (NEG) Urine Ketones (Stick) Negative mg/dL (NEG) Urine Blood Negative (NEG) Urine Nitrite Negative (NEG) Urine Bilirubin Negative (NEG) Urine Urobilinogen Dipstick 1.0 mg/dL (0.2 mg/dL) Urine Leukocyte Esterase Trace (NEG) Urine RBC 0 /HPF (0-2) Urine WBC 1-4 /HPF (0-4) Urine Squamous Epithelial Cells Mod /LPF Urine Bacteria Moderate /HPF (0-FEW) Glucose (Fingerstick) 91 mg/dL (70-99) White Blood Count 13.5 x10^3/uL (4.0-11.0) Red Blood Count 3.57 x10^6/uL (3.50-5.40) Hemoglobin 9.6 g/dL (12.0-15.5) Hematocrit 30.1 % (36.0-47.0) Mean Corpuscular Volume 84 fL (79-100) Mean Corpuscular Hemoglobin 27 pg (25-35) Mean Corpuscular Hemoglobin Concent 32 g/dL (31-37) Red Cell Distribution Width 16.1 % (11.5-14.5) Platelet Count 132 x10^3/uL (140-400) Neutrophils (%) (Auto) 87 % (31-73) Lymphocytes (%) (Auto) 5 % (24-48) Monocytes (%) (Auto) 8 % (0-9) Eosinophils (%) (Auto) 0 % (0-3) Basophils (%) (Auto) 0 % (0-3) Neutrophils # (Auto) 11.8 x10^3/uL (1.8-7.7) Lymphocytes # (Auto) 0.7 x10^3/uL (1.0-4.8) Monocytes # (Auto) 1.0 x10^3/uL (0.0-1.1) Eosinophils # (Auto) 0.0 x10^3/uL (0.0-0.7) Basophils # (Auto) 0.0 x10^3/uL (0.0-0.2) Segmented Neutrophils % 85 % (35-66) Band Neutrophils % 5 % (0-9) Lymphocytes % 6 % (24-48) Monocytes % 4 % (0-10) Platelet Estimate Decreased (ADEQUATE) Sodium Level 136 mmol/L (136-145) Potassium Level 4.0 mmol/L (3.5-5.1) Chloride Level 102 mmol/L (98-107) Carbon Dioxide Level 24 mmol/L (21-32) Anion Gap 10 (6-14) Blood Urea Nitrogen 18 mg/dL (7-20) Creatinine 1.2 mg/dL (0.6-1.0) Estimated GFR (Cockcroft-Gault) 51.7 BUN/Creatinine Ratio 15 (6-20) Glucose Level 105 mg/dL (70-99) Calcium Level 8.8 mg/dL (8.5-10.1) Total Bilirubin 0.3 mg/dL (0.2-1.0) Aspartate Amino Transf (AST/SGOT) 25 U/L (15-37) Alanine Aminotransferase (ALT/SGPT) 22 U/L (14-59) Alkaline Phosphatase 47 U/L (46-116) Total Protein 5.5 g/dL (6.4-8.2) Albumin 2.8 g/dL (3.4-5.0) Albumin/Globulin Ratio 1.0 (1.0-1.7) Test 02/25/20 03:55 White Blood Count 14.2 x10^3/uL (4.0-11.0) Red Blood Count 3.68 x10^6/uL (3.50-5.40) Hemoglobin 10.0 g/dL (12.0-15.5) Hematocrit 30.2 % (36.0-47.0) Mean Corpuscular Volume 82 fL (79-100) Mean Corpuscular Hemoglobin 27 pg (25-35) Mean Corpuscular Hemoglobin Concent 33 g/dL (31-37) Red Cell Distribution Width 15.9 % (11.5-14.5) Platelet Count 153 x10^3/uL (140-400) Neutrophils (%) (Auto) 85 % (31-73) Lymphocytes (%) (Auto) 8 % (24-48) Monocytes (%) (Auto) 6 % (0-9) Eosinophils (%) (Auto) 1 % (0-3) Basophils (%) (Auto) 0 % (0-3) Neutrophils # (Auto) 12.1 x10^3/uL (1.8-7.7) Lymphocytes # (Auto) 1.1 x10^3/uL (1.0-4.8) Monocytes # (Auto) 0.9 x10^3/uL (0.0-1.1) Eosinophils # (Auto) 0.1 x10^3/uL (0.0-0.7) Basophils # (Auto) 0.0 x10^3/uL (0.0-0.2) Laboratory Tests Test 02/25/20 03:55 White Blood Count 14.2 x10^3/uL (4.0-11.0) Red Blood Count 3.68 x10^6/uL (3.50-5.40) Hemoglobin 10.0 g/dL (12.0-15.5) Hematocrit 30.2 % (36.0-47.0) Mean Corpuscular Volume 82 fL (79-100) Mean Corpuscular Hemoglobin 27 pg (25-35) Mean Corpuscular Hemoglobin Concent 33 g/dL (31-37) Red Cell Distribution Width 15.9 % (11.5-14.5) Platelet Count 153 x10^3/uL (140-400) Neutrophils (%) (Auto) 85 % (31-73) Lymphocytes (%) (Auto) 8 % (24-48) Monocytes (%) (Auto) 6 % (0-9) Eosinophils (%) (Auto) 1 % (0-3) Basophils (%) (Auto) 0 % (0-3) Neutrophils # (Auto) 12.1 x10^3/uL (1.8-7.7) Lymphocytes # (Auto) 1.1 x10^3/uL (1.0-4.8) Monocytes # (Auto) 0.9 x10^3/uL (0.0-1.1) Eosinophils # (Auto) 0.1 x10^3/uL (0.0-0.7) Basophils # (Auto) 0.0 x10^3/uL (0.0-0.2) Microbiology 02/24/20 Urine Culture - Final, Complete 02/23/20 Blood Culture - Preliminary, Resulted NO GROWTH AFTER 1 DAY Medications Current Medications Ondansetron HCl (Zofran) 4 mg PRN Q8HRS PRN IV NAUSEA/VOMITING; Start 02/20/20 at 15:30; Stop 02/21/20 at 15:29; Status DC Nitroglycerin (Nitrostat) 0.4 mg PRN Q5MIN PRN SL CHEST PAIN; Start 02/20/20 at 15:30; Stop 02/21/20 at 15:29; Status DC Alprazolam (Xanax) 0.25 mg BID PO Last administered on 02/25/20 08:31; Start 02/20/20 at 21:00 Gabapentin (Neurontin) 100 mg BID PO Last administered on 02/25/20at 08:32; Start 02/20/20 at 21:00 Midodrine (Proamatine) 5 mg BID PO Last administered on 02/25/20at 08:31; Start 02/20/20 at 21:00 Zolpidem Tartrate (Ambien) 5 mg HS PO Last administered on 02/24/20at 20:02; Start 02/20/20 at 21:00 Pantoprazole Sodium (Protonix) 40 mg DAILYAC PO Last administered on 02/25/20 08:32; Start 02/21/20 at 07:30 Sotalol HCl (Betapace) 60 mg BID PO Last administered on 02/25/20at 10:49; Start 02/20/20 at 21:00 Acetaminophen (Tylenol) 650 mg PRN Q6HRS PRN PO fever and pain Last administered on 02/25/20at 08:32; Start 02/20/20 at 17:00 Vitamin B Complex (Folbic Tablet) 1 tab DAILY PO Last administered on 02/25/20 08:31; Start 02/22/20 at 09:00 Tamoxifen Citrate (Nolvadex) 20 mg DAILY PO Last administered on 02/25/20at 08:39; Start 02/22/20 at 09:00 Morphine Sulfate (Morphine Sulfate) 2 mg PRN Q2HR PRN IV PAIN Last administered on 02/21/20at 18:37; Start 02/21/20 at 17:30; Stop 02/21/20 at 18:58; Status DC Ketorolac Tromethamine (Toradol 30mg Vial) 30 mg PRN Q6HRS PRN IVP MILD PAIN 1- 3; Start 02/21/20 at 17:30; Stop 02/26/20 at 17:29 Ondansetron HCl (Zofran Odt) 4 mg PRN Q6HRS PRN PO NAUSEA/VOMITING Last administered on 02/22/20at 18:58; Start 02/21/20 at 18:15 Morphine Sulfate (Morphine Sulfate) 2 mg PRN Q2HR PRN IM MODERATE - SEVERE PAIN Last administered on 02/24/20at 19:30; Start 02/21/20 at 19:00 Aspirin (Ecotrin) 81 mg DAILYWBKFT PO Last administered on 02/25/20at 08:32; Start 02/24/20 at 08:00 Ceftriaxone Sodium (Rocephin Im) 1 gm Q24H IM ; Start 02/23/20 at 14:00; Stop 02/23/20 at 15:44; Status DC Ceftriaxone Sodium (Rocephin) 1 gm Q24H IVP Last administered on 02/23/20at 16:57; Start 02/23/20 at 16:00; Stop 02/24/20 at 09:15; Status DC Cefepime HCl (Maxipime) 1 gm Q12HR IVP ; Start 02/24/20 at 21:00; Stop 02/24/20 at 09:17; Status DC Ceftriaxone Sodium (Rocephin) 2 gm Q24H IVP ; Start 02/24/20 at 10:00; Stop 02/25/20 at 10:11; Status DC Linezolid (Zyvox) 600 mg BID PO Last administered on 02/25/20at 08:32; Start 02/24/20 at 10:00 Lidocaine HCl (Buffered Lidocaine 1%) 3 ml STK-MED ONCE .ROUTE ; Start 02/24/20 at 11:55; Stop 02/24/20 at 11:55; Status DC Lidocaine HCl (Buffered Lidocaine 1%) 6 ml 1X ONCE INJ ; Start 02/24/20 at 12:15; Stop 02/24/20 at 12:16; Status DC Ceftriaxone Sodium (Rocephin Im) 1 gm 1X ONCE IM Last administered on 02/24/20at 13:11; Start 02/24/20 at 12:30; Stop 02/24/20 at 12:31; Status DC Lactobacillus Rhamnosus (Culturelle) 1 cap BID PO ; Start 02/24/20 at 21:00; Stop 02/24/20 at 15:36; Status DC Cephalexin HCl (Keflex) 500 mg QID PO Last administered on 02/25/20at 12:39; Start 02/25/20 at 13:00 Tramadol HCl (Ultram) 50 mg PRN Q6HRS PRN PO MILD TO MODERATE PAIN Last administered on 02/25/20at 12:39; Start 02/25/20 at 12:30 Active Scripts Active Reported Vitamin [id number]-[id number] Acid Tablet (Cyanocobalamin/Folic Acid) 1 Each Tablet 1 Tab PO DAILY 30 Days Tamoxifen Citrate 20 Mg Tablet 20 Mg PO DAILY Alprazolam 0.25 Mg Tablet 1 Tab PO BID Betapace (Sotalol Hcl) 120 Mg Tablet 0.5 Tab PO BID 30 Days Midodrine Hcl 5 Mg Tablet 5 Mg PO BID Gabapentin (Gabapentin) 100 Mg Capsule 100 Mg PO BID Zolpidem Tartrate 5 Mg Tablet 5 Mg PO HS Omeprazole 40 Mg Capsule.dr 40 Mg PO DAILY Vitals/I & O Vital Sign - Last 24 Hours 02/24/20 02/24/20 02/24/20 02/24/20 15:00 19:00 19:30 20:00 Temp 98.0 98.1 98.0 98.1 Pulse 84 84 Resp 16 18 B/P (MAP) 94/72 (79) 99/46 (63) Pulse Ox 96 96 O2 Delivery Room Air Room Air Room Air Room Air 02/24/20 02/24/20 02/24/20 02/24/20 20:00 20:01 20:01 23:00 Temp 98.0 98.0 Pulse 84 84 72 Resp 17 B/P (MAP) 94/72 94/72 84/63 (70) Pulse Ox 96 95 O2 Delivery Room Air Room Air 02/25/20 02/25/20 02/25/20 02/25/20 03:00 07:00 08:00 08:31 Temp 98.2 97.9 98.2 97.9 Pulse 88 85 88 Resp 17 18 B/P (MAP) 135/56 (82) 137/74 (95) 135/56 Pulse Ox 97 95 O2 Delivery Room Air Room Air Room Air O2 Flow Rate 2.0 02/25/20 02/25/20 10:49 11:00 Temp 97.7 97.7 Pulse 88 72 Resp 16 B/P (MAP) 135/56 157/67 (97) Pulse Ox 98 O2 Delivery Room Air Intake and Output 02/24/20 02/24/20 02/25/20 15:00 23:00 07:00 Intake Total 200 ml Balance 200 ml Justicifation of Admission Dx: Justifications for Admission: Justification of Admission Dx: Yes JERED WATSON MD Feb 25, 2020 13:53
[2020-02-25 15:00] VITALS: BP 108/71
[2020-02-25 19:00] VITALS: BP 122/61
[2020-02-25] MEDS: ZOLPIDEM 5 MG TABLET. PO SCH (22:19)
[2020-02-25 23:00] VITALS: BP 140/68
[2020-02-26] VITALS (7 sets, daily range): BP systolic 70–186; BP diastolic 49–88
[2020-02-26] MEDS: ONDANSETRON ODT 4 MG TAB.RAPDIS. PO PRN (08:41)
--- NOTE | 2020-02-26 09:17 | PDOC ---
Infectious Disease Note Subjective: Subjective Patient has nausea which started today cont to have rt breast discomfort No further fevers, vomiting, diarrhea, abdominal pain, symptom no flank pain Vital Signs: Vital Signs Vital Signs Date Time Temp Pulse Resp B/P (MAP) Pulse Ox O2 Delivery O2 Flow Rate FiO2 02/26/20 07:00 98.0 75 18 164/86 (112) 95 98.0 02/25/20 20:00 Room Air 2.0 Physical Exam: PHYSICAL EXAM GENERAL: Alert and oriented x 3 female, lying in bed, in no acute distress, getting ready to eat lunch. HEENT: Normocephalic, atraumatic, anicteric. No thrush. Oral mucosa moist. NECK: Supple, no JVD. LUNGS: Clear bilaterally. No wheezing. HEART: S1, S2. No gallops or murmurs. ABDOMEN: Soft, nontender, nondistended. BREASTS: Postradiation changes present. RT breast induration, Mild thickness present.Mild tenderness, No open wounds noted. No fluctuance noted. EXTREMITIES: No edema, no cyanosis. DERMATOLOGIC: Warm, dry. No generalized rash. NEUROLOGIC: Alert and oriented x 3, grossly nonfocal. PSYCHIATRIC: Cooperative, appropriate mood. Medications: Inpatient Meds: Current Medications Medications (Trade) Dose Ordered Sig/Babatunde Start Time Stop Time Status Last Admin Dose Admin Acetaminophen (Tylenol) 650 mg PRN Q6HRS PRN 02/20/20 17:00 02/25/20 22:19 650 MG Alprazolam (Xanax) 0.25 mg BID 02/20/20 21:00 02/25/20 22:19 0.25 MG Aspirin (Ecotrin) 81 mg DAILYWBKFT 02/24/20 08:00 02/25/20 08:32 81 MG Cefepime HCl (Maxipime) 1 gm Q12HR 02/24/20 21:00 02/24/20 09:17 DC Ceftriaxone Sodium (Rocephin Im) 1 gm 1X ONCE 02/24/20 12:30 02/24/20 12:31 DC 02/24/20 13:11 1 GM Ceftriaxone Sodium (Rocephin) 2 gm Q24H 02/24/20 10:00 02/25/20 10:11 DC Cephalexin HCl (Keflex) 500 mg QID 02/25/20 13:00 02/25/20 22:17 500 MG Gabapentin (Neurontin) 100 mg BID 02/20/20 21:00 02/25/20 22:17 100 MG Ketorolac Tromethamine (Toradol 30mg Vial) 30 mg PRN Q6HRS PRN 02/21/20 17:30 02/26/20 17:29 Lactobacillus Rhamnosus (Culturelle) 1 cap BID 02/24/20 21:00 02/24/20 15:36 DC Lidocaine HCl (Buffered Lidocaine 1%) 6 ml 1X ONCE 02/24/20 12:15 02/24/20 12:16 DC Linezolid (Zyvox) 600 mg BID 02/24/20 10:00 02/25/20 22:19 600 MG Midodrine (Proamatine) 5 mg BID 02/20/20 21:00 02/25/20 22:20 5 MG Morphine Sulfate (Morphine Sulfate) 2 mg PRN Q2HR PRN 02/21/20 19:00 02/24/20 19:30 2 MG Nitroglycerin (Nitrostat) 0.4 mg PRN Q5MIN PRN 02/20/20 15:30 02/21/20 15:29 DC Ondansetron HCl (Zofran Odt) 4 mg PRN Q6HRS PRN 02/21/20 18:15 02/26/20 08:41 4 MG Ondansetron HCl (Zofran) 4 mg PRN Q8HRS PRN 02/20/20 15:30 02/21/20 15:29 DC Pantoprazole Sodium (Protonix) 40 mg DAILYAC 02/21/20 07:30 02/25/20 08:32 40 MG Sotalol HCl (Betapace) 60 mg BID 02/20/20 21:00 02/25/20 22:18 60 MG Tamoxifen Citrate (Nolvadex) 20 mg DAILY 02/22/20 09:00 02/25/20 08:39 20 MG Tramadol HCl (Ultram) 50 mg PRN Q6HRS PRN 02/25/20 12:30 02/25/20 19:21 50 MG Vitamin B Complex (Folbic Tablet) 1 tab DAILY 02/22/20 09:00 02/25/20 08:31 1 TAB Zolpidem Tartrate (Ambien) 5 mg HS 02/20/20 21:00 02/25/20 22:19 5 MG Objective: Assessment: 1. Fever, etiology unclear.resolved, bc neg 2. Hypotension yesterday requiring IV fluid boluses 3. History of right breast cancer, status post lumpectomy with radiation with abnormal CT. ? Mild superimposed cellulitis CT with fluid collection for the right breast, could be seroma, Ultrasound sound of breast negative for any fluid collection 4. Atrial fibrillation. 5. Anemia. 6. Leukopenia. now leucocytosis Hematology on case 7.. PENICILLIN AND TETRACYCLINE ALLERGY. The patient has tolerated ceftriaxone well. 8. Dysuria, urine culture contaminant from February 19, repeat UA negative 9. poor IV access. Plan: Plan of Care Limited choices as not a candidate for central line at this time patient hemodynamically stable, afebrile, cultures nonrevealing difficult access due to ppm and h/o rt axillary dissection by ER except for central line DC IM ceftriaxone cont Keflex dc Zyvox due to nausea labs today elevate rt breast General Surgery has evaluated the patient. No surgical intervention at this time. Ultrasound negative for any fluid collection Follow up labs and cultures. Continue supportive care. Discussed with nursing staff. VINCE HAHN MD Feb 26, 2020 09:17
[2020-02-26] MEDS ORDERED: PROMETHAZINE 25 MG SUPP.RECT. PR PRN (09:45)
[2020-02-26] MEDS: ASPIRIN ENTERIC COATED 81 MG TABLET.DR. PO SCH (10:46)
[2020-02-26] MEDS: PANTOPRAZOLE 40 MG TABLET.DR. PO SCH (10:46)
[2020-02-26] MEDS: VITAMIN B12,B9,B6 COMPLEX 1 TABLET. PO SCH (10:46)
[2020-02-26] MEDS: CEPHALEXIN 250 MG CAPSULE. PO SCH ×4 (10:47→22:12)
[2020-02-26] MEDS: ALPRAZolam 0.25 MG TABLET PO SCH ×2 (10:47→22:11)
[2020-02-26] MEDS: GABAPENTIN 100 MG CAPSULE. PO SCH ×2 (10:47→22:11)
[2020-02-26] MEDS: SOTALOL 80 MG TABLET. PO SCH ×2 (10:48→22:13)
[2020-02-26] MEDS: MIDODRINE 5 MG TABLET PO SCH ×2 (10:48→21:00)
[2020-02-26] MEDS: TAMOXIFEN 10 MG TABLET PO SCH (10:55)
--- NOTE | 2020-02-26 14:15 | PDOC ---
PROGRESS NOTES Chief Complaint Chief Complaint No acute events reported overnight, continues to complain about her chest discomfort, ID edi consultant at bedside. Plan discussed in detail. Reassurance has been provided case discussed with nursing staff patient in no acute distress no complaints during my visit History of Present Illness History of Present Illness VTE Prophylaxis Ordered VTE Prophylaxis Devices: No VTE Pharmacological Prophylaxi: Yes impression Assessment/Plan ASSESSMENT Chest Pain, ACS ruled out // CHEST WALL PAIN SSS s/p pacer HTN, labile breast cancer recently dx s/p radiation treatment right breast pain , Right breast fluid collection measures 2.9 x 1.6 cm. There is skin thickening along the right breast. Mild superimposed cellulitis CT with fluid collection for the right breast, could be seroma, Subcutaneous inflammation. HEAT RELATED SYMPTOMS WITH DIZZINESS dementia HLD dizziness on ct head , ill-defined low-density of the superficial parenchyma, nonspecific findings more commonly due to chronic microvascular ischemic disease in a patient this age. acute febrile illness, retiology undetermined PLAN continue po zyvox and keflex as per ID, awaiting final recommendations. Zyvox may be discontinued given the complaint of nausea Will start Phenergan [place] suppository given that she did not respond to Zofran cvc bed resume home meds including sotalol dvt ppx: ambulatory FULL CODE no further cardiac testing advised at this time by edi consultant. COOLING, AVOID HIGH TEMPS ORALLY HYDRATE pt/ot apprecite CONSULT from ONCOLOGY CT CHEST noted BLOOD CULTURE LACTIC ACID CONSULT ID 02/23 became hyopotensive 02/22, iv fluids bolused Vitals Vitals Vital Signs Date Time Temp Pulse Resp B/P (MAP) Pulse Ox O2 Delivery O2 Flow Rate FiO2 02/26/20 11:51 74 153/78 (103) 02/26/20 10:28 97.7 18 98 97.7 02/26/20 08:00 Room Air 2.0 Physical Exam Physical Exam GENERAL: Alert and oriented x 3 female, lying in bed, in no acute distress, getting ready to eat lunch. HEENT: Normocephalic, atraumatic, anicteric. No thrush. Oral mucosa moist. NECK: Supple, no JVD. LUNGS: Clear bilaterally. No wheezing. HEART: S1, S2. No gallops or murmurs. ABDOMEN: Soft, nontender, nondistended. BREASTS: Postradiation changes present. RT breast induration, Mild thickness present.Mild tenderness, No open wounds noted. No fluctuance noted. EXTREMITIES: No edema, no cyanosis. DERMATOLOGIC: Warm, dry. No generalized rash. NEUROLOGIC: Alert and oriented x 3, grossly nonfocal. PSYCHIATRIC: Cooperative, appropriate mood. General: Alert, Oriented X3, No acute distress Heart: Regular rate, Normal S1, Normal S2, No murmurs Lungs: Clear Abdomen: Normal bowel sounds, Soft, No tenderness, No hepatosplenomegaly Extremities: No clubbing, No cyanosis Skin: No rashes Comment Review of Relevant I have reviewed the following items wade (where applicable) has been applied. Labs Laboratory Tests Test 02/25/20 03:55 White Blood Count 14.2 x10^3/uL (4.0-11.0) Red Blood Count 3.68 x10^6/uL (3.50-5.40) Hemoglobin 10.0 g/dL (12.0-15.5) Hematocrit 30.2 % (36.0-47.0) Mean Corpuscular Volume 82 fL (79-100) Mean Corpuscular Hemoglobin 27 pg (25-35) Mean Corpuscular Hemoglobin Concent 33 g/dL (31-37) Red Cell Distribution Width 15.9 % (11.5-14.5) Platelet Count 153 x10^3/uL (140-400) Neutrophils (%) (Auto) 85 % (31-73) Lymphocytes (%) (Auto) 8 % (24-48) Monocytes (%) (Auto) 6 % (0-9) Eosinophils (%) (Auto) 1 % (0-3) Basophils (%) (Auto) 0 % (0-3) Neutrophils # (Auto) 12.1 x10^3/uL (1.8-7.7) Lymphocytes # (Auto) 1.1 x10^3/uL (1.0-4.8) Monocytes # (Auto) 0.9 x10^3/uL (0.0-1.1) Eosinophils # (Auto) 0.1 x10^3/uL (0.0-0.7) Basophils # (Auto) 0.0 x10^3/uL (0.0-0.2) Microbiology 02/24/20 Urine Culture - Final, Complete 02/23/20 Blood Culture - Preliminary, Resulted NO GROWTH AFTER 2 DAYS Medications Current Medications Ondansetron HCl (Zofran) 4 mg PRN Q8HRS PRN IV NAUSEA/VOMITING; Start 02/20/20 at 15:30; Stop 02/21/20 at 15:29; Status DC Nitroglycerin (Nitrostat) 0.4 mg PRN Q5MIN PRN SL CHEST PAIN; Start 02/20/20 at 15:30; Stop 02/21/20 at 15:29; Status DC Alprazolam (Xanax) 0.25 mg BID PO Last administered on 02/26/20 10:47; Start 02/20/20 at 21:00 Gabapentin (Neurontin) 100 mg BID PO Last administered on 02/26/20 10:47; Start 02/20/20 at 21:00 Midodrine (Proamatine) 5 mg BID PO Last administered on 02/26/20 10:48; Start 02/20/20 at 21:00 Zolpidem Tartrate (Ambien) 5 mg HS PO Last administered on 02/25/20at 22:19; Start 02/20/20 at 21:00 Pantoprazole Sodium (Protonix) 40 mg DAILYAC PO Last administered on 02/26/20 10:46; Start 02/21/20 at 07:30 Sotalol HCl (Betapace) 60 mg BID PO Last administered on 02/26/20 10:48; Start 02/20/20 at 21:00 Acetaminophen (Tylenol) 650 mg PRN Q6HRS PRN PO MILD PAIN / TEMP > 100.3'F Last administered on 02/25/20 22:19; Start 02/20/20 at 17:00 Vitamin B Complex (Folbic Tablet) 1 tab DAILY PO Last administered on 02/26/20 10:46; Start 02/22/20 at 09:00 Tamoxifen Citrate (Nolvadex) 20 mg DAILY PO Last administered on 02/26/20 10:55; Start 02/22/20 at 09:00 Morphine Sulfate (Morphine Sulfate) 2 mg PRN Q2HR PRN IV PAIN Last administered on 02/21/20at 18:37; Start 02/21/20 at 17:30; Stop 02/21/20 at 18:58; Status DC Ketorolac Tromethamine (Toradol 30mg Vial) 30 mg PRN Q6HRS PRN IVP MILD PAIN 1- 3; Start 02/21/20 at 17:30; Stop 02/26/20 at 17:29 Ondansetron HCl (Zofran Odt) 4 mg PRN Q6HRS PRN PO NAUSEA/VOMITING Last administered on 02/26/20at 08:41; Start 02/21/20 at 18:15 Morphine Sulfate (Morphine Sulfate) 2 mg PRN Q2HR PRN IM MODERATE - SEVERE PAIN Last administered on 02/24/20at 19:30; Start 02/21/20 at 19:00 Aspirin (Ecotrin) 81 mg DAILYWBKFT PO Last administered on 02/26/20at 10:46; Start 02/24/20 at 08:00 Ceftriaxone Sodium (Rocephin Im) 1 gm Q24H IM ; Start 02/23/20 at 14:00; Stop 02/23/20 at 15:44; Status DC Ceftriaxone Sodium (Rocephin) 1 gm Q24H IVP Last administered on 02/23/20at 16:57; Start 02/23/20 at 16:00; Stop 02/24/20 at 09:15; Status DC Cefepime HCl (Maxipime) 1 gm Q12HR IVP ; Start 02/24/20 at 21:00; Stop 02/24/20 at 09:17; Status DC Ceftriaxone Sodium (Rocephin) 2 gm Q24H IVP ; Start 02/24/20 at 10:00; Stop 02/25/20 at 10:11; Status DC Linezolid (Zyvox) 600 mg BID PO Last administered on 02/25/20at 22:19; Start 02/24/20 at 10:00; Stop 02/26/20 at 09:38; Status DC Lidocaine HCl (Buffered Lidocaine 1%) 3 ml STK-MED ONCE .ROUTE ; Start 02/24/20 at 11:55; Stop 02/24/20 at 11:55; Status DC Lidocaine HCl (Buffered Lidocaine 1%) 6 ml 1X ONCE INJ ; Start 02/24/20 at 12:15; Stop 02/24/20 at 12:16; Status DC Ceftriaxone Sodium (Rocephin Im) 1 gm 1X ONCE IM Last administered on 02/24/20at 13:11; Start 02/24/20 at 12:30; Stop 02/24/20 at 12:31; Status DC Lactobacillus Rhamnosus (Culturelle) 1 cap BID PO ; Start 02/24/20 at 21:00; Stop 02/24/20 at 15:36; Status DC Cephalexin HCl (Keflex) 500 mg QID PO Last administered on 02/26/20at 10:47; Start 02/25/20 at 13:00 Tramadol HCl (Ultram) 50 mg PRN Q6HRS PRN PO MODERATE - SEVERE PAIN Last administered on 02/25/20at 19:21; Start 02/25/20 at 12:30 Promethazine HCl (Phenergan Supp) 25 mg PRN Q6HRS PRN [place] NAUSEA/VOMITING; Start 02/26/20 at 09:45 Active Scripts Active Reported Vitamin Y30-Rtoii Acid Tablet (Cyanocobalamin/Folic Acid) 1 Each Tablet 1 Tab PO DAILY 30 Days Tamoxifen Citrate 20 Mg Tablet 20 Mg PO DAILY Alprazolam 0.25 Mg Tablet 1 Tab PO BID Betapace (Sotalol Hcl) 120 Mg Tablet 0.5 Tab PO BID 30 Days Midodrine Hcl 5 Mg Tablet 5 Mg PO BID Gabapentin (Gabapentin) 100 Mg Capsule 100 Mg PO BID Zolpidem Tartrate 5 Mg Tablet 5 Mg PO HS Omeprazole 40 Mg Capsule.dr 40 Mg PO DAILY Vitals/I & O Vital Sign - Last 24 Hours 02/25/20 02/25/20 02/25/20 02/25/20 15:00 19:00 20:00 22:18 Temp 98.0 97.7 98.0 97.7 Pulse 86 71 71 Resp 18 18 B/P (MAP) 108/71 (83) 122/61 (81) 122/61 Pulse Ox 86 96 O2 Delivery Room Air O2 Flow Rate 2.0 02/25/20 02/25/20 02/26/20 02/26/20 22:20 23:00 03:00 07:00 Temp 97.6 97.5 98.0 97.6 97.5 98.0 Pulse 71 80 82 75 Resp 17 18 18 B/P (MAP) 122/61 140/68 (92) 124/59 (80) 164/86 (112) Pulse Ox 95 97 95 02/26/20 02/26/20 02/26/20 02/26/20 08:00 10:28 10:48 10:48 Temp 97.7 97.7 Pulse 79 79 79 Resp 18 B/P (MAP) 186/88 (120) 186/88 186/88 Pulse Ox 98 O2 Delivery Room Air O2 Flow Rate 2.0 02/26/20 02/26/20 02/26/20 11:51 11:51 11:51 Pulse 83 79 74 B/P (MAP) 70/49 (56) 124/71 (88) 153/78 (103) Intake and Output 02/25/20 02/25/20 02/26/20 15:00 23:00 07:00 Intake Total 240 ml 300 ml Output Total 300 ml Balance 240 ml 0 ml Nutrition Consultation Dietary Evaluation: Recommendations by RD: Dietary education by RD, Increase Calorie Intake, Protein supplementation Comments: Continue w/cardiac diet w/ground meats, honor food preferences, and provide snacks as requested REC Ensure BID (chocolate) per pt request RD available [phone] as needed for diet education as appropriate Expected Outcomes/Goals: PO intake to meet >75% est needs Malnutrition Findings: Body Fat Depletion (Non Severe: Mild Depletion Weight Status: Appropriate Justicifation of Admission Dx: Justifications for Admission: Justification of Admission Dx: Yes JERED WATSON MD Feb 26, 2020 14:14
[2020-02-26 14:17] LABS: BASO % 0 % (0-3); EOS # 0.1 x10^3/uL (0.0-0.7); EOS % 1 % (0-3); HEMATOCRIT 34.1 % (36.0-47.0); HEMOGLOBIN 11.7 g/dL (12.0-15.5); LYMPH # 0.9 x10^3/uL (1.0-4.8); LYMPH % 13 % (24-48); MEAN CORPUSCULAR HEMOGLOBIN 28 pg (25-35); MEAN CORPUSCULAR HGB CONC 34 g/dL (31-37); MEAN CORPUSCULAR VOLUME 82 fL (79-100); MONO # 0.4 x10^3/uL (0.0-1.1); MONO % 6 % (0-9); NEUT # 5.7 x10^3/uL (1.8-7.7); NEUT % 80 % (31-73); PLATELET COUNT 166 x10^3/uL (140-400); RED BLOOD COUNT 4.14 x10^6/uL (3.50-5.40); RED CELL DISTRIBUTION WIDTH 15.9 % (11.5-14.5); WHITE BLOOD COUNT 7.2 x10^3/uL (4.0-11.0)
[2020-02-26 14:33] LABS: ALBUMIN 3.2 g/dL (3.4-5.0); ALBUMIN/GLOBULIN RATIO 0.8 (1.0-1.7); CALCIUM 8.8 mg/dL (8.5-10.1); GFR 63.8; POTASSIUM 4.2 mmol/L (3.5-5.1); TOTAL BILIRUBIN 0.3 mg/dL (0.2-1.0)
[2020-02-26] MEDS: LINEZOLID 600 MG TABLET PO SCH ×2 (15:17→22:12)
[2020-02-26] MEDS: ZOLPIDEM 5 MG TABLET. PO SCH (22:12)
--- NOTE | 2020-02-26 23:19 | PDOC ---
CARDIOLOGY PROGRESS NOTE SUBJECTIVE: No new CV issues. Denies any angina. or dyspnea. OBJECTIVE: Vital Signs/I&O: Vital Signs Date Time Temp Pulse Resp B/P (MAP) Pulse Ox O2 Delivery O2 Flow Rate FiO2 02/26/20 22:13 74 134/56 02/26/20 19:00 98.2 18 96 98.2 02/26/20 08:00 Room Air 2.0 I & O 02/25/20 02/25/20 02/26/20 15:00 23:00 07:00 Intake Total 240 ml 300 ml Output Total 300 ml Balance 240 ml 0 ml Objective: GEN.: No apparent distress. Alert and oriented. HEENT: Head is normocephalic, atraumatic NECK: Supple. LUNGS: Clear to auscultation. HEART: RRR, S1, S2 present. Peripheral pulses intact ABDOMEN: Soft, nontender. Positive bowel sounds. EXTREMITIES: Without any cyanosis. NEUROLOGIC: Normal speech, normal tone PSYCHIATRIC: Normal affect, normal mood. SKIN: No ulcerations CURRENT MEDICATIONS: Current Medications Medications (Trade) Dose Ordered Sig/Babatunde Route PRN Reason Start Time Stop Time Status Last Admin Dose Admin Linezolid (Zyvox) 600 mg BID PO 02/26/20 14:45 02/26/20 22:12 DIAGNOSTIC TESTING: Labs: Laboratory Tests 02/26/20 14:05 Laboratory Tests Test 02/26/20 14:05 White Blood Count 7.2 x10^3/uL (4.0-11.0) Red Blood Count 4.14 x10^6/uL (3.50-5.40) Hemoglobin 11.7 g/dL (12.0-15.5) L Hematocrit 34.1 % (36.0-47.0) L Mean Corpuscular Volume 82 fL (79-100) Mean Corpuscular Hemoglobin 28 pg (25-35) Mean Corpuscular Hemoglobin Concent 34 g/dL (31-37) Red Cell Distribution Width 15.9 % (11.5-14.5) H Platelet Count 166 x10^3/uL (140-400) Neutrophils (%) (Auto) 80 % (31-73) H Lymphocytes (%) (Auto) 13 % (24-48) L Monocytes (%) (Auto) 6 % (0-9) Eosinophils (%) (Auto) 1 % (0-3) Basophils (%) (Auto) 0 % (0-3) Neutrophils # (Auto) 5.7 x10^3/uL (1.8-7.7) Lymphocytes # (Auto) 0.9 x10^3/uL (1.0-4.8) L Monocytes # (Auto) 0.4 x10^3/uL (0.0-1.1) Eosinophils # (Auto) 0.1 x10^3/uL (0.0-0.7) Basophils # (Auto) 0.0 x10^3/uL (0.0-0.2) Sodium Level 135 mmol/L (136-145) L Potassium Level 4.2 mmol/L (3.5-5.1) Chloride Level 101 mmol/L (98-107) Carbon Dioxide Level 26 mmol/L (21-32) Anion Gap 8 (6-14) Blood Urea Nitrogen 8 mg/dL (7-20) Creatinine 1.0 mg/dL (0.6-1.0) Estimated GFR (Cockcroft-Gault) 63.8 BUN/Creatinine Ratio 8 (6-20) Glucose Level 95 mg/dL (70-99) Lactic Acid Level 2.0 mmol/L (0.4-2.0) Calcium Level 8.8 mg/dL (8.5-10.1) Total Bilirubin 0.3 mg/dL (0.2-1.0) Aspartate Amino Transf (AST/SGOT) 17 U/L (15-37) Alkaline Phosphatase 53 U/L (46-116) Total Protein 7.0 g/dL (6.4-8.2) Albumin 3.2 g/dL (3.4-5.0) L Albumin/Globulin Ratio 0.8 (1.0-1.7) L ASSESSMENT: 1. Orthostatic hypotension 2. SSS s/p pacer, remote 3. HTN 4. Malignancy PLAN: 1. No clear avenues to treat her dysautonomia with orthostatic hypotension. Supportive care. No obvious cardiac source noted. Justicifation of Admission Dx: Justifications for Admission: Justification of Admission Dx: Yes INEZ ROJAS MD Feb 26, 2020 23:19
[2020-02-27 03:00] VITALS: BP 118/50
[2020-02-27 07:00] VITALS: BP 157/61
--- NOTE | 2020-02-27 08:04 | PDOC ---
Infectious Disease Note Subjective: Subjective Patient has less nausea Tolerating p.o. intake well Right breast discomfort improved after elevation and warm compresses No further fevers, vomiting, diarrhea, abdominal pain, symptom no flank pain Vital Signs: Vital Signs Vital Signs Date Time Temp Pulse Resp B/P (MAP) Pulse Ox O2 Delivery O2 Flow Rate FiO2 02/27/20 03:00 98.0 74 18 118/50 (72) 97 98.0 02/26/20 20:00 Room Air 02/26/20 08:00 2.0 Physical Exam: PHYSICAL EXAM GENERAL: Alert and oriented x 3 female, lying in bed, in no acute distress, getting ready to eat lunch. HEENT: Normocephalic, atraumatic, anicteric. No thrush. Oral mucosa moist. NECK: Supple, no JVD. LUNGS: Clear bilaterally. No wheezing. HEART: S1, S2. No gallops or murmurs. ABDOMEN: Soft, nontender, nondistended. BREASTS: Postradiation changes present. RT breast induration, Mild thickness present.Mild tenderness, No open wounds noted. No fluctuance noted. EXTREMITIES: No edema, no cyanosis. DERMATOLOGIC: Warm, dry. No generalized rash. 2 blisters right thigh, not infected NEUROLOGIC: Alert and oriented x 3, grossly nonfocal. PSYCHIATRIC: Cooperative, appropriate mood. Medications: Inpatient Meds: Current Medications Medications (Trade) Dose Ordered Sig/[facility] Start Time Stop Time Status Last Admin Dose Admin Acetaminophen (Tylenol) 650 mg PRN Q6HRS PRN 02/20/20 17:00 02/25/20 22:19 650 MG Alprazolam (Xanax) 0.25 mg BID 02/20/20 21:00 02/26/20 22:11 0.25 MG Aspirin (Ecotrin) 81 mg DAILYWBKFT 02/24/20 08:00 02/26/20 10:46 81 MG Cefepime HCl (Maxipime) 1 gm Q12HR 02/24/20 21:00 02/24/20 09:17 DC Ceftriaxone Sodium (Rocephin Im) 1 gm 1X ONCE 02/24/20 12:30 02/24/20 12:31 DC 02/24/20 13:11 1 GM Ceftriaxone Sodium (Rocephin) 2 gm Q24H 7/21/20 10:00 02/25/20 10:11 DC Cephalexin HCl (Keflex) 500 mg QID 02/25/20 13:00 02/26/20 22:12 500 MG Gabapentin (Neurontin) 100 mg BID 02/20/20 21:00 02/26/20 22:11 100 MG Ketorolac Tromethamine (Toradol 30mg Vial) 30 mg PRN Q6HRS PRN 02/21/20 17:30 02/26/20 17:29 DC Lactobacillus Rhamnosus (Culturelle) 1 cap BID 02/24/20 21:00 02/24/20 15:36 DC Lidocaine HCl (Buffered Lidocaine 1%) 6 ml 1X ONCE 02/24/20 12:15 02/24/20 12:16 DC Linezolid (Zyvox) 600 mg BID 02/26/20 14:45 02/26/20 22:12 600 MG Midodrine (Proamatine) 5 mg BID 02/20/20 21:00 02/26/20 10:48 5 MG Morphine Sulfate (Morphine Sulfate) 2 mg PRN Q2HR PRN 02/21/20 19:00 02/24/20 19:30 2 MG Nitroglycerin (Nitrostat) 0.4 mg PRN Q5MIN PRN 02/20/20 15:30 02/21/20 15:29 DC Ondansetron HCl (Zofran Odt) 4 mg PRN Q6HRS PRN 02/21/20 18:15 02/26/20 08:41 4 MG Ondansetron HCl (Zofran) 4 mg PRN Q8HRS PRN 02/20/20 15:30 02/21/20 15:29 DC Pantoprazole Sodium (Protonix) 40 mg DAILYAC 02/21/20 07:30 02/26/20 10:46 40 MG Promethazine HCl (Phenergan Supp) 25 mg PRN Q6HRS PRN 02/26/20 09:45 Sotalol HCl (Betapace) 60 mg BID 02/20/20 21:00 02/26/20 22:13 60 MG Tamoxifen Citrate (Nolvadex) 20 mg DAILY 02/22/20 09:00 02/26/20 10:55 20 MG Tramadol HCl (Ultram) 50 mg PRN Q6HRS PRN 02/25/20 12:30 02/25/20 19:21 50 MG Vitamin B Complex (Folbic Tablet) 1 tab DAILY 02/22/20 09:00 02/26/20 10:46 1 TAB Zolpidem Tartrate (Ambien) 5 mg HS 02/20/20 21:00 02/26/20 22:12 5 MG Labs: Lab Laboratory Tests Test 02/26/20 14:05 White Blood Count 7.2 x10^3/uL (4.0-11.0) Red Blood Count 4.14 x10^6/uL (3.50-5.40) Hemoglobin 11.7 g/dL (12.0-15.5) Hematocrit 34.1 % (36.0-47.0) Mean Corpuscular Volume 82 fL (79-100) Mean Corpuscular Hemoglobin 28 pg (25-35) Mean Corpuscular Hemoglobin Concent 34 g/dL (31-37) Red Cell Distribution Width 15.9 % (11.5-14.5) Platelet Count 166 x10^3/uL (140-400) Neutrophils (%) (Auto) 80 % (31-73) Lymphocytes (%) (Auto) 13 % (24-48) Monocytes (%) (Auto) 6 % (0-9) Eosinophils (%) (Auto) 1 % (0-3) Basophils (%) (Auto) 0 % (0-3) Neutrophils # (Auto) 5.7 x10^3/uL (1.8-7.7) Lymphocytes # (Auto) 0.9 x10^3/uL (1.0-4.8) Monocytes # (Auto) 0.4 x10^3/uL (0.0-1.1) Eosinophils # (Auto) 0.1 x10^3/uL (0.0-0.7) Basophils # (Auto) 0.0 x10^3/uL (0.0-0.2) Sodium Level 135 mmol/L (136-145) Potassium Level 4.2 mmol/L (3.5-5.1) Chloride Level 101 mmol/L (98-107) Carbon Dioxide Level 26 mmol/L (21-32) Anion Gap 8 (6-14) Blood Urea Nitrogen 8 mg/dL (7-20) Creatinine 1.0 mg/dL (0.6-1.0) Estimated GFR (Cockcroft-Gault) 63.8 BUN/Creatinine Ratio 8 (6-20) Glucose Level 95 mg/dL (70-99) Lactic Acid Level 2.0 mmol/L (0.4-2.0) Calcium Level 8.8 mg/dL (8.5-10.1) Total Bilirubin 0.3 mg/dL (0.2-1.0) Aspartate Amino Transf (AST/SGOT) 17 U/L (15-37) Alanine Aminotransferase (ALT/SGPT) 21 U/L (14-59) Alkaline Phosphatase 53 U/L (46-116) Total Protein 7.0 g/dL (6.4-8.2) Albumin 3.2 g/dL (3.4-5.0) Albumin/Globulin Ratio 0.8 (1.0-1.7) Objective: Assessment: 1. Fever, etiology unclear.resolved, bc neg 2. Hypotension yesterday requiring IV fluid boluses 3. History of right breast cancer, status post lumpectomy with radiation with abnormal CT. ? Mild superimposed cellulitis CT with fluid collection for the right breast, could be seroma, Ultrasound sound of breast negative for any fluid collection 4. Atrial fibrillation. 5. Anemia. 6. Leukopenia. now leucocytosis improving 7.. PENICILLIN AND TETRACYCLINE ALLERGY. The patient has tolerated ceftriaxone well. 8. Dysuria, urine culture contaminant from February 19, repeat UA negative, UC negative 9. poor IV access. Plan: Plan of Care Continue Keflex DC Zyvox elevate rt breast General Surgery has evaluated the patient. No surgical intervention at this time. Ultrasound negative for any fluid collection Continue supportive care. Discussed with daughter on phone per patient request at length Discussed with nursing staff. VINCE HAHN MD Feb 27, 2020 08:04
[2020-02-27] MEDS: PANTOPRAZOLE 40 MG TABLET.DR. PO SCH (08:44)
[2020-02-27] MEDS: ASPIRIN ENTERIC COATED 81 MG TABLET.DR. PO SCH (08:44)
[2020-02-27] MEDS: LINEZOLID 600 MG TABLET PO SCH (08:45)
[2020-02-27] MEDS: GABAPENTIN 100 MG CAPSULE. PO SCH (08:45)
[2020-02-27] MEDS: ALPRAZolam 0.25 MG TABLET PO SCH (08:45)
[2020-02-27] MEDS: CEPHALEXIN 250 MG CAPSULE. PO SCH ×2 (08:45→13:49)
[2020-02-27] MEDS: VITAMIN B12,B9,B6 COMPLEX 1 TABLET. PO SCH (08:45)
[2020-02-27] MEDS: SOTALOL 80 MG TABLET. PO SCH (08:46)
[2020-02-27] MEDS: TAMOXIFEN 10 MG TABLET PO SCH (08:52)
[2020-02-27] MEDS: MIDODRINE 5 MG TABLET PO SCH (09:00)
[2020-02-27 11:00] VITALS: BP 145/72
[2020-02-27] MEDS ORDERED: CEPH250C PO (13:48)
--- NOTE | 2020-02-27 13:49 | SNU/HH DC ---
DISCHARGE WITH HOME HEALTH DISCHARGE INFORMATION: Discharge Date: Feb 27, 2020 Final Diagnosis: acute febrile illness Condition on Discharge: Stable CODE STATUS: Code Status: Full HOME HEALTH: Face to Face: I certify this patient is under my care and that I, or a nurse practitioner or physician's assistant golf professional working with me, had a face to face encounter that meets the physician face to face encounter requirements with this patient on []. Medical Complications: Other (Breast cancer) RN For Eval/Treatment: Yes Physical Therapy For: Evalulation/Treatment Occupational Therapy For: Evaluation/Treatment Pt Meets Homebound Status: Extreme weakness w/ amb. POST DISCHARGE ORDERS: Activity Instructions for Disc: Activity as tolerated Weight Bearing Status after Di: As tolerated Bathing Instructions: Shower-keep dressing dry, No Tub Bath until see Wound/Incision Care: No wound care needed CHECKS AFTER DISCHARGE: Checks after discharge: Check blood press - daily TREATMENT/EQUIPMENT ORDERS: Adaptive Equipment Issued: None CERTIFICATION STATEMENT: Certification Statement: Certification Statement: Based on the above finding, I certify that this patient is confined to the home and needs intermittent snf care, physical therapy and/or speech therapy, or continues to need occupational therapy.~ This patient is under my care, and I have initiated the establishment of the plan of care.~ This patient will be followed by myself or a community physician who will periodically review the plan of care. Home Meds Reported Medications Cyanocobalamin/Folic Acid (VITAMIN T83-TUDGO ACID TABLET) 1 Each Tablet, 1 TAB PO DAILY for for 30 Days, #30 TAB 0 Refills 02/21/20 Tamoxifen Citrate (TAMOXIFEN CITRATE) 20 Mg Tablet, 20 MG PO DAILY for , TAB 02/21/20 Alprazolam (ALPRAZOLAM) 0.25 Mg Tablet, 1 TAB PO BID for anti anxiety, #60 TAB 02/06/20 Sotalol Hcl (BETAPACE) 120 Mg Tablet, 0.5 TAB PO BID for blood pressure for 30 Days, #30 TAB 0 Refills 02/06/20 Midodrine Hcl (MIDODRINE HCL) 5 Mg Tablet, 5 MG PO BID, TAB 12/23/19 Gabapentin (GABAPENTIN ) 100 Mg Capsule, 100 MG PO BID for NEUROGENIC PAIN, CAP 07/25/19 Zolpidem Tartrate (ZOLPIDEM TARTRATE) 5 Mg Tablet, 5 MG PO HS for Insomnia 07/25/19 Omeprazole (OMEPRAZOLE) 40 Mg Capsule.dr, 40 MG PO DAILY for GERD 09/18/13 JERED WATSON MD Feb 27, 2020 13:49
--- NOTE | 2020-02-27 14:51 | PDOC3 ---
Discharge Summary Visit Information Date of Admission: Feb 20, 2020 Date of Discharge: Feb 27, 2020 Admitting Diagnosis Comment: Chest Pain, ACS rule out SSS s/p pacer HTN breast cancer recently dx s/p radiation treatment dementia HLD Final Diagnosis Chest Pain, ACS ruled out // CHEST WALL PAIN SSS s/p pacer HTN, labile breast cancer recently dx s/p radiation treatment right breast pain , Right breast fluid collection measures 2.9 x 1.6 cm. There is skin thickening along the right breast. Mild superimposed cellulitis CT with fluid collection for the right breast, could be seroma, Subcutaneous inflammation. HEAT RELATED SYMPTOMS WITH DIZZINESS dementia HLD dizziness on ct head , ill-defined low-density of the superficial parenchyma, nonspecific findings more commonly due to chronic microvascular ischemic disease in a patient this age. acute febrile illness, etiology undetermined Brief Hospital Course Allergies Allergies Coded Allergies Type Severity Reaction Last Updated Verified Penicillins Allergy Intermediate Rash 09/16/19 Yes atorvastatin Allergy Intermediate 12/29/19 Yes oxycodone Allergy Intermediate Nausea and Vomiting 02/25/20 Yes tetracycline Allergy Intermediate rash 09/16/19 Yes codeine Adverse Reaction Intermediate nausea & vomiting 09/16/19 Yes hydrocodone Adverse Reaction Intermediate Nausea and Vomiting 09/16/19 Yes Vital Signs Vital Signs Date Time Temp Pulse Resp B/P (MAP) Pulse Ox O2 Delivery O2 Flow Rate FiO2 02/27/20 11:00 98.0 76 18 145/72 (96) 98 Room Air 98.0 02/27/20 08:00 2.0 Lab Results Laboratory Tests Test 02/26/20 14:05 White Blood Count 7.2 x10^3/uL (4.0-11.0) Red Blood Count 4.14 x10^6/uL (3.50-5.40) Hemoglobin 11.7 g/dL (12.0-15.5) Hematocrit 34.1 % (36.0-47.0) Mean Corpuscular Volume 82 fL (79-100) Mean Corpuscular Hemoglobin 28 pg (25-35) Mean Corpuscular Hemoglobin Concent 34 g/dL (31-37) Red Cell Distribution Width 15.9 % (11.5-14.5) Platelet Count 166 x10^3/uL (140-400) Neutrophils (%) (Auto) 80 % (31-73) Lymphocytes (%) (Auto) 13 % (24-48) Monocytes (%) (Auto) 6 % (0-9) Eosinophils (%) (Auto) 1 % (0-3) Basophils (%) (Auto) 0 % (0-3) Neutrophils # (Auto) 5.7 x10^3/uL (1.8-7.7) Lymphocytes # (Auto) 0.9 x10^3/uL (1.0-4.8) Monocytes # (Auto) 0.4 x10^3/uL (0.0-1.1) Eosinophils # (Auto) 0.1 x10^3/uL (0.0-0.7) Basophils # (Auto) 0.0 x10^3/uL (0.0-0.2) Sodium Level 135 mmol/L (136-145) Potassium Level 4.2 mmol/L (3.5-5.1) Chloride Level 101 mmol/L (98-107) Carbon Dioxide Level 26 mmol/L (21-32) Anion Gap 8 (6-14) Blood Urea Nitrogen 8 mg/dL (7-20) Creatinine 1.0 mg/dL (0.6-1.0) Estimated GFR (Cockcroft-Gault) 63.8 BUN/Creatinine Ratio 8 (6-20) Glucose Level 95 mg/dL (70-99) Lactic Acid Level 2.0 mmol/L (0.4-2.0) Calcium Level 8.8 mg/dL (8.5-10.1) Total Bilirubin 0.3 mg/dL (0.2-1.0) Aspartate Amino Transf (AST/SGOT) 17 U/L (15-37) Alanine Aminotransferase (ALT/SGPT) 21 U/L (14-59) Alkaline Phosphatase 53 U/L (46-116) Total Protein 7.0 g/dL (6.4-8.2) Albumin 3.2 g/dL (3.4-5.0) Albumin/Globulin Ratio 0.8 (1.0-1.7) Brief Hospital Course History of Present Illness History of Present Illness 84 year old hx of SSS s/p PPM, HTN, breast cancer recently dx s/p radiation treatment, dementia, HLD who presents with chest pain. patient was walking from her car into [place] [employer] when she began having chest pain and dizziness and felt lightheaded. states it was really hot when she started to experience the chest pain. when she sat down that all the symptoms went away. symptoms resolved by the time EMS arrived. no sob, GI symptoms. recent admission in December for partial small bowel obstruction. trop negative in ED. EKG reviewed and no STEMI. hospitalist called for admission for ACS rule out Patient was admitted to the telemetry floor where she was evaluated by infectious disease cardiology and surgery. The patient has a history of breast cancer in order right side of her breast was found a fluid collection of 2.9 x 1.6 cm there was some cellulitic changes noted and she was started on broad- spectrum antibiotics. The patient underwent several imaging studies including CT of the chest with the following results: IMPRESSION: No evidence for metastatic disease involving the chest. Right lumpectomy changes are suspected with fluid collection in the medial right breast measuring 2.9 x 1.6 cm. Correlate with any recent treatment. There is skin thickening of the right breast, possibly inflammatory. 3 mm solid noncalcified pulmonary nodule in the right upper lobe, indeterminate. Attention on follow-up exams is recommended. Electronically signed by: Yessy Noe MD (02/22/2020 3:33 PM) [facility] She also presented flank pain and a renal ultrasound was requested as per accounting consultant with the following results. RENAL COMPLETE BILATERAL History: Reason: left flank pain/ Comparison: CT December 23, 2019 Procedure: Transabdominal ultrasound images are obtained of the kidneys and bladder. Findings: Right kidney: measures 9.2 x 4.2 x 3.0 cm. Right renal cyst measures 1.8 x 1.8 x 1.8 cm. No hydronephrosis. Left kidney: measures 10.8 x 3.5 x 4.4 cm. Multiple left renal cysts largest superiorly measures 1.6 x 1.6 x 1.7 cm. No hydronephrosis. Urinary bladder: No urinary bladder wall thickening. The IVC is normal caliber. The visualized abdominal aorta is normal caliber. IMPRESSION: 1. Bosniak 1 and 2 bilateral renal cysts. No follow-up imaging is recommended per consensus recommendations based on imaging criteria. Patient was transitioned to an oral antibiotic with Keflex, she tolerated the medication better than the other antibiotics which gave her nausea. There was no surgical intervention to be done with the structure that was noted on imaging studies once her pain was better controlled she was deemed appropriate for discharge on today's date. Patient will have home health services arranged by our manager case management as part of her discharge planning, greater than 35 minutes were spent in the discharge process the patient in counseling coordination of care and arrangements for a safe discharge. The etiology of her infection was obscure since her urine culture was negative the initial sample may have been a contaminant, blood cultures were negative and no obvious source of infection was determined. Her infectious disease accounting consultant recommended following in the outpatient setting closely and to continue with Keflex moving forward. Recommendations from our regulatory services consultant were as follows 1. Orthostatic hypotension 2. SSS s/p pacer, remote 3. HTN 4. Malignancy PLAN: 1. No clear avenues to treat her dysautonomia with orthostatic hypotension. Supportive care. No obvious cardiac source noted. Assessment Assessment PHYSICAL EXAM HEENT: Normocephalic, atraumatic, anicteric. No thrush. Oral mucosa moist. NECK: Supple, no JVD. LUNGS: Clear bilaterally. No wheezing. HEART: S1, S2. No gallops or murmurs. ABDOMEN: Soft, nontender, nondistended. BREASTS: Postradiation changes present. RT breast induration, Mild thickness p resent.Mild tenderness, No open wounds noted. No fluctuance noted. EXTREMITIES: No edema, no cyanosis. DERMATOLOGIC: Warm, dry. No generalized rash. 2 blisters right thigh, not infected NEUROLOGIC: Alert and oriented x 3, grossly nonfocal. PSYCHIATRIC: Cooperative, appropriate mood. Discharge Information Condition at Discharge: Improved Follow Up: Weeks Disposition/Orders: D/C to Home w/ HH Scheduled Alprazolam (Alprazolam) 0.25 Mg Tablet, 1 TAB PO BID for anti anxiety, #60 (Reported) Entered as Reported by: JOSEPHINE MOJICA on 02/06/20 0805 Last Action: Continued on 02/20/20 1647 by HARDEEP PHILIP MD Cephalexin (Cephalexin) 250 Mg Capsule, 500 MG PO QID for acute febrile illness for 5 Days, #40 Prescribed by: JERED WATSON MD on 02/27/20 1348 Cyanocobalamin/Folic Acid (Vitamin U88-Unvvh Acid Tablet) 1 Each Tablet, 1 TAB P O DAILY for for 30 Days, #30 Ref 0 (Reported) Entered as Reported by: Arianna Carrasquillo on 02/21/20 1547 Last Taken: 1 on Unknown Date & Time Last Action: Converted on 02/21/20 1630 by Arianna Carrasquillo Gabapentin (Gabapentin ) 100 Mg Capsule, 100 MG PO BID for NEUROGENIC PAIN, (Reported) Entered as Reported by: MICHAEL RIBERA on 07/25/19 1554 Last Action: Continued on 02/20/201646 by HARDEEP PHILIP MD Midodrine Hcl (Midodrine Hcl) 5 Mg Tablet, 5 MG PO BID, (Reported) Entered as Reported by: ELIZABETH PLUMMER on 12/23/19 1051 Last Action: Continued on 02/20/201646 by HARDEEP PHILIP MD Omeprazole (Omeprazole) 40 Mg Capsule.dr, 40 MG PO DAILY for GERD, (Reported) Entered as Reported by: CHRISTIAN WATERS on 09/18/13 1832 Last Action: Converted on 02/20/201646 by HARDEEP PHILIP MD Sotalol Hcl (Betapace) 120 Mg Tablet, 0.5 TAB PO BID for blood pressure for 30 Days, #30 Ref 0 (Reported) Entered as Reported by: JOSEPHINE MOJICA on 02/06/20 0805 Last Action: Converted on 02/20/201646 by HARDEEP PHILIP MD Tamoxifen Citrate (Tamoxifen Citrate) 20 Mg Tablet, 20 MG PO DAILY for , (Reported) Entered as Reported by: Arianna Carrasquillo on 02/21/20 1547 Last Taken: 20 on Unknown Date & Time Last Action: Converted on 02/21/20 1630 by Arianna Carrasquillo Zolpidem Tartrate (Zolpidem Tartrate) 5 Mg Tablet, 5 MG PO HS for Insomnia, (Reported) Entered as Reported by: MICHAEL RIBERA on 07/25/19 1554 Last Action: Continued on 02/20/201646 by HARDEEP PHILIP MD Justicifation of Admission Dx: Justifications for Admission: Justification of Admission Dx: Yes JERED WATSON MD Feb 27, 2020 14:51
--- NOTE | 2020-02-27 14:57 | NUR ---
Discharge Note: DAVIS CARVALHO Discharge instructions and discharge home medications reviewed with Patient and a copy given. All questions have been answered and understanding verbalized.
== END 2020-02-27 14:58 | disposition home health service (06) | DRG 607 ==
LOC: ER 12:37 → 2 SOUTH 15:27
PROVIDERS: ADMIT Internal Medicine; ATTEND Internal Medicine
DX: R22.2 Localized swelling, mass and lump, trunk (principal); I42.9 Cardiomyopathy, unspecified; D64.9 Anemia, unspecified; D72.819 Decreased white blood cell count, unspecified; E78.00 Pure hypercholesterolemia, unspecified; E78.5 Hyperlipidemia, unspecified; F03.90 Unspecified dementia, unspecified severity, without behavioral disturbance, psychotic disturbance, mood disturbance, and anxiety; I11.0 Hypertensive heart disease with heart failure; I25.10 Atherosclerotic heart disease of native coronary artery without angina pectoris; I48.91 Unspecified atrial fibrillation; I49.5 Sick sinus syndrome; I50.9 Heart failure, unspecified; I95.1 Orthostatic hypotension; M19.011 Primary osteoarthritis, right shoulder; N64.4 Mastodynia; N64.51 Induration of breast; S70.321A Blister (nonthermal), right thigh, initial encounter; Z79.811 Long term (current) use of aromatase inhibitors; Z82.49 Family history of ischemic heart disease and other diseases of the circulatory system; Z85.3 Personal history of malignant neoplasm of breast; Z87.891 Personal history of nicotine dependence; Z88.1 Allergy status to other antibiotic agents; Z88.8 Allergy status to other drugs, medicaments and biological substances; Z90.710 Acquired absence of both cervix and uterus; Z92.3 Personal history of irradiation; Z95.0 Presence of cardiac pacemaker; F32.9 Major depressive disorder, single episode, unspecified; F41.9 Anxiety disorder, unspecified; K21.9 Gastro-esophageal reflux disease without esophagitis; M19.90 Unspecified osteoarthritis, unspecified site; N61.0 Mastitis without abscess; Z88.0 Allergy status to penicillin
CPT/HCPCS: 36415; 70450; 71045; 71250; 76641; 76770; 80053; 80061; 81001; 82550; 82962; 83036; 83605; 83880; 84443; 84484; 85007; 85025; 85610; 86140; 87040; 87086; 93005; J0696; J2270; 97530-GO; 97530-GP; 97535-GO; 99285-25; G0378

== ENCOUNTER → 2020-03-26 | Outpatient (CLI) | payer MEDICARE ==
[2020-02-27 11:00] VITALS: BP 145/72
[~2020-03-26] MED LIST changes: -ASPI-612 PO; +ASPI-886 PO; +CEPH250C PO; +CONTRAST GIVEN. MC PRN; +CYAN1TAB28 PO; +IOHEXOL 240 MG/ML 50ML VIAL. PO ONE; +IOHEXOL 300 MG/ML 100ML VIAL. IV ONE; +TAMO20TA PO
[2020-03-26 10:29] LABS: GFR 63.8
== END | disposition home or self-care (01) ==
LOC: CT 10:17
PROVIDERS: ATTEND Internal Medicine Hematology & Oncology
DX: C50.211 Malignant neoplasm of upper-inner quadrant of right female breast (principal); R63.4 Abnormal weight loss; Z17.0 Estrogen receptor positive status [ER+]
CPT/HCPCS: 36415; 82565; 84520

== ENCOUNTER → 2020-04-02 | Outpatient (CLI) | payer MEDICARE ==
[~2020-04-02] MED LIST changes: -IOHEXOL 300 MG/ML 100ML VIAL. IV ONE
--- NOTE | 2020-04-02 17:06 | RAD ---
CT STUDY OF THE CHEST AND ABDOMEN AND PELVIS WITHOUT IV CONTRAST INDICATIONS: Weight loss. Liver lesion. History of breast cancer. COMPARISON: Chest CT dated February 22, 2020. Abdomen and pelvis CT dated February 05, 2020 and December 23, 2019. TECHNIQUE: Noncontrast helical CT scanning of the chest and abdomen and pelvis was performed. Without IV contrast, the sensitivity to detect organ pathology is decreased. GI contrast was administered per mouth. PQRS compliance Statement One or more of the following individualized dose reduction techniques were utilized for this study: 1. Automated exposure control 2. Adjustment of the mA and/or kV according to patient size 3. Use of iterative reconstruction technique CHEST CT: Calcified right hilar lymph nodes are seen due to old granulomatous disease. No enlarged thoracic lymphadenopathy is seen. No focal aneurysmal dilatation of the thoracic aorta is seen. The heart size is normal and no pericardial effusion is seen. Calcified atheromatous disease of the coronary arteries is seen. A small hiatal hernia is evident. There is a fluid collection within the medial aspect of the right breast which is unchanged in size measuring 2.8 cm. No new lung infiltrate is evident. Calcified granuloma of the medial segment of the right middle lobe is seen. On series 2 and images 33 and 48, 2 separate small 3 mm right lower lobe lung nodules are seen which are stable. On series 2 and image 31, there is a 3 mm noncalcified lung nodule within the right upper lobe which was seen previously and is unchanged. No lung nodules seen on the left side. There is linear scarring or chronic atelectasis of both lower lobes. No new lung infiltrate is seen. No pleural effusion or pneumothorax is evident. The proximal bronchial tree is patent. No lytic process is seen. IMPRESSION: No new abnormality. ABDOMEN AND PELVIS CT: Given the lack of contrast, evaluation for liver lesions is difficult. There is a question of a small hypodense lesion within the anterior periphery of the junction of the anterior segment of the right lobe of the liver and medial segment of the left lobe of liver seen best on series 4 and image 12. This area can be seen on the previous CT study December 23, 2019 and otherwise does not appear any larger. The posterior lateral segment left lobe lesion seen on that study is not as well visualized today without IV contrast. There is a hypodense area seen here today which measures 16 mm and is similar to the previous study in December 2019. The spleen is not enlarged. No focal enlargement of the pancreas is seen. No hydronephrosis is seen on either side. Evaluation for renal lesions is difficult without contrast. There appears to be a cyst of the anterior medial aspect of the right kidney which was seen previously. This is an incidental finding and no further follow-up of this lesion is needed. Urinary bladder wall is smooth. No aneurysmal dilatation of the abdominal aorta is seen. No bulky abdominal or pelvic lymphadenopathy is seen. There is moderate fecal retention throughout the colon and rectum. No obstructive bowel pattern is seen. No free air or free fluid or mesenteric edema is seen. Primary degenerative osteoarthritis of both hip joints is seen more so on the right side. Grade 1 anterolisthesis of L4-5 is seen which results in a moderate spinal canal stenosis at this level. No lytic process is evident. IMPRESSION: No change in size of liver lesions. No acute abnormality. Electronically signed by: Zhen Finley MD (04/02/2020 5:03 PM) [id number]
== END | disposition home or self-care (01) ==
LOC: CT 13:30
PROVIDERS: ATTEND Internal Medicine Hematology & Oncology
DX: C50.211 Malignant neoplasm of upper-inner quadrant of right female breast (principal); K76.9 Liver disease, unspecified; R63.4 Abnormal weight loss; I25.10 Atherosclerotic heart disease of native coronary artery without angina pectoris; D71 Functional disorders of polymorphonuclear neutrophils; K44.9 Diaphragmatic hernia without obstruction or gangrene; Z88.0 Allergy status to penicillin; Z88.6 Allergy status to analgesic agent
CPT/HCPCS: 71250; 74176; Q9966

== ENCOUNTER → 2020-07-16 | Outpatient (CLI) | payer MEDICARE ==
[~2020-07-16] MED LIST changes: -CLIN300C8 PO; +CLIN300C9 PO; -CONTRAST GIVEN. MC PRN; -IOHEXOL 240 MG/ML 50ML VIAL. PO ONE; +LIDOCAINE 1% Multi-Dose 20 ML VIAL. INJ ONE; +LIDOCAINE 1% Multi-Dose 20 ML VIAL. ONE; +REGADENOSON 0.4 MG/5 ML DISP.SYRIN. IV ONE
--- NOTE | 2020-07-16 13:32 | CARD ---
MR#: [id number] Date of Study: 07/16/2020 Ordering Physician: INEZ ROJAS, Referring Physician: INEZ ROJAS, Tech: APPROVED REPORT Procedure: Ultrasound-guided central venous line placement. Indication: Patient is a 85-year-old woman who is having chest pain and was planned for a stress test but unfortunately peripheral IVs could not be placed by multiple nurses, anesthesiology service. Procedure details: Under 1% lidocaine local anesthesia with ultrasound guidance a 4 Marshallese sheath was placed in the [facility] t internal jugular vein without any difficulty after standard prep and drape in usual sterile fashion . A image was saved for documentation. <Conclusion> 1. Successful right internal jugular vein 4 Marshallese sheath placement for intravenous access for stres s testing. Signed by : Inez Rojas, Electronically Approved : 07/16/2020 10:21:44
--- NOTE | 2020-07-16 13:33 | RAD ---
MR#: [id number] Date of Study: 07/16/2020 Ordering Physician: INEZ ROJAS, Referring Physician: WILBUR BARRON Tech: JOYCE Koroma, LIN (R) (N) APPROVED REPORT Test Type: Pharmacological Stress Nurse/Tech: Irina Ramirez R.N. Test Indications: chest pain Cardiac History: PPM, syncope, Medications: See Electronic Medical Record Medical History: See Electronic Medical Record Resting EC% a-paced Resting Heart Rate: 79 bpm Resting Blood Pressure: 152/69mmHg Pretest Chest Pain: No chest pain Nurse/Tech Notes S1S2, lungs CTA Consent: The procedure was explained to the patient in lay terms. Informed consent was witnessed. Max eout was entered into [employer]. History and Stress Test performed by JOYCE Koroma, LIN (R) (N) Pharm. Details Pharmacologic stress testing was performed using 0.4mg per 5ml of regadenoson given intravenously ove r 7-10 seconds. Stress Symptoms SOA, very dizzy- feels faint, chest tightness scale 9/10- states its different then the normal pressu re she feels sometimes when she feels faint- "this is more". faint feeling was better by end of recov mel period but c/p was not POST EXERCISE Reason for Termination: Infusion complete Max HR: 102 bpm Max Blood Pressure: 110/48mmHg Blood Pressure response to exercise: abnormal- b/p dropped quite a bit at first and then ranged up an d down Heart Rate response to exercise: wnl Chest Pain: Yes. see above note Arrhythmia: No. ST Change: No. INTERPRETATION Stress EKG Conclusion: Baseline EKG showed atrial paced rhythm. No ischemic changes at peak stress. No arrhythmias. Imaging Protocol IMAGE PROTOCOL: Rest Tc-99m/stress Tc-99m 1 day Rest: Stress: Viability: Radiopharm.Tc99m [id number] Sestamibi [id number] 33mCi Img Date 07/16/2020 07/16/2020 Inj-Img [id number]. 60min. Rest Admin Site:IV - Central LineAdministrator:JOYCE Koroma, ARRT (R)(N) Stress Admin Site: IV - Central LineAdministrator: Joseph Morley, RT (R)(N) STRESS DATA End Diast. Vol.56.0mlAv. Heart Rate75.0bpm End Syst. Vol.11.0mlCO Index BSA0.0L/min Myocardial Mass96.0gEject. Mgweksgm11.0% Stress Rates Pk. Fill Rate3.58EDV/secLVtime Pk. Fill 232.78msec Pk. Empty Rate4.87ESV/secLVtime Pk. Vdvnx163.38msec / Pk. Fill0.86EDV/sec Stress Scores Regional WT0.00Summed WT1.00 Regional WM0.00Summed WM2.00 Study quality was good. Left Ventricular size was Normal at Rest and Stress. Lung uptake was . Left Ventricular ejection fraction is 84%. The rest and stress images show normal perfusion, normal contraction and thickening. LV Perf. Quant 17 Seg. SSS0.00 17 Seg. SRS0.00 17 Seg. SDS0.00 Stress Defect Extent (% LAD)0.00Rest Defect Extent (% LAD)0.00Rev. Defect Extent (% LAD)0.00 Stress Defect Extent (% LCX) 0.00Rest Defect Extent (% LCX)0.00Rev. Defect Extent (% LCX)0.00 Stress Defect Extent (% RCA)0.00Rest Defect Extent (% RCA)0.00Rev. Defect Extent (% RCA)0.00 Stress Defect Extent (% AZALIA)0.00Rest Defect Extent (% AZALIA)0.00Rev. Defect Extent (% AZALIA)0.00 Conclusion 1. Regadenoson cardioisotope stress test did not show any evidence of ischemia or infarct. 2. Normal left ventricular systolic function with ejection fraction calculated at 84%. 3. Low risk for cardiac events. Signed by : Naman Augustine, Electronically Approved : 07/16/2020 13:13:25
--- NOTE | 2020-07-16 13:35 | NUR ---
Dr. Trivedi started a 5Fr. sheath IV site in pt's rt IJ for her nuclear study today.pt did have some chest pain during test this am. notified Dr. Muñoz- he checked pt's scans and he was ok for pt to go home. rt IJ iv pulled at 1pm. held pressure x 4 minutes . no bleeding noted. dry pressure dressing applied. kept pt's HOB at 30 degrees. pt had some lunch. monitored rt IJ site for 30 minutes. no bleeding noted. pt out to vehicle per w/c - her son to drive her home. discussed with both pt and her son to keep HOB above 30 degrees for 2 hours and to monitor for signs of bleeding or infection.
== END ==
LOC: NM 08:55
PROVIDERS: ATTEND Internal Medicine Cardiovascular Disease
DX: R07.9 Chest pain, unspecified (principal)
CPT/HCPCS: 76937; 78452; 93017; A9500; C1892; J2785; J3490

== ENCOUNTER → 2020-11-22 | Outpatient (CLI) | payer MEDICARE ==
[2020-10-28 15:00] VITALS: BP 123/57
[~2020-11-22] MED LIST changes: +Diclofenac Sodium TP; -LIDOCAINE 1% Multi-Dose 20 ML VIAL. INJ ONE; -LIDOCAINE 1% Multi-Dose 20 ML VIAL. ONE; -REGADENOSON 0.4 MG/5 ML DISP.SYRIN. IV ONE
--- NOTE | 2020-11-22 13:21 | RAD ---
EXAM: Bilateral diagnostic mammogram; right breast sonogram. HISTORY: 85-year-old female with a history of right breast cancer, status post right breast conservat ion therapy, presents for bilateral mammography. TECHNIQUE: Full-field digital craniocaudal and mediolateral oblique views of both breasts are obtaine d for evaluation. Computer aided detection was applied. Sonographic imaging of the right breast targe irma to the site of prior lumpectomy was also performed. COMPARISON: Comparison is made with a bilateral mammogram performed prior to conservation therapy on 07/17/2018. BREAST PARENCHYMAL DENSITY: Level C - Heterogeneously dense. FINDINGS: There is a new density with surrounding architectural distortion within the 3:00 position o f the right breast at anterior to mid depth, corresponding with a lumpectomy bed. There is right prasanth st skin thickening due to radiation therapy. There are stable areas of asymmetry within both breasts when allowing for differences in imaging technique. There is a stable small benign circumscribed nodu le within the medial left breast. There are benign calcifications within both breasts. Sonographic imaging of the right breast demonstrates a postoperative seroma measuring 2.5 cm at the 3 :00 position 5 cm from the nipple, corresponding with the region of mammographic density and surround ing architectural distortion. There is no abnormal blood flow or posterior shadowing in this location to suggest residual or recurrent neoplasm. IMPRESSION: 1. Findings consistent with interval right breast conservation therapy, with associated seroma and sc arring within the lumpectomy bed at the 3:00 position and skin thickening due to radiation therapy. G iven the absence of prior studies to confirm stability of post therapeutic changes, short-term follow -up with a right breast diagnostic mammogram in 6 months is recommended. 2. BI-RADS Category 3: Probably benign finding(s). Short term follow up with a diagnostic right breas t mammogram in 6 months is recommended. If your mammogram demonstrates that you have dense breast tissue, which could hide abnormalities, and if you have other risk factors for breast cancer that have been identified, you might benefit from s upplemental screening tests that may be suggested by your ordering physician. Dense breast tissue, i n and of itself, is a relatively common condition. This information is not provided to cause undue c oncern, but rather to raise your awareness and to promote discussion with your physician regarding th e presence of other risk factors, in addition to dense breast tissue. A report of your mammography re sults will be sent to you and your physician. You should contact your physician if you have any ques tions or concerns regarding this report. Mammography is a sensitive method for finding small breast cancers, but it does not detect them all a nd is not a substitute for careful clinical examination. A negative mammogram does not negate a clin ically suspicious finding and should not result in delay in biopsying a clinically suspicious abnorma lity. PQRS compliance statement - Patient information was entered into a reminder system with a target due date for the next mammogram. "Our facility is accredited by the [employer] Mammography Program." Electronically signed by: Ml Iyer MD (11/22/2020 1:18 PM) [id number]
--- NOTE | 2020-11-22 13:37 | RAD ---
EXAM: Bilateral diagnostic mammogram; right breast sonogram. HISTORY: 85-year-old female with a history of right breast cancer, status post right breast conservat ion therapy, presents for bilateral mammography. TECHNIQUE: Full-field digital craniocaudal and mediolateral oblique views of both breasts are obtaine d for evaluation. Computer aided detection was applied. Sonographic imaging of the right breast targe irma to the site of prior lumpectomy was also performed. COMPARISON: Comparison is made with a bilateral mammogram performed prior to conservation therapy on 07/17/2018. BREAST PARENCHYMAL DENSITY: Level C - Heterogeneously dense. FINDINGS: There is a new density with surrounding architectural distortion within the 3:00 position o f the right breast at anterior to mid depth, corresponding with a lumpectomy bed. There is right prasanth st skin thickening due to radiation therapy. There are stable areas of asymmetry within both breasts when allowing for differences in imaging technique. There is a stable small benign circumscribed nodu le within the medial left breast. There are benign calcifications within both breasts. Sonographic imaging of the right breast demonstrates a postoperative seroma measuring 2.5 cm at the 3 :00 position 5 cm from the nipple, corresponding with the region of mammographic density and surround ing architectural distortion. There is no abnormal blood flow or posterior shadowing in this location to suggest residual or recurrent neoplasm. IMPRESSION: 1. Findings consistent with interval right breast conservation therapy, with associated seroma and sc arring within the lumpectomy bed at the 3:00 position and skin thickening due to radiation therapy. G iven the absence of prior studies to confirm stability of post therapeutic changes, short-term follow -up with a right breast diagnostic mammogram in 6 months is recommended. 2. BI-RADS Category 3: Probably benign finding(s). Short term follow up with a diagnostic right breas t mammogram in 6 months is recommended. Electronically signed by: Ml Iyer MD (11/22/2020 1:35 PM) [id number]
== END ==
LOC: MAMMO 13:17
PROVIDERS: ATTEND Internal Medicine
DX: R92.2 Inconclusive mammogram (principal); Z85.3 Personal history of malignant neoplasm of breast
CPT/HCPCS: 76641; 77066

== ENCOUNTER → 2021-05-18 | Outpatient (CLI) | payer MEDICARE ==
[2020-10-28 15:00] VITALS: BP 123/57
[~2021-05-18] MED LIST changes: +CLIN-94 PO; -CLIN300C9 PO; -DULO60CA6 PO; +DULO60CA7 PO; -OMEP40CA45 PO; +OMEP40CA7 PO
--- NOTE | 2021-05-18 16:32 | RAD ---
EXAM: 1. Unilateral digital diagnostic mammography, right. 2. Right breast ultrasound. HISTORY: Personal history of right breast cancer status post breast conservation therapy. Follow-up r ight breast seroma and skin thickening. TECHNIQUE: Digital images were obtained on the right in CC and MLO projections. Sonography of the rig ht breast and axilla was also performed. COMPARISON: 11/22/2020. COMPOSITION: C. The breasts are heterogeneously dense, which may obscure small masses. FINDINGS: A mammographic mass medially corresponds with the lumpectomy site. Skin thickening in a pre dominantly periareolar distribution has increased since the prior study. There is diffuse interstitia l edema. A skin marker is placed at the site of palpable concern laterally. On physical examination, no focal palpable focus is appreciable at this site. Coarse, vascular and secretory calcifications ap pear benign. Sonography again demonstrates a heterogeneous mass at the 3:00 position, 3 cm from the nipple. It becca sures 2.4 x 2.1 x 1.7 cm. There is no internal perfusion. This is likely a complicated seroma at the lumpectomy site. No clearly suspicious mass is appreciated throughout the left breast. There are few dilated ducts, some of which contain debris. There is no internal perfusion. BI-RADS CATEGORY 3: Probably Benign. RECOMMENDATION: 1. Interstitial and skin edema has progressed since the prior study. A complicated mass at the lumpec rachel site is likely fat necrosis or a seroma. No definitive recurrence is identified. Clinical follow -up/management is recommended for worsening skin and parenchymal edema, which may reflect posttreatme nt effect. Skin biopsy could be considered if there is persistent concern for malignancy. 2. The patient is due for bilateral mammographic surveillance in November 2021. Electronically signed by: Alden Godinez MD (05/18/2021 4:29 PM) [id number]
== END ==
LOC: MAMMO 14:22
PROVIDERS: ATTEND Internal Medicine Hematology & Oncology
DX: N63.11 Unspecified lump in the right breast, upper outer quadrant (principal)
CPT/HCPCS: 76641; 77065

== ENCOUNTER 2021-06-04 22:12 | Inpatient (IN) | payer MEDICARE ==
[~2021-06-04] VITALS: Ht 166.4 cm; Wt 59.3 kg
[2021-06-04] MEDS ORDERED: fentaNYL PF VIAL 100 MCG/2 ML VIAL IV ONE (23:00)
[2021-06-04] MEDS ORDERED: ONDANSETRON PF 4 MG/2 ML VIAL. IVP ONE (23:00)
[2021-06-04] MEDS ORDERED: FAMOTIDINE 20 MG/2 ML VIAL IVP ONE (23:00)
[2021-06-04] MEDS ORDERED: IV NORMAL SALINE 1000ML BAG 1,000 ML IV ONE (23:00)
--- NOTE | 2021-06-04 23:16 | PHYS DOC ---
Past Medical History Past Medical History: A-Fib, Anxiety, Arthritis, Cancer, CHF, Constipation, GERD, High Cholesterol Additional Past Medical Histor: lower ext swelling, pacemaker, CANCER OF RT BREAST Past Surgical History: Cholecystectomy, Hysterectomy, Pacemaker Additional Past Surgical Histo: R breast surgery (lumpectomy), L shoulder sx, hemmorhoidectomy,L shoulder Smoking Status: Unknown if ever smoked Alcohol Use: None Drug Use: None General Adult EDM: Chief Complaint: ABDOMINAL PAIN HPI: HPI: Patient is an 85-year-old female with past medical history of small bowel obstruction and multiple abdominal surgeries presenting with lower abdominal pain that began today. She states the pain radiates throughout her entire lower abdomen and is 10/10 and is sharp. She also reports worsening pain upon bowel movement earlier today and nausea with vomiting x2. She denies any blood or dark color of stool or vomit. She also reports weakness for about 6 months and is concerned about her pacemaker malfunctioning. She denies chest pain, shortness of breath, cough, and fever/chills Review of Systems: Review of Systems: Constitutional: Denies fever or chills Eyes: Denies redness or eye pain HENT: Denies nasal congestion or sore throat Respiratory: Denies cough or shortness of breath Cardiovascular: Denies chest pain or palpitations GI: Reports abdominal pain, nausea, and vomiting : Reports dysuria; denies hematuria Musculoskeletal: Denies back pain or joint pain Integument: Denies rash or skin lesions Neurologic: Denies headache, focal weakness or sensory changes Complete systems were reviewed and found to be within normal limits, except as documented in this note. Heart Score: C/O Chest Pain: No Current Medications: Current Medications Medications (Trade) Dose Ordered Sig/[facility] Start Time Stop Time Status Last Admin Dose Admin Famotidine (Pepcid Vial) 20 mg 1X ONCE 06/04/21 23:00 06/04/21 23:01 UNV Fentanyl Citrate (Fentanyl 2ml Vial) 25 mcg 1X ONCE 06/04/21 23:00 06/04/21 23:01 UNV Ondansetron HCl (Zofran) 4 mg 1X ONCE 06/04/21 23:00 06/04/21 23:01 UNV Sodium Chloride 1,000 ml @ 1,000 mls/hr 1X ONCE 06/04/21 23:00 06/04/21 23:59 Allergies: Allergies: Allergies Coded Allergies Type Severity Reaction Last Updated Verified Penicillins Allergy Intermediate Rash 09/16/19 Yes atorvastatin Allergy Intermediate 12/29/19 Yes tetracycline Allergy Intermediate rash 09/16/19 Yes codeine Adverse Reaction Intermediate nausea & vomiting 09/16/19 Yes hydrocodone Adverse Reaction Intermediate Nausea and Vomiting 09/16/19 Yes oxycodone Adverse Reaction Intermediate Nausea and Vomiting 09/15/20 Yes Physical Exam: PE: Constitutional: Well developed, well nourished, no acute distress HENT: Normocephalic, atraumatic Eyes: Conjunctiva normal, no discharge Neck: Normal range of motion, supple Lungs & Thorax: No respiratory distress, equal chest rise and fall Abdomen: Distended, tender to palpation in b/l lower quadrants, no rebound or guarding Skin: Warm, dry, no rash Back: No tenderness, no CVA tenderness Extremities: ROM intact, no edema Neurologic: Alert and oriented X 3, no focal deficits noted Psychologic: Affect normal, judgment normal EKG: EKG: Completed at 2300, paced rhythm 83 bpm Radiology/Procedures: Radiology/Procedures: PROCEDURE: CT ABD PELV W/ IV CONTRST ONLY PQRS Compliance Statement: One or more of the following individualized dose reduction techniques were utilized for this examination: 1. Automated exposure control 2. Adjustment of the mA and/or kV according to patient size 3. Use of iterative reconstruction technique CT abdomen/pelvis with contrast 06/04/2021 12:41 AM INDICATION: Lower abdominal pain, nausea and vomiting COMPARISON: CT abdomen/pelvis 10/23/2020 TECHNIQUE: Multiple axial CT images of the abdomen and pelvis were obtained after the intravenous administration of 75 mL Omnipaque 300. Coronal and sagittal reformats are provided. FINDINGS: There is left basilar subsegmental atelectasis. Heart size within normal limits. Cardiac pacer wires are partially profiled. Cyst identified in the inferior hepatic lobe measuring 5 mm. Severe intrahepatic and extrahepatic biliary ductal dilatation. Portal venous system is patent. Spleen is normal in size. Adrenal glands are stable in morphology. There is mild atrophy of the pancreas. No definite pancreatic mass. Abdominal aorta is normal in caliber with dense calcified atheromatous plaque. No pathologically enlarged lymph nodes identified in the abdomen or pelvis. Trace ascites. No free intraperitoneal air. Stable simple appearing renal cortical cysts. The kidneys enhance symmetrically. There is no suspicious renal mass. There is no hydronephrosis. There are no suspected calculi within the kidneys, ureters or urinary bladder. Urinary bladder is within normal limits given degree of distention. No suspicious pelvic mass. Dilated small bowel loops measure up to 4.3 cm. Stomach is partly decompressed. Jejunum is dilated. There may be a transition point within the mid ileum with nondilated ileal bowel loops identified within the posterior right lower abdomen (series 2, image 53). Colon is normal in caliber. No suspicious osseous abnormality is identified. IMPRESSION: Findings are compatible with small bowel obstruction, possibly involving the mid ileum. Colon is normal in caliber. Consideration may be given for adhesions. No definite findings to suggest internal hernia. Severe intrahepatic and extra hepatic biliary ductal dilatation. Correlation with hepatobiliary enzymes. If there is persistent clinical concern, further characterization with MRCP on a nonemergent basis is recommended. Trace ascites. Electronically signed by: Yessy Noe MD (06/05/2021 1:30 AM) [facility] Course & Med Decision Making: Course & Med Decision Making Pertinent Labs and Imaging studies reviewed. (See chart for details) Patient is an 85-year-old female with past medical history of small bowel obstruction, pacemaker, and abdominal surgeries presenting for bilateral lower abdominal pain. Patient concerned about her pacemaker which was interrogated. [employer] rep called and informed that everything was functioning correctly and she had 3 years left on her battery. EKG showed paced rhythm at normal rate. IV Zofran, pepcid, and fentanyl given and patient reported improvement in her nausea and pain. CBC unremarkable besides slight anemia, CMP unremarkable besides for slight hyponatremia. Troponin negative. Ct abd/pelvis demonstrated evidence of small bowel obstruction, possibly involving the mid ileum along with severe intrahepatic and extra hepatic biliary ductal dilatation. Patient not actively vomiting in the emergency department, pain and nausea well controlled, will hold NG tube for now. Patient requiring admission for further evaluation and treatment. Discussed with Dr. Sales who is extermination inspector for Dr. Solo (PCP) who is in agreement with adrienne miranda. Discussed findings and plan with patient and family, who acknowledge understanding and agreement. [place] Disclaimer: Abdoul Disclaimer: This electronic medical record was generated, in whole or in part, using a voice recognition dictation system. Departure Departure Impression: Primary Impression: Small bowel obstruction Disposition: ADMITTED INPATIENT Admitting Physician: Carol Solo (discussed with Dr. Sales, who is extermination inspector) Condition: STABLE Referrals: CAROL SOLO MD (PCP) JOHN EAST DO Jun 04, 2021 23:16
[2021-06-04] MEDS ORDERED: IOHEXOL 300 MG/ML 100ML VIAL. IV ONE (23:30)
[2021-06-05 00:02] LABS: BASO % 1 % (0-3); EOS % 0 % (0-3); HEMATOCRIT 34.1 % (36.0-47.0); HEMOGLOBIN 11.3 g/dL (12.0-15.5); LYMPH # 0.7 x10^3/uL (1.0-4.8); LYMPH % 14 % (24-48); MEAN CORPUSCULAR HEMOGLOBIN 28 pg (25-35); MEAN CORPUSCULAR HGB CONC 33 g/dL (31-37); MEAN CORPUSCULAR VOLUME 83 fL (79-100); MONO # 0.2 x10^3/uL (0.0-1.1); MONO % 4 % (0-9); NEUT # 4.5 x10^3/uL (1.8-7.7); NEUT % 82 % (31-73); PLATELET COUNT 164 x10^3/uL (140-400); RED BLOOD COUNT 4.11 x10^6/uL (3.50-5.40); RED CELL DISTRIBUTION WIDTH 15.9 % (11.5-14.5); WHITE BLOOD COUNT 5.5 x10^3/uL (4.0-11.0)
[2021-06-05 00:14] LABS: CALCIUM 9.2 mg/dL (8.5-10.1); GFR 63.6; POTASSIUM 4.4 mmol/L (3.5-5.1)
[2021-06-05 00:20] LABS: ALBUMIN 3.9 g/dL (3.4-5.0); ALBUMIN/GLOBULIN RATIO 1.1 (1.0-1.7); MAGNESIUM 2.1 mg/dL (1.8-2.4); TOTAL BILIRUBIN 0.6 mg/dL (0.2-1.0); TOTAL PROTEIN 7.3 g/dL (6.4-8.2)
[2021-06-05 00:30] LABS: CREATINE KINASE 48 U/L (26-192)
--- NOTE | 2021-06-05 00:31 | EKG ---
[facility] [address] [place] [address] Test Date: 2021-06-04 Test Time: 23:00:28 Pat Name: DAVIS CARVALHO Department: Room: Gender: F Cathode Washer: Dora : 1935 Requested By: JOHN EAST Order Number: [id number] Reading MD: Naman Augustine Measurements Intervals [place] Rate: 83 P: 53 GA: 218 QRS: 54 QRSD: 78 T: 22 QT: 348 QTc: 414 Interpretive Statements ATRIAL PACED RHYTHM PROLONGED GA INTERVAL LEFT ATRIAL ABNORMALITY ABNORMAL ECG Electronically Signed On 06-05-2021 12:41:14 CDT by Naman Augustine
--- NOTE | 2021-06-05 01:32 | RAD ---
PQRS Compliance Statement: One or more of the following individualized dose reduction techniques were utilized for this examinat ion: 1. Automated exposure control 2. Adjustment of the mA and/or kV according to patient size 3. Use of iterative reconstruction technique CT abdomen/pelvis with contrast 06/04/2021 12:41 AM INDICATION: Lower abdominal pain, nausea and vomiting COMPARISON: CT abdomen/pelvis 10/23/2020 TECHNIQUE: Multiple axial CT images of the abdomen and pelvis were obtained after the intravenous adm inistration of 75 mL Omnipaque 300. Coronal and sagittal reformats are provided. FINDINGS: There is left basilar subsegmental atelectasis. Heart size within normal limits. Cardiac pacer wires are partially profiled. Cyst identified in the inferior hepatic lobe measuring 5 mm. Severe intrahepa tic and extrahepatic biliary ductal dilatation. Portal venous system is patent. Spleen is normal in s ize. Adrenal glands are stable in morphology. There is mild atrophy of the pancreas. No definite panc reatic mass. Abdominal aorta is normal in caliber with dense calcified atheromatous plaque. No pathol ogically enlarged lymph nodes identified in the abdomen or pelvis. Trace ascites. No free intraperito hannah air. Stable simple appearing renal cortical cysts. The kidneys enhance symmetrically. There is no suspicio us renal mass. There is no hydronephrosis. There are no suspected calculi within the kidneys, ureters or urinary bladder. Urinary bladder is within normal limits given degree of distention. No suspiciou s pelvic mass. Dilated small bowel loops measure up to 4.3 cm. Stomach is partly decompressed. Jejunu m is dilated. There may be a transition point within the mid ileum with nondilated ileal bowel loops identified within the posterior right lower abdomen (series 2, image 53). Colon is normal in caliber. No suspicious osseous abnormality is identified. IMPRESSION: Findings are compatible with small bowel obstruction, possibly involving the mid ileum. Colon is norm al in caliber. Consideration may be given for adhesions. No definite findings to suggest internal her danielle. Severe intrahepatic and extra hepatic biliary ductal dilatation. Correlation with hepatobiliary enzym es. If there is persistent clinical concern, further characterization with MRCP on a nonemergent basi s is recommended. Trace ascites. Electronically signed by: Yessy Noe MD (06/05/2021 1:30 AM) [facility]
[2021-06-05] MEDS ORDERED: IV NORMAL SALINE 1000ML BAG 1,000 ML IV SCH (02:15)
[2021-06-05] MEDS ORDERED: ONDANSETRON PF 4 MG/2 ML VIAL. IVP PRN (02:15)
[2021-06-05] MEDS: fentaNYL PF VIAL 100 MCG/2 ML VIAL IVP PRN ×2 (02:53→14:17)
[2021-06-05 04:58] LABS: BILIRUBIN,URINE NEGATIVE (NEG); CLARITY,URINE CLEAR; COLOR,URINE YELLOW; NITRITE,URINE NEGATIVE (NEG); PROTEIN,URINE NEGATIVE (NEG-TRACE)
[2021-06-05 05:11] LABS: BACTERIA,URINE MODERATE /HPF (0-FEW)
[2021-06-05 05:12] LABS: RBC,URINE OCC /HPF (0-2); YEAST,URINE PRESENT /HPF
[2021-06-05 06:39] VITALS: BP 160/78
[2021-06-05 11:00] VITALS: BP 156/72
[2021-06-05] MEDS: ALPRAZolam 0.25 MG TABLET PO SCH ×2 (11:19→21:27)
[2021-06-05] MEDS: SOTALOL 80 MG TABLET. PO SCH ×2 (11:20→21:41)
[2021-06-05] MEDS: DICLOFENAC SODIUM 1% TOPICAL GEL 100GM TUBE. TP SCH (11:20)
[2021-06-05] MEDS: POTASSIUM CL 20MEQ D5-0.9%NACL 1,000 ML IV SCH (11:23)
[2021-06-05] MEDS: TAMOXIFEN 10 MG TABLET PO SCH (11:32)
--- NOTE | 2021-06-05 12:16 | PDOC2 ---
CONSULT Date of Consult Date of Consult DATE: 06/05/21 TIME: 12:12 History of Present Illness Reason for Visit: The patient is an 85-year-old female who reported to the emergency department with abdominal pain and vomiting. This began yesterday and was remain persistent. She did have 2 bowel movements yesterday and is not passing gas today. The evaluation in the emergency department raise concern for a small bowel obstruction. Past Medical History Cardiovascular: AFIB, CHF, HTN, Hyperlipidemia, Other Pulmonary: Other CENTRAL NERVOUS SYSTEM: Other GI: Constipation, Diverticulosis, GERD, Peptic Ulcer disease, Other Heme/Onc: Anemia NOS, Cancer Hepatobiliary: Cholelithiasis Psych: Anxiety, Depression Musculoskeletal: Osteoarthritis Renal/: UTI, Other Endocrine: Osteoporosis Past Surgical History Past Surgical History: Pacemaker, Cholecystectomy, Cataract Removal, Hysterectomy, Other Family History Family History: Hypertension Social History ALCOHOL: none Drugs: None Lives: with Family Current Problem List Problem List Problems Medical Problems: (1) Small bowel obstruction Status: Acute Current Medications Current Medications Current Medications Sodium Chloride 1,000 ml @ 1,000 mls/hr 1X ONCE IV Last administered on 06/04/21at 23:32; Start 06/04/21 at 23:00; Stop 06/04/21 at 23:59; Status DC Ondansetron HCl (Zofran) 4 mg 1X ONCE IVP Last administered on 06/04/21at 23:32; Start 06/04/21 at 23:00; Stop 06/04/21 at 23:09; Status DC Fentanyl Citrate (Fentanyl 2ml Vial) 25 mcg 1X ONCE IV Last administered on 06/04/21at 23:36; Start 06/04/21 at 23:00; Stop 06/04/21 at 23:09; Status DC Famotidine (Pepcid Vial) 20 mg 1X ONCE IVP Last administered on 06/04/21at 23:36; Start 06/04/21 at 23:00; Stop 06/04/21 at 23:09; Status DC Iohexol (Omnipaque 300 Mg/ml) 75 ml 1X ONCE IV Last administered on 06/04/21at 00:51; Start 06/04/21 at 23:30; Stop 06/04/21 at 23:31; Status DC Ondansetron HCl (Zofran) 4 mg PRN Q8HRS PRN IVP NAUSEA/VOMITING; Start 06/05/21 at 02:15; Stop 06/06/21 at 02:14 Fentanyl Citrate (Fentanyl 2ml Vial) 25 mcg PRN Q2HR PRN IVP PAIN Last administered on 06/05/21at 02:53; Start 06/05/21 at 02:15 Sodium Chloride 1,000 ml @ 100 mls/hr Q10H IV Last administered on 06/05/21at 02:54; Start 06/05/21 at 02:15; Stop 06/05/21 at 12:14 Alprazolam (Xanax) 0.25 mg BID PO Last administered on 06/05/21at 11:19; Start 06/05/21 at 12:00 Zolpidem Tartrate (Ambien) 5 mg HS PO ; Start 06/05/21 at 21:00 Vitamin B Complex/ Vitamin C (Aneta-Erick) 1 tab DAILY PO ; Start 06/06/21 at 09:00 Pantoprazole Sodium (Protonix) 40 mg DAILYAC PO ; Start 06/06/21 at 07:30 Sotalol HCl (Betapace) 60 mg BID PO Last administered on 06/05/21at 11:20; Start 06/05/21 at 12:00 Tamoxifen Citrate (Nolvadex) 20 mg DAILY PO Last administered on 06/05/21at 11:32; Start 06/05/21 at 12:00 Diclofenac Sodium (Voltaren) 1 ilda BID TP Last administered on 06/05/21at 11:20; Start 06/05/21 at 12:00 Enoxaparin Sodium (Lovenox 40mg Syringe) 40 mg Q24H SQ ; Start 06/05/21 at 21:00 Potassium Chloride/Dextrose/ Sod Cl 1,000 ml @ 75 mls/hr [id number] IV Last a dministered on 06/05/21at 11:23; Start 06/05/21 at 10:30 Active Scripts Active [Diclofenac Sodium] 100 GM Gel..gram. 1 Ilda TP BID 365 Days Reported Vitamin Q53-Wrwou Acid Tablet (Cyanocobalamin/Folic Acid) 1 Each Tablet 1 Tab PO DAILY 30 Days Tamoxifen Citrate 20 Mg Tablet 20 Mg PO DAILY Alprazolam 0.25 Mg Tablet 1 Tab PO BID Betapace (Sotalol Hcl) 120 Mg Tablet 0.5 Tab PO BID 30 Days Zolpidem Tartrate 5 Mg Tablet 5 Mg PO HS Omeprazole 40 Mg Capsule.dr 40 Mg PO DAILY Allergies Allergies: Coded Allergies: Penicillins (Verified Allergy, Intermediate, Rash, 09/16/19) tolerates cephalasporins atorvastatin (Verified Allergy, Intermediate, 12/29/19) tetracycline (Verified Allergy, Intermediate, rash, 09/16/19) codeine (Verified Adverse Reaction, Intermediate, nausea & vomiting, 09/16/19) hydrocodone (Verified Adverse Reaction, Intermediate, Nausea and Vomiting, 09/16/19) oxycodone (Verified Adverse Reaction, Intermediate, Nausea and Vomiting, 09/15/20) ROS General: YES: Fatigue ALLERGY AND IMMUNOLOGY: No: Hives, Insect Bite Sensitivity, Itchy/Watery Eyes, Nasal Congestion, Post Nasal Drip, Seasonal Allergies, Other Hematological and Lymphatic: No: Bleeding Problems, Blood Clots, Blood Transfu sions, Brusing, Night Sweats, Pallor, Swollen Lymph Nodes, Other ENDOCRINE: No: Breast Changes, Galactorrhea, Hair Pattern Changes, Hot Flashes, Malaise/lethargy, Mood Swings, Palpitations, Polydipsia/polyuria, Skin Changes, Temperature Intolerance, Unexpected Weight Changes, Other Respiratory: No: Cough, Hemoptysis, Orthopnea, Pleuritic Pain, Shortness of breath, SOB with excertion, Sputum Changes, Stridor, Tachypnea, Wheezing, Other Cardiovascular: No Chest Pain, No Palpitations, No Orthopnea, No Paroxysmal Noc. Dyspnea, No Edema, No Lt Headedness, No Other Gastrointestinal: Yes Vomiting, Yes Abdominal Pain Genitourinary: No Dysuria, No Frequency, No Incontinence, No Hematuria, No Retention, No Discharge, No Urgency, No Pain, No Flank Pain, No Other, No , No , No , No , No , No , No Musculoskeletal: No Gait Disturbance, No Joint Pain, No Joint Stiffness, No Joint Swelling, No Muscle Pain, No Muscular Weakness, No Pain In:, No Swelling In:, No Other Neurological: No Behavorial Changes, No Bowel/Bladder ControlChng, No Confusion, No Dizziness, No Gait Disturbance, No Headaches, No Impaired Coord/balance, No Memory Loss, No Numbness/Tingling, No Seizures, No Speech Problems, No Tremors, No Visual Changes, No Weakness, No Other Skin: No Dry Skin, No Eczema, No Hair Changes, No Lumps, No Mole Changes, No Mottling, No Nail Changes, No Pruritus, No Rash, No Skin Lesion Changes, No Other, No Acne Physical Exam General: Alert, Oriented X3, Other (Fatigued) HEENT: Atraumatic Lungs: Clear to auscultation Abdomen: Soft (Mildly distended, reports some discomfort with palpation, no peritoneal signs) Extremities: No clubbing, No cyanosis Skin: No rashes Neuro: Normal speech Psych/Mental Status: Mental status NL Vitals VITALS Vital Signs Date Time Temp Pulse Resp B/P (MAP) Pulse Ox O2 Delivery O2 Flow Rate FiO2 06/05/21 11:20 112 160/78 06/05/21 08:00 Room Air 06/05/21 06:39 97.5 22 97 97.5 Labs Labs Laboratory Tests Test 06/04/21 23:50 06/05/21 02:09 06/05/21 04:50 White Blood Count 5.5 x10^3/uL (4.0-11.0) Red Blood Count 4.11 x10^6/uL (3.50-5.40) Hemoglobin 11.3 g/dL (12.0-15.5) Hematocrit 34.1 % (36.0-47.0) Mean Corpuscular Volume 83 fL (79-100) Mean Corpuscular Hemoglobin 28 pg (25-35) Mean Corpuscular Hemoglobin Concent 33 g/dL (31-37) Red Cell Distribution Width 15.9 % (11.5-14.5) Platelet Count 164 x10^3/uL (140-400) Neutrophils (%) (Auto) 82 % (31-73) Lymphocytes (%) (Auto) 14 % (24-48) Monocytes (%) (Auto) 4 % (0-9) Eosinophils (%) (Auto) 0 % (0-3) Basophils (%) (Auto) 1 % (0-3) Neutrophils # (Auto) 4.5 x10^3/uL (1.8-7.7) Lymphocytes # (Auto) 0.7 x10^3/uL (1.0-4.8) Monocytes # (Auto) 0.2 x10^3/uL (0.0-1.1) Eosinophils # (Auto) 0.0 x10^3/uL (0.0-0.7) Basophils # (Auto) 0.0 x10^3/uL (0.0-0.2) Sodium Level 133 mmol/L (136-145) Potassium Level 4.4 mmol/L (3.5-5.1) Chloride Level 99 mmol/L (98-107) Carbon Dioxide Level 26 mmol/L (21-32) Anion Gap 8 (6-14) Blood Urea Nitrogen 15 mg/dL (7-20) Creatinine 1.0 mg/dL (0.6-1.0) Estimated GFR (Cockcroft-Gault) 63.6 BUN/Creatinine Ratio 15 (6-20) Glucose Level 143 mg/dL (70-99) Lactic Acid Level 1.2 mmol/L (0.4-2.0) Calcium Level 9.2 mg/dL (8.5-10.1) Magnesium Level 2.1 mg/dL (1.8-2.4) Total Bilirubin 0.6 mg/dL (0.2-1.0) Aspartate Amino Transf (AST/SGOT) 14 U/L (15-37) Alanine Aminotransferase (ALT/SGPT) 12 U/L (14-59) Alkaline Phosphatase 51 U/L (46-116) Creatine Kinase 48 U/L (26-192) Creatine Kinase MB (Mass) 1.5 ng/mL (0.0-3.6) Creatine Kinase MB Relative Index % (0-4) Troponin I High Sensitivity < 4 ng/L (4-50) Total Protein 7.3 g/dL (6.4-8.2) Albumin 3.9 g/dL (3.4-5.0) Albumin/Globulin Ratio 1.1 (1.0-1.7) Lipase 86 U/L (73-393) SARS-CoV-2 Antigen (Rapid) Negative (NEGATIVE) Urine Collection Type Void Urine Color Yellow Urine Clarity Clear Urine pH 6.0 (<5.0-8.0) Urine Specific [place] >=1.030 (1.000-1.030) Urine Protein Negative mg/dL (NEG-TRACE) Urine Glucose (UA) Negative mg/dL (NEG) Urine Ketones (Stick) Negative mg/dL (NEG) Urine Blood Negative (NEG) Urine Nitrite Negative (NEG) Urine Bilirubin Negative (NEG) Urine Urobilinogen Dipstick 1.0 mg/dL (0.2 mg/dL) Urine Leukocyte Esterase Negative (NEG) Urine RBC Occ /HPF (0-2) Urine WBC 1-4 /HPF (0-4) Urine Squamous Epithelial Cells Many /LPF Urine Bacteria Moderate /HPF (0-FEW) Urine Mucus Slight /LPF Urine Yeast Present /HPF Laboratory Tests Test 06/04/21 23:50 06/05/21 02:09 06/05/21 04:50 White Blood Count 5.5 x10^3/uL (4.0-11.0) Red Blood Count 4.11 x10^6/uL (3.50-5.40) Hemoglobin 11.3 g/dL (12.0-15.5) Hematocrit 34.1 % (36.0-47.0) Mean Corpuscular Volume 83 fL (79-100) Mean Corpuscular Hemoglobin 28 pg (25-35) Mean Corpuscular Hemoglobin Concent 33 g/dL (31-37) Red Cell Distribution Width 15.9 % (11.5-14.5) Platelet Count 164 x10^3/uL (140-400) Neutrophils (%) (Auto) 82 % (31-73) Lymphocytes (%) (Auto) 14 % (24-48) Monocytes (%) (Auto) 4 % (0-9) Eosinophils (%) (Auto) 0 % (0-3) Basophils (%) (Auto) 1 % (0-3) Neutrophils # (Auto) 4.5 x10^3/uL (1.8-7.7) Lymphocytes # (Auto) 0.7 x10^3/uL (1.0-4.8) Monocytes # (Auto) 0.2 x10^3/uL (0.0-1.1) Eosinophils # (Auto) 0.0 x10^3/uL (0.0-0.7) Basophils # (Auto) 0.0 x10^3/uL (0.0-0.2) Sodium Level 133 mmol/L (136-145) Potassium Level 4.4 mmol/L (3.5-5.1) Chloride Level 99 mmol/L (98-107) Carbon Dioxide Level 26 mmol/L (21-32) Anion Gap 8 (6-14) Blood Urea Nitrogen 15 mg/dL (7-20) Creatinine 1.0 mg/dL (0.6-1.0) Estimated GFR (Cockcroft-Gault) 63.6 BUN/Creatinine Ratio 15 (6-20) Glucose Level 143 mg/dL (70-99) Lactic Acid Level 1.2 mmol/L (0.4-2.0) Calcium Level 9.2 mg/dL (8.5-10.1) Magnesium Level 2.1 mg/dL (1.8-2.4) Total Bilirubin 0.6 mg/dL (0.2-1.0) Aspartate Amino Transf (AST/SGOT) 14 U/L (15-37) Alanine Aminotransferase (ALT/SGPT) 12 U/L (14-59) Alkaline Phosphatase 51 U/L (46-116) Creatine Kinase 48 U/L (26-192) Creatine Kinase MB (Mass) 1.5 ng/mL (0.0-3.6) Creatine Kinase MB Relative Index % (0-4) Troponin I High Sensitivity < 4 ng/L (4-50) Total Protein 7.3 g/dL (6.4-8.2) Albumin 3.9 g/dL (3.4-5.0) Albumin/Globulin Ratio 1.1 (1.0-1.7) Lipase 86 U/L (73-393) SARS-CoV-2 Antigen (Rapid) Negative (NEGATIVE) Urine Collection Type Void Urine Color Yellow Urine Clarity Clear Urine pH 6.0 (<5.0-8.0) Urine Specific [place] >=1.030 (1.000-1.030) Urine Protein Negative mg/dL (NEG-TRACE) Urine Glucose (UA) Negative mg/dL (NEG) Urine Ketones (Stick) Negative mg/dL (NEG) Urine Blood Negative (NEG) Urine Nitrite Negative (NEG) Urine Bilirubin Negative (NEG) Urine Urobilinogen Dipstick 1.0 mg/dL (0.2 mg/dL) Urine Leukocyte Esterase Negative (NEG) Urine RBC Occ /HPF (0-2) Urine WBC 1-4 /HPF (0-4) Urine Squamous Epithelial Cells Many /LPF Urine Bacteria Moderate /HPF (0-FEW) Urine Mucus Slight /LPF Urine Yeast Present /HPF Images Images CT abdomen pelvis IMPRESSION: Findings are compatible with small bowel obstruction, possibly involving the mid ileum. Colon is normal in caliber. Consideration may be given for adhesions. No definite findings to suggest internal hernia. Severe intrahepatic and extra hepatic biliary ductal dilatation. Correlation with hepatobiliary enzymes. If there is persistent clinical concern, further characterization with MRCP on a nonemergent basis is recommended. Trace ascites. Assessment/Plan Assessment/Plan Recommend NG tube, bowel rest, pain control, serial exams/xrays; may consider as small bowel series in the near future if no apparent improvement BONY WILD MD Jun 05, 2021 12:15
--- NOTE | 2021-06-05 14:11 | PDOC ---
Provider Note Date of Service: DATE: 06/05/21 TIME: 14:10 Provider Note Pt seen H&P dictated.#[id number]. Justifications for Admission Other Justification SHOLA SOLO MD Jun 05, 2021 14:11
[2021-06-05 15:00] VITALS: BP 137/65
--- NOTE | 2021-06-05 15:00 | HP ---
DATE OF SERVICE: 06/05/2021 ADMIT DATE: 06/05/2021 REASON FOR ADMISSION TO THE HOSPITAL: Abdominal pain, partial small-bowel obstruction. HISTORY OF PRESENT ILLNESS: The patient is an 85-year-old female. The patient was having abdominal pain, nausea, vomiting for the last 2 days and she came to the Emergency Room last night. She had a workup, which includes blood test and CT scan that shows partial small-bowel obstruction, probably could be from adhesions. The patient was admitted to the hospital, given fluids and admitted to the hospital. The patient had 2 BMs yesterday and the patient is having some abdominal discomfort periumbilical area today. PAST MEDICAL HISTORY: The patient has a history of GERD, Mcgraw's esophagitis. She also had a history of colon problems, atonic colon, had seen GI. Surgical consult in the past at [facility]. Has a history of hypertension, sick sinus syndrome, has a pacemaker, heart failure, hypertension, hyperlipidemia, anxiety, depression, breast cancer and gallbladder surgery. PAST SURGICAL HISTORY: Other surgical history, has a pacemaker. The patient had a gallbladder surgery. Had a lumpectomy and radiation for breast cancer within last 2 years. ALLERGIES: PENICILLIN, ATORVASTATIN, CODEINE, HYDROCODONE, OXYCODONE, TETRACYCLINE. MEDICATIONS AT HOME: The patient is on Xanax 0.25 twice a day, B12 with vitamins, folic acid 1 daily, omeprazole 40 mg daily, sotalol 120 mg half a tablet twice a day, tamoxifen 20 mg daily, zolpidem 5 mg daily for sleep, Voltaren gel daily. PERSONAL HISTORY: Denies smoking, alcohol, drug abuse. FAMILY HISTORY: Positive for diabetes, heart disease. REVIEW OF SYMPTOMS: The patient has some abdominal pain, nausea, vomiting and denies any fever. No vomiting blood or black stools. The rest of the 14 systems reviewed and negative. PHYSICAL EXAMINATION: GENERAL: The patient is an elderly female, looks weaker. VITAL SIGNS: At the time of admission shows temperature 97, pulse 74, respirations 16, blood pressure 136/64, 97 on room air. HEENT: Head is atraumatic. Pupils equal. Oral cavity, dentures. NECK: Supple. Thyroid not enlarged. JVD not elevated. CHEST: Symmetrical, had a pacemaker. Left chest had a firm area in the left breast and right breast in the medial aspect from previous lumpectomy and radiation. ABDOMEN: Soft. Scar of gallbladder surgery. Tenderness in the periumbilical area. No rebound. Bowel sounds are sluggish. EXTERNAL GENITALIA: No Beth. RECTUM: Deferred. EXTREMITIES: No calf tenderness, no edema. NEUROLOGIC: Moving all extremities. No focal deficits noted. LABORATORY DATA: White count 5.5, hemoglobin 11, platelets 164. Electrolytes show sodium 133, potassium 4.4, chloride 99, bicarb 26, BUN 15, creatinine 1.0, glucose 143. LFTs normal. Troponin was negative. Lipase was negative. Lactic acid 1.2. Urine negative for infection. Serology negative for COVID. Had a CT scan of the abdomen and pelvis which shows a small-bowel obstruction, mid ileum; normal colon and biliary duct dilatation; trace ascites. EKG done, report is pending. FINAL IMPRESSION: 1. Abdominal pain secondary to small-bowel obstruction. 2. History of previous Mcgraw's esophagitis. 3. 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 4. History of gallbladder surgery. 5. Sick sinus syndrome, has a pacemaker. 6. Hypertension. 7. Dementia. 8. History of breast cancer, had a lumpectomy and radiation treatment and tamoxifen. DISPOSITION: The patient is admitted to the hospital, n.p.o. except medication, IV fluids for hydration. GI and Surgery is consulted. DVT prophylaxis and see how she improves in the next 24-48 hours. AUDELIA BEAVER: ROSEMARY/skyler TID: [id number]
--- NOTE | 2021-06-05 16:10 | RAD ---
EXAM: Abdomen, single view. HISTORY: Nasogastric tube placement. COMPARISON: CT dated 06/04/2021. FINDINGS: A frontal view of the upper abdomen is obtained. There is a nasogastric tube within the eso phagus. The tip is at or near the gastroesophageal junction on the side-port in the distal esophagus. There are distended loops of bowel throughout the upper abdomen. There is a cardiac pacemaker. The l za bases are clear. IMPRESSION: 1. Nasogastric tube with the tip at or near the gastroesophageal junction and the side-port in the di stal esophagus. 2. Distended loops of bowel throughout the abdomen, similar compared to the prior CT when allowing fo r differences in imaging modality. This is consistent with small bowel obstruction. Electronically signed by: Ml Iyer MD (06/05/2021 4:07 PM) [id number]
--- NOTE | 2021-06-05 16:51 | PDOC2 ---
CONSULT Date of Consult Date of Consult DATE: 06/05/21 TIME: 16:43 History of Present Illness Reason for Visit: This is an 85-year-old female who presents with recent severe constipation and then subsequent abdominal pain and was found on CT scan to have what appears to be a small bowel obstruction. She had a similar presentation back in October but was treated conservatively with NG tube decompression. Follow-up small bowel series failed to reveal a stricture or other pathology and it was assumed that her bowel obstruction was from adhesions. She has done reasonably well since then but continues to struggle with chronic constipation. She is status post cholecystectomy and was noted on admission CT to have dilated intra and extrahepatic ducts but has normal liver function studies. This is not been noted before although I cannot look at the images on her prior CT at this time due to technical issues. Past Medical History Cardiovascular: AFIB, CHF, HTN, Hyperlipidemia, Other Pulmonary: Other CENTRAL NERVOUS SYSTEM: Other GI: Constipation, Diverticulosis, GERD, Peptic Ulcer disease, Other Heme/Onc: Anemia NOS, Cancer Hepatobiliary: Cholelithiasis Psych: Anxiety, Depression Musculoskeletal: Osteoarthritis Renal/: UTI, Other Endocrine: Osteoporosis Past Surgical History Past Surgical History: Pacemaker, Cholecystectomy, Cataract Removal, Hysterectomy, Other Family History Family History: Hypertension Social History ALCOHOL: none Drugs: None Lives: with Family Current Problem List Problem List Problems Medical Problems: (1) Small bowel obstruction Status: Acute Current Medications Current Medications Current Medications Sodium Chloride 1,000 ml @ 1,000 mls/hr 1X ONCE IV Last administered on 06/04/21at 23:32; Start 06/04/21 at 23:00; Stop 06/04/21 at 23:59; Status DC Ondansetron HCl (Zofran) 4 mg 1X ONCE IVP Last administered on 06/04/21at 23:32; Start 06/04/21 at 23:00; Stop 06/04/21 at 23:09; Status DC Fentanyl Citrate (Fentanyl 2ml Vial) 25 mcg 1X ONCE IV Last administered on 06/04/21at 23:36; Start 06/04/21 at 23:00; Stop 06/04/21 at 23:09; Status DC Famotidine (Pepcid Vial) 20 mg 1X ONCE IVP Last administered on 06/04/21 23:36; Start 06/04/21 at 23:00; Stop 06/04/21 at 23:09; Status DC Iohexol (Omnipaque 300 Mg/ml) 75 ml 1X ONCE IV Last administered on 06/04/21at 00:51; Start 06/04/21 at 23:30; Stop 06/04/21 at 23:31; Status DC Ondansetron HCl (Zofran) 4 mg PRN Q8HRS PRN IVP NAUSEA/VOMITING Last administered on 06/05/21at 14:17; Start 06/05/21 at 02:15; Stop 06/06/21 at 02:14 Fentanyl Citrate (Fentanyl 2ml Vial) 25 mcg PRN Q2HR PRN IVP PAIN Last administered on 06/05/21at 14:17; Start 06/05/21 at 02:15 Sodium Chloride 1,000 ml @ 100 mls/hr Q10H IV Last administered on 06/05/21at 02:54; Start 06/05/21 at 02:15; Stop 06/05/21 at 12:14; Status DC Alprazolam (Xanax) 0.25 mg BID PO Last administered on 06/05/21at 11:19; Start 06/05/21 at 12:00 Zolpidem Tartrate (Ambien) 5 mg HS PO ; Start 06/05/21 at 21:00 Vitamin B Complex/ Vitamin C (Aneta-Erick) 1 tab DAILY PO ; Start 06/06/21 at 09:00 Pantoprazole Sodium (Protonix) 40 mg DAILYAC PO ; Start 06/06/21 at 07:30 Sotalol HCl (Betapace) 60 mg BID PO Last administered on 06/05/21at 11:20; Start 06/05/21 at 12:00 Tamoxifen Citrate (Nolvadex) 20 mg DAILY PO Last administered on 06/05/21at 11:32; Start 06/05/21 at 12:00 Diclofenac Sodium (Voltaren) 1 ilda BID TP Last administered on 06/05/21at 11:20; Start 06/05/21 at 12:00 Enoxaparin Sodium (Lovenox 40mg Syringe) 40 mg Q24H SQ ; Start 06/05/21 at 21:00 Potassium Chloride/Dextrose/ Sod Cl 1,000 ml @ 75 mls/hr [id number] IV Last administered on 06/05/21at 11:23; Start 06/05/21 at 10:30 Active Scripts Active [Diclofenac Sodium] 100 GM Gel..gram. 1 Ilda TP BID 365 Days Reported Vitamin [id number] Acid Tablet (Cyanocobalamin/Folic Acid) 1 Each Tablet 1 Tab PO DAILY 30 Days Tamoxifen Citrate 20 Mg Tablet 20 Mg PO DAILY Alprazolam 0.25 Mg Tablet 1 Tab PO BID Betapace (Sotalol Hcl) 120 Mg Tablet 0.5 Tab PO BID 30 Days Zolpidem Tartrate 5 Mg Tablet 5 Mg PO HS Omeprazole 40 Mg Capsule.dr 40 Mg PO DAILY Allergies Allergies: Coded Allergies: Penicillins (Verified Allergy, Intermediate, Rash, 09/16/19) tolerates cephalasporins atorvastatin (Verified Allergy, Intermediate, 12/29/19) tetracycline (Verified Allergy, Intermediate, rash, 09/16/19) codeine (Verified Adverse Reaction, Intermediate, nausea & vomiting, 09/16/19) hydrocodone (Verified Adverse Reaction, Intermediate, Nausea and Vomiting, 09/16/19) oxycodone (Verified Adverse Reaction, Intermediate, Nausea and Vomiting, 09/15/20) Physical Exam General: Alert, Oriented X3 HEENT: Atraumatic Lungs: Clear to auscultation Heart: Regular rate, Normal S1, Normal S2 Abdomen: Other (Decreased bowel sounds with a few tinkles. Mildly distended with some tympany.) Extremities: No clubbing Neuro: Normal speech Psych/Mental Status: Mental status NL Vitals VITALS Vital Signs Date Time Temp Pulse Resp B/P (MAP) Pulse Ox O2 Delivery O2 Flow Rate FiO2 06/05/21 15:00 99.5 75 18 137/65 (89) 96 Room Air 99.5 Labs Labs Laboratory Tests Test 06/04/21 23:50 06/05/21 02:09 06/05/21 04:50 White Blood Count 5.5 x10^3/uL (4.0-11.0) Red Blood Count 4.11 x10^6/uL (3.50-5.40) Hemoglobin 11.3 g/dL (12.0-15.5) Hematocrit 34.1 % (36.0-47.0) Mean Corpuscular Volume 83 fL (79-100) Mean Corpuscular Hemoglobin 28 pg (25-35) Mean Corpuscular Hemoglobin Concent 33 g/dL (31-37) Red Cell Distribution Width 15.9 % (11.5-14.5) Platelet Count 164 x10^3/uL (140-400) Neutrophils (%) (Auto) 82 % (31-73) Lymphocytes (%) (Auto) 14 % (24-48) Monocytes (%) (Auto) 4 % (0-9) Eosinophils (%) (Auto) 0 % (0-3) Basophils (%) (Auto) 1 % (0-3) Neutrophils # (Auto) 4.5 x10^3/uL (1.8-7.7) Lymphocytes # (Auto) 0.7 x10^3/uL (1.0-4.8) Monocytes # (Auto) 0.2 x10^3/uL (0.0-1.1) Eosinophils # (Auto) 0.0 x10^3/uL (0.0-0.7) Basophils # (Auto) 0.0 x10^3/uL (0.0-0.2) Sodium Level 133 mmol/L (136-145) Potassium Level 4.4 mmol/L (3.5-5.1) Chloride Level 99 mmol/L (98-107) Carbon Dioxide Level 26 mmol/L (21-32) Anion Gap 8 (6-14) Blood Urea Nitrogen 15 mg/dL (7-20) Creatinine 1.0 mg/dL (0.6-1.0) Estimated GFR (Cockcroft-Gault) 63.6 BUN/Creatinine Ratio 15 (6-20) Glucose Level 143 mg/dL (70-99) Lactic Acid Level 1.2 mmol/L (0.4-2.0) Calcium Level 9.2 mg/dL (8.5-10.1) Magnesium Level 2.1 mg/dL (1.8-2.4) Total Bilirubin 0.6 mg/dL (0.2-1.0) Aspartate Amino Transf (AST/SGOT) 14 U/L (15-37) Alanine Aminotransferase (ALT/SGPT) 12 U/L (14-59) Alkaline Phosphatase 51 U/L (46-116) Creatine Kinase 48 U/L (26-192) Creatine Kinase MB (Mass) 1.5 ng/mL (0.0-3.6) Creatine Kinase MB Relative Index % (0-4) Troponin I High Sensitivity < 4 ng/L (4-50) Total Protein 7.3 g/dL (6.4-8.2) Albumin 3.9 g/dL (3.4-5.0) Albumin/Globulin Ratio 1.1 (1.0-1.7) Lipase 86 U/L (73-393) SARS-CoV-2 RNA (GINO) Negative (Negative) SARS-CoV-2 Antigen (Rapid) Negative (NEGATIVE) Urine Collection Type Void Urine Color Yellow Urine Clarity Clear Urine pH 6.0 (<5.0-8.0) Urine Specific [place] >=1.030 (1.000-1.030) Urine Protein Negative mg/dL (NEG-TRACE) Urine Glucose (UA) Negative mg/dL (NEG) Urine Ketones (Stick) Negative mg/dL (NEG) Urine Blood Negative (NEG) Urine Nitrite Negative (NEG) Urine Bilirubin Negative (NEG) Urine Urobilinogen Dipstick 1.0 mg/dL (0.2 mg/dL) Urine Leukocyte Esterase Negative (NEG) Urine RBC Occ /HPF (0-2) Urine WBC 1-4 /HPF (0-4) Urine Squamous Epithelial Cells Many /LPF Urine Bacteria Moderate /HPF (0-FEW) Urine Mucus Slight /LPF Urine Yeast Present /HPF Laboratory Tests Test 06/04/21 23:50 06/05/21 02:09 06/05/21 04:50 White Blood Count 5.5 x10^3/uL (4.0-11.0) Red Blood Count 4.11 x10^6/uL (3.50-5.40) Hemoglobin 11.3 g/dL (12.0-15.5) Hematocrit 34.1 % (36.0-47.0) Mean Corpuscular Volume 83 fL (79-100) Mean Corpuscular Hemoglobin 28 pg (25-35) Mean Corpuscular Hemoglobin Concent 33 g/dL (31-37) Red Cell Distribution Width 15.9 % (11.5-14.5) Platelet Count 164 x10^3/uL (140-400) Neutrophils (%) (Auto) 82 % (31-73) Lymphocytes (%) (Auto) 14 % (24-48) Monocytes (%) (Auto) 4 % (0-9) Eosinophils (%) (Auto) 0 % (0-3) Basophils (%) (Auto) 1 % (0-3) Neutrophils # (Auto) 4.5 x10^3/uL (1.8-7.7) Lymphocytes # (Auto) 0.7 x10^3/uL (1.0-4.8) Monocytes # (Auto) 0.2 x10^3/uL (0.0-1.1) Eosinophils # (Auto) 0.0 x10^3/uL (0.0-0.7) Basophils # (Auto) 0.0 x10^3/uL (0.0-0.2) Sodium Level 133 mmol/L (136-145) Potassium Level 4.4 mmol/L (3.5-5.1) Chloride Level 99 mmol/L (98-107) Carbon Dioxide Level 26 mmol/L (21-32) Anion Gap 8 (6-14) Blood Urea Nitrogen 15 mg/dL (7-20) Creatinine 1.0 mg/dL (0.6-1.0) Estimated GFR (Cockcroft-Gault) 63.6 BUN/Creatinine Ratio 15 (6-20) Glucose Level 143 mg/dL (70-99) Lactic Acid Level 1.2 mmol/L (0.4-2.0) Calcium Level 9.2 mg/dL (8.5-10.1) Magnesium Level 2.1 mg/dL (1.8-2.4) Total Bilirubin 0.6 mg/dL (0.2-1.0) Aspartate Amino Transf (AST/SGOT) 14 U/L (15-37) Alanine Aminotransferase (ALT/SGPT) 12 U/L (14-59) Alkaline Phosphatase 51 U/L (46-116) Creatine Kinase 48 U/L (26-192) Creatine Kinase MB (Mass) 1.5 ng/mL (0.0-3.6) Creatine Kinase MB Relative Index % (0-4) Troponin I High Sensitivity < 4 ng/L (4-50) Total Protein 7.3 g/dL (6.4-8.2) Albumin 3.9 g/dL (3.4-5.0) Albumin/Globulin Ratio 1.1 (1.0-1.7) Lipase 86 U/L (73-393) SARS-CoV-2 RNA (GINO) Negative (Negative) SARS-CoV-2 Antigen (Rapid) Negative (NEGATIVE) Urine Collection Type Void Urine Color Yellow Urine Clarity Clear Urine pH 6.0 (<5.0-8.0) Urine Specific [place] >=1.030 (1.000-1.030) Urine Protein Negative mg/dL (NEG-TRACE) Urine Glucose (UA) Negative mg/dL (NEG) Urine Ketones (Stick) Negative mg/dL (NEG) Urine Blood Negative (NEG) Urine Nitrite Negative (NEG) Urine Bilirubin Negative (NEG) Urine Urobilinogen Dipstick 1.0 mg/dL (0.2 mg/dL) Urine Leukocyte Esterase Negative (NEG) Urine RBC Occ /HPF (0-2) Urine WBC 1-4 /HPF (0-4) Urine Squamous Epithelial Cells Many /LPF Urine Bacteria Moderate /HPF (0-FEW) Urine Mucus Slight /LPF Urine Yeast Present /HPF Images Images CT IMPRESSION: Findings are compatible with small bowel obstruction, possibly involving the mid ileum. Colon is normal in caliber. Consideration may be given for adhesions. No definite findings to suggest internal hernia. Severe intrahepatic and extra hepatic biliary ductal dilatation. Correlation with hepatobiliary enzymes. If there is persistent clinical concern, further characterization with MRCP on a nonemergent basis is recommended. Trace ascites. Assessment/Plan Assessment/Plan Abdominal discomfort with x-ray findings consistent with small bowel obstruction. She had a similar presentation back in October but had a small bowel series it failed to reveal stricture or internal pathology and it was assumed that this was from adhesions. At that time he was treated conservatively with NG tube decompression. She also complains of constipation chronically and this may be a trigger to some of her symptoms but certainly by itself is not the source for her bowel obstruction. Devious evaluations suggest she has had colonoscopies in the past that have not revealed concerning pathology. Dilated intra and extrahepatic ducts on her liver. Likely this is a chronic and post cholecystectomy finding. However its not mentioned on her CT scan from earlier this year. However the images are unable to be pulled up today to review to see if that was a finding that was not discussed. Fortunately her liver function studies are normal. We will continue to monitor this by reviewing previous x-rays and liver function follow-up. Presently she has an NG tube in place but on the x-rays its position in the esophagus and upper stomach. I passed the tube additional 6 cm but she was in a lot of discomfort and would only allow that much progress. We will recheck the x-rays but it may be prudent to consider advancing it further if the suction ports are not completely in the stomach AYAD STATON MD Jun 05, 2021 16:51
--- NOTE | 2021-06-05 17:05 | RAD ---
One view abdomen HISTORY: NG tube placement Portable upright one view the abdomen centered at the diaphragm There is a nasogastric tube with its tip in the distal esophagus this tip just at the GE junction. Th ere is distended loops of bowel in the abdomen. There is no free air. IMPRESSION: Nasogastric has its tip at the GE junction. This should be advanced approximately 10 cm. Electronically signed by: Eayl Peralta III, MD (06/05/2021 5:03 PM) [facility]
[2021-06-05 19:00] VITALS: BP 116/59
[2021-06-05] MEDS: ZOLPIDEM 5 MG TABLET. PO SCH (21:28)
[2021-06-05] MEDS: ENOXAPARIN 40 MG/0.4 ML SYRINGE. SQ SCH (21:38)
[2021-06-05 23:00] VITALS: BP 135/71
[2021-06-06] MEDS: DICLOFENAC SODIUM 1% TOPICAL GEL 100GM TUBE. TP SCH ×3 (00:24→21:00)
[2021-06-06] MEDS: POTASSIUM CL 20MEQ D5-0.9%NACL 1,000 ML IV SCH ×2 (01:24→13:10)
[2021-06-06 03:00] VITALS: BP 119/59
[2021-06-06 07:00] VITALS: BP 105/54
[2021-06-06] MEDS ORDERED: PANTOPRAZOLE 40 MG TABLET.DR. PO SCH (07:30)
[2021-06-06 07:54] LABS: BASO % 0 % (0-3); EOS % 1 % (0-3); HEMATOCRIT 33.2 % (36.0-47.0); HEMOGLOBIN 10.6 g/dL (12.0-15.5); LYMPH % 21 % (24-48); MEAN CORPUSCULAR HEMOGLOBIN 27 pg (25-35); MEAN CORPUSCULAR HGB CONC 32 g/dL (31-37); MEAN CORPUSCULAR VOLUME 85 fL (79-100); MONO # 0.5 x10^3/uL (0.0-1.1); MONO % 10 % (0-9); NEUT # 3.5 x10^3/uL (1.8-7.7); NEUT % 69 % (31-73); PLATELET COUNT 126 x10^3/uL (140-400); RED BLOOD COUNT 3.92 x10^6/uL (3.50-5.40); RED CELL DISTRIBUTION WIDTH 16.1 % (11.5-14.5)
[2021-06-06 08:17] LABS: CALCIUM 8.9 mg/dL (8.5-10.1); CREATININE 0.9 mg/dL (0.6-1.0); GFR 71.8; POTASSIUM 4.5 mmol/L (3.5-5.1)
--- NOTE | 2021-06-06 08:36 | RAD ---
EXAM: XR ABDOMEN COMP ACUTE 06/06/2021 8:11 AM CLINICAL INDICATION: Small bowel obstruction COMPARISON: Abdominal radiograph 06/05/2021 TECHNIQUE: AP supine and upright views of the abdomen FINDINGS: Multiple dilated loops of small bowel are unchanged. No pneumoperitoneum. There is a dual- lead pacemaker is unchanged. Heart is normal in size. Lungs are well-expanded and clear. No pleural e ffusion or pneumothorax. 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 There is lumbar facet arthrosis. IMPRESSION: Unchanged small bowel obstruction. Electronically signed by: Danni Alston MD (06/06/2021 8:34 AM) [id number]
[2021-06-06] MEDS: SOTALOL 80 MG TABLET. PO SCH ×2 (09:00→21:00)
[2021-06-06] MEDS: FOLIC/VIT B COMP W-C (RENAL) TABLET. PO SCH (09:00)
[2021-06-06] MEDS: ALPRAZolam 0.25 MG TABLET PO SCH ×2 (09:00→21:00)
[2021-06-06] MEDS: TAMOXIFEN 10 MG TABLET PO SCH (09:00)
--- NOTE | 2021-06-06 09:13 | PDOC ---
PROGRESS NOTES Date of Service: DATE: 06/06/21 TIME: 09:09 Subjective Subjective NGT out pulled accidentally.pt says feels better , want to eat. Objective Objective Vital Signs Date Time Temp Pulse Resp B/P (MAP) Pulse Ox O2 Delivery O2 Flow Rate FiO2 06/06/21 07:00 98.3 77 16 105/54 (71) 95 Room Air 98.3 Intake and Output 06/06/21 07:00 Intake Total 350 ml Output Total 600 ml Balance -250 ml Intake Oral 350 ml Output Urine Total 600 ml # Voids 1 Physical Exam Abdomen: Other (Decreased bowel sounds with a few tinkles. Mildly distended with some tympany.) Heart: Regular rate, Normal S1, Normal S2 Extremities: No clubbing General: Alert, Oriented X3 HEENT: Atraumatic Lungs: Clear to auscultation MUSCULOSKELETAL: No joint tenderness Neuro: Normal speech Psych/Mental Status: Mental status NL Skin: No rashes Diagnosis Problem List Problems Medical Problems: (1) Small bowel obstruction Status: Acute Assessment Assessment Problems Medical Problems: (1) Small bowel obstruction Status: Acute FINAL IMPRESSION: 1. Abdominal pain secondary to small-bowel obstruction. 2. History of previous Mcgraw's esophagitis. 3. 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 4. History of gallbladder surgery. 5. Sick sinus syndrome, has a pacemaker. 6. Hypertension. 7. Dementia. 8. History of breast cancer, had a lumpectomy and radiation treatment and tamoxifen. DISPOSITION: Unchanged small bowel obstruction on Abd series appreciate GI and general surgery consult. iv fluids labs good spoke with pts son Sukhdeep. spoke with RN Clear liquid diet today ? The patient is admitted to the hospital, n.p.o. except medication, IV fluids for hydration. GI and Surgery is consulted. DVT prophylaxis and see how she improves in the next 24-48 hours. Plan Plan of Care Problems Medical Problems: (1) Small bowel obstruction Status: Acute Comment Review of Relevant I have reviewed the following items wade (where applicable) has been applied. Labs Laboratory Tests Test 06/06/21 07:05 White Blood Count 5.0 x10^3/uL (4.0-11.0) Red Blood Count 3.92 x10^6/uL (3.50-5.40) Hemoglobin 10.6 g/dL (12.0-15.5) Hematocrit 33.2 % (36.0-47.0) Mean Corpuscular Volume 85 fL (79-100) Mean Corpuscular Hemoglobin 27 pg (25-35) Mean Corpuscular Hemoglobin Concent 32 g/dL (31-37) Red Cell Distribution Width 16.1 % (11.5-14.5) Platelet Count 126 x10^3/uL (140-400) Neutrophils (%) (Auto) 69 % (31-73) Lymphocytes (%) (Auto) 21 % (24-48) Monocytes (%) (Auto) 10 % (0-9) Eosinophils (%) (Auto) 1 % (0-3) Basophils (%) (Auto) 0 % (0-3) Neutrophils # (Auto) 3.5 x10^3/uL (1.8-7.7) Lymphocytes # (Auto) 1.0 x10^3/uL (1.0-4.8) Monocytes # (Auto) 0.5 x10^3/uL (0.0-1.1) Eosinophils # (Auto) 0.0 x10^3/uL (0.0-0.7) Basophils # (Auto) 0.0 x10^3/uL (0.0-0.2) Sodium Level 138 mmol/L (136-145) Potassium Level 4.5 mmol/L (3.5-5.1) Chloride Level 105 mmol/L (98-107) Carbon Dioxide Level 24 mmol/L (21-32) Anion Gap 9 (6-14) Blood Urea Nitrogen 12 mg/dL (7-20) Creatinine 0.9 mg/dL (0.6-1.0) Estimated GFR (Cockcroft-Gault) 71.8 Glucose Level 91 mg/dL (70-99) Calcium Level 8.9 mg/dL (8.5-10.1) Microbiology 06/05/21 Urine Culture - Final, Complete Medications Current Medications Alprazolam (Xanax) 0.25 mg BID PO Last administered on 06/05/21at 21:27; Start 06/05/21 at 12:00 Diclofenac Sodium (Voltaren) 1 willie BID TP Last administered on 06/06/21at 00:24; Start 06/05/21 at 12:00 Enoxaparin Sodium (Lovenox 40mg Syringe) 40 mg Q24H SQ Last administered on 06/05/21at 21:38; Start 06/05/21 at 21:00 Pantoprazole Sodium (Protonix) 40 mg DAILYAC PO ; Start 06/06/21 at 07:30 Potassium Chloride/Dextrose/ Sod Cl 1,000 ml @ 75 mls/hr [id number] IV Last administered on 06/06/21at 01:24; Start 06/05/21 at 10:30 Sotalol HCl (Betapace) 60 mg BID PO Last administered on 06/05/21at 21:41; Start 06/05/21 at 12:00 Tamoxifen Citrate (Nolvadex) 20 mg DAILY PO Last administered on 06/05/21at 11:32; Start 06/05/21 at 12:00 Vitamin B Complex/ Vitamin C (Aneta-Erick) 1 tab DAILY PO ; Start 06/06/21 at 09:00 Zolpidem Tartrate (Ambien) 5 mg HS PO Last administered on 06/05/21at 21:28; Start 06/05/21 at 21:00 Vitals/I & O Vital Sign - Last 24 Hours 06/05/21 06/05/21 06/05/21 06/05/21 11:00 11:20 14:17 14:47 Temp 98.6 98.6 Pulse 80 112 Resp 20 B/P (MAP) 156/72 (100) 160/78 Pulse Ox 95 95 95 O2 Delivery Room Air Room Air Room Air 06/05/21 06/05/21 06/05/21 06/05/21 15:00 19:00 20:00 21:41 Temp 99.5 98.3 99.5 98.3 Pulse 75 75 85 Resp 18 16 B/P (MAP) 137/65 (89) 116/59 (78) 150/73 Pulse Ox 96 97 O2 Delivery Room Air Room Air Room Air 06/05/21 06/06/21 06/06/21 23:00 03:00 07:00 Temp 98.4 97.3 98.3 98.4 97.3 98.3 Pulse 75 74 77 Resp 16 16 16 B/P (MAP) 135/71 (92) 119/59 (79) 105/54 (71) Pulse Ox 96 93 95 O2 Delivery Room Air Room Air Room Air Intake and Output 06/05/21 06/05/21 06/06/21 15:00 23:00 07:00 Intake Total 350 ml Output Total 600 ml Balance -250 ml Justifications for Admission Other Justification SHOLA SOLO MD Jun 06, 2021 09:13
--- NOTE | 2021-06-06 09:56 | PDOC ---
SURGICAL PROGRESS NOTE DATE: 06/06/21 TIME: 09:53 Subjective tells me has nausea, abdominal pain--although is improved from admission denies flatus or stool-then tells me had stool in depends ng fell out, refuses replacement Vital Signs Vital Signs Date Time Temp Pulse Resp B/P (MAP) Pulse Ox O2 Delivery O2 Flow Rate FiO2 06/06/21 07:00 98.3 77 16 105/54 (71) 95 Room Air 98.3 I&O Intake and Output 06/06/21 07:00 Intake Total 350 ml Output Total 600 ml Balance -250 ml Intake Oral 350 ml Output Urine Total 600 ml # Voids 1 General: Alert, Cooperative, No acute distress Abdomen: Soft, Other (nd, minimal ttp mid abdomen ) Labs Laboratory Tests Test 06/04/21 23:50 06/05/21 02:09 06/05/21 04:50 06/06/21 07:05 White Blood Count 5.5 x10^3/uL (4.0-11.0) 5.0 x10^3/uL (4.0-11.0) Red Blood Count 4.11 x10^6/uL (3.50-5.40) 3.92 x10^6/uL (3.50-5.40) Hemoglobin 11.3 g/dL (12.0-15.5) 10.6 g/dL (12.0-15.5) Hematocrit 34.1 % (36.0-47.0) 33.2 % (36.0-47.0) Mean Corpuscular Volume 83 fL (79-100) 85 fL (79-100) Mean Corpuscular Hemoglobin 28 pg (25-35) 27 pg (25-35) Mean Corpuscular Hemoglobin Concent 33 g/dL (31-37) 32 g/dL (31-37) Red Cell Distribution Width 15.9 % (11.5-14.5) 16.1 % (11.5-14.5) Platelet Count 164 x10^3/uL (140-400) 126 x10^3/uL (140-400) Neutrophils (%) (Auto) 82 % (31-73) 69 % (31-73) Lymphocytes (%) (Auto) 14 % (24-48) 21 % (24-48) Monocytes (%) (Auto) 4 % (0-9) 10 % (0-9) Eosinophils (%) (Auto) 0 % (0-3) 1 % (0-3) Basophils (%) (Auto) 1 % (0-3) 0 % (0-3) Neutrophils # (Auto) 4.5 x10^3/uL (1.8-7.7) 3.5 x10^3/uL (1.8-7.7) Lymphocytes # (Auto) 0.7 x10^3/uL (1.0-4.8) 1.0 x10^3/uL (1.0-4.8) Monocytes # (Auto) 0.2 x10^3/uL (0.0-1.1) 0.5 x10^3/uL (0.0-1.1) Eosinophils # (Auto) 0.0 x10^3/uL (0.0-0.7) 0.0 x10^3/uL (0.0-0.7) Basophils # (Auto) 0.0 x10^3/uL (0.0-0.2) 0.0 x10^3/uL (0.0-0.2) Sodium Level 133 mmol/L (136-145) 138 mmol/L (136-145) Potassium Level 4.4 mmol/L (3.5-5.1) 4.5 mmol/L (3.5-5.1) Chloride Level 99 mmol/L (98-107) 105 mmol/L (98-107) Carbon Dioxide Level 26 mmol/L (21-32) 24 mmol/L (21-32) Anion Gap 8 (6-14) 9 (6-14) Blood Urea Nitrogen 15 mg/dL (7-20) 12 mg/dL (7-20) Creatinine 1.0 mg/dL (0.6-1.0) 0.9 mg/dL (0.6-1.0) Estimated GFR (Cockcroft-Gault) 63.6 71.8 BUN/Creatinine Ratio 15 (6-20) Glucose Level 143 mg/dL (70-99) 91 mg/dL (70-99) Lactic Acid Level 1.2 mmol/L (0.4-2.0) Calcium Level 9.2 mg/dL (8.5-10.1) 8.9 mg/dL (8.5-10.1) Magnesium Level 2.1 mg/dL (1.8-2.4) Total Bilirubin 0.6 mg/dL (0.2-1.0) Aspartate Amino Transf (AST/SGOT) 14 U/L (15-37) Alanine Aminotransferase (ALT/SGPT) 12 U/L (14-59) Alkaline Phosphatase 51 U/L (46-116) Creatine Kinase 48 U/L (26-192) Creatine Kinase MB (Mass) 1.5 ng/mL (0.0-3.6) Creatine Kinase MB Relative Index % (0-4) Troponin I High Sensitivity < 4 ng/L (4-50) Total Protein 7.3 g/dL (6.4-8.2) Albumin 3.9 g/dL (3.4-5.0) Albumin/Globulin Ratio 1.1 (1.0-1.7) Lipase 86 U/L (73-393) SARS-CoV-2 RNA (GINO) Negative (Negative) SARS-CoV-2 Antigen (Rapid) Negative (NEGATIVE) Urine Collection Type Void Urine Color Yellow Urine Clarity Clear Urine pH 6.0 (<5.0-8.0) Urine Specific [place] >=1.030 (1.000-1.030) Urine Protein Negative mg/dL (NEG-TRACE) Urine Glucose (UA) Negative mg/dL (NEG) Urine Ketones (Stick) Negative mg/dL (NEG) Urine Blood Negative (NEG) Urine Nitrite Negative (NEG) Urine Bilirubin Negative (NEG) Urine Urobilinogen Dipstick 1.0 mg/dL (0.2 mg/dL) Urine Leukocyte Esterase Negative (NEG) Urine RBC Occ /HPF (0-2) Urine WBC 1-4 /HPF (0-4) Urine Squamous Epithelial Cells Many /LPF Urine Bacteria Moderate /HPF (0-FEW) Urine Mucus Slight /LPF Urine Yeast Present /HPF Laboratory Tests Test 06/06/21 07:05 White Blood Count 5.0 x10^3/uL (4.0-11.0) Red Blood Count 3.92 x10^6/uL (3.50-5.40) Hemoglobin 10.6 g/dL (12.0-15.5) Hematocrit 33.2 % (36.0-47.0) Mean Corpuscular Volume 85 fL (79-100) Mean Corpuscular Hemoglobin 27 pg (25-35) Mean Corpuscular Hemoglobin Concent 32 g/dL (31-37) Red Cell Distribution Width 16.1 % (11.5-14.5) Platelet Count 126 x10^3/uL (140-400) Neutrophils (%) (Auto) 69 % (31-73) Lymphocytes (%) (Auto) 21 % (24-48) Monocytes (%) (Auto) 10 % (0-9) Eosinophils (%) (Auto) 1 % (0-3) Basophils (%) (Auto) 0 % (0-3) Neutrophils # (Auto) 3.5 x10^3/uL (1.8-7.7) Lymphocytes # (Auto) 1.0 x10^3/uL (1.0-4.8) Monocytes # (Auto) 0.5 x10^3/uL (0.0-1.1) Eosinophils # (Auto) 0.0 x10^3/uL (0.0-0.7) Basophils # (Auto) 0.0 x10^3/uL (0.0-0.2) Sodium Level 138 mmol/L (136-145) Potassium Level 4.5 mmol/L (3.5-5.1) Chloride Level 105 mmol/L (98-107) Carbon Dioxide Level 24 mmol/L (21-32) Anion Gap 9 (6-14) Blood Urea Nitrogen 12 mg/dL (7-20) Creatinine 0.9 mg/dL (0.6-1.0) Estimated GFR (Cockcroft-Gault) 71.8 Glucose Level 91 mg/dL (70-99) Calcium Level 8.9 mg/dL (8.5-10.1) Problem List Problems Medical Problems: (1) Small bowel obstruction Status: Acute Assessment/Plan SBO--? no stool documented, staff can not verify if had stool still reporting nausea, pain--but better xr still appear obstructed, would rec NG, SBFT--however pt refuses NG would keep NPO, recheck xr in AM Justicifation of Admission Dx: Justifications for Admission: Justification of Admission Dx: Yes LC [employer] Jun 06, 2021 09:56
--- NOTE | 2021-06-06 10:00 | NUR ---
Pt has no IV access. Attempted to restart IV with vein finder and was unsuccessful. 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
[2021-06-06] MEDS ORDERED: IOHEXOL 300 MG/ML 100ML VIAL. PO ONE (10:30)
[2021-06-06] MEDS ORDERED: CONTRAST GIVEN. MC PRN (10:30)
--- NOTE | 2021-06-06 10:40 | PDOC ---
Date of Service: DATE: 06/06/21 TIME: 10:34 Subjective: Subjective: Says she has stooled but still has abdominal pain and nausea. Says a man in his 50s was in her room earlier who said he didn't know what to do. Objective: Objective: Staff can't confirm stools. Per chart: NG out, doesn't want replaced. Reviewed orders: to have SBS. Vital Signs: Vital Signs Date Time Temp Pulse Resp B/P (MAP) Pulse Ox O2 Delivery O2 Flow Rate FiO2 06/06/21 07:00 98.3 77 16 105/54 (71) 95 Room Air 98.3 Labs: Laboratory Tests Test 06/06/21 07:05 White Blood Count 5.0 x10^3/uL Red Blood Count 3.92 x10^6/uL Hemoglobin 10.6 g/dL Hematocrit 33.2 % Mean Corpuscular Volume 85 fL Mean Corpuscular Hemoglobin 27 pg Mean Corpuscular Hemoglobin Concent 32 g/dL Red Cell Distribution Width 16.1 % Platelet Count 126 x10^3/uL Neutrophils (%) (Auto) 69 % Lymphocytes (%) (Auto) 21 % Monocytes (%) (Auto) 10 % Eosinophils (%) (Auto) 1 % Basophils (%) (Auto) 0 % Neutrophils # (Auto) 3.5 x10^3/uL Lymphocytes # (Auto) 1.0 x10^3/uL Monocytes # (Auto) 0.5 x10^3/uL Eosinophils # (Auto) 0.0 x10^3/uL Basophils # (Auto) 0.0 x10^3/uL Sodium Level 138 mmol/L Potassium Level 4.5 mmol/L Chloride Level 105 mmol/L Carbon Dioxide Level 24 mmol/L Anion Gap 9 Blood Urea Nitrogen 12 mg/dL Creatinine 0.9 mg/dL Estimated GFR (Cockcroft-Gault) 71.8 Glucose Level 91 mg/dL Calcium Level 8.9 mg/dL Imaging: AAS 06/06 IMPRESSION: Unchanged small bowel obstruction. PE: GEN: NAD - on commode LUNGS: CTAB HEART: RRR ABD: quiet, uncomfortable NEURO/PSYCH: pleasantly confused A/P: Recurrent SBO/ileus Chronic anemia - not iron or B12 deficient (checked here in 2019), past hematology eval and unremarkable bone marrow biopsy H/o GERD/Mcgraw's CRC screen - colonoscopy 2008, BE 2018, ?colonoscopy 1-2 years ago @ [facility] H/o constipation Diverticulosis S/p cholecystectomy H/o breast cancer, dementia COVID negative -- Continue per surgery, await SBS. Would change PPI to IV for now. Justicifation of Admission Dx: Justifications for Admission: Justification of Admission Dx: Yes KRYSTLE ORTIZ Jun 06, 2021 10:40
[2021-06-06 11:00] VITALS: BP 121/63
[2021-06-06] MEDS: PANTOPRAZOLE IV PUSH 40 MG VIAL. IVP SCH (11:30)
--- NOTE | 2021-06-06 12:00 | NUR ---
Having several loose brown stools. No c/o nausea at this time. Cont. monitor.
[2021-06-06 15:00] VITALS: BP 133/68
--- NOTE | 2021-06-06 16:00 | NUR ---
Metal Checker, Hellen was unsuccessful on starting IV. Stated will notified anesthesia.
--- NOTE | 2021-06-06 16:44 | RAD ---
EXAM: DG SMALL BOWEL FOLLOW THROUGH 06/06/2021 10:42 AM CLINICAL INDICATION: Small bowel obstruction. COMPARISON: Abdominal series radiograph from same day. CT abdomen pelvis 06/05/2021 TECHNIQUE: The patient drank water-soluble oral contrast and radiographs were obtained at 0, 30, 60, and approximately 150 minutes. FINDINGS: Gaseous distention of the stomach and small bowel are redemonstrated. Contrast appears to reach the descending colon by 2 hours and 30 minutes. There is degenerative joint disease of the hips noted. IMPRESSION: Unchanged dilation of small bowel. Enteric contrast reached the descending colon by 2 ho urs 30 minutes, consistent with partial small bowel obstruction. Electronically signed by: Danni Alston MD (06/06/2021 4:42 PM) [id number]
[2021-06-06 19:15] VITALS: BP 153/74
[2021-06-06] MEDS: ZOLPIDEM 5 MG TABLET. PO SCH (21:00)
[2021-06-06] MEDS: ENOXAPARIN 40 MG/0.4 ML SYRINGE. SQ SCH (21:03)
[2021-06-06 23:22] VITALS: BP 153/77
[2021-06-07] MEDS: POTASSIUM CL 20MEQ D5-0.9%NACL 1,000 ML IV SCH ×2 (02:30→15:50)
[2021-06-07 03:16] VITALS: BP 124/81
--- NOTE | 2021-06-07 03:34 | NUR ---
Apparently, anesthesia personnel unable to start IV. Mauricio Rock RN unable to start IV. Dr. Mclaughlin notified earlier and order for [facility] to place central line. Elio Casa notified and informed us that they do not come between 1900 and 0700. IR ordered to place PICC on 06/07.
[2021-06-07 07:00] VITALS: BP 163/73
[2021-06-07] MEDS: PANTOPRAZOLE IV PUSH 40 MG VIAL. IVP SCH (07:30)
--- NOTE | 2021-06-07 08:47 | RAD ---
EXAM: XR ABDOMEN COMP ACUTE 06/07/2021 7:31 AM CLINICAL INDICATION: Small bowel obstruction COMPARISON: Small bowel series and abdominal radiograph 06/06/2021 TECHNIQUE: AP supine and upright view of the abdomen and AP view of the chest FINDINGS: Enteric contrast has cleared the small bowel and partially cleared the colon. There are pe rsistent diffuse mildly dilated loops of bowel. Heart is normal in size. Pacemaker is unchanged. Lung s are well-expanded and clear. 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 IMPRESSION: Contrast has cleared from the small bowel and partially cleared from the colon. Diffuse mildly dilated loops of bowel may reflect ileus. Electronically signed by: Danni Alston MD (06/07/2021 8:44 AM) [id number]
[2021-06-07] MEDS: DICLOFENAC SODIUM 1% TOPICAL GEL 100GM TUBE. TP SCH ×2 (09:00→21:00)
[2021-06-07] MEDS: SOTALOL 80 MG TABLET. PO SCH ×2 (09:00→22:15)
[2021-06-07] MEDS: ALPRAZolam 0.25 MG TABLET PO SCH ×2 (09:00→22:15)
--- NOTE | 2021-06-07 09:02 | PDOC ---
PROGRESS NOTES Date of Service: DATE: 06/07/21 TIME: 08:59 Subjective Subjective feels better ,has some abd pain Objective Objective Vital Signs Date Time Temp Pulse Resp B/P (MAP) Pulse Ox O2 Delivery O2 Flow Rate FiO2 06/07/21 07:00 98.4 75 18 163/73 (103) 100 Room Air 98.4 Physical Exam Abdomen: Soft, Other (nd, minimal ttp mid abdomen ) Heart: Regular rate, Normal S1, Normal S2 Extremities: No clubbing General: Alert, Cooperative, No acute distress HEENT: Atraumatic Lungs: Clear to auscultation MUSCULOSKELETAL: No joint tenderness Neuro: Normal speech Psych/Mental Status: Mental status NL Skin: No rashes Diagnosis Problem List Problems Medical Problems: (1) Small bowel obstruction Status: Acute Assessment Assessment Problems Medical Problems: (1) Small bowel obstruction Status: Acute FINAL IMPRESSION: 1. Abdominal pain secondary to small-bowel obstruction. 2. History of previous Mcgraw's esophagitis. 3. 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 4. History of gallbladder surgery. 5. Sick sinus syndrome, has a pacemaker. 6. Hypertension. 7. Dementia. 8. History of breast cancer, had a lumpectomy and radiation treatment and tamoxifen. DISPOSITION: small bowel series,contrast cleared from small intestine ?partial bowel obstruction improving appreciate GI and general surgery consult. Picc line needs iv fluids labs good spoke with pts son Sukhdeep. spoke with RN Clear liquid diet today ? The patient is admitted to the hospital, n.p.o. except medication, IV fluids for hydration. GI and Surgery is consulted. DVT prophylaxis and see how she improves in the next 24-48 hours. Plan Plan of Care Problems Medical Problems: (1) Small bowel obstruction Status: Acute Comment Review of Relevant I have reviewed the following items wade (where applicable) has been applied. Labs Microbiology 06/05/21 Urine Culture - Final, Complete Medications Current Medications Info (CONTRAST GIVEN -- Rx MONITORING) 1 each PRN DAILY PRN MC SEE COMMENTS; Start 06/06/21 at 10:30; Stop 06/08/21 at 10:29 Iohexol (Omnipaque 300 Mg/ml) 400 ml 1X ONCE PO ; Start 06/06/21 at 10:30; Stop 06/06/21 at 10:31; Status DC Pantoprazole Sodium (PROTONIX VIAL for IV PUSH) 40 mg DAILYAC IVP ; Start 06/06/21 at 11:30 Vitamin B Complex/ Vitamin C (Aneta-Erick) 1 tab DAILY PO ; Start 06/06/21 at 09:00 Vitals/I & O Vital Sign - Last 24 Hours 06/06/21 06/06/21 06/06/21 06/06/21 11:00 15:00 19:15 23:22 Temp 97.9 98.6 97.8 98.1 97.9 98.6 97.8 98.1 Pulse 82 64 80 76 Resp 18 18 18 18 B/P (MAP) 121/63 (82) 133/68 (89) 153/74 (100) 153/77 (102) Pulse Ox 96 97 94 98 O2 Delivery Room Air Room Air Room Air Room Air 06/07/21 06/07/21 03:16 07:00 Temp 98.0 98.4 98.0 98.4 Pulse 76 75 Resp 18 18 B/P (MAP) 124/81 (95) 163/73 (103) Pulse Ox 99 100 O2 Delivery Room Air Room Air Justifications for Admission Other Justification SHOLA SOLO MD Jun 07, 2021 09:02
--- NOTE | 2021-06-07 10:56 | PDOC ---
Date of Service: DATE: 06/07/21 TIME: 10:50 Subjective: Subjective: "I'll be better when you all are done with me." Passing gas today, no stools this morning. Some abdominal discomfort. Objective: Objective: Reviewed nursing notes - loose stools noted yesterday, IV placement problems. Orders for PICC today. Vital Signs: Vital Signs Date Time Temp Pulse Resp B/P (MAP) Pulse Ox O2 Delivery O2 Flow Rate FiO2 06/07/21 07:45 Room Air 06/07/21 07:00 98.4 75 18 163/73 (103) 100 98.4 Imaging: SBS 06/06 IMPRESSION: Unchanged dilation of small bowel. Enteric contrast reached the descending colon by 2 hours 30 minutes, consistent with partial small bowel obstruction. AAS 06/07 IMPRESSION: Contrast has cleared from the small bowel and partially cleared from the colon. Diffuse mildly dilated loops of bowel may reflect ileus. PE: GEN: NAD LUNGS: CTAB HEART: RRR ABD: quiet, soft, non-specific discomfort NEURO/PSYCH: A & O 3, probably forgetful A/P: Recurrent partial SBO/ileus Chronic anemia H/o GERD/Mcgraw's, breast cancer, dementia -- Some stool yesterday. Imaging as above. Observe. Justicifation of Admission Dx: Justifications for Admission: Justification of Admission Dx: Yes KRYSTLE ORTIZ Jun 07, 2021 10:56
[2021-06-07 11:00] VITALS: BP 164/73
--- NOTE | 2021-06-07 12:48 | PDOC ---
[facility] 06/07/21 1248: SURGICAL PROGRESS NOTE DATE: 06/07/21 TIME: 12:46 Subjective stooling mild upper pain no nausea hungry Vital Signs Vital Signs Date Time Temp Pulse Resp B/P (MAP) Pulse Ox O2 Delivery O2 Flow Rate FiO2 06/07/21 11:00 98.5 75 18 164/73 (103) 98 Room Air 98.5 General: Alert, Cooperative Abdomen: Soft, Other (ND, mild ttp upper abdomen ) Labs Laboratory Tests Test 06/06/21 07:05 White Blood Count 5.0 x10^3/uL (4.0-11.0) Red Blood Count 3.92 x10^6/uL (3.50-5.40) Hemoglobin 10.6 g/dL (12.0-15.5) Hematocrit 33.2 % (36.0-47.0) Mean Corpuscular Volume 85 fL (79-100) Mean Corpuscular Hemoglobin 27 pg (25-35) Mean Corpuscular Hemoglobin Concent 32 g/dL (31-37) Red Cell Distribution Width 16.1 % (11.5-14.5) Platelet Count 126 x10^3/uL (140-400) Neutrophils (%) (Auto) 69 % (31-73) Lymphocytes (%) (Auto) 21 % (24-48) Monocytes (%) (Auto) 10 % (0-9) Eosinophils (%) (Auto) 1 % (0-3) Basophils (%) (Auto) 0 % (0-3) Neutrophils # (Auto) 3.5 x10^3/uL (1.8-7.7) Lymphocytes # (Auto) 1.0 x10^3/uL (1.0-4.8) Monocytes # (Auto) 0.5 x10^3/uL (0.0-1.1) Eosinophils # (Auto) 0.0 x10^3/uL (0.0-0.7) Basophils # (Auto) 0.0 x10^3/uL (0.0-0.2) Sodium Level 138 mmol/L (136-145) Potassium Level 4.5 mmol/L (3.5-5.1) Chloride Level 105 mmol/L (98-107) Carbon Dioxide Level 24 mmol/L (21-32) Anion Gap 9 (6-14) Blood Urea Nitrogen 12 mg/dL (7-20) Creatinine 0.9 mg/dL (0.6-1.0) Estimated GFR (Cockcroft-Gault) 71.8 Glucose Level 91 mg/dL (70-99) Calcium Level 8.9 mg/dL (8.5-10.1) Problem List Problems Medical Problems: (1) Small bowel obstruction Status: Acute Assessment/Plan contrast reaches colon, no obstruction, possible ileus clears, advance as tolerated Justicifation of Admission Dx: Justifications for Admission: Justification of Admission Dx: Yes BONY WILD MD 06/08/21 0813: SURGICAL PROGRESS NOTE Assessment/Plan Agree with above [facility] Jun 07, 2021 12:48 BONY WILD MD Jun 08, 2021 08:13
--- NOTE | 2021-06-07 13:00 | NUR ---
Tolerated clear liquid tray. Ate jello and a cup chicken broth. No c/o nausea at this time.
--- NOTE | 2021-06-07 13:18 | NUR ---
SW following. Discussed with RN, pt from home, room air, NPO, COVID-19 negative. Therapy recommending SNF. EDVIN met with pt, pt does not want to go to a facility. Wants to go home with home health. Pt believes she has [facility]. EDVIN spoke with Souleymane Carter RN - they have not had her since November, but will check with [facility] in case it was them. Awaiting outcome. Anticipate possible discharge home tomorrow (06/08/21). EDVIN will continue to follow. Addendum: 06/07/21 at 1412 by HUANG PARDO Pt accepted with [facility].
[2021-06-07 15:00] VITALS: BP 157/66
[2021-06-07] MEDS: FOLIC/VIT B COMP W-C (RENAL) TABLET. PO SCH (16:50)
[2021-06-07] MEDS: TAMOXIFEN 10 MG TABLET PO SCH (16:54)
[2021-06-07 19:10] VITALS: BP 139/65
[2021-06-07] MEDS: ZOLPIDEM 5 MG TABLET. PO SCH (22:13)
[2021-06-07] MEDS: ENOXAPARIN 40 MG/0.4 ML SYRINGE. SQ SCH (22:16)
[2021-06-07 23:12] VITALS: BP 138/68
[2021-06-08 03:12] VITALS: BP 150/70
[2021-06-08] MEDS: PANTOPRAZOLE IV PUSH 40 MG VIAL. IVP SCH (05:07)
[2021-06-08] MEDS: POTASSIUM CL 20MEQ D5-0.9%NACL 1,000 ML IV SCH ×2 (05:07→07:38)
[2021-06-08] MEDS: DICLOFENAC SODIUM 1% TOPICAL GEL 100GM TUBE. TP SCH ×2 (06:45→20:27)
[2021-06-08 07:00] VITALS: BP 171/78
[2021-06-08] MEDS: SOTALOL 80 MG TABLET. PO SCH ×2 (07:58→20:21)
[2021-06-08] MEDS: ALPRAZolam 0.25 MG TABLET PO SCH ×2 (07:58→20:19)
[2021-06-08] MEDS: FOLIC/VIT B COMP W-C (RENAL) TABLET. PO SCH (07:58)
[2021-06-08] MEDS: TAMOXIFEN 10 MG TABLET PO SCH (08:02)
--- NOTE | 2021-06-08 08:14 | PDOC ---
PROGRESS NOTES Date of Service DATE: 06/08/21 TIME: 08:13 Subjective Subjective feels "better than before", ursula liquids well Objective Objective Vital Signs Date Time Temp Pulse Resp B/P (MAP) Pulse Ox O2 Delivery O2 Flow Rate FiO2 06/08/21 07:58 77 171/78 06/08/21 07:03 Room Air 06/08/21 07:00 98.0 18 97 98.0 Intake and Output 06/08/21 07:00 Intake Total 370 ml Balance 370 ml Intake Oral 370 ml # Voids 2 # Bowel Movements 2 Physical Exam Abdomen: Soft, No tenderness Extremities: No clubbing, No cyanosis General: Alert, Oriented X3 Neuro: Normal speech Psych/Mental Status: Mental status NL Assessment Assessment Problems Medical Problems: (1) Small bowel obstruction Status: Acute Plan Plan of Care Improving, agree with advancing diet Comment Review of Relevant I have reviewed the following items wade (where applicable) has been applied. Labs Microbiology 06/05/21 Urine Culture - Final, Complete Medications Current Medications Sodium Chloride 1,000 ml @ 1,000 mls/hr 1X ONCE IV Last administered on 06/04/21at 23:32; Start 06/04/21 at 23:00; Stop 06/04/21 at 23:59; Status DC Ondansetron HCl (Zofran) 4 mg 1X ONCE IVP Last administered on 06/04/21at 23:32; Start 06/04/21 at 23:00; Stop 06/04/21 at 23:09; Status DC Fentanyl Citrate (Fentanyl 2ml Vial) 25 mcg 1X ONCE IV Last administered on 06/04/21at 23:36; Start 06/04/21 at 23:00; Stop 06/04/21 at 23:09; Status DC Famotidine (Pepcid Vial) 20 mg 1X ONCE IVP Last administered on 06/04/21at 23:36; Start 06/04/21 at 23:00; Stop 06/04/21 at 23:09; Status DC Iohexol (Omnipaque 300 Mg/ml) 75 ml 1X ONCE IV Last administered on 06/04/21at 00:51; Start 06/04/21 at 23:30; Stop 06/04/21 at 23:31; Status DC Ondansetron HCl (Zofran) 4 mg PRN Q8HRS PRN IVP NAUSEA/VOMITING Last administered on 06/05/21at 14:17; Start 06/05/21 at 02:15; Stop 06/06/21 at 02:14; Status DC Fentanyl Citrate (Fentanyl 2ml Vial) 25 mcg PRN Q2HR PRN IVP PAIN Last administered on 06/05/21at 14:17; Start 06/05/21 at 02:15 Sodium Chloride 1,000 ml @ 100 mls/hr Q10H IV Last administered on 06/05/21at 02:54; Start 06/05/21 at 02:15; Stop 06/05/21 at 12:14; Status DC Alprazolam (Xanax) 0.25 mg BID PO Last administered on 06/08/21at 07:58; Start 06/05/21 at 12:00 Zolpidem Tartrate (Ambien) 5 mg HS PO Last administered on 06/07/21at 22:13; Start 06/05/21 at 21:00 Vitamin B Complex/ Vitamin C (Aneta-Erick) 1 tab DAILY PO Last administered on 06/08/21at 07:58; Start 06/06/21 at 09:00 Pantoprazole Sodium (Protonix) 40 mg DAILYAC PO ; Start 06/06/21 at 07:30; Stop 06/06/21 at 10:40; Status DC Sotalol HCl (Betapace) 60 mg BID PO Last administered on 06/08/21at 07:58; Start 06/05/21 at 12:00 Tamoxifen Citrate (Nolvadex) 20 mg DAILY PO Last administered on 06/08/21at 08:02; Start 06/05/21 at 12:00 Diclofenac Sodium (Voltaren) 1 ilda BID TP Last administered on 06/06/21at 00:24; Start 06/05/21 at 12:00 Enoxaparin Sodium (Lovenox 40mg Syringe) 40 mg Q24H SQ Last administered on 06/07/21at 22:16; Start 06/05/21 at 21:00 Potassium Chloride/Dextrose/ Sod Cl 1,000 ml @ 75 mls/hr [id number] IV Last administered on 06/06/21at 01:24; Start 06/05/21 at 10:30 Iohexol (Omnipaque 300 Mg/ml) 400 ml 1X ONCE PO ; Start 06/06/21 at 10:30; Stop 06/06/21 at 10:31; Status DC Info (CONTRAST GIVEN -- Rx MONITORING) 1 each PRN DAILY PRN MC SEE COMMENTS; Start 06/06/21 at 10:30; Stop 06/08/21 at 10:29 Pantoprazole Sodium (PROTONIX VIAL for IV PUSH) 40 mg DAILYAC IVP ; Start 06/06/21 at 11:30 Active Scripts Active [Diclofenac Sodium] 100 GM Gel..gram. 1 Ilda TP BID 365 Days Reported Vitamin [id number] Acid Tablet (Cyanocobalamin/Folic Acid) 1 Each Tablet 1 Tab PO DAILY 30 Days Tamoxifen Citrate 20 Mg Tablet 20 Mg PO DAILY Alprazolam 0.25 Mg Tablet 1 Tab PO BID Betapace (Sotalol Hcl) 120 Mg Tablet 0.5 Tab PO BID 30 Days Zolpidem Tartrate 5 Mg Tablet 5 Mg PO HS Omeprazole 40 Mg Capsule.dr 40 Mg PO DAILY Vitals/I & O Vital Sign - Last 24 Hours 06/07/21 06/07/21 06/07/21 06/07/21 11:00 15:00 19:10 20:30 Temp 98.5 98.3 97.8 98.5 98.3 97.8 Pulse 75 84 78 Resp 18 18 18 B/P (MAP) 164/73 (103) 157/66 (96) 139/65 (89) Pulse Ox 98 100 97 O2 Delivery Room Air Room Air Room Air Room Air 06/07/21 06/07/21 06/08/21 06/08/21 22:15 23:12 03:12 07:00 Temp 97.9 98.1 98.0 97.9 98.1 98.0 Pulse 78 71 72 77 Resp 16 18 18 B/P (MAP) 139/65 138/68 (91) 150/70 (96) 171/78 (109) Pulse Ox 97 98 97 O2 Delivery Room Air Room Air Room Air 06/08/21 06/08/21 07:03 07:58 Pulse 77 B/P (MAP) 171/78 O2 Delivery Room Air Intake and Output 06/07/21 06/07/21 06/08/21 15:00 23:00 07:00 Intake Total 370 ml Balance 370 ml Justifications for Admission Other Justification Nutrition Consultation Dietary Evaluation: Recommendations by RD: Dietary education by RD, Increase Calorie Intake, Protein supplementation Comments: send oral nutrition supplements with meals as diet advances Expected Outcomes/Goals: to meet >75% est nutr needs Interpretation of weight loss: >20% in 1 year Malnutrition Findings: Food and Nutrition Intake (Sev: <50% est energy req 5days Body Fat Depletion (Non Severe: Mod to Severe Weight Status: Underweight BONY WILD MD Jun 08, 2021 08:14
--- NOTE | 2021-06-08 09:15 | PDOC ---
PROGRESS NOTES Date of Service: DATE: 06/08/21 TIME: 09:13 Subjective Subjective feels better tolerating diet Objective Objective Vital Signs Date Time Temp Pulse Resp B/P (MAP) Pulse Ox O2 Delivery O2 Flow Rate FiO2 06/08/21 07:58 77 171/78 06/08/21 07:03 Room Air 06/08/21 07:00 98.0 18 97 98.0 Intake and Output 06/08/21 06:59 Intake Total 370 ml Balance 370 ml Intake Oral 370 ml # Voids 2 # Bowel Movements 2 Physical Exam Abdomen: Soft, No tenderness Heart: Regular rate, Normal S1, Normal S2 Extremities: No clubbing, No cyanosis General: Alert, Oriented X3 HEENT: Atraumatic Lungs: Clear to auscultation MUSCULOSKELETAL: No joint tenderness Neuro: Normal speech Psych/Mental Status: Mental status NL Skin: No rashes Diagnosis Problem List Problems Medical Problems: (1) Small bowel obstruction Status: Acute Assessment Assessment Problems Medical Problems: (1) Small bowel obstruction Status: Acute FINAL IMPRESSION: 1. Abdominal pain secondary to partial small-bowel obstruction. 2. History of previous Mcgraw's esophagitis. 3. 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 4. History of gallbladder surgery. 5. Sick sinus syndrome, has a pacemaker. 6. Hypertension. 7. Dementia. 8. History of breast cancer, had a lumpectomy and radiation treatment and tamoxifen. DISPOSITION: possible d/c home tomorrow? tolerating clear liquid diet , advance to full liquid diet. small bowel series,contrast cleared from small intestine ?partial bowel obstruction improving appreciate GI and general surgery consult. Picc line needs iv fluids labs good spoke with pts son Sukhdeep. spoke with RN Plan Plan of Care Problems Medical Problems: (1) Small bowel obstruction Status: Acute Comment Review of Relevant I have reviewed the following items wade (where applicable) has been applied. Labs Microbiology 06/05/21 Urine Culture - Final, Complete Vitals/I & O Vital Sign - Last 24 Hours 06/07/21 06/07/21 06/07/21 06/07/21 11:00 15:00 19:10 20:30 Temp 98.5 98.3 97.8 98.5 98.3 97.8 Pulse 75 84 78 Resp 18 18 18 B/P (MAP) 164/73 (103) 157/66 (96) 139/65 (89) Pulse Ox 98 100 97 O2 Delivery Room Air Room Air Room Air Room Air 06/07/21 06/07/21 06/08/21 06/08/21 22:15 23:12 03:12 07:00 Temp 97.9 98.1 98.0 97.9 98.1 98.0 Pulse 78 71 72 77 Resp 16 18 18 B/P (MAP) 139/65 138/68 (91) 150/70 (96) 171/78 (109) Pulse Ox 97 98 97 O2 Delivery Room Air Room Air Room Air 06/08/21 06/08/21 07:03 07:58 Pulse 77 B/P (MAP) 171/78 O2 Delivery Room Air Intake and Output 06/07/21 06/07/21 06/08/21 14:59 22:59 06:59 Intake Total 370 ml Balance 370 ml Justifications for Admission Other Justification Nutrition Consultation Dietary Evaluation: Recommendations by RD: Dietary education by RD, Increase Calorie Intake, Protein supplementation Comments: send oral nutrition supplements with meals as diet advances Expected Outcomes/Goals: to meet >75% est nutr needs Interpretation of weight loss: >20% in 1 year Malnutrition Findings: Food and Nutrition Intake (Sev: <50% est energy req 5days Body Fat Depletion (Non Severe: Mod to Severe Weight Status: Underweight SHOLA SOLO MD Jun 08, 2021 09:15
--- NOTE | 2021-06-08 10:48 | PDOC ---
Date of Service: DATE: 06/08/21 TIME: 10:43 Subjective: Subjective: Feels better. Tolerating liquids and stooling. No abd pain. Objective: Vital Signs: Vital Signs Date Time Temp Pulse Resp B/P (MAP) Pulse Ox O2 Delivery O2 Flow Rate FiO2 06/08/21 07:58 77 171/78 06/08/21 07:03 Room Air 06/08/21 07:00 98.0 18 97 98.0 PE: GEN: NAD, up in chair watching tv LUNGS: CTAB HEART: RRR ABD: quiet BS, soft, non-tender, non-distended NEURO/PSYCH: A & O 3, pleasantly forgetful A/P: Recurrent partial SBO/ileus - resolving Chronic anemia H/o GERD/Mcgraw's, breast cancer, dementia -- Improving, tolerating diet. Change to PO PPI. Justicifation of Admission Dx: Justifications for Admission: Justification of Admission Dx: Yes KRYSTLE ORTIZ Jun 08, 2021 10:48
[2021-06-08 10:58] LABS: BASO % 1 % (0-3); EOS % 1 % (0-3); HEMATOCRIT 34.3 % (36.0-47.0); LYMPH % 33 % (24-48); MEAN CORPUSCULAR HEMOGLOBIN 27 pg (25-35); MEAN CORPUSCULAR HGB CONC 32 g/dL (31-37); MEAN CORPUSCULAR VOLUME 84 fL (79-100); MONO # 0.4 x10^3/uL (0.0-1.1); MONO % 12 % (0-9); NEUT # 1.7 x10^3/uL (1.8-7.7); NEUT % 54 % (31-73); PLATELET COUNT 144 x10^3/uL (140-400); RED BLOOD COUNT 4.09 x10^6/uL (3.50-5.40); RED CELL DISTRIBUTION WIDTH 15.7 % (11.5-14.5); WHITE BLOOD COUNT 3.1 x10^3/uL (4.0-11.0)
[2021-06-08 11:00] VITALS: BP 139/71
[2021-06-08 11:26] LABS: CALCIUM 8.8 mg/dL (8.5-10.1); GFR 63.6; POTASSIUM 3.2 mmol/L (3.5-5.1)
[2021-06-08 15:00] VITALS: BP 145/78
[2021-06-08] MEDS ORDERED: ACETAMINOPHEN 500 MG TABLET PO PRN (19:00)
[2021-06-08 19:15] VITALS: BP 132/65
[2021-06-08] MEDS: ZOLPIDEM 5 MG TABLET. PO SCH (20:19)
[2021-06-08] MEDS: ENOXAPARIN 40 MG/0.4 ML SYRINGE. SQ SCH (20:22)
[2021-06-08 23:12] VITALS: BP 131/68
[2021-06-09 03:03] VITALS: BP 135/75
[2021-06-09] MEDS: DICLOFENAC SODIUM 1% TOPICAL GEL 100GM TUBE. TP SCH (06:38)
[2021-06-09] MEDS: POTASSIUM CL 20MEQ D5-0.9%NACL 1,000 ML IV SCH (06:39)
[2021-06-09 07:00] VITALS: BP 176/86
[2021-06-09] MEDS ORDERED: PANTOPRAZOLE 40 MG TABLET.DR. PO SCH (07:30)
[2021-06-09] MEDS: SOTALOL 80 MG TABLET. PO SCH (07:53)
[2021-06-09] MEDS: FOLIC/VIT B COMP W-C (RENAL) TABLET. PO SCH (07:53)
[2021-06-09] MEDS: ALPRAZolam 0.25 MG TABLET PO SCH (07:53)
[2021-06-09] MEDS: TAMOXIFEN 10 MG TABLET PO SCH (07:57)
[2021-06-09] MEDS ORDERED: POTASSIUM CHLORIDE 20 MEQ TABLET.ER. PO ONE (09:15)
--- NOTE | 2021-06-09 09:15 | SNU/HH DC ---
DISCHARGE WITH HOME HEALTH DISCHARGE INFORMATION: Discharge Date: Jun 09, 2021 Final Diagnosis: Problems Medical Problems: (1) Small bowel obstruction Status: Acute Condition on Discharge: Stable CODE STATUS: Code Status: Full HOME HEALTH: Face to Face: I certify this patient is under my care and that I, or a nurse practitioner or physician's mail handler assistant working with me, had a face to face encounter that meets the physician face to face encounter requirements with this patient on []. 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 POST DISCHARGE ORDERS: Activity Instructions for Disc: Activity as tolerated Weight Bearing Status after Di: As tolerated Bathing Instructions: Shower-keep dressing dry, No Tub Bath until see DIET AFTER DISCHARGE: Gi soft diet Wound/Incision Care: No wound care needed CHECKS AFTER DISCHARGE: Checks after discharge: Check blood press - daily TREATMENT/EQUIPMENT ORDERS: Adaptive Equipment Issued: None CERTIFICATION STATEMENT: Certification Statement: Certification Statement: Based on the above finding, I certify that this patient is confined to the home and needs intermittent mcfp care, physical therapy and/or speech therapy, or continues to need occupational therapy.~ This patient is under my care, and I have initiated the establishment of the plan of care.~ This patient will be followed by myself or a community physician who will periodically review the plan of care. Home Meds Active Scripts [Diclofenac Sodium 1% Topical] 100 GM GEL..GRAM. No Conflict Check, 1 MARCE TP BID for arthirits for 365 Days, #730 EACH Prov:SHOLA SOLO MD 09/16/20 Reported Medications Cyanocobalamin/Folic Acid (VITAMIN L10-MNSFQ ACID TABLET) 1 Each Tablet, 1 TAB PO DAILY for for 30 Days, #30 TAB 0 Refills 02/21/20 Tamoxifen Citrate (TAMOXIFEN CITRATE) 20 Mg Tablet, 20 MG PO DAILY for , TAB 20 Alprazolam (ALPRAZOLAM) 0.25 Mg Tablet, 1 TAB PO BID for anti anxiety, #60 TAB 02/06/20 Sotalol Hcl (BETAPACE) 120 Mg Tablet, 0.5 TAB PO BID for blood pressure for 30 Days, #30 TAB 0 Refills 02/06/20 Zolpidem Tartrate (ZOLPIDEM TARTRATE) 5 Mg Tablet, 5 MG PO HS for Insomnia 07/25/19 Omeprazole (OMEPRAZOLE) 40 Mg Capsule.dr, 40 MG PO DAILY for GERD 09/18/13 SHOLA SOLO MD Jun 09, 2021 09:15
--- NOTE | 2021-06-09 09:26 | PDOC ---
PROGRESS NOTES Date of Service: DATE: 06/09/21 TIME: 09:24 Subjective Subjective feels better today Objective Objective Vital Signs Date Time Temp Pulse Resp B/P (MAP) Pulse Ox O2 Delivery O2 Flow Rate FiO2 06/09/21 07:53 83 176/86 06/09/21 07:02 Room Air 06/09/21 07:00 98.1 18 98 98.1 Intake and Output 06/09/21 07:00 Intake Total 1370 ml Balance 1370 ml Intake Oral 1370 ml # Voids 9 # Bowel Movements 2 Physical Exam Abdomen: Soft, No tenderness Heart: Regular rate, Normal S1, Normal S2 Extremities: No clubbing, No cyanosis General: Alert, Oriented X3 HEENT: Atraumatic Lungs: Clear to auscultation MUSCULOSKELETAL: No joint tenderness Neuro: Normal speech Psych/Mental Status: Mental status NL Skin: No rashes Diagnosis Problem List Problems Medical Problems: (1) Small bowel obstruction Status: Acute Assessment Assessment Problems Medical Problems: (1) Small bowel obstruction Status: Acute FINAL IMPRESSION: 1. Abdominal pain secondary to partial small-bowel obstruction. 2. History of previous Mcgraw's esophagitis. 3. 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 4. History of gallbladder surgery. 5. Sick sinus syndrome, has a pacemaker. 6. Hypertension. 7. Dementia. 8. History of breast cancer, had a lumpectomy and radiation treatment and tamoxifen. DISPOSITION: d/c home today stay on GI soft diet home with home health spoke with RN Plan Plan of Care Problems Medical Problems: (1) Small bowel obstruction Status: Acute Comment Review of Relevant I have reviewed the following items wade (where applicable) has been applied. Labs Laboratory Tests Test 06/08/21 10:45 White Blood Count 3.1 x10^3/uL (4.0-11.0) Red Blood Count 4.09 x10^6/uL (3.50-5.40) Hemoglobin 11.0 g/dL (12.0-15.5) Hematocrit 34.3 % (36.0-47.0) Mean Corpuscular Volume 84 fL (79-100) Mean Corpuscular Hemoglobin 27 pg (25-35) Mean Corpuscular Hemoglobin Concent 32 g/dL (31-37) Red Cell Distribution Width 15.7 % (11.5-14.5) Platelet Count 144 x10^3/uL (140-400) Neutrophils (%) (Auto) 54 % (31-73) Lymphocytes (%) (Auto) 33 % (24-48) Monocytes (%) (Auto) 12 % (0-9) Eosinophils (%) (Auto) 1 % (0-3) Basophils (%) (Auto) 1 % (0-3) Neutrophils # (Auto) 1.7 x10^3/uL (1.8-7.7) Lymphocytes # (Auto) 1.0 x10^3/uL (1.0-4.8) Monocytes # (Auto) 0.4 x10^3/uL (0.0-1.1) Eosinophils # (Auto) 0.0 x10^3/uL (0.0-0.7) Basophils # (Auto) 0.0 x10^3/uL (0.0-0.2) Sodium Level 138 mmol/L (136-145) Potassium Level 3.2 mmol/L (3.5-5.1) Chloride Level 101 mmol/L (98-107) Carbon Dioxide Level 27 mmol/L (21-32) Anion Gap 10 (6-14) Blood Urea Nitrogen 9 mg/dL (7-20) Creatinine 1.0 mg/dL (0.6-1.0) Estimated GFR (Cockcroft-Gault) 63.6 Glucose Level 106 mg/dL (70-99) Calcium Level 8.8 mg/dL (8.5-10.1) Microbiology 06/05/21 Urine Culture - Final, Complete Medications Current Medications Acetaminophen (Tylenol) 500 mg PRN Q6HRS PRN PO MILD PAIN / TEMP > 100.3'F Last administered on 06/08/21at 19:02; Start 06/08/21 at 19:00 Pantoprazole Sodium (Protonix) 40 mg DAILYAC PO Last administered on 06/09/21at 07:53; Start 06/09/21 at 07:30 Potassium Chloride (Klor-Con) 40 meq 1X ONCE PO Last administered on 06/09/21at 09:20; Start 06/09/21 at 09:15; Stop 06/09/21 at 09:17; Status DC Vitals/I & O Vital Sign - Last 24 Hours 06/08/21 06/08/21 06/08/21/3/21 11:00 15:00 19:15 20:20 Temp 98.1 98.0 97.8 98.1 98.0 97.8 Pulse 72 87 75 Resp 18 18 16 B/P (MAP) 139/71 (93) 145/78 (100) 132/65 (87) Pulse Ox 96 96 99 O2 Delivery Room Air Room Air Room Air Room Air 06/08/21 06/08/21 06/09/21 06/09/21 20:21 23:12 03:03 07:00 Temp 97.6 98.0 98.1 97.6 98.0 98.1 Pulse 75 75 75 83 Resp 18 16 18 B/P (MAP) 132/65 131/68 (89) 135/75 (95) 176/86 (116) Pulse Ox 98 99 98 O2 Delivery Room Air Room Air Room Air 06/09/21 06/09/21 07:02 07:53 Pulse 83 B/P (MAP) 176/86 O2 Delivery Room Air Intake and Output 06/08/21 06/08/21 06/09/21 15:00 23:00 07:00 Intake Total 370 ml 450 ml 550 ml Balance 370 ml 450 ml 550 ml Justifications for Admission Other Justification Nutrition Consultation Dietary Evaluation: Recommendations by RD: Dietary education by RD, Increase Calorie Intake, Protein supplementation Comments: send oral nutrition supplements with meals as diet advances Expected Outcomes/Goals: to meet >75% est nutr needs Interpretation of weight loss: >20% in 1 year Malnutrition Findings: Food and Nutrition Intake (Sev: <50% est energy req 5days Body Fat Depletion (Non Severe: Mod to Severe Weight Status: Underweight SHOLA SOLO MD Jun 09, 2021 09:26
--- NOTE | 2021-06-09 09:27 | PDOC ---
Date of Service: DATE: 06/09/21 TIME: 09:23 Subjective: Subjective: Biggest complaint is lower back pain. Abd pain overnight, none now. Stooled yesterday, no stool today, not much flatus. Ate some eggs and biscuits and frye. No n/v. Wants to go home. Objective: Objective: D/w nurse - pt c/o 10 abdominal pain overnight, pt reported two soft stools yesterday, tolerating soft diet. Nurse called later - plans to DC per primary today. Vital Signs: Vital Signs Date Time Temp Pulse Resp B/P (MAP) Pulse Ox O2 Delivery O2 Flow Rate FiO2 06/09/21 07:53 83 176/86 06/09/21 07:02 Room Air 06/09/21 07:00 98.1 18 98 98.1 Labs: Laboratory Tests Test 06/08/21 10:45 White Blood Count 3.1 x10^3/uL Red Blood Count 4.09 x10^6/uL Hemoglobin 11.0 g/dL Hematocrit 34.3 % Mean Corpuscular Volume 84 fL Mean Corpuscular Hemoglobin 27 pg Mean Corpuscular Hemoglobin Concent 32 g/dL Red Cell Distribution Width 15.7 % Platelet Count 144 x10^3/uL Neutrophils (%) (Auto) 54 % Lymphocytes (%) (Auto) 33 % Monocytes (%) (Auto) 12 % Eosinophils (%) (Auto) 1 % Basophils (%) (Auto) 1 % Neutrophils # (Auto) 1.7 x10^3/uL Lymphocytes # (Auto) 1.0 x10^3/uL Monocytes # (Auto) 0.4 x10^3/uL Eosinophils # (Auto) 0.0 x10^3/uL Basophils # (Auto) 0.0 x10^3/uL Sodium Level 138 mmol/L Potassium Level 3.2 mmol/L Chloride Level 101 mmol/L Carbon Dioxide Level 27 mmol/L Anion Gap 10 Blood Urea Nitrogen 9 mg/dL Creatinine 1.0 mg/dL Estimated GFR (Cockcroft-Gault) 63.6 Glucose Level 106 mg/dL Calcium Level 8.8 mg/dL PE: GEN: NAD LUNGS: CTAB HEART: RRR ABD: BS+ mostly to left, soft, non-tender NEURO/PSYCH: A & O 3, forgetful A/P: Recurrent partial SBO/ileus - improved H/o anemia, GERD/Mcgraw's, breast cancer, dementia -- Plans to discharge as above. Follow-up w/ GI PRN. Justicifation of Admission Dx: Justifications for Admission: Justification of Admission Dx: Yes KRYSTLE ORTIZ Jun 09, 2021 09:27
--- NOTE | 2021-06-09 10:30 | NUR ---
SW following. Discussed with RN, discharge order for home with home health. Souleymane Carter RN notified. RN notified. No further SW needs.
[2021-06-09 11:00] VITALS: BP 120/63
--- NOTE | 2021-06-09 13:14 | PDOC ---
SURGICAL PROGRESS NOTE DATE: 06/09/21 TIME: 13:12 Subjective back pain , mild upper abdominal pain + loose stool low appetite Vital Signs Vital Signs Date Time Temp Pulse Resp B/P (MAP) Pulse Ox O2 Delivery O2 Flow Rate FiO2 06/09/21 11:00 98.4 75 18 120/63 (82) 97 Room Air 98.4 I&O Intake and Output 06/09/21 07:00 Intake Total 1370 ml Balance 1370 ml Intake Oral 1370 ml # Voids 9 # Bowel Movements 2 General: Alert, Oriented X3, Cooperative Abdomen: Soft, Other (ND) Labs Laboratory Tests Test 06/08/21 10:45 White Blood Count 3.1 x10^3/uL (4.0-11.0) Red Blood Count 4.09 x10^6/uL (3.50-5.40) Hemoglobin 11.0 g/dL (12.0-15.5) Hematocrit 34.3 % (36.0-47.0) Mean Corpuscular Volume 84 fL (79-100) Mean Corpuscular Hemoglobin 27 pg (25-35) Mean Corpuscular Hemoglobin Concent 32 g/dL (31-37) Red Cell Distribution Width 15.7 % (11.5-14.5) Platelet Count 144 x10^3/uL (140-400) Neutrophils (%) (Auto) 54 % (31-73) Lymphocytes (%) (Auto) 33 % (24-48) Monocytes (%) (Auto) 12 % (0-9) Eosinophils (%) (Auto) 1 % (0-3) Basophils (%) (Auto) 1 % (0-3) Neutrophils # (Auto) 1.7 x10^3/uL (1.8-7.7) Lymphocytes # (Auto) 1.0 x10^3/uL (1.0-4.8) Monocytes # (Auto) 0.4 x10^3/uL (0.0-1.1) Eosinophils # (Auto) 0.0 x10^3/uL (0.0-0.7) Basophils # (Auto) 0.0 x10^3/uL (0.0-0.2) Sodium Level 138 mmol/L (136-145) Potassium Level 3.2 mmol/L (3.5-5.1) Chloride Level 101 mmol/L (98-107) Carbon Dioxide Level 27 mmol/L (21-32) Anion Gap 10 (6-14) Blood Urea Nitrogen 9 mg/dL (7-20) Creatinine 1.0 mg/dL (0.6-1.0) Estimated GFR (Cockcroft-Gault) 63.6 Glucose Level 106 mg/dL (70-99) Calcium Level 8.8 mg/dL (8.5-10.1) Problem List Problems Medical Problems: (1) Small bowel obstruction Status: Acute Assessment/Plan no surgical plans per PCP Justicifation of Admission Dx: Justifications for Admission: Justification of Admission Dx: Yes LC TORRES [employer] Jun 09, 2021 13:14
--- NOTE | 2021-06-09 14:02 | NUR ---
Discharge Note: DAVIS CARVALHO Discharge instructions and discharge home medications reviewed with Patient and a copy given. All questions have been answered and understanding verbalized. The following instructions and handouts were given: information about medications, follow up appointments, diet, activity. Discontinued lines and drains: no IV line present. Patient discharged to home with home health with daughter, wheelchair used for mobility to discharge vehicle.
--- NOTE | 2021-06-11 12:11 | PDOC ---
Provider Note Date of Service: DATE: 06/11/21 TIME: 12:10 Provider Note Discharge Summary dictated.#[id number]. Justifications for Admission Other Justification SHOLA SOLO MD Jun 11, 2021 12:11
--- NOTE | 2021-06-11 12:20 | DS ---
DATE OF DISCHARGE: 06/09/2021 REASON FOR ADMISSION TO THE HOSPITAL: Abdominal pain, small bowel partial obstruction. CONSULTATIONS: Dr. Hopkins, Surgery, Dr. Tavares, GI. PROCEDURES DONE: 1. CT scan of the abdomen and pelvis. 2. Small bowel series. COMPLICATIONS NOTED: None. HOSPITAL COURSE: The patient is an 85-year-old female. The patient has multiple admissions for abdominal pain. She was here 6 months ago for partial small-bowel obstruction, was treated conservatively. The patient had similar symptoms with abdominal pain, nausea, vomiting, not able to keep anything down. CT scan shows a partial small-bowel obstruction. The patient was treated conservatively with IV fluids, NG tube and the patient had a small bowel series which showed a partial bowel obstruction. The patient did improve over time with conservative treatment, tolerating diet from clear liquid to full liquid to a GI soft diet. The patient was feeling better and she was discharged on GI soft diet. FINAL DIAGNOSES: 1. Partial small-bowel obstruction, treated conservatively. 2. History of breast cancer. 3. Hypertension. 4. Dementia. 5. Hyperlipidemia. 6. Sick sinus syndrome, history of pacemaker. 7. General debility and decline. DISPOSITION: Home. See [facility] for discharge medications. The patient is stable at this time. Chance of readmission to the hospital is high because of her comorbid conditions. KAUSHIK DR: Gomez TID: [id number]
== END 2021-06-09 14:02 | disposition home health service (06) | DRG 389 ==
LOC: ER 23:26 → ED HOLD 06-05 02:12 → 4 NORTH 06-05 03:46 → 6 SOUTH 06-05 05:59 → 4 NORTH 06-05 18:00
PROVIDERS: ADMIT Internal Medicine; ATTEND Internal Medicine
PROC: 0D9670Z Drainage of Stomach with Drainage Device, Via Natural or Artificial Opening (ICD-10-PCS; principal; 2021-06-05)
DX: K56.600 Partial intestinal obstruction, unspecified as to cause (principal); E87.1 Hypo-osmolality and hyponatremia; D64.9 Anemia, unspecified; E78.00 Pure hypercholesterolemia, unspecified; E78.5 Hyperlipidemia, unspecified; F03.90 Unspecified dementia, unspecified severity, without behavioral disturbance, psychotic disturbance, mood disturbance, and anxiety; I11.0 Hypertensive heart disease with heart failure; I48.91 Unspecified atrial fibrillation; I50.9 Heart failure, unspecified; K22.70 Barrett's esophagus without dysplasia; K56.7 Ileus, unspecified; K57.90 Diverticulosis of intestine, part unspecified, without perforation or abscess without bleeding; K66.0 Peritoneal adhesions (postprocedural) (postinfection); K83.8 Other specified diseases of biliary tract; M81.0 Age-related osteoporosis without current pathological fracture; Z20.822 Contact with and (suspected) exposure to COVID-19; Z82.49 Family history of ischemic heart disease and other diseases of the circulatory system; Z83.3 Family history of diabetes mellitus; Z85.3 Personal history of malignant neoplasm of breast; Z87.11 Personal history of peptic ulcer disease; Z90.49 Acquired absence of other specified parts of digestive tract; Z90.710 Acquired absence of both cervix and uterus; Z95.0 Presence of cardiac pacemaker; F32.A Depression, unspecified; F41.9 Anxiety disorder, unspecified; K21.9 Gastro-esophageal reflux disease without esophagitis; M19.90 Unspecified osteoarthritis, unspecified site; Z88.0 Allergy status to penicillin; Z88.8 Allergy status to other drugs, medicaments and biological substances; Z92.3 Personal history of irradiation
CPT/HCPCS: 36415; 74018; 74022; 74177; 74250; 80048; 80053; 81001; 82553; 83605; 83690; 83735; 84484; 85025; 87086; 87426; 93005; 96361; 96374; 96375; J1650; J2405; J3010; J3480; J3490; J7030; Q9967; U0003; U0005; 97116-GP; 97530-GO; 97535-GO; 99285-25; G0378